=== PATIENT | male | born 1955 | race Caucasian/White ===

== ENCOUNTER 2018-12-03 10:00 | Emergency (ER) | payer MEDICARE, SELFPAY ==
[2018-12-03 10:00] VITALS: BP 153/86; PULSE 101; RESP 20; O2SAT 97
--- NOTE | 2018-12-03 10:00 | RAD_ITS ---
STUDY: X-RAY CHEST REASON FOR EXAM: Male, 63 years old. Cough and shortness of breath. TECHNIQUE: PA and lateral views of the chest. COMPARISON: Comparison is made with prior study dated July 04, 2017. FINDINGS: EKG electrodes are seen. Hyperinflation. The lungs are clear. Nipple shadows are seen bilaterally. There is no demonstrated pleural abnormality. Normal size heart. Normal mediastinum and richard. Normal visualized pulmonary arteries. There is atherosclerotic tortuosity of the aortic arch and descending thoracic aorta. Normal visualized thoracic spine. Normal visualized ribs, clavicles, and shoulders. There is no demonstrated abnormality of the visualized soft tissue structures of the upper abdomen. RAD/Chest PA and Lateral IMPRESSION: Hyperinflation. The lungs are clear. Bilateral nipple shadows are seen. Electronically Signed: Chavez Regalado MD at 11:18 EST , Service support ,
--- NOTE | 2018-12-03 10:00 | EKG12_ITS ---
Test Reason : SOB Blood Pressure : / mmHG Vent. Rate : 111 BPM Atrial Rate : 111 BPM P-R Int : 126 ms QRS Dur : 086 ms QT Int : 328 ms P-R-T Axes : 057 034 053 degrees QTc Int : 446 ms Sinus tachycardia with Premature atrial complexes Otherwise normal ECG Confirmed by VLAD FLORES, JEANETTE ([id number]), photo editor JASON SHIPMAN ([id number]) on 12/09/2018 9:58:29 AM Referred By: MELANIE Confirmed By:JEANETTE CHU MD
[2018-12-03 10:01] VITALS: BP 131/110; PULSE 106; RESP 20; TEMP 37.1; O2SAT 97; BMI 25.7
--- NOTE | 2018-12-03 10:01 | ED.VISSUMM ---
- ER Visit Summary Date of Service: 12/03/18 Chief Complaint: Cough, shortness of breath History of Present Illness: The patient is a 63 M with history of COPD, hypertension, coronary vascular disease presents to the emergency department with cough and shortness of breath. The patient does have history of COPD and continues to smoke. He is not on oxygen at home. Yesterday, he began to have scant nonproductive cough. Overnight, he had worsening dyspnea. He states that his shortness of breath felt worse this morning. He took his blood pressure and it was mildly elevated. He has had no chest pain or orthopnea. He denies any hemoptysis. He did call squad. On squad arrival, he was given nebulized breathing treatments and Solu-Medrol. On arrival, he states is feeling much better. Physical Examination: Vital signs reviewed General: Well-nourished, well-developed Head: Normocephalic, atraumatic Eyes: Pupils equal and reactive, extraocular muscles intact Neck, supple, no lymphadenopathy Heart: Regular rate and rhythm Respiratory: No distress, wheezing in all kend[place] with diminished sounds in the right base Abdomen: Soft, nontender, nondistended, no peritoneal signs Back: Nontender Extremities: Nontender, no edema, no cords Skin: Normal color no rash Neuro: Alert and oriented, no focal or lateralizing deficits Test Results: [] Emergency Department Course and Treatment: The patient presents with a COPD exacerbation. He is on cough with scant sputum. He was given nebulized breathing treatments with improvement of his aeration. His chest x-ray was unremarkable. His EKG showed sinus rhythm without acute ischemia. However, the patient screening labs do show acute renal failure. His normal baseline creatinine is 1. When I discussed this with him, he states that he has been taking almost a gram of ibuprofen every 3 or 4 hours for the past 3 days. He states his been urinating without issue, but I did obtain a bladder scan and he had greater than a liter. Dos Santos catheter was placed. The patient had 1400 cc of clear urine out. I do suspect that he likely has a postobstructive uropathy. At this time, I do feel the patient would benefit from admission to monitor his creatinine. Addendum: The patient was seen and evaluated by the hospitalist. After long discussion with the patient, it was thought that he could be managed as an outpatient. He will be given outpatient urology follow-up and we will keep the Dos Santos in place. The patient will be discharged. Treatment Plan: [] Disposition: Discharge Impression: 1. COPD exacerbation 2. Postobstructive uropathy This note was generated with [employer] dictation software. It may contain incorrect words, spelling, and punctuation that were not noted in review of the chart prior to signing ED Disposition - Plan for ED Patient: Prescriptions: Albuterol Inhaler [Ventolin Hfa] 1 - 2 puff INHALATION Q4H PRN PRN #1 inhaler PRN Reason: Shortness Of Breath Prednisone 4 tab PO DAILY #20 tablet Tamsulosin HCl [Flomax] 0.4 mg PO DAILY #30 capsule Referrals: Neil Holden MD [Primary Care Provider] -
[2018-12-03 10:08] VITALS: PULSE 104; RESP 23
[2018-12-03] MEDS: Ipratropium/Albuterol Sulfate 3 ML AMPUL.NEB INHALATION (10:08)
[2018-12-03] MEDS: Albuterol 2.5 MG/3 ML VIAL.NEB. INHALATION ×3 (10:08)
[2018-12-03] MEDS: 0.9% Normal Saline 1,000 ML 150 ML IV (10:10)
[2018-12-03 10:34] LABS: Absolute Neutrophil Count 6.5 X10^3/uL (2.0-7.7); Basophil# 0.04 X10^3/uL; Basophil% 0.4 % (0-1); Eosinophil# 0.22 X10^3/uL; Eosinophils% 2.4 % (0-5); Hematocrit 35.2 % (40-54); Lymphocyte % 12.2 % (19-41); Mean Corp Hgb Conc 31.3 g/gl (32-36); Mean Corpuscular Hgb 29.4 pg (27.0-32.0); Mean Corpuscular Volume 94.1 fL (80-94); Mean Platelet Vol. 11.7 fl (6.2-12.0); Monocyte# 1.12 X10^3/uL; Monocyte% 12.4 % (0-10); Neutrophil # 6.53 X10^3/uL (2.7-7.7); Neutrophil % 72.3 % (47-70); Platelet Count 217 K/mm3 (150-450); RBC Distribution Width CV 13.5 % (11.6-14.6); RBC Distribution Width SD 44.4 fl (35.1-43.9); Red Blood Count 3.74 M/mm3 (4.6-6.2)
[2018-12-03 10:36] LABS: POSITIVE COUNT NO; POSITIVE DIFFERENTIAL NO; POSITIVE MORPHOLOGY NO
[2018-12-03 10:42] VITALS: O2SAT 97
[2018-12-03 10:49] LABS: Anion Gap 8 (5-15); BUN 45 mg/dL (7-18); Calcium,Total 8.6 mg/dL (8.5-10.1); Chloride 113 mmol/L (98-107); Creatinine, Serum 4.51 mg/dL (0.70-1.30); EST Glomerular Filtration Rate 14 mL/min (>60); Est Glom Filt Rate - Afr Amer 17 mL/min (>60); Estimated Creatinine Clearance 16.76 ml/min; Glucose 112 mg/dL (74-106); Potassium 4.8 mmol/L (3.5-5.1); Sodium Level 142 mmol/L (136-145)
[2018-12-03 11:36] LABS: AST(SGOT) 30 U/L (15-37); Alanine Aminotransfer ALT/SGPT 42 U/L (16-61); Albumin, Serum 3.8 g/dL (3.2-5.0); Alkaline Phosphatase 58 U/L (45-117); Bilirubin, Direct 0.08 mg/dL (0.00-0.30); Globulin 3.8 g/dL (2.2-4.2); Protein, Total 7.6 g/dL (6.4-8.2)
[2018-12-03 11:41] LABS: Bacteria 0 SEEN /hpf (None Seen); Mucous, Urine 0 SEEN /hpf (<or=2+); Red Blood Cells-Urine 0 SEEN /hpf (0-5); White Blood Cells 0 SEEN /hpf (0-5)
[2018-12-03 11:44] LABS: Color, Urine Yellow (Yellow); Glucose, Dipstick Normal (Normal); Ketone-Dipstick Negative (Negative); Leukocyte Esterase-Dipstick Negative /ul (Negative); Nitrite-Dipstick Negative (Negative); Occult Blood-Urine 10 /ul (Negative); Protein-Dipstick 30 mg/dl (Negative); Urine Bilirubin Dipstick Negative (Negative); Urine Clarity Clear (Clear); Urine Urobilinogen Normal (Normal)
--- NOTE | 2018-12-03 11:51 | NURSING ---
DR ANDREW PRO
[2018-12-03 11:52] LABS: Squamous Epithelial Cells - UA 0-5 SEEN /hpf (0-5)
[2018-12-03 12:31] VITALS: BP 140/85; PULSE 108; RESP 22; O2SAT 98
--- NOTE | 2018-12-03 13:01 | DCINST_ITS ---
You will use the following diet at home:: No restrictions Your food should be the consistency of: Regular Discharge Activity: Return to Normal Activity Call your doctor if you observe: Fever of 101 or Higher, Shortness of breath Catheter: Dos Santos to leg bag Allergies/Adverse Reactions: Allergies No Known Allergies Allergy (Verified 07/04/17 05:18) Medications to take at Discharge Aspirin [Aspir-Low] 81 mg PO DAILY 07/04/17 clopidogrel 75 mg tablet 75 mg PO DAILY #90 tab 09/28/18 isosorbide mononitrate ER 30 mg tablet,extended release 24 hr 30 mg PO QDAY #90 tab 09/28/18 metoprolol succinate ER 25 mg tablet,extended release 24 hr 25 mg PO DAILY #90 tab 09/28/18 simvastatin 80 mg tablet 80 mg PO QHS #90 tab 09/28/18 Albuterol Inhaler [Ventolin Hfa] 1 - 2 puff INHALATION Q4H PRN PRN #1 inhaler 12/03/18 [place]-3 Fatty Acids/Fish Oil [Fish Oil 1,000 mg Capsule] 1 each PO DAILY 12/03/18 Prednisone 4 tab PO DAILY #20 tablet 12/03/18 Tamsulosin HCl [Flomax] 0.4 mg PO DAILY #30 capsule 12/03/18 The following prescriptions were given: Albuterol Inhaler [Ventolin Hfa] 1 - 2 puff INHALATION Q4H PRN PRN #1 inhaler PRN Reason: Shortness Of Breath Prednisone 4 tab PO DAILY #20 tablet Tamsulosin HCl [Flomax] 0.4 mg PO DAILY #30 capsule Orders to be completed after discharge: Basic Metabolic Profile (BMP) Time Frame: 1 Week, Location: Laboratory Primary Care Physician: Neil Holden MD [Primary Care Provider] - Please follow up with your Primary Care Physician in: follow up in 1-2 weeks Test Results: Test results from this visit will be discussed in further detail at your follow- up appointment, if applicable. Please Follow Up With: Eduardo Chadwick MD - Urology When: 2-3 weeks Proposed Discharge Date: 12/03/18
--- NOTE | 2018-12-03 13:01 | PCM.CONS.GEN ---
Problem List (1) MATEUS (acute kidney injury) Status: Acute (2) BPH (benign prostatic hyperplasia) Status: Acute (3) COPD exacerbation Status: Chronic Reason for Consult Date of Consultation: 12/03/18 Reason for Consultation: shortness of breath. History of Present Illness: The patient is a 63 year old M resents with being ill for the past 2 days. Today patient just felt increasing shortness of breath and a sent to the emergency room. Patient was never noted to be hypoxic it was found to have a creatinine of 4.5, up from his baseline of 0.73 from June 2017. Patient is never had a known history of BPH nor acute renal failure. Patient received steroids as well as breathing treatments and currently feeling better. Patient did have a Dos Santos catheter placed that removed immediately 1500 cc of urine. Patient has noted that he has had some intermittent issues in regards to urinary incontinence which occasionally he wears some pads in his underwear. The hospitalist service was asked to admit the patient for renal failure and COPD exacerbation. [] Past Medical History Past Medical History (Chronic Problems): Chronic Problems COPD exacerbation (Chronic) Medical History: Medical History (Last Updated 12/03/18 @ 13:03 by Tenzin Paul DO) CAD (coronary artery disease) I25.10 COPD (chronic obstructive pulmonary disease) J44.9 HTN (hypertension) I10 Allergies No Known Allergies Allergy (Verified 07/04/17 05:18) Home Medications: Ambulatory Orders Medication Instructions Recorded Aspirin [Aspir-Low] 81 mg PO DAILY 07/04/17 clopidogrel 75 mg tablet 75 mg PO DAILY #90 tab 09/28/18 isosorbide mononitrate ER 30 mg 30 mg PO QDAY #90 tab 09/28/18 tablet,extended release 24 hr metoprolol succinate ER 25 mg 25 mg PO DAILY #90 tab 09/28/18 tablet,extended release 24 hr simvastatin 80 mg tablet 80 mg PO QHS #90 tab 09/28/18 Albuterol Inhaler [Ventolin Hfa] 1 - 2 puff INHALATION Q4H PRN PRN 12/03/18 #1 inhaler [place]-3 Fatty Acids/Fish Oil [Fish 1 each PO DAILY 12/03/18 Oil 1,000 mg Capsule] Prednisone 4 tab PO DAILY #20 tablet 12/03/18 Tamsulosin HCl [Flomax] 0.4 mg PO DAILY #30 capsule 12/03/18 Smoking Status: Light Smoker (<10/day) Tobacco Use: Cigarettes Alcohol: None Drugs: None - *Family History Maternal Family History: Family History (Last Updated 12/03/18 @ 13:03 by Tenzin Paul DO) Other BPH (benign prostatic hyperplasia) Review of Systems Constitutional: Reports: Malaise. Denies: Anorexia, Chills, Fever, Night Sweats Eyes: Denies: Blurred vision, Double vision HEENT: Denies: Head Aches, Sinus Congestion, Sinus Drainage Cardiovascular: Denies: Chest Pain, Palpitations Respiratory: Reports: Shortness of Breath. Denies: Cough, Sputum production Gastrointestinal: Denies: Abdominal Pain, Nausea, Vomiting Genitourinary: Reports: Incontinence, - - pain with catheter.. Denies: Dysuria Musculoskeletal: Denies: Joint Pain, Joint Tenderness Skin: Denies: Rash, Wounds Neurological: Denies: Numbness, Tingling, Focal weakness Psychiatric: Denies: Anxiety, Depression Hematologic/ Lymphatic: Denies: Easy Bruising, Easy Bleeding, Hx of blood clot Comment: A 10 point review of systems were negative except as mentioned in the history of present illness and the other review of systems. Patient Problems: Active and Suspected Problems BPH (benign prostatic hyperplasia) (Acute) MATEUS (acute kidney injury) (Acute) - Physical Exam General: Alert, Cooperative, No apparent distress HEENT: Atraumatic, Normocephalic Oral: Moist Mucosa, No Gingival or Mucosal Lesions/ Ulcerations Neck: No Nodes, Thyroid Normal Size and Texture Lungs: Clear to auscultation, Normal air movement, No rhonchi, No wheeze Cardiovascular: Regular rate, Regular Rhythm, Normal S1, Normal S2, No murmurs Abdomen: Bowel Sounds Present, Soft, Non Tender, Non-Distended, No Hepato-splenomegaly Extremities: No edema, No Calf Tenderness Skin: No rashes, No breakdown Psych/Mental Status: Normal Affect, Appropriate Vital Signs Temp Pulse Resp BP Pulse Ox 37.1 C 108 H 22 H 140/85 H 98 12/03/18 10:01 12/03/18 12:31 12/03/18 12:31 12/03/18 12:31 12/03/18 12:31 Oxygen Delivery Method Room Air Weight: 78.925 kg Body Mass Index (BMI) 25.7 Laboratory Tests Past 24 Hrs 12/03/18 12/03/18 12/03/18 10:25 10:25 10:25 WBC 9.0 RBC 3.74 L Hgb 11.0 L Hct 35.2 L MCV 94.1 H MCH 29.4 MCHC 31.3 L RDW 13.5 RDW Differential 44.4 H Plt Count 217 MPV 11.7 Immature Gran % (Auto) 0.300 Neut % (Auto) 72.3 H Lymph % (Auto) 12.2 L Polk % (Auto) 12.4 H Eos % (Auto) 2.4 Baso % (Auto) 0.4 Absolute Neuts (auto) 6.5 Absolute Lymphs (auto) 1.10 Total Counted Not Reportable Sodium 142 Potassium 4.8 Chloride 113 H Carbon Dioxide 21.0 Anion Gap 8 BUN 45 H Creatinine 4.51 H Estim Creat Clear Calc 16.76 Est GFR (MDRD) Af Amer 17 L Est GFR (MDRD) Non-Af 14 L BUN/Creatinine Ratio 10.0 Glucose 112 H Calcium 8.6 Total Bilirubin 0.30 Direct Bilirubin 0.08 AST 30 ALT 42 Alkaline Phosphatase 58 Troponin I 0.037 Total Protein 7.6 Albumin 3.8 Globulin 3.8 Urine Color Urine Clarity Urine pH Ur Specific [place] Urine Protein Urine Glucose (UA) Urine Ketones Urine Occult Blood Urine Nitrite Urine Bilirubin Urine Urobilinogen Ur Leukocyte Esterase Urine RBC Urine WBC Ur Squamous Epith Cells Urine Bacteria Urine Mucus 12/03/18 11:30 WBC RBC Hgb Hct MCV MCH MCHC RDW RDW Differential Plt Count MPV Immature Gran % (Auto) Neut % (Auto) Lymph % (Auto) Polk % (Auto) Eos % (Auto) Baso % (Auto) Absolute Neuts (auto) Absolute Lymphs (auto) Total Counted Sodium Potassium Chloride Carbon Dioxide Anion Gap BUN Creatinine Estim Creat Clear Calc Est GFR (MDRD) Af Amer Est GFR (MDRD) Non-Af BUN/Creatinine Ratio Glucose Calcium Total Bilirubin Direct Bilirubin AST ALT Alkaline Phosphatase Troponin I Total Protein Albumin Globulin Urine Color Yellow Urine Clarity Clear Urine pH 6.0 Ur Specific [place]anchard 1.010 Urine Protein 30 H Urine Glucose (UA) Normal Urine Ketones Negative Urine Occult Blood 10 H Urine Nitrite Negative Urine Bilirubin Negative Urine Urobilinogen Normal Ur Leukocyte Esterase Negative Urine RBC 0 SEEN Urine WBC 0 SEEN Ur Squamous Epith Cells 0-5 SEEN Urine Bacteria 0 SEEN Urine Mucus 0 SEEN Assessment/Plan All Active Problems BPH (benign prostatic hyperplasia) (Acute) MATEUS (acute kidney injury) (Acute) 1. Acute kidney injury Likely post renal Continue with a Dos Santos catheter Flomax Follow BMP as outpatient Hold lisinopril in the meantime. 2. Acute COPD exacerbation Mild Prednisone 40 mg daily for 5 days and albuterol metered-dose inhalers as needed 3. BPH Is been more of a chronic process but it sounds that the patient had some prior issues with some urinary incontinence. Patient continue with Dos Santos catheter with a leg bag instructions to be given by nursing. Patient continue with Flomax Patient follow-up with urology in the next coming weeks for eventual removal of the Dos Santos catheter. No indication to admit this patient. Discussed with the patient and he is in agreement to be discharged and to have the appropriate follow-ups. Code Visit Office Visits / Consults: [id number] OP Consult L4
[2018-12-03 14:04] VITALS: BP 138/70; PULSE 101; RESP 14; O2SAT 97
== END 2018-12-03 14:05 | disposition home or self-care (01) ==
LOC: ED 11:52
PROVIDERS: Emergency Provider Emergency Medicine; Family Provider Family Medicine; PCP Family Medicine
DX: J44.1 Chronic obstructive pulmonary disease with (acute) exacerbation (principal); N13.9 Obstructive and reflux uropathy, unspecified; N17.9 Acute kidney failure, unspecified; N40.0 Benign prostatic hyperplasia without lower urinary tract symptoms; I25.10 Atherosclerotic heart disease of native coronary artery without angina pectoris; I25.2 Old myocardial infarction; I10 Essential (primary) hypertension; E78.00 Pure hypercholesterolemia, unspecified; Z79.82 Long term (current) use of aspirin; Z79.899 Other long term (current) drug therapy; F17.210 Nicotine dependence, cigarettes, uncomplicated
CPT/HCPCS: 51702; 71046; 80048; 80076; 81001; 84484; 85025; 93005; 94640; 96360; 96361; 99285; J7030

== ENCOUNTER 2018-12-06 15:17 | Inpatient (IN) | payer MEDICARE, SELFPAY ==
[2018-12-06] VITALS (9 sets, daily range): BP systolic 115–131; BP diastolic 67–77; PULSE 94–108; RESP 18–31; TEMP 36.5–37.1; O2SAT 94–98; BMI 28.0; BMI 27.1; BMI 27.2
--- NOTE | 2018-12-06 15:35 | EKG12_ITS ---
Test Reason : ANXIETY Blood Pressure : / mmHG Vent. Rate : 096 BPM Atrial Rate : 096 BPM P-R Int : 106 ms QRS Dur : 088 ms QT Int : 328 ms P-R-T Axes : 048 066 067 degrees QTc Int : 414 ms Sinus rhythm with short WI Otherwise normal ECG Confirmed by VLAD FLORES, JEANETTE ([id number]), associate editor JASON SHIPMAN ([id number]) on 12/09/2018 10:19:43 AM Referred By: Confirmed By:JEANETTE CHU MD
--- NOTE | 2018-12-06 15:35 | RAD_ITS ---
STUDY: X-RAY CHEST REASON FOR EXAM: Male, 63 years old. Short of breath and cough TECHNIQUE: Single AP portable view of the chest. COMPARISON: 12/03/2018. FINDINGS: There is hyperinflation of the lungs consistent with chronic obstructive lung disease (COPD). No infiltrates or effusions. There is no demonstrated pleural abnormality. Normal size heart. Normal mediastinum and richard. Normal visualized pulmonary arteries. Normal visualized aortic arch and descending thoracic aorta. Normal visualized thoracic spine. Normal visualized ribs, clavicles, and shoulders. There is no demonstrated abnormality of the visualized soft tissue structures of the upper abdomen. RAD/Chest 1 View (Portable) IMPRESSION: There are findings consistent with COPD. There is no evidence of acute chest disease. Electronically Signed: Wayne Parham MD at 16:12 EST , Service support ,
--- NOTE | 2018-12-06 15:41 | ED.DCSUM_ITS ---
- ER Visit Summary Date of Service: 12/06/18 Chief Complaint: Shortness of breath History of Present Illness: The patient is a 63 M presenting with shortness of breath. Patient states this started today. He states he tripped and fell on his walker. He fell onto his right knee. He did not hit his head or lose consciousness. He states he panicked and became very short of breath. He crawled to his room and called EMS. He has a history of COPD. He was in the ED on December 03 for COPD and was diagnosed with MATEUS secondary to postobstructive uropathy. He was sent home with a Dos Santos catheter. He is scheduled to have this removed on December 10. He is currently on prednisone. He denies chest pain. Denies other complaints. He was given albuterol and Solu-Medrol in route per EMS. Physical Examination: Vitals are stable. Patient is afebrile. Alert no acute distress. HEENT exam is unremarkable. Neck is supple. Lungs are wheezing bilaterally. Heart is regular rate and rhythm. Abdomen is soft nontender nondistended. Extremities right knee nontender with active full range of motion. Skin is warm and dry. No focal neurologic deficit. Remainder of exam is unremarkable. Emergency Department Course and Treatment: CBC shows white count 12.7, hemoglobin 10.9. Chemistries show glucose 142, BUN 64, creatinine 4.11. Troponin 0.030. EKG is sinus rate 96 no acute changes. Chest x-ray shows no acute process. He was given Solu-Medrol prior to arrival. He continues to have wheezing on reevaluation. Discussed with the hospitalist for admission. Disposition: Admission Impression: COPD exacerbation, MATEUS This note was generated with [employer] dictation software. It may contain incorrect words, spelling, and punctuation that were not noted in review of the chart prior to signing ED Disposition - Plan for ED Patient: Disposition: Acute Care [facility]
[2018-12-06 15:45] LABS: Absolute Neutrophil Count 9.9 X10^3/uL (2.0-7.7); Basophil# 0.01 X10^3/uL; Basophil% 0.1 % (0-1); Eosinophil# 0.05 X10^3/uL; Eosinophils% 0.4 % (0-5); Hematocrit 34.5 % (40-54); Hemoglobin 10.9 g/dl (13.0-16.5); Lymphocyte % 12.6 % (19-41); Mean Corp Hgb Conc 31.6 g/gl (32-36); Mean Corpuscular Hgb 29.1 pg (27.0-32.0); Mean Platelet Vol. 11.4 fl (6.2-12.0); Monocyte# 1.11 X10^3/uL; Monocyte% 8.7 % (0-10); Neutrophil # 9.87 X10^3/uL (2.7-7.7); Neutrophil % 77.8 % (47-70); POSITIVE COUNT NO; POSITIVE DIFFERENTIAL NO; POSITIVE MORPHOLOGY NO; Platelet Count 229 K/mm3 (150-450); RBC Distribution Width CV 13.6 % (11.6-14.6); RBC Distribution Width SD 46.1 fl (35.1-43.9); Red Blood Count 3.75 M/mm3 (4.6-6.2); White Blood Count 12.7 K/mm3 (4.4-11.0)
[2018-12-06] MEDS: Ipratropium/Albuterol Sulfate 3 ML AMPUL.NEB INHALATION ×2 (15:56→20:16)
[2018-12-06] MEDS: Albuterol 2.5 MG/3 ML VIAL.NEB. INHALATION ×2 (15:56)
[2018-12-06 15:59] LABS: Anion Gap 9 (5-15); BUN 64 mg/dL (7-18); BUN/Creat Ratio 15.6 RATIO (10-20); Calcium,Total 8.7 mg/dL (8.5-10.1); Chloride 113 mmol/L (98-107); Creatinine, Serum 4.11 mg/dL (0.70-1.30); EST Glomerular Filtration Rate 16 mL/min (>60); Est Glom Filt Rate - Afr Amer 19 mL/min (>60); Glucose 142 mg/dL (74-106); Potassium 4.5 mmol/L (3.5-5.1); Sodium Level 143 mmol/L (136-145)
--- NOTE | 2018-12-06 17:16 | HP.PCM_ITS ---
Problem List (1) MATEUS (acute kidney injury) Status: Acute (2) COPD exacerbation Status: Chronic (3) BPH (benign prostatic hyperplasia) Status: Acute Qualifiers: Lower urinary tract symptom detail: unspecified (4) CAD (coronary artery disease) Status: Acute Qualifiers: Coronary Disease-Associated Artery/Lesion type: unspecified vessel or lesion type Associated angina: without angina (5) Hypertension Status: Chronic Qualifiers: Hypertension type: essential hypertension Qualified Code(s): I10 - Essential (primary) hypertension History of Present Illness Date of Admission: 12/06/18 Chief Complaint: Shortness of breath, fall - 1 day The patient is a 63 year old M past medical history of CAD status post stents, follows with Dr. Garcia, COPD, not on oxygen, chronic smoker who comes in with complaints of shortness of breath. Patient was seen earlier on in the emergency department with similar presentation, he was found to have COPD exacerbation as well as acute kidney injury felt to be post renal. Patient had bladder fullness that was relieved with a Chapa catheter. Patient was discharged to follow-up with the urologist. He has an upcoming appointment on 12/10/18. Patient states he was on the prednisone, had completed 2 days of it. He reportedly tripped and fell on his walker and right knee today, and his phone was in his bedroom and he was unable to reach for it, he needed somebody to help him to get up, and he went into a panic attack with worsening shortness of breath. He denied any fever or chills or dizziness or chest pain. He denied hitting his head or losing consciousness. His chief complaint now is shortness of breath dilia non-productive cough. Vitals in the ED show temperature of 97.7F, heart rate 94, blood pressure 115/73, respiratory rate 18, SPO2 98% on 2 L of oxygen. His WBC count was 12.7, hemoglobin 10.9, platelet count 229, sodium 133, potassium 4.5, chloride 113, bicarbonate 21, BUN 64, creatinine 4.11, recent creatinine was 4.51. Chest x-ray was suggestive of COPD changes. Past Medical History Past Medical History (Chronic Problems): Chronic Problems (Last Updated 12/03/18 @ 13:03 by Tenzin Paul DO) COPD exacerbation (Chronic) Hypertension (Chronic) Medical History: Medical History (Last Updated 12/03/18 @ 13:03 by Tenzin Paul DO) CAD (coronary artery disease) I25.10 COPD (chronic obstructive pulmonary disease) J44.9 HTN (hypertension) I10 Allergies No Known Allergies Allergy (Verified 12/06/18 15:22) Home Medications: Ambulatory Orders Medication Instructions Recorded Aspirin [Aspir-Low] 81 mg PO DAILY 07/04/17 metoprolol succinate ER 25 mg 25 mg PO DAILY #90 tab 09/28/18 tablet,extended release 24 hr simvastatin 80 mg tablet 80 mg PO QHS #90 tab 09/28/18 Albuterol Inhaler [Ventolin Hfa] 1 - 2 puff INHALATION Q4H PRN PRN 12/03/18 #1 inhaler [place]-3 Fatty Acids/Fish Oil [Fish 1 each PO DAILY 12/03/18 Oil 1,000 mg Capsule] Tamsulosin HCl [Flomax] 0.4 mg PO DAILY #30 capsule 12/03/18 Cholecalciferol (VIT D3) [Vitamin 1,000 mg PO DAILY 12/06/18 D3] Clopidogrel Bisulfate [Clopidogrel] 75 mg PO DAILY 12/06/18 Isosorbide Mononitrate [Isosorbide 30 mg PO DAILY 12/06/18 Mononitrate ER] Lisinopril 5 mg PO DAILY 12/06/18 Prednisone 40 mg PO DAILY 12/06/18 Surgical History: tonsillectomy Psychiatric History: Anxiety Lives: Alone Smoking Status: Current every day smoker Tobacco Use: Cigarettes Alcohol: Occasional Drugs: None - *Family History Maternal Family History: Family History (Last Updated 12/03/18 @ 13:03 by Tenzin Paul DO) Other BPH (benign prostatic hyperplasia) History Items: Dementia Paternal Family History: Family History (Last Updated 12/03/18 @ 13:03 by Tenzin Paul DO) Other BPH (benign prostatic hyperplasia) History Items: Heart Disease - CHF Review of Systems Constitutional: Reports: Weakness, Fatigue. Denies: Anorexia, Chills, Fever, Night Sweats, Weight Change Eyes: Denies: Blurred vision, Cataracts, Conjunctivae Inflammation, Double vision, Pain, Redness, Vision Change HEENT: Denies: Difficulty Swallowing, Head Aches, Hearing Changes, Sinus Congestion, Sinus Drainage Cardiovascular: Reports: Orthopnea, Paroxysmal Noc. Dyspnea. Denies: Chest Pain, Claudication, Chest Pressure, Chest Tightness, Light Headedness, Palpitations Respiratory: Reports: Cough, Shortness of breath at rest, Shortness of breath upon exertion, Wheezing. Denies: Sputum production Gastrointestinal: Denies: Abdominal Pain, Constipation, Hematemesis, Hematochezia, Nausea, Vomiting Genitourinary: Reports: Hematuria, Retention - s/p chapa catheter. Denies: Dysuria, Frequency, Incontinence Musculoskeletal: Denies: Joint Pain, Joint stiffness, Joint swelling, Joint Tenderness Skin: Denies: Rash, Wounds Neurological: Denies: Difficulty swallowing, Focal weakness, Numbness, Tingling Psychiatric: Denies: Anxiety, Depression, Homicidal Ideations, Suicidal Ideations Hematologic/ Lymphatic: Denies: Easy Bruising, Easy Bleeding VTE Information - Inpt Only VTE Present on Admission: No VTE Pharm Prophylaxis ordered?: Yes Patient Problems: Active and Suspected Problems (Last Updated 12/03/18 @ 13:03 by Tenzin Paul DO) CAD (coronary artery disease) (Acute) - Physical Exam General: Alert, Oriented x3, Cooperative, - - in mild respiratory distress, HEENT: Atraumatic, PERRLA, EOMI, Normocephalic Oral: Moist Mucosa Neck: Supple, No JVD, Negative Carotid Bruits Lungs: Normal air movement, Diminished, Wheezes - scattered, - - unable to fully complete sentences Cardiovascular: Regular rate, Regular Rhythm, Normal S1, Normal S2, No murmurs Abdomen: Bowel Sounds Present, Soft, Non Tender, Non-Distended, No Hepato- splenomegaly Extremities: No edema Skin: No rashes, No breakdown Musculoskeletal: No Tenderness to Palpation of Joints or Extremities Lymphatic: No Cervical, Supraclavicular, or Inguinal Adenopathy Neurological: Cranial nerves II-XII grossly intact, Neuro grossly intact Psych/Mental Status: Normal Affect, Appropriate Vital Signs Temp Pulse Resp BP Pulse Ox 98.8 F 95 28 H 131/67 H 96 12/06/18 15:18 12/06/18 16:01 12/06/18 16:01 12/06/18 15:18 12/06/18 15:22 Oxygen Flow Rate (L/min) 2 Oxygen Delivery Method Nasal Cannula Weight: 83.8 kg Body Mass Index (BMI) 28.0 Laboratory Tests Past 24 Hrs 12/06/18 12/06/18 15:20 15:20 WBC 12.7 H RBC 3.75 L Hgb 10.9 L Hct 34.5 L MCV 92.0 MCH 29.1 MCHC 31.6 L RDW 13.6 RDW Differential 46.1 H Plt Count 229 MPV 11.4 Immature Gran % (Auto) 0.400 Neut % (Auto) 77.8 H Lymph % (Auto) 12.6 L [place] % (Auto) 8.7 Eos % (Auto) 0.4 Baso % (Auto) 0.1 Absolute Neuts (auto) 9.9 H Absolute Lymphs (auto) 1.60 Total Counted Not Reportable Sodium 143 Potassium 4.5 Chloride 113 H Carbon Dioxide 21.0 Anion Gap 9 BUN 64 H Creatinine 4.11 H Estim Creat Clear Calc 17.80 Est GFR (MDRD) Af Amer 19 L Est GFR (MDRD) Non-Af 16 L BUN/Creatinine Ratio 15.6 Glucose 142 H Calcium 8.7 Troponin I 0.030 Assessment/Plan All Active Problems (Last Updated 12/03/18 @ 13:03 by Tenzin Paul DO) MATEUS (acute kidney injury) (Acute) BPH (benign prostatic hyperplasia) (Acute) CAD (coronary artery disease) (Acute) 63 year old M past medical history of CAD status post stents, follows with Dr. Garcia, COPD, not on oxygen, chronic smoker who comes in with complaints of shortness of breath. 1. Acute COPD exacerbation with hypoxia, chronic smoker, underlying COPD Plan: Admit to MedSurg, continue oxygen, wean off oxygen for SPO2 more than 94%, incentive spirometer, 2. MATEUS, likely post renal with prerenal, baseline creatinine is less than 1, creatinine is 4.11 today, improved from 4.51, 2 days ago, Status post Chapa catheter, Hold lisinopril, urology consult, nephrology consult, urine sodium, urine creatinine, ultrasound of the kidneys and bladder Continue Flomax, Chapa catheter, pending urology recommendations 3. Leukocytosis likely secondary to recent steroid use, will trend 4. Microcytic microchromic anemia, hemoglobin 10.9, gradual drop in hemoglobin over months, will check for iron stores 5. BPH, on flomax, urology consulted 6. CAD s/p stents, on aspirin, Plavix, isosorbide, lisinopril, metoprolol Will hold lisinopril for now on account of acute kidney injury 7. Nicotine dependence, refuses nicotine patches, willing to have nicotine gum 8. DVT prophylaxis with heparin subcu 9. CODE STATUS-DNR CCA Discussed the various CODE STATUS -full code, DNR CCA, DNR CC with patient; explained the different types. Patient absolutely insists that he does not want to be on any machines. He states that if ever his heart was stops, he does not want resuscitation. We should let him go, and that he has lived a good life. Time spent discussing CODE STATUS and the goals of care 20 minutes Code Visit Inpatient E&M: 59824 Init Hosp L3 Procedures: 66629 Advncd Care Plan 30 Min
--- NOTE | 2018-12-06 17:18 | NURSING ---
MED SURG COPD EXAC, MATEUS AI
--- NOTE | 2018-12-06 18:39 | US_ITS ---
STUDY: RENAL ULTRASOUND - COMPLETE REASON FOR EXAM: Male, 63 years old. Acute renal failure. TECHNIQUE: Ultrasound evaluation of the kidneys was performed with real-time and static robb-scale imaging. COMPARISON: None. FINDINGS: RIGHT KIDNEY: Normal location of the right kidney, which is normal in size. The right kidney measures 9.6 x 5.1 x 5.9 cm. There is a normal cortex of the right kidney. The renal cortex measures 1.3 cm. There is no right renal mass or cyst. There are no right renal calculi. There is moderate hydronephrosis of the right kidney. DISTAL RIGHT URETER: There is non-visualization of the distal right ureter. There is no demonstrated right ureterovesical junction calculus. There is no demonstrated right ureteral jet. LEFT KIDNEY: Normal location of the left kidney, which is normal in size. The left kidney measures 11.0 x 4.9 x 6.0 cm. There is a normal cortex of the left kidney. The renal cortex measures 1.5 cm. There is no left renal mass or cyst. There are no left renal calculi. There is moderate hydronephrosis of the left kidney. DISTAL LEFT URETER: There is non-visualization of the distal left ureter. There is no demonstrated left ureterovesical junction calculus. There is no demonstrated left ureteral jet. BLADDER: There is a Dos Santos catheter emptying the bladder. US/Kidney and Bladder IMPRESSION: Bilateral moderate hydronephrosis. Electronically Signed: Wayne Parham MD at 21:47 EST , Service support ,
[2018-12-06 20:21] LABS: BNP,B-Type NATRIURETIC PEPTIDE 24.4 pg/mL (0-100)
[2018-12-06 21:01] LABS: Urine Sodium 30 mmol/L (Not Establ.)
[2018-12-06] MEDS: Atorvastatin Calcium 40 MG Tablet PO (23:20)
[2018-12-06] MEDS: Heparin Injection (Vial) 5,000 UNIT/ML VIAL 5000 UNIT SC (23:20)
[2018-12-06] MEDS: Oseltamivir Phosphate 30 MG Capsule PO (23:20)
--- NOTE | 2018-12-06 23:29 | NURSING ---
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
[2018-12-07] VITALS (17 sets, daily range): BP systolic 109–140; BP diastolic 54–79; PULSE 66–104; RESP 18–24; TEMP 36.6–36.8; O2SAT 95–97
[2018-12-07] MEDS: Ipratropium/Albuterol Sulfate 3 ML AMPUL.NEB INHALATION ×5 (02:49→23:34)
[2018-12-07] MEDS: 0.9% NaCl Peripheral Flush Adult/Peds IV ×3 (05:45→09:08)
[2018-12-07 07:33] LABS: Absolute Lymphocyte Count 0.52 X10^3/ul (0.83-4.51); Absolute Neutrophil Count 11.9 X10^3/uL (2.0-7.7); Basophil# 0.01 X10^3/uL; Basophil% 0.1 % (0-1); Hematocrit 33.1 % (40-54); Hemoglobin 10.7 g/dl (13.0-16.5); Lymphocyte # 0.52 X10^3/ul (4.0); Mean Corp Hgb Conc 32.3 g/gl (32-36); Mean Corpuscular Hgb 29.4 pg (27.0-32.0); Mean Corpuscular Volume 90.9 fL (80-94); Mean Platelet Vol. 11.5 fl (6.2-12.0); Monocyte# 0.36 X10^3/uL; Monocyte% 2.8 % (0-10); Neutrophil # 11.94 X10^3/uL (2.7-7.7); Neutrophil % 92.9 % (47-70); Platelet Count 226 K/mm3 (150-450); RBC Distribution Width CV 13.7 % (11.6-14.6); RBC Distribution Width SD 45.2 fl (35.1-43.9); Red Blood Count 3.64 M/mm3 (4.6-6.2); White Blood Count 12.9 K/mm3 (4.4-11.0)
[2018-12-07 07:34] LABS: Differential Indicated SCAN CRITERIA MET; POSITIVE COUNT NO; POSITIVE DIFFERENTIAL YES; POSITIVE MORPHOLOGY NO
[2018-12-07 07:48] LABS: Anion Gap 13 (5-15); BUN 68 mg/dL (7-18); BUN/Creat Ratio 17.3 RATIO (10-20); Calcium,Total 8.9 mg/dL (8.5-10.1); Chloride 112 mmol/L (98-107); Creatinine, Serum 3.94 mg/dL (0.70-1.30); EST Glomerular Filtration Rate 17 mL/min (>60); Est Glom Filt Rate - Afr Amer 20 mL/min (>60); Estimated Creatinine Clearance 18.57 ml/min; Glucose 234 mg/dL (74-106); Potassium 4.8 mmol/L (3.5-5.1); Sodium Level 142 mmol/L (136-145)
[2018-12-07 08:13] LABS: Platelet Estimate ADEQUATE (ADEQ); Red Cell Morphology NORM C+C NORMAL (NORM C&C)
--- NOTE | 2018-12-07 08:41 | PCM.CONS.U ---
Reason for Consult Date of Consultation: 12/07/18 Reason for Consultation: BPH and urinary retention bilateral hydronephrosis History of Present Illness: The patient is a 63 year old male with a history of COPD presents with a COPD exacerbation also was found to have retention of urine Dos Santos catheter was placed his creatinine is elevated and he has acute renal insufficiency probably from BPH and obstruction urinary retention. Catheter placed loss of urine has been released. He was actually due to see me in the office for an evaluation for his prostate coming up on the of this month. He was started on Flomax which is reasonable. Past Medical History Past Medical History (Chronic Problems): Chronic Problems (Last Updated 12/03/18 @ 13:03 by Tenzin Paul DO) COPD exacerbation (Chronic) Hypertension (Chronic) Medical History: Medical History (Last Reviewed 12/07/18 @ 08:42 by Eduardo Chadwick MD) CAD (coronary artery disease) I25.10 COPD (chronic obstructive pulmonary disease) J44.9 HTN (hypertension) I10 Allergies No Known Allergies Allergy (Verified 12/06/18 15:22) Home Medications: Ambulatory Orders Medication Instructions Recorded Aspirin [Aspir-Low] 81 mg PO DAILY 07/04/17 metoprolol succinate ER 25 mg 25 mg PO DAILY #90 tab 09/28/18 tablet,extended release 24 hr simvastatin 80 mg tablet 80 mg PO QHS #90 tab 09/28/18 Albuterol Inhaler [Ventolin Hfa] 1 - 2 puff INHALATION Q4H PRN PRN 12/03/18 #1 inhaler [place]-3 Fatty Acids/Fish Oil [Fish 1 each PO DAILY 12/03/18 Oil 1,000 mg Capsule] Tamsulosin HCl [Flomax] 0.4 mg PO DAILY #30 capsule 12/03/18 Cholecalciferol (VIT D3) [Vitamin 1,000 mg PO DAILY 12/06/18 D3] Clopidogrel Bisulfate [Clopidogrel] 75 mg PO DAILY 12/06/18 Isosorbide Mononitrate [Isosorbide 30 mg PO DAILY 12/06/18 Mononitrate ER] Lisinopril 5 mg PO DAILY 12/06/18 Prednisone 40 mg PO DAILY 12/06/18 Surgical History: tonsillectomy Psychiatric History: Anxiety Lives: Alone Smoking Status: Current every day smoker Tobacco Use: Cigarettes Alcohol: Occasional Drugs: None - *Family History Maternal Family History: Family History (Last Reviewed 12/07/18 @ 08:42 by Eduardo Chadwick MD) Other BPH (benign prostatic hyperplasia) History Items: Dementia Paternal Family History: Family History (Last Reviewed 12/07/18 @ 08:42 by Eduardo Chadwick MD) Other BPH (benign prostatic hyperplasia) History Items: Heart Disease - CHF Review of Systems Constitutional: Denies: Chills, Fever, Weight Change HEENT: Denies: Head Aches, Sinus Congestion, Sinus Drainage Cardiovascular: Denies: Chest Pain, Palpitations Respiratory: Reports: Shortness of Breath, Shortness of breath at rest. Denies: Cough, Sputum production Gastrointestinal: Denies: Abdominal Pain, Nausea, Vomiting Genitourinary: Reports: Incontinence, Retention. Denies: Dysuria Musculoskeletal: Denies: Joint Pain, Joint Tenderness Skin: Denies: Rash, Wounds Neurological: Denies: Numbness, Tingling, Focal weakness Psychiatric: Denies: Anxiety, Depression, Homicidal Ideations, Suicidal Ideations Hematologic/ Lymphatic: Denies: Easy Bruising, Easy Bleeding Physical Exam - Physical Exam Vital Signs Temp 97.8 F 12/07/18 02:15 Pulse 102 H 12/07/18 07:16 Resp 18 12/07/18 07:16 BP 109/54 L 12/07/18 02:15 Pulse Ox 97 12/07/18 07:16 Intake & Output 12/05/18 12/06/18 12/07/18 23:59 23:59 23:59 Intake Total 800 / 800 Output Total 600 / 600 1250 / 1250 Balance -600 / -600 -450 / -450 Weight: 81.148 kg 81.9 kg Intake: Oral 800 / 800 Output: Urine 600 / 600 1250 / 1250 General: Alert, Oriented x3 HEENT: Atraumatic Oral: Moist Mucosa Neck: Supple Lungs: Short of Breath, Using Accessory Muscles, Wheezes Cardiovascular: Regular rate, Regular Rhythm Abdomen: Soft, Obese Rectal: Exam deferred Microbiology Past 72 Hours 12/06/18 20:20 Influenza Types A,B Direct FA (TYLER) - Final Mucosa - Nasopharyngeal Influenzae A Laboratory Tests Past 24 Hrs 12/06/18 12/06/18 12/06/18 15:20 15:20 15:20 WBC 12.7 H RBC 3.75 L Hgb 10.9 L Hct 34.5 L MCV 92.0 MCH 29.1 MCHC 31.6 L RDW 13.6 RDW Differential 46.1 H Plt Count 229 MPV 11.4 Immature Gran % (Auto) 0.400 Neut % (Auto) 77.8 H Lymph % (Auto) 12.6 L [place] % (Auto) 8.7 Eos % (Auto) 0.4 Baso % (Auto) 0.1 Absolute Neuts (auto) 9.9 H Absolute Lymphs (auto) 1.60 Total Counted Not Reportable Platelet Estimate RBC Morphology Sodium 143 Potassium 4.5 Chloride 113 H Carbon Dioxide 21.0 Anion Gap 9 BUN 64 H Creatinine 4.11 H Estim Creat Clear Calc 17.80 Est GFR (MDRD) Af Amer 19 L Est GFR (MDRD) Non-Af 16 L BUN/Creatinine Ratio 15.6 Glucose 142 H Calcium 8.7 Troponin I 0.030 B-Natriuretic Peptide 24.4 Ur Random Sodium Urine Creatinine 12/06/18 12/06/18 12/06/18 20:17 20:30 20:30 WBC RBC Hgb Hct MCV MCH MCHC RDW RDW Differential Plt Count MPV Immature Gran % (Auto) Neut % (Auto) Lymph % (Auto) [place] % (Auto) Eos % (Auto) Baso % (Auto) Absolute Neuts (auto) Absolute Lymphs (auto) Total Counted Platelet Estimate RBC Morphology Sodium Potassium Chloride Carbon Dioxide Anion Gap BUN Creatinine Estim Creat Clear Calc Est GFR (MDRD) Af Amer Est GFR (MDRD) Non-Af BUN/Creatinine Ratio Glucose Calcium Troponin I 0.021 B-Natriuretic Peptide Ur Random Sodium 30 Urine Creatinine 135.00 12/06/18 12/07/18 12/07/18 23:00 02:12 07:00 WBC 12.9 H RBC 3.64 L Hgb 10.7 L Hct 33.1 L MCV 90.9 MCH 29.4 MCHC 32.3 RDW 13.7 RDW Differential 45.2 H Plt Count 226 MPV 11.5 Immature Gran % (Auto) 0.200 Neut % (Auto) 92.9 H Lymph % (Auto) 4.0 L [place] % (Auto) 2.8 Eos % (Auto) 0.0 Baso % (Auto) 0.1 Absolute Neuts (auto) 11.9 H Absolute Lymphs (auto) 0.52 L Total Counted Not Reportable Platelet Estimate ADEQUATE RBC Morphology NORM C+C Sodium Potassium Chloride Carbon Dioxide Anion Gap BUN Creatinine Estim Creat Clear Calc Est GFR (MDRD) Af Amer Est GFR (MDRD) Non-Af BUN/Creatinine Ratio Glucose Calcium Troponin I < 0.015 < 0.015 B-Natriuretic Peptide Ur Random Sodium Urine Creatinine 12/07/18 07:00 WBC RBC Hgb Hct MCV MCH MCHC RDW RDW Differential Plt Count MPV Immature Gran % (Auto) Neut % (Auto) Lymph % (Auto) [place] % (Auto) Eos % (Auto) Baso % (Auto) Absolute Neuts (auto) Absolute Lymphs (auto) Total Counted Platelet Estimate RBC Morphology Sodium 142 Potassium 4.8 Chloride 112 H Carbon Dioxide 17.0 L Anion Gap 13 BUN 68 H Creatinine 3.94 H Estim Creat Clear Calc 18.57 Est GFR (MDRD) Af Amer 20 L Est GFR (MDRD) Non-Af 17 L BUN/Creatinine Ratio 17.3 Glucose 234 H Calcium 8.9 Troponin I B-Natriuretic Peptide Ur Random Sodium Urine Creatinine Assessment/Plan All Active Problems (Last Updated 12/03/18 @ 13:03 by Tenzin Paul DO) MATEUS (acute kidney injury) (Acute) BPH (benign prostatic hyperplasia) (Acute) CAD (coronary artery disease) (Acute) 63-year-old male with a history of BPH and obstruction also multiple medical problems significant problem is mostly COPD presents to the hospital COPD exacerbation and urinary retention acute renal sufficiency probably from prostatic outlet obstruction. Recommend continue Flomax he will need to keep the catheter and he can follow-up in my office will set him up for a ultrasound of his prostate to evaluate prostate size and depending on the size of the prostate we can then determine whether surgical procedure like a TURP would be necessary simple prostatectomy versus microwave therapy or office-based procedures to restore normal voiding. He was instructed to follow with my office with his appointment and I will change the appointment to cystoscopy and prostate ultrasound to evaluate the prostate size and determine best course of action for treating his outlet obstruction.
[2018-12-07] MEDS: Aspirin E.C. 81 MG Tablet PO (09:06)
[2018-12-07] MEDS: Isosorbide Mononitrate 30 MG Tablet PO (09:06)
[2018-12-07] MEDS: Heparin Injection (Vial) 5,000 UNIT/ML VIAL 5000 UNIT SC ×2 (09:06→21:40)
[2018-12-07] MEDS: Tamsulosin HCl 0.4 MG Capsule PO (09:06)
[2018-12-07] MEDS: Clopidogrel Bisulfate 75 MG Tablet PO (09:07)
[2018-12-07] MEDS: Metoprolol(XL)Succ 25 MG Tablet PO (09:07)
--- NOTE | 2018-12-07 10:07 | PN_ITS ---
Patient Problems: Active and Suspected Problems (Last Reviewed 12/07/18 @ 08:42 by Eduardo Chadwick MD) Obstructive uropathy (Acute) Acute renal failure (ARF) (Acute) Subjective: Chief complaint: Follow-up after admission for acute COPD exacerbation triggered by influenza A, acute renal failure secondary to obstructive uropathy due to enlarged prostate. Patient seen and examined. No acute events overnight. He mentioned that his breathing is getting better, still having cough with minimal sputum. Denied abdominal pain, nausea or vomiting. He does have a Dos Santos catheter at this time. Denies chest pain, palpitation, dizziness or lightheadedness. His vital signs are stable, pulse ox is 95% on room air. - Physical Exam General: Alert, Oriented x3, Cooperative, - - Minimally short of breath. HEENT: Atraumatic, PERRLA, EOMI, Normocephalic Oral: Moist Mucosa, No Gingival or Mucosal Lesions/ Ulcerations Neck: Supple, No JVD, Negative Carotid Bruits, Trachea Midline, Thyroid Normal Size and Texture Lungs: No wheeze, No rales, Diminished, Rhonchi, Short of Breath Cardiovascular: Regular rate, Regular Rhythm, Normal S1, Normal S2, PMI Normal Abdomen: Bowel Sounds Present, Soft, Non Tender, Non-Distended, No Hepato- splenomegaly Extremities: No clubbing, No cyanosis, No edema Skin: No rashes, No breakdown Lymphatic: No Cervical, Supraclavicular, or Inguinal Adenopathy Neurological: Cranial nerves II-XII grossly intact, Motor Exam 5/5 strength throughout Psych/Mental Status: Normal Affect, Appropriate, Alert and oriented to time, place, person, mood and affect Vital Signs Temp Pulse Resp BP Pulse Ox 98.3 F 66 20 H 140/79 H 95 12/07/18 08:15 12/07/18 09:07 12/07/18 09:40 12/07/18 08:15 12/07/18 09:40 Oxygen Flow Rate (L/min) 3 Oxygen Delivery Method Room Air Weight: 180 lb 8.937 oz Body Mass Index (BMI) 27.1 Intake and Output for Last 24 Hours 12/05/18 12/06/18 12/07/18 23:59 23:59 23:59 Intake Total 800 / 800 Output Total 600 / 600 1250 / 1250 Balance -600 / -600 -450 / -450 Microbiology Past 72 Hours 12/06/18 20:20 Influenza Types A,B Direct FA (TYLER) - Final Mucosa - Nasopharyngeal Influenzae A Laboratory Tests Past 24 Hrs 12/06/18 12/06/18 12/06/18 15:20 15:20 15:20 WBC 12.7 H RBC 3.75 L Hgb 10.9 L Hct 34.5 L MCV 92.0 MCH 29.1 MCHC 31.6 L RDW 13.6 RDW Differential 46.1 H Plt Count 229 MPV 11.4 Immature Gran % (Auto) 0.400 Neut % (Auto) 77.8 H Lymph % (Auto) 12.6 L Gibson % (Auto) 8.7 Eos % (Auto) 0.4 Baso % (Auto) 0.1 Absolute Neuts (auto) 9.9 H Absolute Lymphs (auto) 1.60 Total Counted Not Reportable Platelet Estimate RBC Morphology Sodium 143 Potassium 4.5 Chloride 113 H Carbon Dioxide 21.0 Anion Gap 9 BUN 64 H Creatinine 4.11 H Estim Creat Clear Calc 17.80 Est GFR (MDRD) Af Amer 19 L Est GFR (MDRD) Non-Af 16 L BUN/Creatinine Ratio 15.6 Glucose 142 H Calcium 8.7 Troponin I 0.030 B-Natriuretic Peptide 24.4 Ur Random Sodium Urine Creatinine 12/06/18 12/06/18 12/06/18 20:17 20:30 20:30 WBC RBC Hgb Hct MCV MCH MCHC RDW RDW Differential Plt Count MPV Immature Gran % (Auto) Neut % (Auto) Lymph % (Auto) Gibson % (Auto) Eos % (Auto) Baso % (Auto) Absolute Neuts (auto) Absolute Lymphs (auto) Total Counted Platelet Estimate RBC Morphology Sodium Potassium Chloride Carbon Dioxide Anion Gap BUN Creatinine Estim Creat Clear Calc Est GFR (MDRD) Af Amer Est GFR (MDRD) Non-Af BUN/Creatinine Ratio Glucose Calcium Troponin I 0.021 B-Natriuretic Peptide Ur Random Sodium 30 Urine Creatinine 135.00 12/06/18 12/07/18 12/07/18 23:00 02:12 07:00 WBC 12.9 H RBC 3.64 L Hgb 10.7 L Hct 33.1 L MCV 90.9 MCH 29.4 MCHC 32.3 RDW 13.7 RDW Differential 45.2 H Plt Count 226 MPV 11.5 Immature Gran % (Auto) 0.200 Neut % (Auto) 92.9 H Lymph % (Auto) 4.0 L Gibson % (Auto) 2.8 Eos % (Auto) 0.0 Baso % (Auto) 0.1 Absolute Neuts (auto) 11.9 H Absolute Lymphs (auto) 0.52 L Total Counted Not Reportable Platelet Estimate ADEQUATE RBC Morphology NORM C+C Sodium Potassium Chloride Carbon Dioxide Anion Gap BUN Creatinine Estim Creat Clear Calc Est GFR (MDRD) Af Amer Est GFR (MDRD) Non-Af BUN/Creatinine Ratio Glucose Calcium Troponin I < 0.015 < 0.015 B-Natriuretic Peptide Ur Random Sodium Urine Creatinine 12/07/18 07:00 WBC RBC Hgb Hct MCV MCH MCHC RDW RDW Differential Plt Count MPV Immature Gran % (Auto) Neut % (Auto) Lymph % (Auto) Gibson % (Auto) Eos % (Auto) Baso % (Auto) Absolute Neuts (auto) Absolute Lymphs (auto) Total Counted Platelet Estimate RBC Morphology Sodium 142 Potassium 4.8 Chloride 112 H Carbon Dioxide 17.0 L Anion Gap 13 BUN 68 H Creatinine 3.94 H Estim Creat Clear Calc 18.57 Est GFR (MDRD) Af Amer 20 L Est GFR (MDRD) Non-Af 17 L BUN/Creatinine Ratio 17.3 Glucose 234 H Calcium 8.9 Troponin I B-Natriuretic Peptide Ur Random Sodium Urine Creatinine Clinical Impression(s) from Imaging Studies Chest X-Ray 12/06/18 15:35 IMPRESSION: There are findings consistent with COPD. There is no evidence of acute chest disease. Electronically Signed: Wayne Parham MD at 16:12 EST , Service support , Renal Ultrasound 12/06/18 18:39 IMPRESSION: Bilateral moderate hydronephrosis. Electronically Signed: Wayne Parham MD at 21:47 EST , Service support , Medical Necessity - Tobacco Use Smoking Status: Current every day smoker Tobacco Use: Cigarettes Assessment/Plan All Active Problems (Last Reviewed 12/07/18 @ 08:42 by Eduardo Chadwick MD) Obstructive uropathy (Acute) Acute renal failure (ARF) (Acute) This is a 63 years old male patient presented to the emergency room because of worsening shortness of breath, found to have acute COPD exacerbation triggered by influenza A and also found to have acute renal failure secondary to obstructive uropathy because of an enlarged prostate. #1 acute COPD exacerbation: Triggered by influenza A. He is on IV steroids and bronchodilators as well as Tamiflu. Chest x-ray reviewed, no acute infiltrate, pneumonia ruled out. Symptoms improved, he is off oxygen today. Pulse ox is 97% on room air, other vital signs are stable. Plan: DC IV steroids, start prednisone, continue Tamiflu. #2 acute renal failure: Attributed to bilateral obstructive uropathy secondary to enlarged prostate. Baseline kidney function is normal. Admission creatinine is 4.11. Ultrasound kidney showed bilateral moderate hydronephrosis. Urology consulted, recommended to keep Dos Santos catheter in place, continue Flomax and plan to follow-up with urology as outpatient. Patient has been on IV fluids, kidney function minimally improved. Urine output is reasonable. Plan: Continue IV fluids, repeat BMP tomorrow morning. #3 CAD status post stents: Stable, no acute issues. Continue aspirin, statins, Plavix, isosorbide mononitrate and metoprolol. #4 benign prostatic hypertrophy: Maintain Dos Santos catheter, continue Flomax, plan to follow-up with urology as outpatient. #5 hyperlipidemia: Continue statins. #6 hypertension: Blood pressure stable, continue isosorbide mononitrate and metoprolol. #7 DVT prophylaxis: Subcu heparin. This note was generated with [employer] dictation software. It may contain incorrect words, spelling, and punctuation that were not noted in checking the note before signing. Patient requests that he needs to go to his see his father who is very ill at hospice and he wants to see him. He stated that his father is very sick and he is about to . We will allow the patient to go in a short leave from the hospital to see his dad at hospice and come back. Code Visit Inpatient E&M: [id number] Subs Hosp L2
[2018-12-07] MEDS: 0.9% Normal Saline 1,000 ML 125 ML IV ×2 (10:15→18:17)
[2018-12-07 12:11] LABS: Hemoglobin A1c 5.4 % (4.2-6.3)
--- NOTE | 2018-12-07 16:10 | CM.UR ---
RN CM Assessment Met face to face with patient for initial transition planning/care coordination assessment. Introduced myself and my role. Verb understanding and agreement for assessment. Presentation: increased sob. + smoker PCP: rubén Preferred [facility] Insurance: [facility] Prescription Benefit: yes LNOK: ganga thompson Home: 1st floor set up in 2 story. ADLs: denies needing assistance with any adl. Transportation: drives self DME: w/c, power w/c, cane, walker, tub chair. SNF/HHC: none. Passport/waiver energy advisor: NA Advance Directives: none on file, declines at this time. DC PLAN: Home with no anticipated needs. States he will never go on oxygen. He was tearful at times regarding his date and the potential of his . Angie Armenta RN, CCM.
[2018-12-07] MEDS: guaiFENesin 10 ML UDC (200MG/10ML) PO (20:47)
[2018-12-07] MEDS: Atorvastatin Calcium 40 MG Tablet PO (21:40)
[2018-12-07] MEDS: Oseltamivir Phosphate 30 MG Capsule PO (21:40)
--- NOTE | 2018-12-07 22:18 | PCM.CONS.R ---
Consultation - Renal 12/07/18 PCP/ Referring MD: Requesting physician: Dr. Acevedo Primary care physician: Neil Holden MD Reason for Consultation:: MATEUS - History of Present Illness History of Present Illness: The patient is a 63 year old M with past history of COPD and CAD s/p PCI (followed by Dr. Garcia) presented to the ED initially on 12/03/18 with SOB and urinary retention. SCr was 4.51 mg/dL on 12/04/18. The pt was sent home with Dos Santos. The pt returned to the ED on 12/06/18 with worsening SOB, and is admitted for COPD exacerbation. His SCr was 4.11 mg/dL on 12/06/18, and SCr is 3.94 mg/dL today. US of the kidneys on 12/06/18 showed bilateral moderate hydronephrosis. The pt continues to have SOB although he feels better than yesterday. The pt reports nausea before admission. However, there was no vomiting or diarrhea. He denies significant edema. There is no SCr prior to 12/04/18 for comparison. Pt, interestingly, denies significant symptoms of urinary frequency, urgency, hesitancy or incontinence. The pt denies recent exposure to IV contrast or exposure to NSAID. - Allergies Allergies: Allergies No Known Allergies Allergy (Verified 12/06/18 15:22) - Current Medications Current Medications: Current Medications Acetaminophen (Tylenol) 650 mg PO Q6H PRN PRN PRN Reason: Mild Pain (1-3)/Temp > 100.7 F Albuterol Sulfate (Ventolin Aerosols) 2.5 mg INHALATION Q2H PRN PRN PRN Reason: SHORTNESS OF BREATH Albuterol/Ipratropium (Duoneb) 3 ml INHALATION Q4H.RT [facility] Last Admin: 12/07/18 19:47 Dose: 3 ml Aspirin (Ecotrin) 81 mg PO DAILYCM [facility] Last Admin: 12/07/18 09:06 Dose: 81 mg Atorvastatin Calcium (Lipitor) 40 mg PO QHS [facility] Last Admin: 12/07/18 21:40 Dose: 40 mg Cholecalciferol (Vitamin D) 1,000 unit PO DAILY [facility] Last Admin: 12/07/18 09:07 Dose: 1,000 unit Clopidogrel Bisulfate (Plavix) 75 mg PO DAILY [facility] Last Admin: 12/07/18 09:07 Dose: 75 mg Guaifenesin (Robitussin) 10 ml PO Q6H PRN PRN PRN Reason: COUGH/CONGESTION Last Admin: 12/07/18 20:47 Dose: 10 ml Heparin Sodium (Porcine) (Heparin Na) 5,000 unit SC Q12 [facility] Last Admin: 12/07/18 21:40 Dose: 5,000 unit Sodium Chloride () 1,000 mls @ 125 mls/hr IV .Q8H [facility] Last Admin: 12/07/18 18:17 Dose: 125 mls/hr Isosorbide Mononitrate (Imdur) 30 mg PO DAILY [facility] Last Admin: 12/07/18 09:06 Dose: 30 mg Magnesium Hydroxide (Milk Of Magnesia) 30 ml PO DAILY PRN PRN PRN Reason: Constipation Metoprolol Succinate (Toprol Xl (Beta Montez)) 25 mg PO DAILY [facility] Last Admin: 12/07/18 09:07 Dose: 25 mg Nicotine Polacrilex (Rugby Nicotine (Bkc)) 4 mg PO Q2H PRN PRN Reason: NICOTINE CRAVING Oseltamivir Phosphate (Tamiflu) 30 mg PO DAILY@2200 [facility] Stop: 12/10/18 22:01 Last Admin: 12/07/18 21:40 Dose: 30 mg Prednisone () 40 mg PO DAILY@0800 [facility] Sodium Chloride () 5 - 15 ml IV UD PRN PRN Reason: SALINE FLUSH Last Admin: 12/07/18 09:08 Dose: 10 ml Tamsulosin HCl (Flomax) 0.4 mg PO DAILY@0830 [facility] Last Admin: 12/07/18 09:06 Dose: 0.4 mg - Past Medical History Past Medical History (Chronic Problems): Chronic Problems (Last Reviewed 12/07/18 @ 08:42 by Eduardo Chadwick MD) Hyperlipidemia (Chronic) COPD (chronic obstructive pulmonary disease) (Chronic) BPH (benign prostatic hyperplasia) (Chronic) CAD (coronary artery disease) (Chronic) Hypertension (Chronic) - Past Surgical History Surgical History: tonsillectomy - Social History Smoking Status: Current every day smoker Alcohol: Occasional Drugs: None - Family History Maternal Family History: Family History (Last Reviewed 12/07/18 @ 08:42 by Eduardo Chadwick MD) Other BPH (benign prostatic hyperplasia) History Items: Dementia Paternal Family History: Family History (Last Reviewed 12/07/18 @ 08:42 by Eduardo Chadwick MD) Other BPH (benign prostatic hyperplasia) History Items: Heart Disease - CHF Review of Systems Constitutional: Denies: Chills, Fever, Weight Change Eyes: Denies: Pain, Vision Change HEENT: Denies: Head Aches, Sinus Congestion, Sinus Drainage Cardiovascular: Denies: Chest Pain, Palpitations Respiratory: Reports: Cough, Shortness of Breath Gastrointestinal: Denies: Abdominal Pain, Nausea, Vomiting Genitourinary: Reports: Retention. Denies: Dysuria, Incontinence, Urgency Musculoskeletal: Denies: Joint Pain, Joint Tenderness Skin: Denies: Rash, Wounds Neurological: Denies: Numbness, Tingling, Focal weakness Psychiatric: Denies: Anxiety, Depression, Homicidal Ideations, Suicidal Ideations Hematologic/ Lymphatic: Denies: Easy Bruising, Easy Bleeding Patient Problems: Active and Suspected Problems (Last Reviewed 12/07/18 @ 08:42 by Eduardo Chadwick MD) Obstructive uropathy (Acute) Acute renal failure (ARF) (Acute) - Physical Exam General: Alert, Oriented x3 HEENT: Atraumatic, PERRLA, EOMI Oral: Dry Mucosa Neck: Supple Lungs: Clear to auscultation Cardiovascular: Normal S1, Normal S2, No murmurs Abdomen: Bowel Sounds Present, Soft, Non Tender Extremities: No clubbing, No cyanosis, No edema Skin: No rashes Musculoskeletal: No Tenderness to Palpation of Joints or Extremities Neurological: Cranial nerves II-XII grossly intact Psych/Mental Status: Normal Affect Vital Signs Temp Pulse Resp BP Pulse Ox 98.2 F 91 18 134/74 H 96 12/07/18 20:35 12/07/18 20:35 12/07/18 20:35 12/07/18 20:35 12/07/18 20:35 Oxygen Flow Rate (L/min) 3 Oxygen Delivery Method Room Air Weight: 81.148 kg Body Mass Index (BMI) 27.1 Intake and Output for Last 24 Hours 12/05/18 12/06/18 12/07/18 23:59 23:59 23:59 Intake Total 2533 / 2533 Output Total 600 / 600 2750 / 2750 Balance -600 / -600 -217 / -217 Microbiology Past 72 Hours 12/06/18 20:20 Respiratory Panel (PCR) - Final Mucosa - Nasopharyngeal 12/06/18 20:20 Influenza Types A,B Direct FA (TYLER) - Final Mucosa - Nasopharyngeal Influenzae A Laboratory Tests Past 24 Hrs 12/06/18 12/07/18 12/07/18 23:00 02:12 07:00 WBC 12.9 H RBC 3.64 L Hgb 10.7 L Hct 33.1 L MCV 90.9 MCH 29.4 MCHC 32.3 RDW 13.7 RDW Differential 45.2 H Plt Count 226 MPV 11.5 Immature Gran % (Auto) 0.200 Neut % (Auto) 92.9 H Lymph % (Auto) 4.0 L [place] % (Auto) 2.8 Eos % (Auto) 0.0 Baso % (Auto) 0.1 Absolute Neuts (auto) 11.9 H Absolute Lymphs (auto) 0.52 L Total Counted Not Reportable Platelet Estimate ADEQUATE RBC Morphology NORM C+C Sodium Potassium Chloride Carbon Dioxide Anion Gap BUN Creatinine Estim Creat Clear Calc Est GFR (MDRD) Af Amer Est GFR (MDRD) Non-Af BUN/Creatinine Ratio Glucose Hemoglobin A1c Calcium Troponin I < 0.015 < 0.015 12/07/18 12/07/18 07:00 07:00 WBC RBC Hgb Hct MCV MCH MCHC RDW RDW Differential Plt Count MPV Immature Gran % (Auto) Neut % (Auto) Lymph % (Auto) [place] % (Auto) Eos % (Auto) Baso % (Auto) Absolute Neuts (auto) Absolute Lymphs (auto) Total Counted Platelet Estimate RBC Morphology Sodium 142 Potassium 4.8 Chloride 112 H Carbon Dioxide 17.0 L Anion Gap 13 BUN 68 H Creatinine 3.94 H Estim Creat Clear Calc 18.57 Est GFR (MDRD) Af Amer 20 L Est GFR (MDRD) Non-Af 17 L BUN/Creatinine Ratio 17.3 Glucose 234 H Hemoglobin A1c 5.4 Calcium 8.9 Troponin I Assessment/Plan All Active Problems (Last Reviewed 12/07/18 @ 08:42 by Eduardo Chadwick MD) Obstructive uropathy (Acute) Acute renal failure (ARF) (Acute) 1. Acute kidney injury. secondary to obstructive uropathy. Renal US does show BL hydronephrosis. There is also likely some contribution to MATEUS from volume depletion. I agree with IVF and leaving Dos Santos in place. It is unclear what his true baseline renal function is. There is no recent SCr since 07/04/17 (SCr was normal then). It is possible that obstruction may have been chronic and may have caused chronic kidney disease as well. Will see where SCr stabilizes at in the next few days. There is no urgent need for renal replacement therapy. Avoid NSAID. Current medications are appropriately dosed for the current CrCl. 2. COPD exacerbation Management as per hospitalist.
--- NOTE | 2018-12-07 22:24 | CON.PCM_ITS ---
Consultation - Renal 12/07/18 PCP/ Referring MD: Requesting physician: Dr. Acevedo Primary care physician: Neil Holden MD Reason for Consultation:: MATEUS - History of Present Illness History of Present Illness: The patient is a 63 year old M with past history of COPD and CAD s/p PCI (followed by Dr. Garcia) presented to the ED initially on 12/03/18 with SOB and urinary retention. SCr was 4.51 mg/dL on 12/04/18. The pt was sent home with Dos Santos. The pt returned to the ED on 12/06/18 with worsening SOB, and is admitted for COPD exacerbation. His SCr was 4.11 mg/dL on 12/06/18, and SCr is 3.94 mg/dL today. US of the kidneys on 12/06/18 showed bilateral moderate hydronephrosis. The pt continues to have SOB although he feels better than yesterday. The pt reports nausea before admission. However, there was no vomiting or diarrhea. He denies significant edema. There is no SCr prior to 12/04/18 for comparison. Pt, interestingly, denies significant symptoms of urinary frequency, urgency, hesitancy or incontinence. The pt denies recent exposure to IV contrast or exposure to NSAID. - Allergies Allergies: Allergies No Known Allergies Allergy (Verified 12/06/18 15:22) - Current Medications Current Medications: Current Medications Acetaminophen (Tylenol) 650 mg PO Q6H PRN PRN PRN Reason: Mild Pain (1-3)/Temp > 100.7 F Albuterol Sulfate (Ventolin Aerosols) 2.5 mg INHALATION Q2H PRN PRN PRN Reason: SHORTNESS OF BREATH Albuterol/Ipratropium (Duoneb) 3 ml INHALATION Q4H.RT [facility] Last Admin: 12/07/18 19:47 Dose: 3 ml Aspirin (Ecotrin) 81 mg PO DAILYCM [facility] Last Admin: 12/07/18 09:06 Dose: 81 mg Atorvastatin Calcium (Lipitor) 40 mg PO QHS [facility] Last Admin: 12/07/18 21:40 Dose: 40 mg Cholecalciferol (Vitamin D) 1,000 unit PO DAILY [facility] Last Admin: 12/07/18 09:07 Dose: 1,000 unit Clopidogrel Bisulfate (Plavix) 75 mg PO DAILY [facility] Last Admin: 12/07/18 09:07 Dose: 75 mg Guaifenesin (Robitussin) 10 ml PO Q6H PRN PRN PRN Reason: COUGH/CONGESTION Last Admin: 12/07/18 20:47 Dose: 10 ml Heparin Sodium (Porcine) (Heparin Na) 5,000 unit SC Q12 [facility] Last Admin: 12/07/18 21:40 Dose: 5,000 unit Sodium Chloride () 1,000 mls @ 125 mls/hr IV .Q8H [facility] Last Admin: 12/07/18 18:17 Dose: 125 mls/hr Isosorbide Mononitrate (Imdur) 30 mg PO DAILY [facility] Last Admin: 12/07/18 09:06 Dose: 30 mg Magnesium Hydroxide (Milk Of Magnesia) 30 ml PO DAILY PRN PRN PRN Reason: Constipation Metoprolol Succinate (Toprol Xl (Beta Montez)) 25 mg PO DAILY [facility] Last Admin: 12/07/18 09:07 Dose: 25 mg Nicotine Polacrilex ([place]ugby Nicotine (Bkc)) 4 mg PO Q2H PRN PRN Reason: NICOTINE CRAVING Oseltamivir Phosphate (Tamiflu) 30 mg PO DAILY@2200 [facility] Stop: 12/10/18 22:01 Last Admin: 12/07/18 21:40 Dose: 30 mg Prednisone () 40 mg PO DAILY@0800 [facility] Sodium Chloride () 5 - 15 ml IV UD PRN PRN Reason: SALINE FLUSH Last Admin: 12/07/18 09:08 Dose: 10 ml Tamsulosin HCl (Flomax) 0.4 mg PO DAILY@0830 [facility] Last Admin: 12/07/18 09:06 Dose: 0.4 mg - Past Medical History Past Medical History (Chronic Problems): Chronic Problems (Last Reviewed 12/07/18 @ 08:42 by Eduardo Chadwick MD) Hyperlipidemia (Chronic) COPD (chronic obstructive pulmonary disease) (Chronic) BPH (benign prostatic hyperplasia) (Chronic) CAD (coronary artery disease) (Chronic) Hypertension (Chronic) - Past Surgical History Surgical History: tonsillectomy - Social History Smoking Status: Current every day smoker Alcohol: Occasional Drugs: None - Family History Maternal Family History: Family History (Last Reviewed 12/07/18 @ 08:42 by Eduardo Chadwick MD) Other BPH (benign prostatic hyperplasia) History Items: Dementia Paternal Family History: Family History (Last Reviewed 12/07/18 @ 08:42 by Eduardo Chadwick MD) Other BPH (benign prostatic hyperplasia) History Items: Heart Disease - CHF Review of Systems Constitutional: Denies: Chills, Fever, Weight Change Eyes: Denies: Pain, Vision Change HEENT: Denies: Head Aches, Sinus Congestion, Sinus Drainage Cardiovascular: Denies: Chest Pain, Palpitations Respiratory: Reports: Cough, Shortness of Breath Gastrointestinal: Denies: Abdominal Pain, Nausea, Vomiting Genitourinary: Reports: Retention. Denies: Dysuria, Incontinence, Urgency Musculoskeletal: Denies: Joint Pain, Joint Tenderness Skin: Denies: Rash, Wounds Neurological: Denies: Numbness, Tingling, Focal weakness Psychiatric: Denies: Anxiety, Depression, Homicidal Ideations, Suicidal Ideations Hematologic/ Lymphatic: Denies: Easy Bruising, Easy Bleeding Patient Problems: Active and Suspected Problems (Last Reviewed 12/07/18 @ 08:42 by Eduardo Chadwick MD) Obstructive uropathy (Acute) Acute renal failure (ARF) (Acute) - Physical Exam General: Alert, Oriented x3 HEENT: Atraumatic, PERRLA, EOMI Oral: Dry Mucosa Neck: Supple Lungs: Clear to auscultation Cardiovascular: Normal S1, Normal S2, No murmurs Abdomen: Bowel Sounds Present, Soft, Non Tender Extremities: No clubbing, No cyanosis, No edema Skin: No rashes Musculoskeletal: No Tenderness to Palpation of Joints or Extremities Neurological: Cranial nerves II-XII grossly intact Psych/Mental Status: Normal Affect Vital Signs Temp Pulse Resp BP Pulse Ox 98.2 F 91 18 134/74 H 96 12/07/18 20:35 12/07/18 20:35 12/07/18 20:35 12/07/18 20:35 12/07/18 20:35 Oxygen Flow Rate (L/min) 3 Oxygen Delivery Method Room Air Weight: 81.148 kg Body Mass Index (BMI) 27.1 Intake and Output for Last 24 Hours 12/05/18 12/06/18 12/07/18 23:59 23:59 23:59 Intake Total 2533 / 2533 Output Total 600 / 600 2750 / 2750 Balance -600 / -600 -217 / -217 Microbiology Past 72 Hours 12/06/18 20:20 Respiratory Panel (PCR) - Final Mucosa - Nasopharyngeal 12/06/18 20:20 Influenza Types A,B Direct FA (TYLER) - Final Mucosa - Nasopharyngeal Influenzae A Laboratory Tests Past 24 Hrs 12/06/18 12/07/18 12/07/18 23:00 02:12 07:00 WBC 12.9 H RBC 3.64 L Hgb 10.7 L Hct 33.1 L MCV 90.9 MCH 29.4 MCHC 32.3 RDW 13.7 RDW Differential 45.2 H Plt Count 226 MPV 11.5 Immature Gran % (Auto) 0.200 Neut % (Auto) 92.9 H Lymph % (Auto) 4.0 L [place] % (Auto) 2.8 Eos % (Auto) 0.0 Baso % (Auto) 0.1 Absolute Neuts (auto) 11.9 H Absolute Lymphs (auto) 0.52 L Total Counted Not Reportable Platelet Estimate ADEQUATE RBC Morphology NORM C+C Sodium Potassium Chloride Carbon Dioxide Anion Gap BUN Creatinine Estim Creat Clear Calc Est GFR (MDRD) Af Amer Est GFR (MDRD) Non-Af BUN/Creatinine Ratio Glucose Hemoglobin A1c Calcium Troponin I < 0.015 < 0.015 12/07/18 12/07/18 07:00 07:00 WBC RBC Hgb Hct MCV MCH MCHC RDW RDW Differential Plt Count MPV Immature Gran % (Auto) Neut % (Auto) Lymph % (Auto) [place] % (Auto) Eos % (Auto) Baso % (Auto) Absolute Neuts (auto) Absolute Lymphs (auto) Total Counted Platelet Estimate RBC Morphology Sodium 142 Potassium 4.8 Chloride 112 H Carbon Dioxide 17.0 L Anion Gap 13 BUN 68 H Creatinine 3.94 H Estim Creat Clear Calc 18.57 Est GFR (MDRD) Af Amer 20 L Est GFR (MDRD) Non-Af 17 L BUN/Creatinine Ratio 17.3 Glucose 234 H Hemoglobin A1c 5.4 Calcium 8.9 Troponin I Assessment/Plan All Active Problems (Last Reviewed 12/07/18 @ 08:42 by Eduardo Chadwick MD) Obstructive uropathy (Acute) Acute renal failure (ARF) (Acute) 1. Acute kidney injury. secondary to obstructive uropathy. Renal US does show BL hydronephrosis. There is also likely some contribution to MATEUS from volume depletion. I agree with IVF and leaving Dos Santos in place. It is unclear what his true baseline renal function is. There is no recent SCr since 07/04/17 (SCr was normal then). It is possible that obstruction may have been chronic and may have caused chronic kidney disease as well. Will see where SCr stabilizes at in the next few days. There is no urgent need for renal replacement therapy. Avoid NSAID. Current medications are appropriately dosed for the current CrCl. 2. COPD exacerbation Management as per hospitalist.
[2018-12-08] VITALS (16 sets, daily range): BP systolic 128–160; BP diastolic 73–88; PULSE 63–103; RESP 18–20; TEMP 36.6–36.8; O2SAT 95–99
[2018-12-08] MEDS: 0.9% Normal Saline 1,000 ML 125 ML IV ×3 (01:46→21:22)
[2018-12-08] MEDS: Ipratropium/Albuterol Sulfate 3 ML AMPUL.NEB INHALATION ×4 (03:05→23:21)
[2018-12-08 06:15] LABS: Absolute Lymphocyte Count 1.18 X10^3/ul (0.83-4.51); Absolute Neutrophil Count 13.3 X10^3/uL (2.0-7.7); Basophil# 0.02 X10^3/uL; Basophil% 0.1 % (0-1); Eosinophil# 0.01 X10^3/uL; Eosinophils% 0.1 % (0-5); Lymphocyte # 1.18 X10^3/ul (4.0); Lymphocyte % 7.5 % (19-41); Mean Corp Hgb Conc 32.3 g/gl (32-36); Mean Corpuscular Hgb 29.4 pg (27.0-32.0); Mean Corpuscular Volume 91.2 fL (80-94); Mean Platelet Vol. 11.9 fl (6.2-12.0); Monocyte# 1.12 X10^3/uL; Monocyte% 7.1 % (0-10); Neutrophil # 13.34 X10^3/uL (2.7-7.7); Neutrophil % 84.2 % (47-70); Platelet Count 233 K/mm3 (150-450); RBC Distribution Width CV 13.6 % (11.6-14.6); RBC Distribution Width SD 44.7 fl (35.1-43.9); White Blood Count 15.8 K/mm3 (4.4-11.0)
[2018-12-08 06:23] LABS: POSITIVE COUNT NO; POSITIVE DIFFERENTIAL NO; POSITIVE MORPHOLOGY NO
[2018-12-08 06:32] LABS: Anion Gap 11 (5-15); BUN 66 mg/dL (7-18); BUN/Creat Ratio 19.5 RATIO (10-20); Calcium,Total 8.3 mg/dL (8.5-10.1); Chloride 114 mmol/L (98-107); Creatinine, Serum 3.39 mg/dL (0.70-1.30); EST Glomerular Filtration Rate 20 mL/min (>60); Est Glom Filt Rate - Afr Amer 24 mL/min (>60); Estimated Creatinine Clearance 21.58 ml/min; Glucose 165 mg/dL (74-106); Potassium 4.8 mmol/L (3.5-5.1); Sodium Level 144 mmol/L (136-145)
--- NOTE | 2018-12-08 10:13 | PCM.PROGNOTE ---
Patient Problems: Active and Suspected Problems (Last Reviewed 12/07/18 @ 08:42 by Eduardo Chadwick MD) Obstructive uropathy (Acute) Acute renal failure (ARF) (Acute) Subjective: Chief complaint: Follow-up after admission for acute COPD exacerbation triggered by influenza A, acute renal failure secondary to obstructive uropathy due to enlarged prostate. Patient seen and examined. No acute events overnight. His breathing is better, still having mild dry cough. He has been off oxygen. Remains on Dos Santos catheter, denies abdominal pain, nausea or vomiting. His vital signs are stable. - Physical Exam General: Alert, Oriented x3, Cooperative, No apparent distress HEENT: Atraumatic, PERRLA, EOMI, Normocephalic Oral: Moist Mucosa, No Gingival or Mucosal Lesions/ Ulcerations Neck: Supple, No JVD, Negative Carotid Bruits, Trachea Midline, Thyroid Normal Size and Texture Lungs: Clear to auscultation, No wheeze, No rales, Diminished, Rhonchi Cardiovascular: Regular rate, Regular Rhythm, Normal S1, Normal S2, PMI Normal Abdomen: Bowel Sounds Present, Soft, Non Tender, Non-Distended, No Hepato-splenomegaly Extremities: No clubbing, No cyanosis, No edema Skin: No rashes, No breakdown Lymphatic: No Cervical, Supraclavicular, or Inguinal Adenopathy Neurological: Cranial nerves II-XII grossly intact, Neuro grossly intact Psych/Mental Status: Normal Affect, Appropriate Vital Signs Temp Pulse Resp BP Pulse Ox 98 F 89 18 128/74 H 98 12/08/18 01:47 12/08/18 07:35 12/08/18 07:17 12/08/18 01:47 12/08/18 07:17 Oxygen Flow Rate (L/min) 3 Oxygen Delivery Method Room Air Weight: 184 lb 4.903 oz Body Mass Index (BMI) 27.1 Intake and Output for Last 24 Hours 12/06/18 12/07/18 12/08/18 23:59 23:59 23:59 Intake Total 2533 / 2533 2000 Output Total 600 / 600 2750 / 2750 1150 / 1150 Balance -600 / -600 -217 / -217 851 / 851 Microbiology Past 72 Hours 12/06/18 20:20 Respiratory Panel (PCR) - Final Mucosa - Nasopharyngeal 12/06/18 20:20 Influenza Types A,B Direct FA (TYLER) - Final Mucosa - Nasopharyngeal Influenzae A Laboratory Tests Past 24 Hrs 12/07/18 12/08/18 12/08/18 07:00 05:20 05:20 WBC 15.8 H RBC 3.40 L Hgb 10.0 L Hct 31.0 L MCV 91.2 MCH 29.4 MCHC 32.3 RDW 13.6 RDW Differential 44.7 H Plt Count 233 MPV 11.9 Immature Gran % (Auto) 1.000 H Neut % (Auto) 84.2 H Lymph % (Auto) 7.5 L [place] % (Auto) 7.1 Eos % (Auto) 0.1 Baso % (Auto) 0.1 Absolute Neuts (auto) 13.3 H Absolute Lymphs (auto) 1.18 Total Counted Not Reportable Sodium 144 Potassium 4.8 Chloride 114 H Carbon Dioxide 19.0 L Anion Gap 11 BUN 66 H Creatinine 3.39 H Estim Creat Clear Calc 21.58 Est GFR (MDRD) Af Amer 24 L Est GFR (MDRD) Non-Af 20 L BUN/Creatinine Ratio 19.5 Glucose 165 H Hemoglobin A1c 5.4 Calcium 8.3 L Medical Necessity - Tobacco Use Smoking Status: Current every day smoker Tobacco Use: Cigarettes Assessment/Plan All Active Problems (Last Reviewed 12/07/18 @ 08:42 by Eduardo Chadwick MD) Obstructive uropathy (Acute) Acute renal failure (ARF) (Acute) This is a 63 years old male patient presented to the emergency room because of worsening shortness of breath, found to have acute COPD exacerbation triggered by influenza A and also found to have acute renal failure secondary to obstructive uropathy because of an enlarged prostate. #1 acute COPD exacerbation: Triggered by influenza A. He is on oral prednisone and bronchodilators as well as Tamiflu. Chest x-ray reviewed, no acute infiltrate, pneumonia ruled out. Symptoms improved, he has been off oxygen, pulse ox is 98% on room air. Plan to continue same treatment. #2 acute renal failure: Attributed to bilateral obstructive uropathy secondary to enlarged prostate. Kidney function continued to improve slowly, creatinine is down to 3.39 today, admission creatinine was 4.11. Ultrasound kidney showed bilateral moderate hydronephrosis. Urology consulted, recommended to keep Dos Santos catheter in place, continue Flomax and plan to follow-up with urology as outpatient. Plan to continue IV fluids, repeat BMP tomorrow morning. #3 CAD status post stents: Stable, no acute issues. Continue aspirin, statins, Plavix, isosorbide mononitrate and metoprolol. #4 benign prostatic hypertrophy: Maintain Dos Santos catheter, continue Flomax, plan to follow-up with urology as outpatient. #5 hyperlipidemia: Continue statins. #6 hypertension: Blood pressure stable, continue isosorbide mononitrate and metoprolol. #7 DVT prophylaxis: Subcu heparin. This note was generated with [employer] dictation software. It may contain incorrect words, spelling, and punctuation that were not noted in checking the note before signing. Code Visit Inpatient E&M: 90782 Subs Hosp L2
[2018-12-08] MEDS: Metoprolol(XL)Succ 25 MG Tablet PO (10:29)
[2018-12-08] MEDS: predniSONE 20 MG Tablet 40 MG PO (10:30)
[2018-12-08] MEDS: Clopidogrel Bisulfate 75 MG Tablet PO (10:30)
[2018-12-08] MEDS: Tamsulosin HCl 0.4 MG Capsule PO (10:30)
[2018-12-08] MEDS: Heparin Injection (Vial) 5,000 UNIT/ML VIAL 5000 UNIT SC ×2 (10:31→21:21)
[2018-12-08] MEDS: Isosorbide Mononitrate 30 MG Tablet PO (10:31)
[2018-12-08] MEDS: Aspirin E.C. 81 MG Tablet PO (10:31)
--- NOTE | 2018-12-08 11:30 | NURSING ---
pt left unit to visit father at hospice.
--- NOTE | 2018-12-08 17:31 | NURSING ---
pt wanting to go outside to smoke. This RN explained that [facility] is smoke free campus. Pt stated he was 63 years old and if he wants to smoke he'll smoke. This RN offered alternatives of NicoDerm patch or gum pt declined and wants to leave AMA. Encouraged pt to think about staying due to medical condition pt still wants to leave if he can find a ride. Doctor Notified.
[2018-12-08] MEDS: Famotidine 20 MG Tablet PO (19:11)
[2018-12-08] MEDS: Oseltamivir Phosphate 30 MG Capsule PO (21:21)
[2018-12-08] MEDS: Atorvastatin Calcium 40 MG Tablet PO (21:21)
--- NOTE | 2018-12-08 23:16 | PCM.PN.REN ---
Patient Problems: Active and Suspected Problems (Last Reviewed 12/07/18 @ 08:42 by Eduardo Chadwick MD) Obstructive uropathy (Acute) Acute renal failure (ARF) (Acute) Subjective: Following for MATEUS on probable CKD. Pt still has dyspnea. No nausea or diarrhea. - Physical Exam General: Alert, Oriented x3 HEENT: Atraumatic Oral: Moist Mucosa Neck: Supple Lungs: No rales, Wheezes Cardiovascular: Normal S1, Normal S2, No murmurs Abdomen: Bowel Sounds Present, Soft, Non Tender Extremities: No cyanosis, No edema Vital Signs Temp Pulse Resp BP Pulse Ox 98.2 F 89 18 143/73 H 96 12/08/18 21:29 12/08/18 21:29 12/08/18 21:29 12/08/18 21:29 12/08/18 21:29 Oxygen Flow Rate (L/min) 2 Oxygen Delivery Method Room Air Weight: 83.6 kg Body Mass Index (BMI) 27.1 Intake and Output for Last 24 Hours 12/06/18 12/07/18 12/08/18 23:59 23:59 23:59 Intake Total 2533 / 2533 4441 / 4441 Output Total 600 / 600 2750 / 2750 3700 / 3700 Balance -600 / -600 -217 / -217 741 / 741 Microbiology Past 72 Hours 12/06/18 20:20 Respiratory Panel (PCR) - Final Mucosa - Nasopharyngeal 12/06/18 20:20 Influenza Types A,B Direct FA (TYLER) - Final Mucosa - Nasopharyngeal Influenzae A Laboratory Tests Past 24 Hrs 12/08/18 12/08/18 05:20 05:20 WBC 15.8 H RBC 3.40 L Hgb 10.0 L Hct 31.0 L MCV 91.2 MCH 29.4 MCHC 32.3 RDW 13.6 RDW Differential 44.7 H Plt Count 233 MPV 11.9 Immature Gran % (Auto) 1.000 H Neut % (Auto) 84.2 H Lymph % (Auto) 7.5 L [place] % (Auto) 7.1 Eos % (Auto) 0.1 Baso % (Auto) 0.1 Absolute Neuts (auto) 13.3 H Absolute Lymphs (auto) 1.18 Total Counted Not Reportable Sodium 144 Potassium 4.8 Chloride 114 H Carbon Dioxide 19.0 L Anion Gap 11 BUN 66 H Creatinine 3.39 H Estim Creat Clear Calc 21.58 Est GFR (MDRD) Af Amer 24 L Est GFR (MDRD) Non-Af 20 L BUN/Creatinine Ratio 19.5 Glucose 165 H Calcium 8.3 L Medical Necessity - Tobacco Use Smoking Status: Current every day smoker Tobacco Use: Cigarettes Assessment/Plan All Active Problems (Last Reviewed 12/07/18 @ 08:42 by Eduardo Chadwick MD) Obstructive uropathy (Acute) Acute renal failure (ARF) (Acute) 1. Acute kidney injury. Secondary to obstructive uropathy. Renal US does show BL hydronephrosis. There is also likely some contribution to MATEUS from volume depletion. I agree with IVF and leaving Dos Santos in place. Renal function continues to slowly improve. It is unclear what his true baseline renal function is. There is no recent SCr since 07/04/17 (SCr was normal then). It is possible that obstruction may have been chronic and may have caused chronic kidney disease as well. Will see where SCr stabilizes at in the next few days. Can decrease IVR tomorrow if SCr is still > 3.00 mg/dL. There is no urgent need for renal replacement therapy. Avoid NSAID. Current medications are appropriately dosed for the current CrCl. He will need outpatient follow up after discharge. 2. Acidosis. Likely 2/2 MATEUS/CKD. Follow. If HCO3 decreases further, we can change IVF to LR tomorrow. 3. COPD exacerbation Management as per hospitalist.
[2018-12-09] VITALS (12 sets, daily range): BP systolic 141–154; BP diastolic 81–92; PULSE 69–98; RESP 16–22; TEMP 36.4–36.6; O2SAT 94–98
[2018-12-09] MEDS: Ipratropium/Albuterol Sulfate 3 ML AMPUL.NEB INHALATION ×2 (03:40→10:58)
[2018-12-09] MEDS: 0.9% Normal Saline 1,000 ML 125 ML IV (05:46)
[2018-12-09 06:03] LABS: Anion Gap 9 (5-15); BUN 61 mg/dL (7-18); BUN/Creat Ratio 21.6 RATIO (10-20); Calcium,Total 8.2 mg/dL (8.5-10.1); Chloride 119 mmol/L (98-107); Creatinine, Serum 2.82 mg/dL (0.70-1.30); EST Glomerular Filtration Rate 24 mL/min (>60); Est Glom Filt Rate - Afr Amer 29 mL/min (>60); Estimated Creatinine Clearance 25.94 ml/min; Glucose 142 mg/dL (74-106); Potassium 5.4 mmol/L (3.5-5.1); Sodium Level 145 mmol/L (136-145)
[2018-12-09] MEDS: Tamsulosin HCl 0.4 MG Capsule PO (09:13)
[2018-12-09] MEDS: Metoprolol(XL)Succ 25 MG Tablet PO (09:14)
[2018-12-09] MEDS: Aspirin E.C. 81 MG Tablet PO (09:14)
[2018-12-09] MEDS: Clopidogrel Bisulfate 75 MG Tablet PO (09:14)
[2018-12-09] MEDS: Isosorbide Mononitrate 30 MG Tablet PO (09:14)
[2018-12-09] MEDS: Sodium Polystyrene Sulfonate 15 GM/60 ML UDC PO (09:15)
[2018-12-09] MEDS: Atorvastatin Calcium 40 MG Tablet PO (09:19)
[2018-12-09] MEDS: Famotidine 20 MG Tablet PO (09:19)
[2018-12-09] MEDS: predniSONE 20 MG Tablet 40 MG PO (09:19)
--- NOTE | 2018-12-09 11:04 | PCM.PN.REN ---
Patient Problems: Active and Suspected Problems (Last Reviewed 12/07/18 @ 08:42 by Eduardo Chadwick MD) Obstructive uropathy (Acute) Acute renal failure (ARF) (Acute) Subjective: No complaints. No nausea No vomiting. No SOB - Physical Exam General: Alert, Oriented x3 HEENT: Atraumatic Oral: Moist Mucosa Neck: Supple, No JVD Lungs: Clear to auscultation, Normal air movement, No rhonchi, No wheeze Cardiovascular: Regular rate, Regular Rhythm, Normal S1, Normal S2 Abdomen: Bowel Sounds Present, Soft, Non Tender, Non-Distended Extremities: No clubbing, No cyanosis, No edema Skin: No rashes Musculoskeletal: No Tenderness to Palpation of Joints or Extremities Lymphatic: No Cervical, Supraclavicular, or Inguinal Adenopathy Neurological: Cranial nerves II-XII grossly intact, Neuro grossly intact Psych/Mental Status: Normal Affect Vital Signs Temp Pulse Resp BP Pulse Ox 97.7 F L 98 20 H 146/92 H 94 12/09/18 09:10 12/09/18 09:14 12/09/18 09:10 12/09/18 09:10 12/09/18 09:37 Oxygen Flow Rate (L/min) 95 Oxygen Delivery Method Room Air Weight: 84.3 kg Body Mass Index (BMI) 27.1 Intake and Output for Last 24 Hours 12/07/18 12/08/18 12/09/18 23:59 23:59 23:59 Intake Total 2533 / 2533 4441 / 4441 2073 / 2073 Output Total 2750 / 2750 3700 / 3700 2800 / 2800 Balance -217 / -217 741 / 741 -727 / -727 Microbiology Past 72 Hours 12/06/18 20:20 Respiratory Panel (PCR) - Final Mucosa - Nasopharyngeal 12/06/18 20:20 Influenza Types A,B Direct FA (TYLER) - Final Mucosa - Nasopharyngeal Influenzae A Laboratory Tests Past 24 Hrs 12/09/18 05:32 Sodium 145 Potassium 5.4 H Chloride 119 H Carbon Dioxide 17.0 L Anion Gap 9 BUN 61 H Creatinine 2.82 H Estim Creat Clear Calc 25.94 Est GFR (MDRD) Af Amer 29 L Est GFR (MDRD) Non-Af 24 L BUN/Creatinine Ratio 21.6 H Glucose 142 H Calcium 8.2 L Medical Necessity - Tobacco Use Smoking Status: Current every day smoker Tobacco Use: Cigarettes Assessment/Plan All Active Problems (Last Reviewed 12/07/18 @ 08:42 by Eduardo Chadwick MD) Obstructive uropathy (Acute) Acute renal failure (ARF) (Acute) 1. Acute kidney injury. Secondary to obstructive uropathy. Renal US does show BL hydronephrosis. There is also likely some contribution to MATEUS from volume depletion. Cr continues to improve with chapa cath placement and IVF. Cr today 2.8 mg/dL It is unclear what his true baseline renal function is. There is no recent SCr since 07/04/17 (SCr was normal then). It is possible that obstruction may have been chronic and may have caused chronic kidney disease as well. There is no urgent need for renal replacement therapy. Avoid NSAID. Current medications are appropriately dosed for the current CrCl. He will need outpatient follow up after discharge.My office will arrange for this appointement 2. Acidosis. Likely 2/2 MATEUS/CKD.HCO3 17. seems stable. 3. COPD exacerbation Management as per hospitalist. 4- Hyperkalemia: K id 5.4 this am. Pt was given Kayexalate 15 g PO. Check K before discharge today Thank you Yazan Shoemaker MD
--- NOTE | 2018-12-09 11:40 | PCM.DC.SUM ---
Discharge Date and Diagnosis - Problem List Patient Problems: Active and Suspected Problems (Last Reviewed 12/07/18 @ 08:42 by Eduardo Chadwick MD) Obstructive uropathy (Acute) Acute renal failure (ARF) (Acute) Date of Admission: 12/06/18 Date of Discharge: 12/09/18 - Primary Discharge Diagnosis Active and Suspected Problems (Last Reviewed 12/07/18 @ 08:42 by Eduardo Chadwick MD) Obstructive uropathy (Acute) Acute renal failure (ARF) (Acute) COPD exacerbation Influenza infection - Secondary Discharge Diagnosis Chronic Problems (Last Reviewed 12/07/18 @ 08:42 by Eduardo Chadwick MD) Hyperlipidemia (Chronic) COPD (chronic obstructive pulmonary disease) (Chronic) BPH (benign prostatic hyperplasia) (Chronic) CAD (coronary artery disease) (Chronic) Hypertension (Chronic) Hospital Course and Treatment Imaging Results: Diagnostic Data Chest X-Ray 12/06/18 15:35 IMPRESSION: There are findings consistent with COPD. There is no evidence of acute chest disease. Electronically Signed: Wayne Parham MD at 16:12 EST , Service support , Renal Ultrasound 12/06/18 18:39 IMPRESSION: Bilateral moderate hydronephrosis. Electronically Signed: Wayen Parham MD at 21:47 EST , Service support , urology- Dr Chadwick nephrology- Dr Burns Operations: None Procedures: None Summary of Care Provided: The patient is a 63 year old M with a past medical history of CAD status post stents and nicotine dependence as well as BPH. He was admitted with a complaint of shortness of breath. He had been seen earlier on in the emergency department with a similar complaint and was diagnosed COPD exacerbation and AK I which was thought to be post renal. Urinary retention was relieved by passage of a Dos Santos catheter he was given a prescription for p.o. prednisone and breathing treatments. He went home but subsequently he fell down after tripping over his walker and states he developed shortness of breath after he was unable to reach his phone to call someone to help him. He had no assisted fever or chills, dizziness or chest pain, chest x-ray showed chronic COPD changes. He was admitted and managed for acute COPD exacerbation due to influenza infection. He was also managed for MATEUS thought to be post renal as his creatinine was 4.11. Creatinine had been 4.512 days prior to his presentation when he was seen in the ED. He was started on breathing treatments and steroids. Lisinopril was held and urology and nephrology were consulted. Dos Santos catheter was left in place, and he was started on flomax. Cr trended down to 2.74 at time of discharge. Patient remained stable and per urology, he was to maintain Dos Santos catheter in place until he followed up with urology. Cr was 2.74 on day of discharge. Lisinopril was discontinued and he is to follow up with his PCP, urology and nephrology. He was also discharged with a prescription for p.o. prednisone and p.o. oseltamivir as he was diagnosed with influenza during this admission. Patient seen and examined prior to discharge. He had no complaints and was eager to go home. He denied any fever, any chills, cough or chest pain, any shortness of breath, abdominal pain, any diarrhea vomiting. Review of systems otherwise negative. Labs and vitals reviewed. Medications reviewed and reconciled. o/e: Vital Signs Height 5 ft 8 in Weight: 185 lb 13.595 oz Weight in Pounds 185.8 lbs Pulse Ox [AMBULATING on Room 94 Air] Pulse Ox 98 Temperature 97.6 F Pulse Rate 84 Respiratory Rate 16 Blood Pressure 154/81 Blood Pressure Position Semi-Fowlers General: Alert, Oriented x3, Cooperative, No apparent distress HEENT: Atraumatic, PERRLA, EOMI, Normocephalic Oral: Moist Mucosa, No Gingival or Mucosal Lesions/ Ulcerations Neck: Supple, No JVD, Negative Carotid Bruits, Trachea Midline, Thyroid Normal Size and Texture Lungs: Clear to auscultation, No wheeze, No rales, Diminished, Rhonchi Cardiovascular: Regular rate, Regular Rhythm, Normal S1, Normal S2, PMI Normal Abdomen: Bowel Sounds Present, Soft, Non Tender, Non-Distended, No Hepato-splenomegaly Extremities: No clubbing, No cyanosis, No edema Skin: No rashes, No breakdown Lymphatic: No Cervical, Supraclavicular, or Inguinal Adenopathy Neurological: Cranial nerves II-XII grossly intact, Neuro grossly intact Psych/Mental Status: Normal Affect, Appropriate Plan is as described above. Patient Problems: Active and Suspected Problems (Last Reviewed 12/07/18 @ 08:42 by Eduardo Chadwick MD) Obstructive uropathy (Acute) Acute renal failure (ARF) (Acute) - Physical Exam Vital Signs Temp Pulse Resp BP Pulse Ox 97.7 F L 82 22 H 146/92 H 94 12/09/18 09:10 12/09/18 11:10 12/09/18 11:10 12/09/18 09:10 12/09/18 09:37 Oxygen Flow Rate (L/min) 95 Oxygen Delivery Method Room Air Weight: 185 lb 13.595 oz Body Mass Index (BMI) 27.1 Intake and Output for Last 24 Hours 12/07/18 12/08/18 12/09/18 23:59 23:59 23:59 Intake Total 2533 / 2533 4441 / 4441 3 / 2073 Output Total 2750 / 2750 3700 / 3700 2800 / 2800 Balance -217 / -217 741 / 741 -727 / -727 Microbiology Past 72 Hours 12/06/18 20:20 Respiratory Panel (PCR) - Final Mucosa - Nasopharyngeal 12/06/18 20:20 Influenza Types A,B Direct FA (TYLER) - Final Mucosa - Nasopharyngeal Influenzae A Laboratory Tests Past 24 Hrs 12/09/18 05:32 Sodium 145 Potassium 5.4 H Chloride 119 H Carbon Dioxide 17.0 L Anion Gap 9 BUN 61 H Creatinine 2.82 H Estim Creat Clear Calc 25.94 Est GFR (MDRD) Af Amer 29 L Est GFR (MDRD) Non-Af 24 L BUN/Creatinine Ratio 21.6 H Glucose 142 H Calcium 8.2 L Discharge Diet: Renal Diet Weight Bearing Status: Weight bearing as tolerated Call your doctor if you observe: Shortness of breath, Swelling in the ankles Home Medications: Medications to take at Discharge Aspirin [Aspir-Low] 81 mg PO DAILY 07/04/17 metoprolol succinate ER 25 mg tablet,extended release 24 hr 25 mg PO DAILY #90 tab 09/28/18 simvastatin 80 mg tablet 80 mg PO QHS #90 tab 09/28/18 [place]-3 Fatty Acids/Fish Oil [Fish Oil 1,000 mg Capsule] 1 each PO DAILY 12/03/18 Tamsulosin HCl [Flomax] 0.4 mg PO DAILY #30 capsule 12/03/18 Cholecalciferol (VIT D3) [Vitamin D3] 1,000 mg PO DAILY 12/06/18 Clopidogrel Bisulfate [Clopidogrel] 75 mg PO DAILY 12/06/18 Isosorbide Mononitrate [Isosorbide Mononitrate ER] 30 mg PO DAILY 12/06/18 Lisinopril 5 mg PO DAILY 12/06/18 Albuterol Inhaler [Ventolin Hfa] 1 - 2 puff INHALATION Q4H PRN PRN #1 inhaler 12/09/18 Oseltamivir Phosphate [Tamiflu] 30 mg PO DAILY@2199 #4 capsule 12/09/18 predniSONE tablet 40 mg PO DAILY@0800 5 Days #10 tablet 12/09/18 Following Prescrptions Were Given to Patient: Albuterol Inhaler [Ventolin Hfa] 1 - 2 puff INHALATION Q4H PRN PRN #1 inhaler PRN Reason: Shortness Of Breath Oseltamivir Phosphate [Tamiflu] 30 mg PO DAILY@0 #4 capsule predniSONE tablet 40 mg PO DAILY@0800 5 Days #10 tablet Primary Care Physician: Neil Holden MD [Primary Care Provider] - Please follow up with your Primary Care Physician in: one week Please Follow Up With: Eduardo hCadwick MD When: 1 week Please Follow Up With: Yazan Shoemaker MD When: 1 week Disposition: Home Minutes spent on discharge:: 45 Patient Condition:: Stable Medical Necessity - Tobacco Use Smoking Status: Current every day smoker Tobacco Use: Cigarettes Meaningful Use Info Meaningful Use Diagnoses (Choose all that apply): None applicable Code Visit Inpatient E&M: 78445 Disch Hosp
--- NOTE | 2018-12-09 11:41 | PCM.DC ---
- Discharge Diagnoses Current Active Problems: Current Active and Chronic Problems (Last Reviewed 12/07/18 @ 08:42 by Eduardo Chadwick MD) Obstructive uropathy (Acute) Hyperlipidemia (Chronic) Acute renal failure (ARF) (Acute) COPD (chronic obstructive pulmonary disease) (Chronic) CAD (coronary artery disease) (Chronic) Hypertension (Chronic) You will use the following diet at home:: Renal (restricted protein/sodium) Your food should be the consistency of: Regular Your liquids should be the consistency of: Regular/Thin Discharge Activity: Return to Normal Activity Weight Bearing Status: Weight bearing as tolerated Call your doctor if you observe: Fever of 101 or Higher, Inability to urinate, Shortness of breath Additional Instructions: keep Dos Santos catheter in place until follow up with Dr Chadwick. Allergies/Adverse Reactions: Allergies No Known Allergies Allergy (Verified 12/06/18 15:22) Medications to take at Discharge Aspirin [Aspir-Low] 81 mg PO DAILY 07/04/17 metoprolol succinate ER 25 mg tablet,extended release 24 hr 25 mg PO DAILY #90 tab 09/28/18 simvastatin 80 mg tablet 80 mg PO QHS #90 tab 09/28/18 [place]-3 Fatty Acids/Fish Oil [Fish Oil 1,000 mg Capsule] 1 each PO DAILY 12/03/18 Tamsulosin HCl [Flomax] 0.4 mg PO DAILY #30 capsule 12/03/18 Cholecalciferol (VIT D3) [Vitamin D3] 1,000 mg PO DAILY 12/06/18 Clopidogrel Bisulfate [Clopidogrel] 75 mg PO DAILY 12/06/18 Isosorbide Mononitrate [Isosorbide Mononitrate ER] 30 mg PO DAILY 12/06/18 Lisinopril 5 mg PO DAILY 12/06/18 Albuterol Inhaler [Ventolin Hfa] 1 - 2 puff INHALATION Q4H PRN PRN #1 inhaler 12/09/18 Oseltamivir Phosphate [Tamiflu] 30 mg PO DAILY@0 #4 capsule 12/09/18 predniSONE tablet 40 mg PO DAILY@0800 5 Days #10 tablet 12/09/18 The following prescriptions were given: Albuterol Inhaler [Ventolin Hfa] 1 - 2 puff INHALATION Q4H PRN PRN #1 inhaler PRN Reason: Shortness Of Breath Oseltamivir Phosphate [Tamiflu] 30 mg PO DAILY@2200 #4 capsule predniSONE tablet 40 mg PO DAILY@0800 5 Days #10 tablet Primary Care Physician: Neil Holden MD [Primary Care Provider] - Please follow up with your Primary Care Physician in: one week Test Results: Test results from this visit will be discussed in further detail at your follow-up appointment, if applicable. Please Follow Up With: Eduardo Chadwick MD When: within one week. Call his office for an appointment Please Follow Up With: Yazan Shoemaker MD When: within one week Proposed Discharge Date: 12/09/18
--- NOTE | 2018-12-09 12:11 | CASEMGMT ---
Social Work Note SW received referral for emotional support as pt's father is currently at [facility] inpatient unit. SW met with pt. SW introduced self and role at [facility]. Pt is alert and orientated x4. Pt states that he is being discharged home today and that his friend is coming to get him. Pt denied needing additional medical equipment or assistance in the home. Pt states that his mother is at [facility] and his father is dying at inpatient [facility]. SW utilized active listening skills and provided support to pt. Pt states that he and his brother have no regrets with their father and he enjoyed being on the tractor with his brother and father. Pt states that his father is ready to and pt states that he and his brother have done everything they can and the Lord as done everything he can as well. SW offered support and states that his dad is feeling no pain at Hospice and is going to be able to go whenever it is his time. Pt agrees that Hospice is the best place for his father. Pt denied wanting any bereavement resources at this time or additional resources and SW informed pt that [facility] does have bereavement support groups if pt were to be interested. Pt states understanding. Cara Tenorio SALESPERSON FURNITURE, EXHIBITS COORDINATOR
[2018-12-09 13:09] LABS: Anion Gap 13 (5-15); BUN 55 mg/dL (7-18); BUN/Creat Ratio 20.1 RATIO (10-20); Calcium,Total 8.1 mg/dL (8.5-10.1); Chloride 115 mmol/L (98-107); Creatinine, Serum 2.74 mg/dL (0.70-1.30); EST Glomerular Filtration Rate 25 mL/min (>60); Est Glom Filt Rate - Afr Amer 30 mL/min (>60); Glucose 107 mg/dL (74-106); Potassium 4.6 mmol/L (3.5-5.1); Sodium Level 147 mmol/L (136-145)
--- NOTE | 2018-12-09 13:15 | NURSING ---
Addendum entered by Donna Trimble 12/09/18 15:25: attempted to call pt again with no answer and no voicemail option. attempted to call grandjoni Garcia, who is listed as next of kin, with no answer and no voicemail option. will attempt again. Original Note: pt left without taking paperwork with him. attempted to call pt to give DC info/appointments. will attempt again.
--- NOTE | 2018-12-10 15:38 | CASEMGMT ---
ELENA CM DC PHONE CALL DC DATE: 12/09/18 DC DISPOSITION: Home LACE/STRATA: 10/01 Phone busy x 2 attempts. Jaime ROLLINSN RN ACM
== END 2018-12-09 12:55 | disposition home or self-care (01) | DRG 191 ==
LOC: ED 16:33 → MS3 18:17
PROVIDERS: Hospitalist; Internal Medicine Nephrology; Admitting Provider Internal Medicine; Emergency Provider Emergency Medicine; Family Provider Family Medicine; PCP Family Medicine; Visit Provider Student in an Organized Health Care Education/Training Program
DX: J44.1 Chronic obstructive pulmonary disease with (acute) exacerbation (principal); N17.9 Acute kidney failure, unspecified; N13.8 Other obstructive and reflux uropathy; N13.30 Unspecified hydronephrosis; J10.1 Influenza due to other identified influenza virus with other respiratory manifestations; I25.10 Atherosclerotic heart disease of native coronary artery without angina pectoris; Z95.5 Presence of coronary angioplasty implant and graft; F17.210 Nicotine dependence, cigarettes, uncomplicated; I10 Essential (primary) hypertension; D50.9 Iron deficiency anemia, unspecified; Z66 Do not resuscitate; N40.1 Benign prostatic hyperplasia with lower urinary tract symptoms; R33.8 Other retention of urine; E78.5 Hyperlipidemia, unspecified; E87.5 Hyperkalemia; I25.2 Old myocardial infarction; E78.00 Pure hypercholesterolemia, unspecified; Z79.82 Long term (current) use of aspirin; Z79.899 Other long term (current) drug therapy
CPT/HCPCS: 36415; 51702; 71045; 71046; 76770; 80048; 80076; 81001; 82570; 83036; 83880; 84300; 84484; 85025; 87633; 87804; 93005; 94640; 96360; 96361; 97161; 97166; 97530; 97802; 99285; J7030; A4216

== ENCOUNTER 2018-12-12 10:30 | Inpatient (IN) | payer MEDICARE, SELFPAY ==
[2018-12-06 19:08] VITALS: BMI 27.1
[2018-12-12] VITALS (18 sets, daily range): BP systolic 91–160; BP diastolic 41–100; PULSE 70–107; RESP 16–27; TEMP 36.5–36.9; O2SAT 94–97; BMI 24.3; BMI 27.1
--- NOTE | 2018-12-12 | RAD_ITS ---
STUDY: X-RAY CHEST REASON FOR EXAM: Male, 63 years old. Cough. TECHNIQUE: AP and lateral views of the chest. COMPARISON: Comparison is made with prior study dated December 06, 2018. FINDINGS: EKG electrodes are seen. Hyperinflation. The lungs are clear. There is no demonstrated pleural abnormality. Normal size heart. Normal mediastinum and richard. Normal visualized pulmonary arteries. Normal visualized aortic arch and descending thoracic aorta. Normal visualized thoracic spine. Normal visualized ribs, clavicles, and shoulders. There is no demonstrated abnormality of the visualized soft tissue structures of the upper abdomen. RAD/Chest PA and Lateral IMPRESSION: Hyperinflation. Electronically Signed: Chavez Regalado MD at 12:52 EST , Service support ,
--- NOTE | 2018-12-12 10:58 | EKG12_ITS ---
Test Reason : SOB Blood Pressure : / mmHG Vent. Rate : 102 BPM Atrial Rate : 102 BPM P-R Int : 128 ms QRS Dur : 082 ms QT Int : 312 ms P-R-T Axes : 055 060 073 degrees QTc Int : 406 ms Sinus tachycardia Otherwise normal ECG Confirmed by VLAD FLORES, JEANETTE ([id number]), editor publications JASON SHIPMAN ([id number]) on 12/17/2018 10:54:36 AM Referred By: Alvarado May Confirmed By:JEANETTE CHU MD
--- NOTE | 2018-12-12 10:59 | CT_ITS ---
STUDY: CT ABDOMEN AND PELVIS WITHOUT CONTRAST REASON FOR EXAM: Male, 63 years old. Persistent lower abdominal pain and hematuria. RADIATION DOSAGE (If Supplied By Facility): CTDIvol = ( 9.32 ) mGy, DLP = ( 484.14 ) mGycm TECHNIQUE: Transaxial images were obtained from the dome of the diaphragm to the symphysis pubis without oral contrast, and without intravenous contrast. Sagittal and coronal images were reconstructed. Individualized dose optimization techniques were used for this CT. COMPARISON: None. FINDINGS: Mild degree of increased reticular nodular pattern at both lung bases slightly worse on the left side. This may represent changes secondary to scarring. Coronary artery calcification. Normal liver. There are multiple small gallstones. Normal spleen. Normal pancreas. Normal bilateral adrenal glands. Mild bilateral hydronephrosis and proximal right hydroureter. 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 There is a small hiatal hernia. Normal small intestine. There are multiple colonic diverticula consistent with diverticulosis. The appendix is visualized and appears normal. There is diffuse atherosclerotic calcification of the abdominal aorta and its major visceral branches. Saccular aneurysm of the distal abdominal aorta with a transverse dimension of 3.4 cm. Normal inferior vena cava. There is borderline retroperitoneal lymphadenopathy with enlarged nodes no greater than 10mm in the short axis diameter. A Dos Santos catheter is seen within the urinary bladder. There is evidence of a marked degree of diffuse urinary bladder wall thickening. Small amount of air is seen within the bladder lumen most likely secondary to the manipulation of the Dos Santos catheter. There are prostatic calcifications. Normal abdominal wall. There are mild degenerative changes of the visualized lumbar spine. Limbus vertebrae along the anterior superior endplate of the L3 vertebrae. Loss of the normal lumbar lordosis. CT/Abdomen/Pelvis without Cont IMPRESSION: Marked degree of gallbladder wall thickening as described. Bilateral hydronephrosis. Saccular infrarenal abdominal aortic aneurysm. Electronically Signed: Chavez Regalado MD at 12:44 EST , Service support ,
--- NOTE | 2018-12-12 11:00 | ED.VISSUMM ---
- ER Visit Summary Date of Service: 12/12/18 Chief Complaint: Shortness of breath, abdominal pain and vomiting History of Present Illness: The patient is a 63 M who presents for multiple complaints since last night, with the main complaint being vomiting, coughing up yellow phlegm, and shortness of breath. Patient states he thinks he was exposed to the flu by his granddaughters. Patient had subjective fever at home. He is complaining of associated abdominal pain, nausea, fatigue. He called EMS and was given 2 breathing treatments in route which he states helps. He has history of coronary artery disease and myocardial infarction status post stent placement, COPD, hypertension, BPH, and currently has a Dos Santos catheter in place due to urinary retention. Patient is on Plavix. He is a smoker. No history of abdominal surgeries Physical Examination: Vital signs: afebrile, hypotensive and tachycardic, no hypoxia on room air General: well nourished, well developed, in mild distress with frequent harsh moist cough and speaking in 4-5 word sentences Skin: warm, dry, no rash, no pallor HEENT: normocephalic and atraumatic; PERRL, EOMI, dry mucous membranes Cardiovascular: Tachycardic rate and rhythm without murmurs, no peripheral edema, 2+ pulses all distal extremities Respiratory: Mild increased work of breathing, lungs have mild diffuse adventitious sounds, no accessory muscle usage or retractions Abdominal: Abdomen is soft, tender in the epigastrium with normoactive bowel sounds, no guarding or rebound, no masses : Dos Santos catheter in place with dark tea colored urine in the bag and yellow urine noted in the proximal tubing MSK: Moves all extremities, no deformities, normal strength Neuro: Awake and alert, oriented ?4. No facial droop, sensation and motor function intact and symmetric Test Results: Abnormal Lab Results 12/12/18 12/12/18 12/12/18 11:40 11:40 11:40 WBC 30.2 H* RBC 3.76 L Hgb 11.1 L Hct 34.1 L MCV 90.7 MCH 29.5 MCHC 32.6 RDW 13.6 RDW Differential 44.4 H Plt Count 281 MPV 10.9 Neut % (Auto) Not Reportable Absolute Neuts (auto) Not Reportable Total Counted 100 Neutrophils % (Manual) 79 H Band Neutrophils % 3 Lymphocytes % (Manual) 8 L Monocytes % (Manual) 7 Metamyelocytes % 1 Myelocytes % 2 H Diff Path Review May foll Platelet Estimate ADEQUATE RBC Morphology NORM C+C PT 13.6 INR 1.0 APTT 24.7 Sodium 144 Potassium 5.0 Chloride 117 H Carbon Dioxide 17.0 L Anion Gap 10 BUN 53 H Creatinine 3.10 H Estim Creat Clear Calc 24.39 Est GFR (MDRD) Af Amer 26 L Est GFR (MDRD) Non-Af 22 L BUN/Creatinine Ratio 17.1 Glucose 129 H Lactic Acid Calcium 8.2 L Total Bilirubin 0.30 AST 10 L ALT 24 Alkaline Phosphatase 45 Troponin I 0.020 Total Protein 6.1 L Albumin 2.5 L Globulin 3.6 Albumin/Globulin Ratio 0.7 L Lipase 245 Urine Color Urine Clarity Urine pH Ur Specific [place] Urine Protein Urine Glucose (UA) Urine Ketones Urine Occult Blood Urine Nitrite Urine Bilirubin Urine Urobilinogen Ur Leukocyte Esterase Urine RBC Urine WBC Ur Squamous Epith Cells Urine Bacteria Urine Mucus 12/12/18 12/12/18 11:40 12:25 WBC RBC Hgb Hct MCV MCH MCHC RDW RDW Differential Plt Count MPV Neut % (Auto) Absolute Neuts (auto) Total Counted Neutrophils % (Manual) Band Neutrophils % Lymphocytes % (Manual) Monocytes % (Manual) Metamyelocytes % Myelocytes % Diff Path Review Platelet Estimate RBC Morphology PT INR APTT Sodium Potassium Chloride Carbon Dioxide Anion Gap BUN Creatinine Estim Creat Clear Calc Est GFR (MDRD) Af Amer Est GFR (MDRD) Non-Af BUN/Creatinine Ratio Glucose Lactic Acid 1.7 Calcium Total Bilirubin AST ALT Alkaline Phosphatase Troponin I Total Protein Albumin Globulin Albumin/Globulin Ratio Lipase Urine Color Brown Urine Clarity Cloudy Urine pH 5.0 Ur Specific [place] 1.020 Urine Protein 100 H Urine Glucose (UA) Normal Urine Ketones 5 H Urine Occult Blood 250 H Urine Nitrite Positive H Urine Bilirubin 1 H Urine Urobilinogen Normal Ur Leukocyte Esterase 500 H Urine RBC > 100 SEEN Urine WBC >100 SEEN Ur Squamous Epith Cells 0 SEEN Urine Bacteria 1+ Urine Mucus 0 SEEN Clinical Impression(s) from Imaging Studies Chest X-Ray 12/12/18 00:00 IMPRESSION: Hyperinflation. Electronically Signed: Chavez Regalado MD at 12:52 EST , Service support , Abdomen/Pelvis CT 12/12/18 10:59 IMPRESSION: Marked degree of gallbladder wall thickening as described. Bilateral hydronephrosis. Saccular infrarenal abdominal aortic aneurysm. Electronically Signed: Chavez Regalado MD at 12:44 EST , Service support , Medications Given Sodium Chloride () 1,000 mls @ 999 mls/hr IV .Q1H1M STEPHANIE Last Admin: 12/12/18 13:30 Dose: Not Given Admin: 12/12/18 12:58 Dose: Not Given Admin: 12/12/18 11:24 Dose: 999 mls/hr Discontinued Medications Albuterol/Ipratropium (Duoneb) 3 ml INHALATION X1 ONE Stop: 12/12/18 11:00 Last Admin: 12/12/18 11:28 Dose: 3 ml Piperacillin Sod/Tazobactam Sod (Zosyn) 4.5 gm in 100 mls @ 200 mls/hr IV X1 ONE Stop: 12/12/18 13:08 Last Admin: 12/12/18 13:16 Dose: 200 mls/hr Vancomycin HCl / Dextrose 250 mls @ 250 mls/hr IV RX TO DOSE ONE; Protocol Stop: 12/12/18 13:38 Vancomycin HCl 1,250 mg/ (Sodium Chloride) 275 mls @ 167 mls/hr IV X1 ONE Stop: 12/12/18 15:08 Last Admin: 12/12/18 13:55 Dose: 167 mls/hr Emergency Department Course and Treatment: Patient presents with multiple complaints, tachycardic and hypotensive at 91/69, with unifying concern being an infectious process. Patient also has multiple risk factors for acute coronary syndrome, has history of COPD and has received some relief from the prehospital breathing treatments. Thus comprehensive of workup was performed, including EKG, chest x-ray, abdominal CT, and labs including cultures and flu. Patient was given IV fluids for his hypotension. He was given additional breathing treatment, as he had improvement in his respiratory effort by the prehospital breathing treatments. He should also receive Solu-Medrol prehospital. EKG showed a sinus tachycardia without any ischemic changes. CBC was remarkable for significant leukocytosis of 30.2. Lactate normal at 1.7. Troponin 0 0.02. Urine was positive for urinary tract infection. Chest x-ray showed no signs of pneumonia. CT scan of the abdomen and pelvis showed no acute intra-abdominal process. Patient received IV fluids. He had been started on Zosyn for empiric treatment, which is appropriate for the urinary tract infection. On reevaluation patient stated his breathing was improved but he continued to feel unwell. Patient was discussed with the hospitalist for admission for further management of his multiple issues including acute COPD exacerbation, complicated UTI and sepsis.. Treatment Plan: [] Disposition: [] Impression: COPD exacerbation, sepsis, complicated UTI This note was generated with [employer] dictation software. It may contain incorrect words, spelling, and punctuation that were not noted in review of the chart prior to signing ED Disposition - Plan for ED Patient: Disposition: Acute [facility]
[2018-12-12] MEDS: 0.9% Normal Saline 1,000 ML 999 ML IV (11:24)
[2018-12-12] MEDS: Ipratropium/Albuterol Sulfate 3 ML AMPUL.NEB INHALATION (11:28)
[2018-12-12 12:06] LABS: Hematocrit 34.1 % (40-54); Hemoglobin 11.1 g/dl (13.0-16.5); Mean Corp Hgb Conc 32.6 g/gl (32-36); Mean Corpuscular Hgb 29.5 pg (27.0-32.0); Mean Corpuscular Volume 90.7 fL (80-94); Mean Platelet Vol. 10.9 fl (6.2-12.0); Platelet Count 281 K/mm3 (150-450); RBC Distribution Width CV 13.6 % (11.6-14.6); RBC Distribution Width SD 44.4 fl (35.1-43.9); Red Blood Count 3.76 M/mm3 (4.6-6.2); White Blood Count 30.2 K/mm3 (4.4-11.0)
[2018-12-12 12:07] LABS: Differential Indicated MANUAL DIFF; POSITIVE COUNT YES; POSITIVE DIFFERENTIAL YES; POSITIVE MORPHOLOGY YES
[2018-12-12 12:14] LABS: ALB/GLOB Ratio 0.7 RATIO (0.9-2.4); AST(SGOT) 10 U/L (15-37); Alanine Aminotransfer ALT/SGPT 24 U/L (16-61); Albumin, Serum 2.5 g/dL (3.2-5.0); Alkaline Phosphatase 45 U/L (45-117); Anion Gap 10 (5-15); BUN 53 mg/dL (7-18); BUN/Creat Ratio 17.1 RATIO (10-20); Calcium,Total 8.2 mg/dL (8.5-10.1); Chloride 117 mmol/L (98-107); EST Glomerular Filtration Rate 22 mL/min (>60); Est Glom Filt Rate - Afr Amer 26 mL/min (>60); Estimated Creatinine Clearance 24.39 ml/min; Globulin 3.6 g/dL (2.2-4.2); Glucose 129 mg/dL (74-106); Lipase 245 U/L (73-393); Protein, Total 6.1 g/dL (6.4-8.2); Sodium Level 144 mmol/L (136-145)
[2018-12-12 12:16] LABS: Prothrombin Time (Protime)PT. 13.6 SECONDS (11.7-14.9)
[2018-12-12 12:17] LABS: Partial Thromboplast Time 24.7 Seconds (24.1-36.2)
[2018-12-12 12:22] LABS: Lactic Acid 1.7 mmol/L (0.4-2.0)
--- NOTE | 2018-12-12 12:32 | NURSING ---
THIS RN TOOK LAB RESULT: WBC: 30.2, REPORTED TO DR. LEWIS
[2018-12-12 12:41] LABS: Lymphocyte 8 % (19-41); Metamyelocyte 1 % (0-1); Monocyte 7 % (0-10); Myelocyte 2 (0-0); Neutrophil-Band 3 % (0-5); Neutrophil-Segmented 79 % (47-70); Total Cells Counted 100 (MANUAL DIFF)
[2018-12-12 12:42] LABS: Platelet Estimate ADEQUATE (ADEQ); Red Cell Morphology NORM C+C NORMAL (NORM C&C)
[2018-12-12 12:57] LABS: Mucous, Urine 0 SEEN /hpf (<or=2+); Squamous Epithelial Cells - UA 0 SEEN /hpf (0-5)
[2018-12-12 13:09] LABS: Color, Urine Brown (Yellow); Glucose, Dipstick Normal (Normal); Ketone-Dipstick 5 mg/dl (Negative); Leukocyte Esterase-Dipstick 500 /ul (Negative); Nitrite-Dipstick Positive (Negative); Occult Blood-Urine 250 /ul (Negative); Protein-Dipstick 100 mg/dl (Negative); Urine Clarity Cloudy (Clear); Urine Urobilinogen Normal (Normal)
[2018-12-12 13:13] LABS: Urine Bilirubin Dipstick 1 mg/dL (Negative)
[2018-12-12 13:22] LABS: Red Blood Cells-Urine > 100 SEEN /hpf (0-5); White Blood Cells >100 SEEN /hpf (0-5)
[2018-12-12 13:23] LABS: Bacteria 1+ /hpf (None Seen)
--- NOTE | 2018-12-12 15:41 | PCM.HP.STD ---
Problem List (1) Acute kidney injury on CKD stage III Status: Acute (2) UTI (urinary tract infection) Status: Acute (3) COPD exacerbation Status: Chronic (4) Obstructive uropathy Status: Acute (5) Hyperlipidemia Status: Chronic (6) COPD (chronic obstructive pulmonary disease) Status: Chronic (7) BPH (benign prostatic hyperplasia) Status: Chronic Qualifiers: Lower urinary tract symptom detail: unspecified (8) CAD (coronary artery disease) Status: Chronic Qualifiers: Coronary Disease-Associated Artery/Lesion type: unspecified vessel or lesion type Associated angina: without angina (9) Hypertension Status: Chronic Qualifiers: Hypertension type: essential hypertension Qualified Code(s): I10 - Essential (primary) hypertension (10) Cholecystitis, acute with cholelithiasis Status: Acute History of Present Illness Date of Admission: 12/12/18 Chief Complaint: SOB FOR 3 weeks The patient is a 63 year old M with history of COPD, coronary artery status post stents with recent admission on 12/06/2018 for acute renal failure secondary to obstructive uropathy with bilateral hydronephrosis and discharged with Dos Santos catheter came to ED for shortness of breath, progressively worsening for last 2-3 weeks. He has cough and brings up yellow phlegm. He is emptying Urobag about 3-4 L/day and does not complain of urethral discomfort. He also complained of on and off mild abdominal pain, nonspecific for which CT abdomen was done In the ER shows mild degree of gallbladder wall thickening and multiple gallstones and bilateral hydronephrosis. UA is positive of pyuria. Chest x-ray shows hyperinflation but no consolidation. Patient is further admitted. Clinical Impression(s) from Imaging Studies Chest X-Ray 12/12/18 00:00 IMPRESSION: Hyperinflation. Abdomen/Pelvis CT 12/12/18 10:59 IMPRESSION: Marked degree of gallbladder wall thickening as described. Bilateral hydronephrosis. Saccular infrarenal abdominal aortic aneurysm. Past Medical History Past Medical History (Chronic Problems): Chronic Problems (Last Reviewed 12/07/18 @ 08:42 by Eduardo Chadwick MD) COPD exacerbation (Chronic) Hyperlipidemia (Chronic) COPD (chronic obstructive pulmonary disease) (Chronic) BPH (benign prostatic hyperplasia) (Chronic) CAD (coronary artery disease) (Chronic) Hypertension (Chronic) Medical History: Medical History (Last Reviewed 12/07/18 @ 08:42 by Eduardo Chadwick MD) CAD (coronary artery disease) I25.10 COPD (chronic obstructive pulmonary disease) J44.9 HTN (hypertension) I10 Allergies No Known Allergies Allergy (Verified 12/12/18 10:33) Home Medications: Ambulatory Orders Medication Instructions Recorded Aspirin [Aspir-Low] 81 mg PO DAILY 07/04/17 metoprolol succinate ER 25 mg 25 mg PO DAILY #90 tab 09/28/18 tablet,extended release 24 hr simvastatin 80 mg tablet 80 mg PO QHS #90 tab 09/28/18 [place]-3 Fatty Acids/Fish Oil [Fish 1 each PO DAILY 12/03/18 Oil 1,000 mg Capsule] Tamsulosin HCl [Flomax] 0.4 mg PO DAILY #30 capsule 12/03/18 Cholecalciferol (VIT D3) [Vitamin 1,000 mg PO DAILY 12/06/18 D3] Clopidogrel Bisulfate [Clopidogrel] 75 mg PO DAILY 12/06/18 Isosorbide Mononitrate [Isosorbide 30 mg PO DAILY 12/06/18 Mononitrate ER] Albuterol Inhaler [Ventolin Hfa] 1 - 2 puff INHALATION Q4H PRN PRN 12/09/18 #1 inhaler Oseltamivir Phosphate [Tamiflu] 30 mg PO DAILY@2200 #4 capsule 12/09/18 predniSONE tablet 40 mg PO DAILY@0800 5 Days #10 12/09/18 tablet Surgical History: tonsillectomy Smoking Status: Current every day smoker - *Family History Maternal Family History: Family History (Last Reviewed 12/07/18 @ 08:42 by Eduardo Chadwick MD) Other BPH (benign prostatic hyperplasia) History Items: Dementia Paternal Family History: Family History (Last Reviewed 12/07/18 @ 08:42 by Eduardo Chadwick MD) Other BPH (benign prostatic hyperplasia) History Items: Heart Disease - CHF Review of Systems Constitutional: Reports: Chills, Fever, Weakness HEENT: Denies: Head Aches, Sinus Congestion, Sinus Drainage Cardiovascular: Denies: Chest Pain, Chest Pressure, Chest Tightness, Palpitations Respiratory: Reports: Cough, Shortness of breath at rest, Shortness of breath upon exertion, Sputum production, Wheezing Gastrointestinal: Reports: Abdominal Pain, Nausea, Vomiting Genitourinary: Reports: - - Has Dos Santos catheter. Yellowish urine with flecks Musculoskeletal: Denies: Joint Pain, Joint Tenderness Skin: Denies: Rash, Wounds Neurological: Denies: Numbness, Tingling, Focal weakness Psychiatric: Denies: Anxiety, Depression, Homicidal Ideations, Suicidal Ideations Hematologic/ Lymphatic: Denies: Easy Bruising, Easy Bleeding VTE Information - Inpt Only VTE Present on Admission: No VTE Mechan Device Prophylaxis: None VTE Pharm Prophylaxis ordered?: Yes Patient Problems: Active and Suspected Problems (Last Reviewed 12/07/18 @ 08:42 by Eduardo Chadwick MD) Acute kidney injury on CKD stage III (Acute) UTI (urinary tract infection) (Acute) Cholecystitis, acute with cholelithiasis (Acute) - Physical Exam General: Alert, Oriented x3, Cooperative HEENT: Atraumatic, PERRLA, EOMI, Normocephalic Oral: Dry Mucosa Neck: Supple, No JVD, Negative Carotid Bruits Lungs: Diminished - Air entry severely diminished., Rhonchi, Short of Breath, Tachypneic, Wheezes Cardiovascular: Regular rate, Regular Rhythm, Normal S1, Normal S2, No murmurs Abdomen: Bowel Sounds Present, Soft, Non-Distended, Tender - Tenderness present on right upper quadrant. No guarding/rigidity. Extremities: Capillary Refill Less than 3 Seconds, Edema Skin: No rashes, No breakdown Musculoskeletal: No Tenderness to Palpation of Joints or Extremities, Arthritic Changes Neurological: Cranial nerves II-XII grossly intact, Deep Tendon Reflexes 2+/4 and Symmetrical, Neuro grossly intact Psych/Mental Status: Normal Affect, Appropriate Vital Signs Temp Pulse Resp BP Pulse Ox 97.7 F L 89 20 H 117/100 H 96 12/12/18 15:00 12/12/18 15:05 12/12/18 15:05 12/12/18 15:05 12/12/18 15:05 Oxygen Flow Rate (L/min) 2 Oxygen Delivery Method Room Air Weight: 165 lb Body Mass Index (BMI) 24.3 Microbiology Past 72 Hours 12/12/18 11:35 Influenza Types A,B Direct FA (TYLER) - Final Mucosa - Nasopharyngeal Laboratory Tests Past 24 Hrs 12/12/18 12/12/18 12/12/18 11:40 11:40 11:40 WBC 30.2 H* RBC 3.76 L Hgb 11.1 L Hct 34.1 L MCV 90.7 MCH 29.5 MCHC 32.6 RDW 13.6 RDW Differential 44.4 H Plt Count 281 MPV 10.9 Neut % (Auto) Not Reportable Absolute Neuts (auto) Not Reportable Total Counted 100 Neutrophils % (Manual) 79 H Band Neutrophils % 3 Lymphocytes % (Manual) 8 L Monocytes % (Manual) 7 Metamyelocytes % 1 Myelocytes % 2 H Diff Path Review May foll Platelet Estimate ADEQUATE RBC Morphology NORM C+C PT 13.6 INR 1.0 APTT 24.7 Sodium 144 Potassium 5.0 Chloride 117 H Carbon Dioxide 17.0 L Anion Gap 10 BUN 53 H Creatinine 3.10 H Estim Creat Clear Calc 24.39 Est GFR (MDRD) Af Amer 26 L Est GFR (MDRD) Non-Af 22 L BUN/Creatinine Ratio 17.1 Glucose 129 H Lactic Acid Calcium 8.2 L Total Bilirubin 0.30 AST 10 L ALT 24 Alkaline Phosphatase 45 Troponin I 0.020 Total Protein 6.1 L Albumin 2.5 L Globulin 3.6 Albumin/Globulin Ratio 0.7 L Lipase 245 Urine Color Urine Clarity Urine pH Ur Specific [place] Urine Protein Urine Glucose (UA) Urine Ketones Urine Occult Blood Urine Nitrite Urine Bilirubin Urine Urobilinogen Ur Leukocyte Esterase Urine RBC Urine WBC Ur Squamous Epith Cells Urine Bacteria Urine Mucus 12/12/18 12/12/18 11:40 12:25 WBC RBC Hgb Hct MCV MCH MCHC RDW RDW Differential Plt Count MPV Neut % (Auto) Absolute Neuts (auto) Total Counted Neutrophils % (Manual) Band Neutrophils % Lymphocytes % (Manual) Monocytes % (Manual) Metamyelocytes % Myelocytes % Diff Path Review Platelet Estimate RBC Morphology PT INR APTT Sodium Potassium Chloride Carbon Dioxide Anion Gap BUN Creatinine Estim Creat Clear Calc Est GFR (MDRD) Af Amer Est GFR (MDRD) Non-Af BUN/Creatinine Ratio Glucose Lactic Acid 1.7 Calcium Total Bilirubin AST ALT Alkaline Phosphatase Troponin I Total Protein Albumin Globulin Albumin/Globulin Ratio Lipase Urine Color Brown Urine Clarity Cloudy Urine pH 5.0 Ur Specific [place] 1.020 Urine Protein 100 H Urine Glucose (UA) Normal Urine Ketones 5 H Urine Occult Blood 250 H Urine Nitrite Positive H Urine Bilirubin 1 H Urine Urobilinogen Normal Ur Leukocyte Esterase 500 H Urine RBC > 100 SEEN Urine WBC >100 SEEN Ur Squamous Epith Cells 0 SEEN Urine Bacteria 1+ Urine Mucus 0 SEEN Assessment/Plan All Active Problems (Last Reviewed 12/07/18 @ 08:42 by Eduardo Chadwick MD) Acute kidney injury on CKD stage III (Acute) UTI (urinary tract infection) (Acute) Cholecystitis, acute with cholelithiasis (Acute) Obstructive uropathy (Acute) Acute renal failure (ARF) (Acute) The patient is a 63 year old M with history of COPD, coronary artery status post stents with recent admission on 12/06/2018 for acute renal failure secondary to obstructive uropathy with bilateral hydronephrosis and discharged with Dos Santos catheter came to ED for shortness of breath, progressively worsening for last 2-3 weeks. He has cough and brings up yellow phlegm. He is emptying Urobag about 3-4 L/day and does not complain of urethral discomfort. He also complained of on and off mild abdominal pain, nonspecific for which CT abdomen was done In the ER shows mild degree of gallbladder wall thickening and multiple gallstones and bilateral hydronephrosis. UA is positive of pyuria. Chest x-ray shows hyperinflation but no consolidation. Patient is further admitted. 1. SIRS with sepsis probably secondary to UTI and COPD exacerbation: Patient is being admitted in PCU. Patient had mild hypotension, 94/46 for which is been getting normal saline 1 L bolus. Cardiac monitoring. 2. Complicated UTI with bilateral hydronephrosis with bladder outlet obstruction secondary to BPH: Started on IV Zosyn. Patient has Dos Santos catheter. Monitor intake and output. Urology has been consulted. Sepsis workup already ordered. Blood cultures x2, urine culture. 3. COPD exacerbation: Patient had influenza A on 12/06/2018 and completed Tamiflu. This time flu test is negative. Bronchodilator every 4 hourly. IV Solu-Medrol 40 mg every 8 hourly. Incentive spirometry and chest physiotherapy. Sputum culture if he brings up phlegm. 4. Abdominal pain probably from acute cholecystitis with cholelithiasis: ALT and AST and alkaline phosphatase are normal. Total bili normal. Lipase normal. CT scan abdomen mentioned gallbladder thickening and multiple gallstones. Dr. Lo consult. Repeat LFT tomorrow morning. Right upper quadrant sonogram ordered. 5. Coronary artery disease status post stents, hypertension and dyslipidemia: Home medication reconciliation done. Clinical Impression(s) from Imaging Studies Chest X-Ray 12/12/18 00:00 IMPRESSION: Hyperinflation. Abdomen/Pelvis CT 12/12/18 10:59 IMPRESSION: Marked degree of gallbladder wall thickening as described. Bilateral hydronephrosis. Saccular infrarenal abdominal aortic aneurysm. Code Visit Inpatient E&M: 58824 Init Hosp L3
--- NOTE | 2018-12-12 16:40 | US_ITS ---
STUDY: ABDOMINAL ULTRASOUND - RIGHT UPPER QUADRANT REASON FOR VISIT: Male, 63 years old. Abdominal pain. TECHNIQUE: Ultrasound evaluation of the right upper quadrant was performed with real-time and static bobby-scale imaging. TECHNICAL QUALITY: Adequate. COMPARISON: Previous renal ultrasound of 12/06/2018. FINDINGS: Liver: The liver measures 15.1 cm. There is normal echogenicity of the liver. The bile ducts are within normal limits. There is hepatic color flow. The direction of portal flow is hepatopetal. There is no demonstrated mass lesion. Gallbladder: Normal distended gallbladder. The gallbladder wall measures 2 mm. There is a negative sonographic Siu's sign. There is no pericholecystic fluid. There are multiple echogenic structures within the gallbladder, consistent with multiple gallstones. Common Bile Duct (C.B.D.): The common bile duct measures 3 mm. Pancreas: The pancreas as seen on this examination is grossly unremarkable. There is normal echogenicity of the pancreas. There is no demonstrated pancreatic mass or cyst. Right Kidney: Normal size of the right kidney. The right kidney measures 9.3 x 5.2 x 5.2 cm. Normal renal cortex. The right cortex measures 1.8 cm. There is no demonstrated renal mass or cyst. There is mild hydronephrosis of the right kidney. US/Abdomen Limited IMPRESSION: 1. Gallstones. 2. Persistent mild right hydronephrosis. Electronically Signed: Grant Campos MD at 22:27 EST Tel , Service support ,
[2018-12-12] MEDS: 0.9% Normal Saline 1,000 ML 100 ML IV (16:45)
[2018-12-12 17:17] LABS: AST(SGOT) 14 U/L (15-37); Alanine Aminotransfer ALT/SGPT 24 U/L (16-61); Albumin, Serum 2.6 g/dL (3.2-5.0); Alkaline Phosphatase 46 U/L (45-117); Bilirubin, Direct 0.11 mg/dL (0.00-0.30); Globulin 3.5 g/dL (2.2-4.2); Protein, Total 6.1 g/dL (6.4-8.2)
[2018-12-12 17:33] LABS: BNP,B-Type NATRIURETIC PEPTIDE 14.6 pg/mL (0-100)
[2018-12-12 19:34] LABS: M R Staph aureus DNA By PCR Negative (Negative); Probe Check PASS; Specimen Processing Control PASS
[2018-12-12] MEDS: Atorvastatin Calcium 40 MG Tablet PO (22:25)
[2018-12-12] MEDS: 0.9% NaCl Peripheral Flush Adult/Peds IV (22:26)
[2018-12-12] MEDS: guaiFENesin 1,200 MG Tablet 1200 MG PO (22:26)
[2018-12-13] VITALS (12 sets, daily range): BP systolic 119–130; BP diastolic 57–82; PULSE 74–142; RESP 16–18; TEMP 36.3–37.1; O2SAT 96–97
[2018-12-13] MEDS: 0.9% Normal Saline 1,000 ML 100 ML IV (04:22)
[2018-12-13] MEDS: 0.9% NaCl Peripheral Flush Adult/Peds IV (05:20)
[2018-12-13 06:55] LABS: Hematocrit 31.4 % (40-54); Hemoglobin 10.1 g/dl (13.0-16.5); Mean Corp Hgb Conc 32.2 g/gl (32-36); Mean Corpuscular Hgb 29.6 pg (27.0-32.0); Mean Corpuscular Volume 92.1 fL (80-94); Mean Platelet Vol. 11.6 fl (6.2-12.0); Platelet Count 257 K/mm3 (150-450); RBC Distribution Width CV 13.4 % (11.6-14.6); RBC Distribution Width SD 43.6 fl (35.1-43.9); Red Blood Count 3.41 M/mm3 (4.6-6.2)
[2018-12-13 06:58] LABS: Differential Indicated MANUAL DIFF; POSITIVE COUNT YES; POSITIVE DIFFERENTIAL YES; POSITIVE MORPHOLOGY YES
[2018-12-13 07:47] LABS: Metamyelocyte 2 % (0-1); Monocyte 6 % (0-10); Neutrophil-Band 4 % (0-5); Neutrophil-Segmented 88 % (47-70); Total Cells Counted 100 (MANUAL DIFF)
[2018-12-13 07:48] LABS: Platelet Estimate ADEQUATE (ADEQ); Red Cell Morphology NORM C+C NORMAL (NORM C&C)
[2018-12-13 07:50] LABS: Absolute Neutrophil Count 30.4 X10^3/uL (2.0-7.7)
--- NOTE | 2018-12-13 07:53 | PCM.CONS.GEN ---
Reason for Consult Date of Consultation: 12/13/18 History of Present Illness: The patient is a 63 year old M presented to the ER due to shortness of breath as well as lower abdominal pain. Patient had a CT abdomen pelvis which did show a markedly thickened urinary bladder as well as bilateral hydronephrosis, cholelithiasis. A impression of the report does state that there is markedly thickened gallbladder wall as described above; however I believe this is a typo as the gallbladder wall is not mentioned in the report and the only wall that is talked about is the urinary bladder. Upon looking at the CT abdomen pelvis there is no gallbladder wall thickening on CAT scan. Patient was still did have an ultrasound of the gallbladder which showed a gallbladder wall of 2 mm which is within normal limits, common bile duct of 3 mm which again is not within normal limits, no pericholecystic fluid, cholelithiasis. Patient denies any right upper quadrant pain or nausea and vomiting after eating. He states he lives with his grandkids and they eat pizza and fried chicken often. He did have some nausea and vomiting prior to coming in. But he describes his pain is mostly lower abdominal. Patient had just finished breakfast with no complaints. Past Medical History Past Medical History (Chronic Problems): Chronic Problems (Last Reviewed 12/07/18 @ 08:42 by Eduardo Chadwick MD) COPD exacerbation (Chronic) Hyperlipidemia (Chronic) COPD (chronic obstructive pulmonary disease) (Chronic) BPH (benign prostatic hyperplasia) (Chronic) CAD (coronary artery disease) (Chronic) Hypertension (Chronic) Medical History: Medical History (Last Reviewed 12/07/18 @ 08:42 by Eduardo Chadwick MD) CAD (coronary artery disease) I25.10 COPD (chronic obstructive pulmonary disease) J44.9 HTN (hypertension) I10 Allergies No Known Allergies Allergy (Verified 12/12/18 10:33) Home Medications: Ambulatory Orders Medication Instructions Recorded Aspirin [Aspir-Low] 81 mg PO DAILY 07/04/17 metoprolol succinate ER 25 mg 25 mg PO DAILY #90 tab 09/28/18 tablet,extended release 24 hr simvastatin 80 mg tablet 80 mg PO QHS #90 tab 09/28/18 [place]-3 Fatty Acids/Fish Oil [Fish 1 each PO DAILY 12/03/18 Oil 1,000 mg Capsule] Tamsulosin HCl [Flomax] 0.4 mg PO DAILY #30 capsule 12/03/18 Cholecalciferol (VIT D3) [Vitamin 1,000 mg PO DAILY 12/06/18 D3] Clopidogrel Bisulfate [Clopidogrel] 75 mg PO DAILY 12/06/18 Isosorbide Mononitrate [Isosorbide 30 mg PO DAILY 12/06/18 Mononitrate ER] Albuterol Inhaler [Ventolin Hfa] 1 - 2 puff INHALATION Q4H PRN PRN 12/09/18 #1 inhaler Oseltamivir Phosphate [Tamiflu] 30 mg PO DAILY@2200 #4 capsule 12/09/18 predniSONE tablet 40 mg PO DAILY@0800 5 Days #10 12/09/18 tablet Surgical History: tonsillectomy Psychiatric History: No pertinent psych hx Smoking Status: Current every day smoker - *Family History Maternal Family History: Family History (Last Reviewed 12/07/18 @ 08:42 by Eduardo Chadwick MD) Other BPH (benign prostatic hyperplasia) History Items: Dementia Paternal Family History: Family History (Last Reviewed 12/07/18 @ 08:42 by Eduardo Chadwick MD) Other BPH (benign prostatic hyperplasia) History Items: Heart Disease - CHF Review of Systems Constitutional: Denies: Anorexia Eyes: Denies: Blurred vision HEENT: Denies: Difficulty Swallowing Cardiovascular: Denies: Chest Pain Respiratory: Reports: Shortness of breath at rest Gastrointestinal: Reports: Abdominal Pain - Lower bilateral, Nausea, Vomiting Genitourinary: Denies: Dysuria - Denies Skin: Denies: Rash Neurological: Denies: Balance problems, Confusion Psychiatric: Denies: Anxiety, Depression Hematologic/ Lymphatic: Reports: Easy Bruising Patient Problems: Active and Suspected Problems (Last Reviewed 12/07/18 @ 08:42 by Eduardo Chadwick MD) Acute kidney injury on CKD stage III (Acute) UTI (urinary tract infection) (Acute) Cholecystitis, acute with cholelithiasis (Acute) - Physical Exam General: Alert, Oriented x3, Cooperative, No apparent distress HEENT: Atraumatic Lungs: Normal air movement Cardiovascular: Regular rate Abdomen: Soft, Non-Distended, Tender - Left lower quadrant/suprapubic, no peritoneal signs Extremities: No clubbing, No cyanosis, No edema Skin: No rashes Neurological: Cranial nerves II-XII grossly intact Psych/Mental Status: Normal Affect Vital Signs Temp Pulse Resp BP Pulse Ox 98.6 F 77 16 119/66 97 12/13/18 03:30 12/13/18 07:00 12/13/18 03:30 12/13/18 03:30 12/13/18 03:30 Oxygen Flow Rate (L/min) 2 Oxygen Delivery Method Room Air Weight: 183 lb 10.321 oz Body Mass Index (BMI) 27.1 Intake and Output for Last 24 Hours 12/11/18 12/12/18 12/13/18 23:59 23:59 23:59 Intake Total 1030.2 / 1030.2 911 / 911 Output Total 700 / 700 1100 / 1100 Balance 330.2 / 330.2 -189 / -189 Microbiology Past 72 Hours 12/12/18 11:35 Influenza Types A,B Direct FA (TYLER) - Final Mucosa - Nasopharyngeal Laboratory Tests Past 24 Hrs 12/12/18 12/12/18 12/12/18 11:40 11:40 11:40 WBC 30.2 H* RBC 3.76 L Hgb 11.1 L Hct 34.1 L MCV 90.7 MCH 29.5 MCHC 32.6 RDW 13.6 RDW Differential 44.4 H Plt Count 281 MPV 10.9 Neut % (Auto) Not Reportable Absolute Neuts (auto) Not Reportable Absolute Lymphs (auto) Total Counted 100 Neutrophils % (Manual) 79 H Band Neutrophils % 3 Lymphocytes % (Manual) 8 L Monocytes % (Manual) 7 Metamyelocytes % 1 Myelocytes % 2 H Diff Path Review May foll Platelet Estimate ADEQUATE RBC Morphology NORM C+C PT 13.6 INR 1.0 APTT 24.7 Sodium 144 Potassium 5.0 Chloride 117 H Carbon Dioxide 17.0 L Anion Gap 10 BUN 53 H Creatinine 3.10 H Estim Creat Clear Calc 24.39 Est GFR (MDRD) Af Amer 26 L Est GFR (MDRD) Non-Af 22 L BUN/Creatinine Ratio 17.1 Glucose 129 H Lactic Acid Calcium 8.2 L Total Bilirubin 0.30 Direct Bilirubin AST 10 L ALT 24 Alkaline Phosphatase 45 Troponin I 0.020 B-Natriuretic Peptide Total Protein 6.1 L Albumin 2.5 L Globulin 3.6 Albumin/Globulin Ratio 0.7 L Lipase 245 Urine Color Urine Clarity Urine pH Ur Specific [place] Urine Protein Urine Glucose (UA) Urine Ketones Urine Occult Blood Urine Nitrite Urine Bilirubin Urine Urobilinogen Ur Leukocyte Esterase Urine RBC Urine WBC Ur Squamous Epith Cells Urine Bacteria Urine Mucus MRSA (PCR) 12/12/18 12/12/18 12/12/18 11:40 11:40 11:40 WBC RBC Hgb Hct MCV MCH MCHC RDW RDW Differential Plt Count MPV Neut % (Auto) Absolute Neuts (auto) Absolute Lymphs (auto) Total Counted Neutrophils % (Manual) Band Neutrophils % Lymphocytes % (Manual) Monocytes % (Manual) Metamyelocytes % Myelocytes % Diff Path Review Platelet Estimate RBC Morphology PT INR APTT Sodium Potassium Chloride Carbon Dioxide Anion Gap BUN Creatinine Estim Creat Clear Calc Est GFR (MDRD) Af Amer Est GFR (MDRD) Non-Af BUN/Creatinine Ratio Glucose Lactic Acid 1.7 Calcium Total Bilirubin 0.30 Direct Bilirubin 0.11 AST 14 L ALT 24 Alkaline Phosphatase 46 Troponin I B-Natriuretic Peptide 14.6 Total Protein 6.1 L Albumin 2.6 L Globulin 3.5 Albumin/Globulin Ratio Lipase Urine Color Urine Clarity Urine pH Ur Specific [place] Urine Protein Urine Glucose (UA) Urine Ketones Urine Occult Blood Urine Nitrite Urine Bilirubin Urine Urobilinogen Ur Leukocyte Esterase Urine RBC Urine WBC Ur Squamous Epith Cells Urine Bacteria Urine Mucus MRSA (PCR) 12/12/18 12/12/18 12/13/18 12:25 16:05 05:55 WBC 33.0 H* RBC 3.41 L Hgb 10.1 L Hct 31.4 L MCV 92.1 MCH 29.6 MCHC 32.2 RDW 13.4 RDW Differential 43.6 Plt Count 257 MPV 11.6 Neut % (Auto) Not Reportable Absolute Neuts (auto) 30.4 H Absolute Lymphs (auto) 0.00 L Total Counted 100 Neutrophils % (Manual) 88 H Band Neutrophils % 4 Lymphocytes % (Manual) Monocytes % (Manual) 6 Metamyelocytes % 2 H Myelocytes % Diff Path Review May foll Platelet Estimate ADEQUATE RBC Morphology NORM C+C PT INR APTT Sodium Potassium Chloride Carbon Dioxide Anion Gap BUN Creatinine Estim Creat Clear Calc Est GFR (MDRD) Af Amer Est GFR (MDRD) Non-Af BUN/Creatinine Ratio Glucose Lactic Acid Calcium Total Bilirubin Direct Bilirubin AST ALT Alkaline Phosphatase Troponin I B-Natriuretic Peptide Total Protein Albumin Globulin Albumin/Globulin Ratio Lipase Urine Color Brown Urine Clarity Cloudy Urine pH 5.0 Ur Specific [place] 1.020 Urine Protein 100 H Urine Glucose (UA) Normal Urine Ketones 5 H Urine Occult Blood 250 H Urine Nitrite Positive H Urine Bilirubin 1 H Urine Urobilinogen Normal Ur Leukocyte Esterase 500 H Urine RBC > 100 SEEN Urine WBC >100 SEEN Ur Squamous Epith Cells 0 SEEN Urine Bacteria 1+ Urine Mucus 0 SEEN MRSA (PCR) Negative Assessment/Plan All Active Problems (Last Reviewed 12/07/18 @ 08:42 by Eduardo Chadwick MD) Acute kidney injury on CKD stage III (Acute) UTI (urinary tract infection) (Acute) Cholecystitis, acute with cholelithiasis (Acute) Obstructive uropathy (Acute) Acute renal failure (ARF) (Acute) 63-year-old male with cholelithiasis?asymptomatic, bilateral hydronephrosis, thickening of the urinary bladder, COPD, chronic kidney disease 1. Patient just finished his breakfast denies any nausea or vomiting or right upper quadrant pain after eating in the past or currently. Patient states his abdominal pain is lower quadrant. Patient CT abdomen per report had a typo in the impression as there is no thickening noted on CT. Also ultrasound of the gallbladder not show any thickening of the gallbladder wall at 2 mm, no pericholecystic fluid, common bile duct 3 mm. Patient also does not have symptoms of gallbladder disease. I believe the nausea and vomiting is related to the hydronephrosis/thickening of the urinary bladder. No plans for any surgical intervention for the gallbladder currently. Did discuss signs and symptoms of gallbladder disease with the patient and encouraged him that if he does start to have these 2 can be evaluated. Patient is agreeable with plan. Christy Knapp M.D. Pager: [phone] [facility] [address] [place] [address], Outpatient [place], [address] [place] [address] Office: [phone] Code Visit Inpatient E&M: 43117 Init Hosp L2
[2018-12-13] MEDS: Clopidogrel Bisulfate 75 MG Tablet PO (09:25)
[2018-12-13] MEDS: Metoprolol(XL)Succ 25 MG Tablet PO (09:26)
[2018-12-13] MEDS: Isosorbide Mononitrate 30 MG Tablet PO (09:26)
[2018-12-13] MEDS: guaiFENesin 1,200 MG Tablet 1200 MG PO ×2 (09:26→21:36)
[2018-12-13] MEDS: Tamsulosin HCl 0.4 MG Capsule PO (09:26)
[2018-12-13] MEDS: Aspirin E.C. 81 MG Tablet PO (09:26)
[2018-12-13 10:19] LABS: Anion Gap 12 (5-15); BUN 63 mg/dL (7-18); Calcium,Total 7.9 mg/dL (8.5-10.1); Chloride 111 mmol/L (98-107); Creatinine, Serum 3.15 mg/dL (0.70-1.30); EST Glomerular Filtration Rate 21 mL/min (>60); Est Glom Filt Rate - Afr Amer 26 mL/min (>60); Glucose 229 mg/dL (74-106); Potassium 5.4 mmol/L (3.5-5.1); Sodium Level 138 mmol/L (136-145)
--- NOTE | 2018-12-13 10:35 | PCM.CONS.R ---
Problem List (1) Acute kidney injury on CKD stage III Status: Acute Consultation - Renal PCP/ Referring MD: Requesting physician: [] Primary care physician: Neil Holden MD - History of Present Illness History of Present Illness: The patient is a 63 year old M past medical history of coronary artery disease status post PCI , COPD , recent MATEUS from obstructive etiology , Patient presented to the hospital with shortness of breath . Patient was found to be septic with low blood pressure . Sepsis is most probably from UTI . Renal team was consulted for worsening kidney function . Patient was admitted earlier this month for COPD exacerbation . During last admission , patient was found to have acute kidney injury from obstructive uropathy . Renal ultrasound shows moderate bilateral hydronephrosis . Creatinine improved with placing Dos Santos catheter . Discharge creatinine was 2.7 mg/dL . Patient was discharged with a Dos Santos catheter to follow with the urology clinic as outpatient . Patient presented this time with a creatinine 3.1 mg/dL . CAT scan showed mild bilateral hydronephrosis with markedly thickened urinary bladder . Urology service was consulted this admission . Patient has been having high urine output about 3-4 L every day his urine output so far this morning 1100 cc . Patient currently is on IV fluid normal saline at 100 cc/h . Patient is being covered with antibiotics for sepsis . Also is being treated for COPD exacerbation Review of system : 12 system review is negative except as mentioned HPI [] - Allergies Allergies: Allergies No Known Allergies Allergy (Verified 12/12/18 10:33) - Current Medications Current Medications: Current Medications Acetaminophen (Tylenol) 650 mg PO Q6H PRN PRN PRN Reason: Mild Pain (scale 0-3)/T>100.7 Aspirin (Ecotrin) 81 mg PO DAILYCM [facility] Last Admin: 12/13/18 09:26 Dose: 81 mg Atorvastatin Calcium (Lipitor) 40 mg PO QHS [facility] Last Admin: 12/12/18 22:25 Dose: 40 mg Cholecalciferol (Vitamin D) 1,000 unit PO DAILY [facility] Last Admin: 12/13/18 09:26 Dose: 1,000 unit Clopidogrel Bisulfate (Plavix) 75 mg PO DAILY [facility] Last Admin: 12/13/18 09:25 Dose: 75 mg Docusate Sodium (Colace) 200 mg PO BID PRN PRN PRN Reason: Constipation Guaifenesin (Mucinex) 1,200 mg PO BID [facility] Last Admin: 12/13/18 09:26 Dose: 1,200 mg Piperacillin Sod/Tazobactam (Sod 3.375 gm/ Sodium Chloride) 50 mls @ 12.5 mls/hr IV Q12 [facility] Last Admin: 12/12/18 22:28 Dose: 12.5 mls/hr Azithromycin 500 mg/ Dextrose 255 mls @ 250 mls/hr IV Q24 [facility] Stop: 12/14/18 11:02 Last Admin: 12/13/18 09:26 Dose: 250 mls/hr Sodium Chloride () 1,000 mls @ 100 mls/hr IV .Q10H [facility] Isosorbide Mononitrate (Imdur) 30 mg PO DAILY [facility] Last Admin: 12/13/18 09:26 Dose: 30 mg Methylprednisolone (Solu-Medrol) 40 mg IV Q8 [facility] Last Admin: 12/13/18 05:20 Dose: 40 mg Metoprolol Succinate (Toprol Xl (Beta Montez)) 25 mg PO DAILY [facility] Last Admin: 12/13/18 09:26 Dose: 25 mg Ondansetron HCl (Zofran) 4 mg IV Q6H PRN PRN PRN Reason: Nausea Oxycodone HCl (Oxyir) 5 mg PO Q4H PRN PRN PRN Reason: Moderate Pain (pain scale 4-5) Polyethylene Glycol (Miralax) 17 gm PO DAILY [facility] Last Admin: 12/13/18 09:26 Dose: Not Given Sodium Chloride () 5 - 15 ml IV UD PRN PRN Reason: SALINE FLUSH Last Admin: 12/13/18 05:20 Dose: 10 ml Tamsulosin HCl (Flomax) 0.4 mg PO DAILY [facility] Last Admin: 12/13/18 09:26 Dose: 0.4 mg - Past Medical History Past Medical History (Chronic Problems): Chronic Problems (Last Reviewed 12/07/18 @ 08:42 by Eduardo Chadwick MD) COPD exacerbation (Chronic) Hyperlipidemia (Chronic) COPD (chronic obstructive pulmonary disease) (Chronic) BPH (benign prostatic hyperplasia) (Chronic) CAD (coronary artery disease) (Chronic) Hypertension (Chronic) - Past Surgical History Surgical History: tonsillectomy - Social History Smoking Status: Current every day smoker - Family History Maternal Family History: Family History (Last Reviewed 12/07/18 @ 08:42 by Eduardo Chadwick MD) Other BPH (benign prostatic hyperplasia) History Items: Dementia Paternal Family History: Family History (Last Reviewed 12/07/18 @ 08:42 by Eduardo Chadwick MD) Other BPH (benign prostatic hyperplasia) History Items: Heart Disease - CHF Patient Problems: Active and Suspected Problems (Last Reviewed 12/07/18 @ 08:42 by Eduardo Chadwick MD) Acute kidney injury on CKD stage III (Acute) UTI (urinary tract infection) (Acute) Cholecystitis, acute with cholelithiasis (Acute) - Physical Exam General: Alert, Oriented x3 HEENT: Atraumatic Oral: Moist Mucosa Neck: Supple, No JVD Lungs: Clear to auscultation, Normal air movement Cardiovascular: Regular rate, Regular Rhythm, Normal S1, Normal S2 Abdomen: Bowel Sounds Present, Soft Extremities: No clubbing, No cyanosis, No edema Skin: No rashes Musculoskeletal: No Tenderness to Palpation of Joints or Extremities Lymphatic: No Cervical, Supraclavicular, or Inguinal Adenopathy Neurological: Cranial nerves II-XII grossly intact, Neuro grossly intact Psych/Mental Status: Normal Affect Vital Signs Temp Pulse Resp BP Pulse Ox 97.4 F L 98 18 125/82 H 96 12/13/18 09:22 12/13/18 09:26 12/13/18 09:22 12/13/18 09:26 12/13/18 09:22 Oxygen Flow Rate (L/min) 2 Oxygen Delivery Method Room Air Weight: 83.3 kg Body Mass Index (BMI) 27.1 Intake and Output for Last 24 Hours 12/11/18 12/12/18 12/13/18 23:59 23:59 23:59 Intake Total 1030.2 / 1030.2 911 / 911 Output Total 700 / 700 1100 / 1100 Balance 330.2 / 330.2 -189 / -189 Microbiology Past 72 Hours 12/12/18 12:25 Urine Culture - Preliminary Urine Catheter - Dos Santos Gram negative paxton 12/12/18 11:35 Influenza Types A,B Direct FA (TYLER) - Final Mucosa - Nasopharyngeal Laboratory Tests Past 24 Hrs 12/12/18 12/12/18 12/12/18 11:40 11:40 11:40 WBC 30.2 H* RBC 3.76 L Hgb 11.1 L Hct 34.1 L MCV 90.7 MCH 29.5 MCHC 32.6 RDW 13.6 RDW Differential 44.4 H Plt Count 281 MPV 10.9 Neut % (Auto) Not Reportable Absolute Neuts (auto) Not Reportable Absolute Lymphs (auto) Total Counted 100 Neutrophils % (Manual) 79 H Band Neutrophils % 3 Lymphocytes % (Manual) 8 L Monocytes % (Manual) 7 Metamyelocytes % 1 Myelocytes % 2 H Diff Path Review May foll Platelet Estimate ADEQUATE RBC Morphology NORM C+C PT 13.6 INR 1.0 APTT 24.7 Sodium 144 Potassium 5.0 Chloride 117 H Carbon Dioxide 17.0 L Anion Gap 10 BUN 53 H Creatinine 3.10 H Estim Creat Clear Calc 24.39 Est GFR (MDRD) Af Amer 26 L Est GFR (MDRD) Non-Af 22 L BUN/Creatinine Ratio 17.1 Glucose 129 H Lactic Acid Calcium 8.2 L Total Bilirubin 0.30 Direct Bilirubin AST 10 L ALT 24 Alkaline Phosphatase 45 Troponin I 0.020 B-Natriuretic Peptide Total Protein 6.1 L Albumin 2.5 L Globulin 3.6 Albumin/Globulin Ratio 0.7 L Lipase 245 Urine Color Urine Clarity Urine pH Ur Specific [place] Urine Protein Urine Glucose (UA) Urine Ketones Urine Occult Blood Urine Nitrite Urine Bilirubin Urine Urobilinogen Ur Leukocyte Esterase Urine RBC Urine WBC Ur Squamous Epith Cells Urine Bacteria Urine Mucus MRSA (PCR) 12/12/18 12/12/18 12/12/18 11:40 11:40 11:40 WBC RBC Hgb Hct MCV MCH MCHC RDW RDW Differential Plt Count MPV Neut % (Auto) Absolute Neuts (auto) Absolute Lymphs (auto) Total Counted Neutrophils % (Manual) Band Neutrophils % Lymphocytes % (Manual) Monocytes % (Manual) Metamyelocytes % Myelocytes % Diff Path Review Platelet Estimate RBC Morphology PT INR APTT Sodium Potassium Chloride Carbon Dioxide Anion Gap BUN Creatinine Estim Creat Clear Calc Est GFR (MDRD) Af Amer Est GFR (MDRD) Non-Af BUN/Creatinine Ratio Glucose Lactic Acid 1.7 Calcium Total Bilirubin 0.30 Direct Bilirubin 0.11 AST 14 L ALT 24 Alkaline Phosphatase 46 Troponin I B-Natriuretic Peptide 14.6 Total Protein 6.1 L Albumin 2.6 L Globulin 3.5 Albumin/Globulin Ratio Lipase Urine Color Urine Clarity Urine pH Ur Specific [place] Urine Protein Urine Glucose (UA) Urine Ketones Urine Occult Blood Urine Nitrite Urine Bilirubin Urine Urobilinogen Ur Leukocyte Esterase Urine RBC Urine WBC Ur Squamous Epith Cells Urine Bacteria Urine Mucus MRSA (PCR) 12/12/18 12/12/18 12/13/18 12:25 16:05 05:55 WBC 33.0 H* RBC 3.41 L Hgb 10.1 L Hct 31.4 L MCV 92.1 MCH 29.6 MCHC 32.2 RDW 13.4 RDW Differential 43.6 Plt Count 257 MPV 11.6 Neut % (Auto) Not Reportable Absolute Neuts (auto) 30.4 H Absolute Lymphs (auto) 0.00 L Total Counted 100 Neutrophils % (Manual) 88 H Band Neutrophils % 4 Lymphocytes % (Manual) Monocytes % (Manual) 6 Metamyelocytes % 2 H Myelocytes % Diff Path Review May foll Platelet Estimate ADEQUATE RBC Morphology NORM C+C PT INR APTT Sodium Potassium Chloride Carbon Dioxide Anion Gap BUN Creatinine Estim Creat Clear Calc Est GFR (MDRD) Af Amer Est GFR (MDRD) Non-Af BUN/Creatinine Ratio Glucose Lactic Acid Calcium Total Bilirubin Direct Bilirubin AST ALT Alkaline Phosphatase Troponin I B-Natriuretic Peptide Total Protein Albumin Globulin Albumin/Globulin Ratio Lipase Urine Color Brown Urine Clarity Cloudy Urine pH 5.0 Ur Specific [place] 1.020 Urine Protein 100 H Urine Glucose (UA) Normal Urine Ketones 5 H Urine Occult Blood 250 H Urine Nitrite Positive H Urine Bilirubin 1 H Urine Urobilinogen Normal Ur Leukocyte Esterase 500 H Urine RBC > 100 SEEN Urine WBC >100 SEEN Ur Squamous Epith Cells 0 SEEN Urine Bacteria 1+ Urine Mucus 0 SEEN MRSA (PCR) Negative 12/13/18 09:48 WBC RBC Hgb Hct MCV MCH MCHC RDW RDW Differential Plt Count MPV Neut % (Auto) Absolute Neuts (auto) Absolute Lymphs (auto) Total Counted Neutrophils % (Manual) Band Neutrophils % Lymphocytes % (Manual) Monocytes % (Manual) Metamyelocytes % Myelocytes % Diff Path Review Platelet Estimate RBC Morphology PT INR APTT Sodium 138 Potassium 5.4 H Chloride 111 H Carbon Dioxide 15.0 L Anion Gap 12 BUN 63 H Creatinine 3.15 H Estim Creat Clear Calc 24.00 Est GFR (MDRD) Af Amer 26 L Est GFR (MDRD) Non-Af 21 L BUN/Creatinine Ratio 20.0 Glucose 229 H Lactic Acid Calcium 7.9 L Total Bilirubin Direct Bilirubin AST ALT Alkaline Phosphatase Troponin I B-Natriuretic Peptide Total Protein Albumin Globulin Albumin/Globulin Ratio Lipase Urine Color Urine Clarity Urine pH Ur Specific [place] Urine Protein Urine Glucose (UA) Urine Ketones Urine Occult Blood Urine Nitrite Urine Bilirubin Urine Urobilinogen Ur Leukocyte Esterase Urine RBC Urine WBC Ur Squamous Epith Cells Urine Bacteria Urine Mucus MRSA (PCR) Assessment/Plan All Active Problems (Last Reviewed 12/07/18 @ 08:42 by Eduardo Chadwick MD) Acute kidney injury on CKD stage III (Acute) UTI (urinary tract infection) (Acute) Cholecystitis, acute with cholelithiasis (Acute) Obstructive uropathy (Acute) Acute renal failure (ARF) (Acute) 1. Acute kidney injury. Most related to obstructive uropathy with high urine output after relieving the obstruction. Initial renal ultrasound earlier this month shows moderate bilateral hydronephrosis. At that time, creatinine peaked at 4.5. Creatinine improved with the place a Dos Santos catheter. Creatinine is worsening again. Creatinine up to 3.1 mg a deciliter from 2.7 mg/dL at his last discharge. This is most probably due to high urine output due to over diuresis following obstruction relief . I agree with IV fluid 100 cc/h to replace 2/3 of the urine output. No indication for hemodialysis. Please avoid nephrotoxic and ROYA or ARB. I will continue to monitor kidney function panel every day 2-metabolic acidosis. Most related to acute kidney injury, on normal saline. I will change IV fluid to sodium bicarb drip. Bicarb level in the morning 3-hyperkalemia, most related to acute kidney injury and acidosis. I give the patient 1 dose of Kayexalate. Check potassium in the morning. No indication for hemodialysis. Thank you for the consult. Renal team will continue to follow. Please call with any question or concern at my cell phone #[phone]
--- NOTE | 2018-12-13 10:41 | CON.PCM_ITS ---
Problem List (1) Acute kidney injury on CKD stage III Status: Acute Consultation - Renal PCP/ Referring MD: Requesting physician: [] Primary care physician: Neil Holden MD - History of Present Illness History of Present Illness: The patient is a 63 year old M past medical history of coronary artery disease status post PCI , COPD , recent MATEUS from obstructive etiology , Patient presented to the hospital with shortness of breath . Patient was found to be septic with low blood pressure . Sepsis is most probably from UTI . Renal team was consulted for worsening kidney function . Patient was admitted earlier this month for COPD exacerbation . During last admission , patient was found to have acute kidney injury from obstructive uropathy . Renal ultrasound shows moderate bilateral hydronephrosis . Creatinine improved with placing Dos Santos catheter . Discharge creatinine was 2.7 mg/dL . Patient was discharged with a Dos Santos catheter to follow with the urology clinic as outpatient . Patient presented this time with a creatinine 3.1 mg/dL . CAT scan showed mild bilateral hydronephrosis with markedly thickened urinary bladder . Urology service was consulted this admission . Patient has been having high urine output about 3-4 L every day his urine output so far this morning 1100 cc . Patient currently is on IV fluid normal saline at 100 cc/h . Patient is being covered with antibiotics for sepsis . Also is being treated for COPD exacerbation Review of system : 12 system review is negative except as mentioned HPI [] - Allergies Allergies: Allergies No Known Allergies Allergy (Verified 12/12/18 10:33) - Current Medications Current Medications: Current Medications Acetaminophen (Tylenol) 650 mg PO Q6H PRN PRN PRN Reason: Mild Pain (scale 0-3)/T>100.7 Aspirin (Ecotrin) 81 mg PO DAILYCM [facility] Last Admin: 12/13/18 09:26 Dose: 81 mg Atorvastatin Calcium (Lipitor) 40 mg PO QHS [facility] Last Admin: 12/12/18 22:25 Dose: 40 mg Cholecalciferol (Vitamin D) 1,000 unit PO DAILY [facility] Last Admin: 12/13/18 09:26 Dose: 1,000 unit Clopidogrel Bisulfate (Plavix) 75 mg PO DAILY [facility] Last Admin: 12/13/18 09:25 Dose: 75 mg Docusate Sodium (Colace) 200 mg PO BID PRN PRN PRN Reason: Constipation Guaifenesin (Mucinex) 1,200 mg PO BID [facility] Last Admin: 12/13/18 09:26 Dose: 1,200 mg Piperacillin Sod/Tazobactam (Sod 3.375 gm/ Sodium Chloride) 50 mls @ 12.5 mls/hr IV Q12 [facility] Last Admin: 12/12/18 22:28 Dose: 12.5 mls/hr Azithromycin 500 mg/ Dextrose 255 mls @ 250 mls/hr IV Q24 [facility] Stop: 12/14/18 11:02 Last Admin: 12/13/18 09:26 Dose: 250 mls/hr Sodium Chloride () 1,000 mls @ 100 mls/hr IV .Q10H [facility] Isosorbide Mononitrate (Imdur) 30 mg PO DAILY [facility] Last Admin: 12/13/18 09:26 Dose: 30 mg Methylprednisolone (Solu-Medrol) 40 mg IV Q8 [facility] Last Admin: 12/13/18 05:20 Dose: 40 mg Metoprolol Succinate (Toprol Xl (Beta Montez)) 25 mg PO DAILY [facility] Last Admin: 12/13/18 09:26 Dose: 25 mg Ondansetron HCl (Zofran) 4 mg IV Q6H PRN PRN PRN Reason: Nausea Oxycodone HCl (Oxyir) 5 mg PO Q4H PRN PRN PRN Reason: Moderate Pain (pain scale 4-5) Polyethylene Glycol (Miralax) 17 gm PO DAILY [facility] Last Admin: 12/13/18 09:26 Dose: Not Given Sodium Chloride () 5 - 15 ml IV UD PRN PRN Reason: SALINE FLUSH Last Admin: 12/13/18 05:20 Dose: 10 ml Tamsulosin HCl (Flomax) 0.4 mg PO DAILY [facility] Last Admin: 12/13/18 09:26 Dose: 0.4 mg - Past Medical History Past Medical History (Chronic Problems): Chronic Problems (Last Reviewed 12/07/18 @ 08:42 by Eduardo Chadwick MD) COPD exacerbation (Chronic) Hyperlipidemia (Chronic) COPD (chronic obstructive pulmonary disease) (Chronic) BPH (benign prostatic hyperplasia) (Chronic) CAD (coronary artery disease) (Chronic) Hypertension (Chronic) - Past Surgical History Surgical History: tonsillectomy - Social History Smoking Status: Current every day smoker - Family History Maternal Family History: Family History (Last Reviewed 12/07/18 @ 08:42 by Eduardo Chadwick MD) Other BPH (benign prostatic hyperplasia) History Items: Dementia Paternal Family History: Family History (Last Reviewed 12/07/18 @ 08:42 by Eduardo Chadwick MD) Other BPH (benign prostatic hyperplasia) History Items: Heart Disease - CHF Patient Problems: Active and Suspected Problems (Last Reviewed 12/07/18 @ 08:42 by Eduardo Chadwick MD) Acute kidney injury on CKD stage III (Acute) UTI (urinary tract infection) (Acute) Cholecystitis, acute with cholelithiasis (Acute) - Physical Exam General: Alert, Oriented x3 HEENT: Atraumatic Oral: Moist Mucosa Neck: Supple, No JVD Lungs: Clear to auscultation, Normal air movement Cardiovascular: Regular rate, Regular Rhythm, Normal S1, Normal S2 Abdomen: Bowel Sounds Present, Soft Extremities: No clubbing, No cyanosis, No edema Skin: No rashes Musculoskeletal: No Tenderness to Palpation of Joints or Extremities Lymphatic: No Cervical, Supraclavicular, or Inguinal Adenopathy Neurological: Cranial nerves II-XII grossly intact, Neuro grossly intact Psych/Mental Status: Normal Affect Vital Signs Temp Pulse Resp BP Pulse Ox 97.4 F L 98 18 125/82 H 96 12/13/18 09:22 12/13/18 09:26 12/13/18 09:22 12/13/18 09:26 12/13/18 09:22 Oxygen Flow Rate (L/min) 2 Oxygen Delivery Method Room Air Weight: 83.3 kg Body Mass Index (BMI) 27.1 Intake and Output for Last 24 Hours 12/11/18 12/12/18 12/13/18 23:59 23:59 23:59 Intake Total 1030.2 / 1030.2 911 / 911 Output Total 700 / 700 1100 / 1100 Balance 330.2 / 330.2 -189 / -189 Microbiology Past 72 Hours 12/12/18 12:25 Urine Culture - Preliminary Urine Catheter - Dos Santos Gram negative paxton 12/12/18 11:35 Influenza Types A,B Direct FA (TYLER) - Final Mucosa - Nasopharyngeal Laboratory Tests Past 24 Hrs 12/12/18 12/12/18 12/12/18 11:40 11:40 11:40 WBC 30.2 H* RBC 3.76 L Hgb 11.1 L Hct 34.1 L MCV 90.7 MCH 29.5 MCHC 32.6 RDW 13.6 RDW Differential 44.4 H Plt Count 281 MPV 10.9 Neut % (Auto) Not Reportable Absolute Neuts (auto) Not Reportable Absolute Lymphs (auto) Total Counted 100 Neutrophils % (Manual) 79 H Band Neutrophils % 3 Lymphocytes % (Manual) 8 L Monocytes % (Manual) 7 Metamyelocytes % 1 Myelocytes % 2 H Diff Path Review May foll Platelet Estimate ADEQUATE RBC Morphology NORM C+C PT 13.6 INR 1.0 APTT 24.7 Sodium 144 Potassium 5.0 Chloride 117 H Carbon Dioxide 17.0 L Anion Gap 10 BUN 53 H Creatinine 3.10 H Estim Creat Clear Calc 24.39 Est GFR (MDRD) Af Amer 26 L Est GFR (MDRD) Non-Af 22 L BUN/Creatinine Ratio 17.1 Glucose 129 H Lactic Acid Calcium 8.2 L Total Bilirubin 0.30 Direct Bilirubin AST 10 L ALT 24 Alkaline Phosphatase 45 Troponin I 0.020 B-Natriuretic Peptide Total Protein 6.1 L Albumin 2.5 L Globulin 3.6 Albumin/Globulin Ratio 0.7 L Lipase 245 Urine Color Urine Clarity Urine pH Ur Specific [place] Urine Protein Urine Glucose (UA) Urine Ketones Urine Occult Blood Urine Nitrite Urine Bilirubin Urine Urobilinogen Ur Leukocyte Esterase Urine RBC Urine WBC Ur Squamous Epith Cells Urine Bacteria Urine Mucus MRSA (PCR) 12/12/18 12/12/18 12/12/18 11:40 11:40 11:40 WBC RBC Hgb Hct MCV MCH MCHC RDW RDW Differential Plt Count MPV Neut % (Auto) Absolute Neuts (auto) Absolute Lymphs (auto) Total Counted Neutrophils % (Manual) Band Neutrophils % Lymphocytes % (Manual) Monocytes % (Manual) Metamyelocytes % Myelocytes % Diff Path Review Platelet Estimate RBC Morphology PT INR APTT Sodium Potassium Chloride Carbon Dioxide Anion Gap BUN Creatinine Estim Creat Clear Calc Est GFR (MDRD) Af Amer Est GFR (MDRD) Non-Af BUN/Creatinine Ratio Glucose Lactic Acid 1.7 Calcium Total Bilirubin 0.30 Direct Bilirubin 0.11 AST 14 L ALT 24 Alkaline Phosphatase 46 Troponin I B-Natriuretic Peptide 14.6 Total Protein 6.1 L Albumin 2.6 L Globulin 3.5 Albumin/Globulin Ratio Lipase Urine Color Urine Clarity Urine pH Ur Specific [place] Urine Protein Urine Glucose (UA) Urine Ketones Urine Occult Blood Urine Nitrite Urine Bilirubin Urine Urobilinogen Ur Leukocyte Esterase Urine RBC Urine WBC Ur Squamous Epith Cells Urine Bacteria Urine Mucus MRSA (PCR) 12/12/18 12/12/18 12/13/18 12:25 16:05 05:55 WBC 33.0 H* RBC 3.41 L Hgb 10.1 L Hct 31.4 L MCV 92.1 MCH 29.6 MCHC 32.2 RDW 13.4 RDW Differential 43.6 Plt Count 257 MPV 11.6 Neut % (Auto) Not Reportable Absolute Neuts (auto) 30.4 H Absolute Lymphs (auto) 0.00 L Total Counted 100 Neutrophils % (Manual) 88 H Band Neutrophils % 4 Lymphocytes % (Manual) Monocytes % (Manual) 6 Metamyelocytes % 2 H Myelocytes % Diff Path Review May foll Platelet Estimate ADEQUATE RBC Morphology NORM C+C PT INR APTT Sodium Potassium Chloride Carbon Dioxide Anion Gap BUN Creatinine Estim Creat Clear Calc Est GFR (MDRD) Af Amer Est GFR (MDRD) Non-Af BUN/Creatinine Ratio Glucose Lactic Acid Calcium Total Bilirubin Direct Bilirubin AST ALT Alkaline Phosphatase Troponin I B-Natriuretic Peptide Total Protein Albumin Globulin Albumin/Globulin Ratio Lipase Urine Color Brown Urine Clarity Cloudy Urine pH 5.0 Ur Specific [place] 1.020 Urine Protein 100 H Urine Glucose (UA) Normal Urine Ketones 5 H Urine Occult Blood 250 H Urine Nitrite Positive H Urine Bilirubin 1 H Urine Urobilinogen Normal Ur Leukocyte Esterase 500 H Urine RBC > 100 SEEN Urine WBC >100 SEEN Ur Squamous Epith Cells 0 SEEN Urine Bacteria 1+ Urine Mucus 0 SEEN MRSA (PCR) Negative 12/13/18 09:48 WBC RBC Hgb Hct MCV MCH MCHC RDW RDW Differential Plt Count MPV Neut % (Auto) Absolute Neuts (auto) Absolute Lymphs (auto) Total Counted Neutrophils % (Manual) Band Neutrophils % Lymphocytes % (Manual) Monocytes % (Manual) Metamyelocytes % Myelocytes % Diff Path Review Platelet Estimate RBC Morphology PT INR APTT Sodium 138 Potassium 5.4 H Chloride 111 H Carbon Dioxide 15.0 L Anion Gap 12 BUN 63 H Creatinine 3.15 H Estim Creat Clear Calc 24.00 Est GFR (MDRD) Af Amer 26 L Est GFR (MDRD) Non-Af 21 L BUN/Creatinine Ratio 20.0 Glucose 229 H Lactic Acid Calcium 7.9 L Total Bilirubin Direct Bilirubin AST ALT Alkaline Phosphatase Troponin I B-Natriuretic Peptide Total Protein Albumin Globulin Albumin/Globulin Ratio Lipase Urine Color Urine Clarity Urine pH Ur Specific [place] Urine Protein Urine Glucose (UA) Urine Ketones Urine Occult Blood Urine Nitrite Urine Bilirubin Urine Urobilinogen Ur Leukocyte Esterase Urine RBC Urine WBC Ur Squamous Epith Cells Urine Bacteria Urine Mucus MRSA (PCR) Assessment/Plan All Active Problems (Last Reviewed 12/07/18 @ 08:42 by Eduardo Chadwick MD) Acute kidney injury on CKD stage III (Acute) UTI (urinary tract infection) (Acute) Cholecystitis, acute with cholelithiasis (Acute) Obstructive uropathy (Acute) Acute renal failure (ARF) (Acute) 1. Acute kidney injury. Most related to obstructive uropathy with high urine output after relieving the obstruction. Initial renal ultrasound earlier this month shows moderate bilateral hydronephrosis. At that time, creatinine peaked at 4.5. Creatinine improved with the place a Dos Santos catheter. Creatinine is worsening again. Creatinine up to 3.1 mg a deciliter from 2.7 mg/dL at his last discharge. This is most probably due to high urine output due to over diuresis following obstruction relief . I agree with IV fluid 100 cc/h to replace 2/3 of the urine output. No indication for hemodialysis. Please avoid nephrotoxic and ROYA or ARB. I will continue to monitor kidney function panel every day 2-metabolic acidosis. Most related to acute kidney injury, on normal saline. I will change IV fluid to sodium bicarb drip. Bicarb level in the morning 3-hyperkalemia, most related to acute kidney injury and acidosis. I give the patient 1 dose of Kayexalate. Check potassium in the morning. No indication for hemodialysis. Thank you for the consult. Renal team will continue to follow. Please call with any question or concern at my cell phone #[phone]
--- NOTE | 2018-12-13 12:25 | CASEMGMT ---
ELENA RANGEL READMISSION NOTE Admitted 12/06/18 for COPD Exac and MATEUS. Discharged home 12/09 with F/C. Readmitted 12/12/18 with Sepsis, UTI, and COPD Exac. ELENA RANGEL to room. Introduced self and role of ELENA RANGEL. Pt resting in bed and agreeable to talking with ELENA RANGEL. Pt states his father just recently and that the is today. Pt states my mom is in a mcc and I know she's going to be next. Pt states he knows his father is in a better place and he feels so blessed to have so many family members and people in his life that care about him. Emotional Support provided and allowed pt to express feelings of sadness and love for his family. Pt states he has 2 grandchildren that live with him, ages 18 and 16, and that he is close with them and several other family members. Pt states he has taken in most of them and although they aren't my biological family I don't treat them any differently. Pt states he wishes to discharge home and discussed CCN with pt for follow-up care and SW for support. Pt states he is interested in this and agreeable to referral. Order placed for CCN Referral, and call placed to [facility]. Message left with referral. Jake MCKEON RN, CM
[2018-12-13 13:10] LABS: Pathologist Review Reviewed
[2018-12-13 13:13] LABS: Pathologist Review Reviewed
--- NOTE | 2018-12-13 14:01 | CASEMGMT ---
Social Work Completing Health Care Power of Cable Puller and Living Will documents with patient on this day per patient request. Provided patient with original documents and placing copy on chart. Jose D BAE, ДМИТРИЙ
[2018-12-13] MEDS: Sodium Polystyrene Sulfonate 15 GM/60 ML UDC PO (15:30)
--- NOTE | 2018-12-13 15:58 | PCM.PN.HOSP ---
Patient Problems: Active and Suspected Problems (Last Reviewed 12/07/18 @ 08:42 by Eduardo Chadwick MD) Acute kidney injury on CKD stage III (Acute) UTI (urinary tract infection) (Acute) Cholecystitis, acute with cholelithiasis (Acute) Subjective: Patient seen and examined. Was admitted with a complaint of shortness of breath with assisted cough productive of yellowish sputum. Patient had been admitted on 12/06/2018 and discharged after being managed for acute renal failure due to obstructive uropathy with bilateral hydronephrosis. He was discharged home with a Oglesby catheter in place. CT abdomen done in the ED on account of episodic abdominal pain showed mild degree of gallbladder wall thickening and multiple gallstones as well as bilateral hydronephrosis. UA is positive. Chest x-ray showed only hyperinflation. He was admitted to be managed for sepsis due to UTI, COPD exacerbation and possible acute cholecystitis with cholelithiasis. Seen and examined this morning. He denies any feels well. Shortness of breath has resolved and he was saturating well on room air. Review of systems otherwise negative. Labs and vitals reviewed. Vitals/I&O's: Vital Signs Temp Pulse Resp BP Pulse Ox 98.8 F 94 18 130/71 H 97 12/13/18 15:22 12/13/18 15:22 12/13/18 15:22 12/13/18 15:22 12/13/18 15:22 Oxygen Flow Rate (L/min) 2 Oxygen Delivery Method Room Air Weight: 183 lb 10.321 oz Body Mass Index (BMI) 27.1 Intake and Output for Last 24 Hours 12/11/18 12/12/18 12/13/18 23:59 23:59 23:59 Intake Total 1030.2 / 1030.2 2042 / 2043 Output Total 700 / 700 1375 / 1375 Balance 330.2 / 330.2 668 / 668 General: Alert, Oriented x3, Cooperative, No apparent distress, Lethargic HEENT: Atraumatic, PERRLA, EOMI, Normocephalic Oral: Moist Mucosa Neck: Supple, No JVD, Negative Carotid Bruits, No Nodes Lungs: Clear to auscultation, Normal air movement, No rhonchi, No wheeze Cardiovascular: Regular rate, Regular Rhythm, Normal S1, Normal S2, No murmurs Abdomen: Bowel Sounds Present, Soft, Non Tender, Non-Distended, No Hepato-splenomegaly, - - Oglesby catheter draining clear urine. Extremities: No clubbing, No cyanosis, No edema, Capillary Refill Less than 3 Seconds Skin: No rashes, No breakdown Musculoskeletal: No Tenderness to Palpation of Joints or Extremities Lymphatic: No Cervical, Supraclavicular, or Inguinal Adenopathy Neurological: Cranial nerves II-XII grossly intact, Neuro grossly intact, Motor Exam 5/5 strength throughout Psych/Mental Status: Normal Affect, Appropriate, Alert and oriented to time, place, person, mood and affect Microbiology Past 72 Hours 12/12/18 12:25 Urine Catheter - Oglesby Urine Culture - Preliminary Gram negative paxton 12/12/18 11:35 Mucosa - Nasopharyngeal Influenza Types A,B Direct FA (TYLER) - Final Laboratory Results 12/12/18 11:40: Diff Path Review Reviewed 12/12/18 11:40: B-Natriuretic Peptide 14.6 12/12/18 11:40: Total Bilirubin 0.30, Direct Bilirubin 0.11, AST 14 L, ALT 24, Alkaline Phosphatase 46, Total Protein 6.1 L, Albumin 2.6 L, Globulin 3.5 12/12/18 16:05: MRSA (PCR) Negative 12/13/18 05:55: WBC 33.0 H*, RBC 3.41 L, Hgb 10.1 L, Hct 31.4 L, MCV 92.1, MCH 29.6, MCHC 32.2, RDW 13.4, RDW Differential 43.6, Plt Count 257, MPV 11.6, Neut % (Auto) Not Reportable, Absolute Neuts (auto) 30.4 H, Absolute Lymphs (auto) 0.00 L, Total Counted 100, Neutrophils % (Manual) 88 H, Band Neutrophils % 4, Monocytes % (Manual) 6, Metamyelocytes % 2 H, Diff Path Review Reviewed, Platelet Estimate ADEQUATE, RBC Morphology NORM C+C 12/13/18 09:48: Sodium 138, Potassium 5.4 H, Chloride 111 H, Carbon Dioxide 15.0 L, Anion Gap 12, BUN 63 H, Creatinine 3.15 H, Estim Creat Clear Calc 24.00, Est GFR (MDRD) Af Amer 26 L, Est GFR (MDRD) Non-Af 21 L, BUN/Creatinine Ratio 20.0, Glucose 229 H, Calcium 7.9 L Diagnostic Data Chest X-Ray 12/12/18 00:00 IMPRESSION: Hyperinflation. Electronically Signed: Chavez Regalado MD at 12:52 EST , Service support , Abdomen/Pelvis CT 12/12/18 10:59 IMPRESSION: Marked degree of gallbladder wall thickening as described. Bilateral hydronephrosis. Saccular infrarenal abdominal aortic aneurysm. Electronically Signed: Chavez Regalado MD at 12:44 EST , Service support , Abdomen Ultrasound 12/12/18 16:40 IMPRESSION: 1. Gallstones. 2. Persistent mild right hydronephrosis. Electronically Signed: Grant Campos MD at 22:27 EST Tel , Service support , Current Medications Acetaminophen (Tylenol) 650 mg PO Q6H PRN PRN PRN Reason: Mild Pain (scale 0-3)/T>100.7 [facility] Last Admin: 12/13/18 09:26 Dose: 81 mg Atorvastatin Calcium (Lipitor) 40 mg PO QHS [facility] Last Admin: 12/12/18 22:25 Dose: 40 mg Cholecalciferol (Vitamin D) 1,000 unit PO DAILY [facility] Last Admin: 12/13/18 09:26 Dose: 1,000 unit Clopidogrel Bisulfate (Plavix) 75 mg PO DAILY [facility] Last Admin: 12/13/18 09:25 Dose: 75 mg Docusate Sodium (Colace) 200 mg PO BID PRN PRN PRN Reason: Constipation Guaifenesin (Mucinex) 1,200 mg PO BID [facility] Last Admin: 12/13/18 09:26 Dose: 1,200 mg Piperacillin Sod/Tazobactam (Sod 3.375 gm/ Sodium Chloride) 50 mls @ 12.5 mls/hr IV Q12 [facility] Last Admin: 12/13/18 10:42 Dose: 12.5 mls/hr Azithromycin 500 mg/ Dextrose 255 mls @ 250 mls/hr IV Q24 [facility] Stop: 12/14/18 11:02 Last Admin: 12/13/18 09:26 Dose: 250 mls/hr Sodium Bicarbonate 150 meq/ (Dextrose) 1,150 mls @ 100 mls/hr IV .[id number] [facility] Last Admin: 12/13/18 10:57 Dose: 100 mls/hr Isosorbide Mononitrate (Imdur) 30 mg PO DAILY [facility] Last Admin: 12/13/18 09:26 Dose: 30 mg Metoprolol Succinate (Toprol Xl (Beta Montez)) 25 mg PO DAILY [facility] Last Admin: 12/13/18 09:26 Dose: 25 mg Ondansetron HCl (Zofran) 4 mg IV Q6H PRN PRN PRN Reason: Nausea Oxycodone HCl (Oxyir) 5 mg PO Q4H PRN PRN PRN Reason: Moderate Pain (pain scale 4-5) Polyethylene Glycol (Miralax) 17 gm PO DAILY [facility] Last Admin: 12/13/18 09:26 Dose: Not Given Sodium Chloride () 5 - 15 ml IV UD PRN PRN Reason: SALINE FLUSH Last Admin: 12/13/18 05:20 Dose: 10 ml Tamsulosin HCl (Flomax) 0.4 mg PO DAILY [facility] Last Admin: 12/13/18 09:26 Dose: 0.4 mg Medical Necessity - Tobacco Use Smoking Status: Current every day smoker Assessment/Plan All Active Problems (Last Reviewed 12/07/18 @ 08:42 by Eduardo Chadwick MD) Acute kidney injury on CKD stage III (Acute) UTI (urinary tract infection) (Acute) Cholecystitis, acute with cholelithiasis (Acute) Obstructive uropathy (Acute) Acute renal failure (ARF) (Acute) 1. Sepsis due to UTI SIRS criteria - 11/01 (for leucocytosis) UA was positive for UTI the patient had had a for the catheter in for several days. on IV Zosyn. CT of the abdomen showed gallbladder wall thickening and multiple gallstones as well as bilateral hydronephrosis. continue IV Zosyn and await urine cultures and blood cultures 2. UTI: as under 1 3. Post renal MATEUS due to BPH and bladder outlet obstruction has Oglesby catheter in place Cr is 3.15 this morning, was 3.10 on admission The discharge with Oglesby catheter in place after being admitted for post renal AK I. monitor input and output. Urology and nephrology consulted. 4. COPD exacerbation SOB has resolved. Was saturating well on room air Recently been managed for influenza about a week ago and is completed 5 days of Tamiflu. IV Solu Medrol DC'd on account of markedly elevated white cell count which is gone up to 33. Breathing treatments with duo nebs. Continue incentive spirometry and chest physiotherapy 5. Hyperkalemia: Potassium is 5.4 today. Kayexalate given. Will monitor 6. Cholelithiais Enough nonspecific abdominal pain. CT abdomen showed gallbladder thickening and multiple gallstones. Abdominal ultrasound showed normal distended gallbladder with 2 mm o'clock bladder wall and negative sonographic Siu sign. No pericholecystic fluid. Multiple gallstones. General surgery consulted. Advocated conservative management for now. 7. 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 This could be due to the obstructive uropathy patient has nephrology on board received kayexalate for hyperkalemia on bicarb drip, per nephro 8. Leucocytosis: wbc Count is 33. Was 30.2 on admission. This is likely due to steroid the patient has been receiving. 9. Bilateral hydronephrosis due to BPH CT scan findings as above. Oglesby catheter in place on tamsulosin and flomax Will DC steroids as patient is breathing well evaluated. Will monitor white count. 10. Hyperlipidemia: On statin Hypertension: On metoprolol CAD: On Plavix and statin as well as metoprolol and imdur DVT prophylaxis: will start heparin Code Visit Inpatient E&M: 66819 [facility] L3
--- NOTE | 2018-12-13 16:03 | PN_ITS ---
Patient Problems: Active and Suspected Problems (Last Reviewed 12/07/18 @ 08:42 by Eduardo Chadwick MD) Acute kidney injury on CKD stage III (Acute) UTI (urinary tract infection) (Acute) Cholecystitis, acute with cholelithiasis (Acute) Subjective: Patient seen and examined. Was admitted with a complaint of shortness of breath with assisted cough productive of yellowish sputum. Patient had been admitted on 12/06/2018 and discharged after being managed for acute renal failure due to obstructive uropathy with bilateral hydronephrosis. He was discharged home with a Oglesby catheter in place. CT abdomen done in the ED on account of episodic abdominal pain showed mild degree of gallbladder wall thickening and multiple gallstones as well as bilateral hydronephrosis. UA is positive. Chest x-ray showed only hyperinflation. He was admitted to be managed for sepsis due to UTI, COPD exacerbation and possible acute cholecystitis with cholelithiasis. Seen and examined this morning. He denies any feels well. Shortness of breath has resolved and he was saturating well on room air. Review of systems otherwise negative. Labs and vitals reviewed. Vitals/I&O's: Vital Signs Temp Pulse Resp BP Pulse Ox 98.8 F 94 18 130/71 H 97 12/13/18 15:22 12/13/18 15:22 12/13/18 15:22 12/13/18 15:22 12/13/18 15:22 Oxygen Flow Rate (L/min) 2 Oxygen Delivery Method Room Air Weight: 183 lb 10.321 oz Body Mass Index (BMI) 27.1 Intake and Output for Last 24 Hours 12/11/18 12/12/18 12/13/18 23:59 23:59 23:59 Intake Total 1030.2 / 1030.2 2042 / 2043 Output Total 700 / 700 1375 / 1375 Balance 330.2 / 330.2 668 / 668 General: Alert, Oriented x3, Cooperative, No apparent distress, Lethargic HEENT: Atraumatic, PERRLA, EOMI, Normocephalic Oral: Moist Mucosa Neck: Supple, No JVD, Negative Carotid Bruits, No Nodes Lungs: Clear to auscultation, Normal air movement, No rhonchi, No wheeze Cardiovascular: Regular rate, Regular Rhythm, Normal S1, Normal S2, No murmurs Abdomen: Bowel Sounds Present, Soft, Non Tender, Non-Distended, No Hepato- splenomegaly, - - Oglesby catheter draining clear urine. Extremities: No clubbing, No cyanosis, No edema, Capillary Refill Less than 3 Seconds Skin: No rashes, No breakdown Musculoskeletal: No Tenderness to Palpation of Joints or Extremities Lymphatic: No Cervical, Supraclavicular, or Inguinal Adenopathy Neurological: Cranial nerves II-XII grossly intact, Neuro grossly intact, Motor Exam 5/5 strength throughout Psych/Mental Status: Normal Affect, Appropriate, Alert and oriented to time, place, person, mood and affect Microbiology Past 72 Hours 12/12/18 12:25 Urine Catheter - Oglesby Urine Culture - Preliminary Gram negative paxton 12/12/18 11:35 Mucosa - Nasopharyngeal Influenza Types A,B Direct FA (TYLER) - Final Laboratory Results 12/12/18 11:40: Diff Path Review Reviewed 12/12/18 11:40: B-Natriuretic Peptide 14.6 12/12/18 11:40: Total Bilirubin 0.30, Direct Bilirubin 0.11, AST 14 L, ALT 24, Alkaline Phosphatase 46, Total Protein 6.1 L, Albumin 2.6 L, Globulin 3.5 12/12/18 16:05: MRSA (PCR) Negative 12/13/18 05:55: WBC 33.0 H*, RBC 3.41 L, Hgb 10.1 L, Hct 31.4 L, MCV 92.1, MCH 29.6, MCHC 32.2, RDW 13.4, RDW Differential 43.6, Plt Count 257, MPV 11.6, Neut % (Auto) Not Reportable, Absolute Neuts (auto) 30.4 H, Absolute Lymphs (auto) 0.00 L, Total Counted 100, Neutrophils % (Manual) 88 H, Band Neutrophils % 4, Monocytes % (Manual) 6, Metamyelocytes % 2 H, Diff Path Review Reviewed, Platelet Estimate ADEQUATE, RBC Morphology NORM C+C 12/13/18 09:48: Sodium 138, Potassium 5.4 H, Chloride 111 H, Carbon Dioxide 15.0 L, Anion Gap 12, BUN 63 H, Creatinine 3.15 H, Estim Creat Clear Calc 24.00, Est GFR (MDRD) Af Amer 26 L, Est GFR (MDRD) Non-Af 21 L, BUN/Creatinine Ratio 20.0, Glucose 229 H, Calcium 7.9 L Diagnostic Data Chest X-Ray 12/12/18 00:00 IMPRESSION: Hyperinflation. Electronically Signed: Chavez Regalado MD at 12:52 EST , Service support , Abdomen/Pelvis CT 12/12/18 10:59 IMPRESSION: Marked degree of gallbladder wall thickening as described. Bilateral hydronephrosis. Saccular infrarenal abdominal aortic aneurysm. Electronically Signed: Chavez Regalado MD at 12:44 EST , Service support , Abdomen Ultrasound 12/12/18 16:40 IMPRESSION: 1. Gallstones. 2. Persistent mild right hydronephrosis. Electronically Signed: Grant Campos MD at 22:27 EST Tel , Service support , Current Medications Acetaminophen (Tylenol) 650 mg PO Q6H PRN PRN PRN Reason: Mild Pain (scale 0-3)/T>100.7 [facility] Last Admin: 12/13/18 09:26 Dose: 81 mg Atorvastatin Calcium (Lipitor) 40 mg PO QHS [facility] Last Admin: 12/12/18 22:25 Dose: 40 mg Cholecalciferol (Vitamin D) 1,000 unit PO DAILY [facility] Last Admin: 12/13/18 09:26 Dose: 1,000 unit Clopidogrel Bisulfate (Plavix) 75 mg PO DAILY [facility] Last Admin: 12/13/18 09:25 Dose: 75 mg Docusate Sodium (Colace) 200 mg PO BID PRN PRN PRN Reason: Constipation Guaifenesin (Mucinex) 1,200 mg PO BID [facility] Last Admin: 12/13/18 09:26 Dose: 1,200 mg Piperacillin Sod/Tazobactam (Sod 3.375 gm/ Sodium Chloride) 50 mls @ 12.5 mls/hr IV Q12 [facility] Last Admin: 12/13/18 10:42 Dose: 12.5 mls/hr Azithromycin 500 mg/ Dextrose 255 mls @ 250 mls/hr IV Q24 [facility] Stop: 12/14/18 11:02 Last Admin: 12/13/18 09:26 Dose: 250 mls/hr Sodium Bicarbonate 150 meq/ (Dextrose) 1,150 mls @ 100 mls/hr IV .[id number] [facility] Last Admin: 12/13/18 10:57 Dose: 100 mls/hr Isosorbide Mononitrate (Imdur) 30 mg PO DAILY [facility] Last Admin: 12/13/18 09:26 Dose: 30 mg Metoprolol Succinate (Toprol Xl (Beta Montez)) 25 mg PO DAILY [facility] Last Admin: 12/13/18 09:26 Dose: 25 mg Ondansetron HCl (Zofran) 4 mg IV Q6H PRN PRN PRN Reason: Nausea Oxycodone HCl (Oxyir) 5 mg PO Q4H PRN PRN PRN Reason: Moderate Pain (pain scale 4-5) Polyethylene Glycol (Miralax) 17 gm PO DAILY [facility] Last Admin: 12/13/18 09:26 Dose: Not Given Sodium Chloride () 5 - 15 ml IV UD PRN PRN Reason: SALINE FLUSH Last Admin: 12/13/18 05:20 Dose: 10 ml Tamsulosin HCl (Flomax) 0.4 mg PO DAILY [facility] Last Admin: 12/13/18 09:26 Dose: 0.4 mg Medical Necessity - Tobacco Use Smoking Status: Current every day smoker Assessment/Plan All Active Problems (Last Reviewed 12/07/18 @ 08:42 by Eduardo Chadwick MD) Acute kidney injury on CKD stage III (Acute) UTI (urinary tract infection) (Acute) Cholecystitis, acute with cholelithiasis (Acute) Obstructive uropathy (Acute) Acute renal failure (ARF) (Acute) 1. Sepsis due to UTI * SIRS criteria - / (for leucocytosis) * UA was positive for UTI the patient had had a for the catheter in for several days. * on IV Zosyn. * CT of the abdomen showed gallbladder wall thickening and multiple gallstones as well as bilateral hydronephrosis. * continue IV Zosyn and await urine cultures and blood cultures * 2. UTI: as under 1 3. 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 * monitor input and output. * Urology and nephrology consulted. 4. COPD exacerbation * SOB has resolved. Was saturating well on room air * Recently been managed for influenza about a week ago and is completed 5 days of Tamiflu. * IV Solu Medrol DC'd on account of markedly elevated white cell count which is gone up to 33. * Breathing treatments with duo nebs. * Continue incentive spirometry and chest physiotherapy * 5. Hyperkalemia: Potassium is 5.4 today. Kayexalate given. Will monitor 6. Cholelithiais * Enough nonspecific abdominal pain. CT abdomen showed gallbladder thickening and multiple gallstones. * Abdominal ultrasound showed normal distended gallbladder with 2 mm o'clock bladder wall and negative sonographic Siu sign. No pericholecystic fluid. Multiple gallstones. * General surgery consulted. Advocated conservative management for now. * 7. 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 This could be due to the obstructive uropathy patient has * nephrology on board * received kayexalate for hyperkalemia * on bicarb drip, per nephro * 8. Leucocytosis: * wbc Count is 33. * Was 30.2 on admission. * This is likely due to steroid the patient has been receiving. * 9. Bilateral hydronephrosis due to BPH * CT scan findings as above. * Oglesby catheter in place * on tamsulosin and flomax * Will DC steroids as patient is breathing well evaluated. Will monitor white count. * 10. Hyperlipidemia: On statin * Hypertension: On metoprolol CAD: On Plavix and statin as well as metoprolol and imdur DVT prophylaxis: will start heparin Code Visit Inpatient E&M: [id number] [facility] Hosp L3
--- NOTE | 2018-12-13 17:18 | CON.PCM_ITS ---
Reason for Consult Date of Consultation: 12/13/18 Reason for Consultation: BPH with obstruction urinary retention bilateral hydronephrosis History of Present Illness: The patient is a 63 year old M male who recently was in the hospital with BPH and obstruction had a catheter in place was discharged home to see me but never followed up in the office he then presented to hospital with worsening shortness of breath I been called to see the patient on exam he has a very large prostate CAT scan reviewed that are unclear if he is going to be a good candidate for surgery or not for now we will leave the catheter in place CAT scan was done he still has bilateral hydronephrosis but mild compared to before. His urine output is good from the catheter no current surgical intervention is recommended. Past Medical History Past Medical History (Chronic Problems): Chronic Problems (Last Reviewed 12/07/18 @ 08:42 by Eduardo Chadwick MD) COPD exacerbation (Chronic) Hyperlipidemia (Chronic) COPD (chronic obstructive pulmonary disease) (Chronic) BPH (benign prostatic hyperplasia) (Chronic) CAD (coronary artery disease) (Chronic) Hypertension (Chronic) Medical History: Medical History (Last Reviewed 12/13/18 @ 17:16 by Eduardo Chadwick MD) CAD (coronary artery disease) I25.10 COPD (chronic obstructive pulmonary disease) J44.9 HTN (hypertension) I10 Allergies No Known Allergies Allergy (Verified 12/12/18 10:33) Home Medications: Ambulatory Orders Medication Instructions Recorded Aspirin [Aspir-Low] 81 mg PO DAILY 07/04/17 metoprolol succinate ER 25 mg 25 mg PO DAILY #90 tab 09/28/18 tablet,extended release 24 hr simvastatin 80 mg tablet 80 mg PO QHS #90 tab 09/28/18 [place]-3 Fatty Acids/Fish Oil [Fish 1 each PO DAILY 12/03/18 Oil 1,000 mg Capsule] Tamsulosin HCl [Flomax] 0.4 mg PO DAILY #30 capsule 12/03/18 Cholecalciferol (VIT D3) [Vitamin 1,000 mg PO DAILY 12/06/18 D3] Clopidogrel Bisulfate [Clopidogrel] 75 mg PO DAILY 12/06/18 Isosorbide Mononitrate [Isosorbide 30 mg PO DAILY 12/06/18 Mononitrate ER] Albuterol Inhaler [Ventolin Hfa] 1 - 2 puff INHALATION Q4H PRN PRN 12/09/18 #1 inhaler Oseltamivir Phosphate [Tamiflu] 30 mg PO DAILY@2200 #4 capsule 12/09/18 predniSONE tablet 40 mg PO DAILY@0800 5 Days #10 12/09/18 tablet Surgical History: tonsillectomy Smoking Status: Current every day smoker - *Family History Maternal Family History: Family History (Last Reviewed 12/13/18 @ 17:17 by Eduardo Chadwick MD) Other BPH (benign prostatic hyperplasia) History Items: Dementia Paternal Family History: Family History (Last Reviewed 12/13/18 @ 17:17 by Eduardo Chadwick MD) Other BPH (benign prostatic hyperplasia) History Items: Heart Disease - CHF Review of Systems Constitutional: Denies: Chills, Fever, Weight Change HEENT: Denies: Head Aches, Sinus Congestion, Sinus Drainage Cardiovascular: Denies: Chest Pain, Palpitations Respiratory: Denies: Cough, Shortness of breath at rest, Sputum production Gastrointestinal: Denies: Abdominal Pain, Nausea, Vomiting Genitourinary: Denies: Dysuria Musculoskeletal: Denies: Joint Pain, Joint Tenderness Skin: Denies: Rash, Wounds Neurological: Denies: Numbness, Tingling, Focal weakness Psychiatric: Denies: Anxiety, Depression, Homicidal Ideations, Suicidal Ideations Hematologic/ Lymphatic: Denies: Easy Bruising, Easy Bleeding Physical Exam - Physical Exam Vital Signs Temp 98.8 F 12/13/18 15:22 Pulse 94 12/13/18 15:22 Resp 18 12/13/18 15:22 BP 130/71 H 12/13/18 15:22 Pulse Ox 97 12/13/18 15:22 Intake & Output 12/11/18 12/12/18 12/13/18 23:59 23:59 23:59 Intake Total 1030.2 / 1030.2 2043 / 2043 Output Total 700 / 700 1375 / 1375 Balance 330.2 / 330.2 668 / 668 Weight: 83.3 kg 83.3 kg Intake: Oral 240 / 240 740 / 740 IV fluid/meds 790.2 / 790.2 1303 / 1303 Output: Urine 700 / 700 1375 / 1375 General: Alert, Oriented x3 HEENT: Atraumatic Oral: Moist Mucosa Lungs: No rhonchi, No wheeze Cardiovascular: Regular rate Abdomen: Soft, Obese Microbiology Past 72 Hours 12/12/18 12:25 Urine Culture - Preliminary Urine Catheter - Dos Santos Gram negative paxton 12/12/18 11:35 Influenza Types A,B Direct FA (TYLER) - Final Mucosa - Nasopharyngeal Laboratory Tests Past 24 Hrs 12/12/18 12/12/18 12/12/18 11:40 11:40 11:40 WBC RBC Hgb Hct MCV MCH MCHC RDW RDW Differential Plt Count MPV Neut % (Auto) Absolute Neuts (auto) Absolute Lymphs (auto) Total Counted Neutrophils % (Manual) Band Neutrophils % Monocytes % (Manual) Metamyelocytes % Diff Path Review Reviewed Platelet Estimate RBC Morphology Sodium Potassium Chloride Carbon Dioxide Anion Gap BUN Creatinine Estim Creat Clear Calc Est GFR (MDRD) Af Amer Est GFR (MDRD) Non-Af BUN/Creatinine Ratio Glucose Calcium Total Bilirubin 0.30 Direct Bilirubin 0.11 AST 14 L ALT 24 Alkaline Phosphatase 46 B-Natriuretic Peptide 14.6 Total Protein 6.1 L Albumin 2.6 L Globulin 3.5 MRSA (PCR) 12/12/18 12/13/18 12/13/18 16:05 05:55 09:48 WBC 33.0 H* RBC 3.41 L Hgb 10.1 L Hct 31.4 L MCV 92.1 MCH 29.6 MCHC 32.2 RDW 13.4 RDW Differential 43.6 Plt Count 257 MPV 11.6 Neut % (Auto) Not Reportable Absolute Neuts (auto) 30.4 H Absolute Lymphs (auto) 0.00 L Total Counted 100 Neutrophils % (Manual) 88 H Band Neutrophils % 4 Monocytes % (Manual) 6 Metamyelocytes % 2 H Diff Path Review Reviewed Platelet Estimate ADEQUATE RBC Morphology NORM C+C Sodium 138 Potassium 5.4 H Chloride 111 H Carbon Dioxide 15.0 L Anion Gap 12 BUN 63 H Creatinine 3.15 H Estim Creat Clear Calc 24.00 Est GFR (MDRD) Af Amer 26 L Est GFR (MDRD) Non-Af 21 L BUN/Creatinine Ratio 20.0 Glucose 229 H Calcium 7.9 L Total Bilirubin Direct Bilirubin AST ALT Alkaline Phosphatase B-Natriuretic Peptide Total Protein Albumin Globulin MRSA (PCR) Negative Assessment/Plan All Active Problems (Last Reviewed 12/07/18 @ 08:42 by Eduardo Chadwick MD) Acute kidney injury on CKD stage III (Acute) UTI (urinary tract infection) (Acute) Cholecystitis, acute with cholelithiasis (Acute) Obstructive uropathy (Acute) Acute renal failure (ARF) (Acute) 63-year-old male with BPH and obstruction retention of urine bilateral hydronephrosis recommend that we keep the catheter in place he has an appointment coming up with me this coming week but if I will missed it because he still be in the hospital with his COPD and shortness of breath x-ray and the patient once he is discharged I can see him in the office for cystoscopy prostate ultrasound to evaluate the prostate and see what the options of treatment would be for him. 1 of the options could be self intermittent cath eterization I spoke the patient regarding this.
[2018-12-13] MEDS: Pantoprazole Sodium 20 MG Tablet PO (21:35)
[2018-12-13] MEDS: Heparin Injection (Vial) 5,000 UNIT/ML VIAL 5000 UNIT SC (21:35)
[2018-12-13] MEDS: Atorvastatin Calcium 40 MG Tablet PO (21:36)
[2018-12-14] VITALS (17 sets, daily range): BP systolic 94–141; BP diastolic 48–83; PULSE 64–98; RESP 16–24; TEMP 36.7–37; O2SAT 96–98
[2018-12-14] MEDS: Heparin Injection (Vial) 5,000 UNIT/ML VIAL 5000 UNIT SC ×3 (05:33→21:20)
[2018-12-14 06:56] LABS: BUN 56 mg/dL (7-18); Creatinine, Serum 2.89 mg/dL (0.70-1.30); EST Glomerular Filtration Rate 24 mL/min (>60); Estimated Creatinine Clearance 26.16 ml/min; Glucose 114 mg/dL (74-106)
[2018-12-14 06:57] LABS: Anion Gap 8 (5-15); BUN/Creat Ratio 19.4 RATIO (10-20); Calcium,Total 7.6 mg/dL (8.5-10.1); Chloride 111 mmol/L (98-107); Est Glom Filt Rate - Afr Amer 29 mL/min (>60); Potassium 3.9 mmol/L (3.5-5.1); Sodium Level 142 mmol/L (136-145)
[2018-12-14 07:05] LABS: Hematocrit 29.9 % (40-54); Hemoglobin 9.6 g/dl (13.0-16.5); Mean Corp Hgb Conc 32.1 g/gl (32-36); Mean Corpuscular Hgb 29.3 pg (27.0-32.0); Mean Corpuscular Volume 91.2 fL (80-94); Mean Platelet Vol. 11.2 fl (6.2-12.0); Platelet Count 247 K/mm3 (150-450); RBC Distribution Width CV 13.6 % (11.6-14.6); RBC Distribution Width SD 44.4 fl (35.1-43.9); Red Blood Count 3.28 M/mm3 (4.6-6.2); White Blood Count 29.3 K/mm3 (4.4-11.0)
[2018-12-14 07:08] LABS: Differential Indicated MANUAL DIFF; POSITIVE COUNT YES; POSITIVE DIFFERENTIAL YES; POSITIVE MORPHOLOGY YES
[2018-12-14 07:19] LABS: Lymphocyte 9 % (19-41); Metamyelocyte 1 % (0-1); Monocyte 2 % (0-10); Neutrophil-Band 8 % (0-5); Neutrophil-Segmented 80 % (47-70); Total Cells Counted 100 (MANUAL DIFF)
[2018-12-14 07:22] LABS: Absolute Lymphocyte Count 2.64 X10^3/ul (0.83-4.51); Absolute Neutrophil Count 26.1 X10^3/uL (2.0-7.7); Lymphocyte # 2.64 X10^3/ul (4.0); Neutrophil # 26.08 X10^3/uL (2.7-7.7)
[2018-12-14] MEDS: Pantoprazole Sodium 20 MG Tablet PO ×2 (10:03→21:21)
[2018-12-14] MEDS: Clopidogrel Bisulfate 75 MG Tablet PO (10:03)
[2018-12-14] MEDS: Tamsulosin HCl 0.4 MG Capsule PO (10:03)
[2018-12-14] MEDS: guaiFENesin 1,200 MG Tablet 1200 MG PO ×2 (10:03→21:21)
[2018-12-14] MEDS: Metoprolol(XL)Succ 25 MG Tablet PO (10:04)
[2018-12-14] MEDS: Isosorbide Mononitrate 30 MG Tablet PO (10:05)
[2018-12-14] MEDS: Aspirin E.C. 81 MG Tablet PO (10:05)
--- NOTE | 2018-12-14 12:04 | PCM.PN.HOSP ---
Patient Problems: Active and Suspected Problems (Last Reviewed 12/13/18 @ 17:16 by Eduardo Chadwick MD) Acute kidney injury on CKD stage III (Acute) UTI (urinary tract infection) (Acute) Cholecystitis, acute with cholelithiasis (Acute) Subjective: Patient seen and examined. He is much more alert and oriented today and complains of abdominal pain which is mainly in the suprapubic region. He states he still short of breath though he was on room air and was breathing comfortably. He denies any chest pain, palpitations, dizziness, or vomiting. He does admit to several episodes of diarrhea this morning. Review of systems otherwise negative. Labs and vitals reviewed. Urine in oglesby catheter and urine bag noted to be blood tinged. Vitals/I&O's: Vital Signs Temp Pulse Resp BP Pulse Ox 98.4 F 91 24 H 141/83 H 97 12/14/18 08:49 12/14/18 10:54 12/14/18 08:49 12/14/18 10:04 12/14/18 09:22 Oxygen Flow Rate (L/min) 2 Oxygen Delivery Method Room Air Weight: 183 lb 10.321 oz Body Mass Index (BMI) 27.1 Intake and Output for Last 24 Hours 12/12/18 12/13/18 12/14/18 23:59 23:59 23:59 Intake Total 1030.2 / 1030.2 4235.3 / 4235.3 992 / 992 Output Total 700 / 700 4725 / 4725 550 / 550 Balance 330.2 / 330.2 -489.7 / -489.7 442 / 442 General: Alert, Oriented x3, Cooperative, No apparent distress HEENT: Atraumatic, PERRLA, EOMI, Normocephalic Oral: Moist Mucosa Neck: Supple, No JVD, Negative Carotid Bruits, No Nodes Lungs: Clear to auscultation, Normal air movement, No rhonchi, No wheeze Cardiovascular: Regular rate, Regular Rhythm, Normal S1, Normal S2, No murmurs Abdomen: Bowel Sounds Present, Soft, mild suprapubic tenderness, no guarding, Non-Distended, No Hepato-splenomegaly, - - Oglesby catheter draining blood tinged urine Extremities: No clubbing, No cyanosis, No edema, Capillary Refill Less than 3 Seconds Skin: No rashes, No breakdown Musculoskeletal: No Tenderness to Palpation of Joints or Extremities Lymphatic: No Cervical, Supraclavicular, or Inguinal Adenopathy Neurological: Cranial nerves II-XII grossly intact, Neuro grossly intact, Motor Exam 5/5 strength throughout Psych/Mental Status: Normal Affect, Appropriate, Alert and oriented to time, place, person, mood and affect Microbiology Past 72 Hours 12/12/18 12:25 Urine Catheter - Oglesby Urine Culture - Final Enterobacter asburiae 12/12/18 11:35 Mucosa - Nasopharyngeal Influenza Types A,B Direct FA (TYLER) - Final Laboratory Results 12/12/18 11:40: Diff Path Review Reviewed 12/13/18 05:55: Diff Path Review Reviewed 12/14/18 06:00: WBC 29.3 H, RBC 3.28 L, Hgb 9.6 L, Hct 29.9 L, MCV 91.2, MCH 29.3, MCHC 32.1, RDW 13.6, RDW Differential 44.4 H, Plt Count 247, MPV 11.2, Neut % (Auto) Not Reportable, Absolute Neuts (auto) 26.1 H, Absolute Lymphs (auto) 2.64, Total Counted 100, Neutrophils % (Manual) 80 H, Band Neutrophils % 8 H, Lymphocytes % (Manual) 9 L, Monocytes % (Manual) 2, Metamyelocytes % 1, Diff Path Review February12/14/18 06:00: Sodium 142, Potassium 3.9, Chloride 111 H, Carbon Dioxide 23.0, Anion Gap 8, BUN 56 H, Creatinine 2.89 H, Estim Creat Clear Calc 26.16, Est GFR (MDRD) Af Amer 29 L, Est GFR (MDRD) Non-Af 24 L, BUN/Creatinine Ratio 19.4, Glucose 114 H, Calcium 7.6 L Diagnostic Data Chest X-Ray 12/12/18 00:00 IMPRESSION: Hyperinflation. Electronically Signed: Chavez Regalado MD at 12:52 EST , Service support , Abdomen/Pelvis CT 12/12/18 10:59 IMPRESSION: Marked degree of gallbladder wall thickening as described. Bilateral hydronephrosis. Saccular infrarenal abdominal aortic aneurysm. Electronically Signed: Chavez Regalado MD at 12:44 EST , Service support , Abdomen Ultrasound 12/12/18 16:40 IMPRESSION: 1. Gallstones. 2. Persistent mild right hydronephrosis. Electronically Signed: Grant Campos MD at 22:27 EST Tel , Service support , Current Medications Acetaminophen (Tylenol) 650 mg PO Q6H PRN PRN PRN Reason: Mild Pain (scale 0-3)/T>100.7 Aspirin (Ecotrin) 81 mg PO DAILYCM [facility] Last Admin: 12/14/18 10:05 Dose: 81 mg Atorvastatin Calcium (Lipitor) 40 mg PO QHS [facility] Last Admin: 12/13/18 21:36 Dose: 40 mg Cholecalciferol (Vitamin D) 1,000 unit PO DAILY [facility] Last Admin: 12/14/18 10:04 Dose: 1,000 unit Clopidogrel Bisulfate (Plavix) 75 mg PO DAILY [facility] Last Admin: 12/14/18 10:03 Dose: 75 mg Docusate Sodium (Colace) 200 mg PO BID PRN PRN PRN Reason: Constipation Guaifenesin (Mucinex) 1,200 mg PO BID [facility] Last Admin: 12/14/18 10:03 Dose: 1,200 mg Heparin Sodium (Porcine) (Heparin Na) 5,000 unit SC Q8 [facility] Last Admin: 12/14/18 05:33 Dose: 5,000 unit Piperacillin Sod/Tazobactam (Sod 3.375 gm/ Sodium Chloride) 50 mls @ 12.5 mls/hr IV Q12 [facility] Last Admin: 12/13/18 21:36 Dose: 12.5 mls/hr Sodium Bicarbonate 150 meq/ (Dextrose) 1,150 mls @ 100 mls/hr IV .[id number] [facility] Last Admin: 12/14/18 10:10 Dose: 100 mls/hr Isosorbide Mononitrate (Imdur) 30 mg PO DAILY [facility] Last Admin: 12/14/18 10:05 Dose: 30 mg Metoprolol Succinate (Toprol Xl (Beta Montez)) 25 mg PO DAILY [facility] Last Admin: 12/14/18 10:04 Dose: 25 mg Ondansetron HCl (Zofran) 4 mg IV Q6H PRN PRN PRN Reason: Nausea Oxycodone HCl (Oxyir) 5 mg PO Q4H PRN PRN PRN Reason: Moderate Pain (pain scale 4-5) Pantoprazole Sodium (Protonix) 20 mg PO BID [facility] Last Admin: 12/14/18 10:03 Dose: 20 mg Polyethylene Glycol (Miralax) 17 gm PO DAILY [facility] Last Admin: 12/14/18 10:06 Dose: Not Given Sodium Chloride () 5 - 15 ml IV UD PRN PRN Reason: SALINE FLUSH Last Admin: 12/13/18 05:20 Dose: 10 ml Tamsulosin HCl (Flomax) 0.4 mg PO DAILY [facility] Last Admin: 12/14/18 10:03 Dose: 0.4 mg Medical Necessity - Tobacco Use Smoking Status: Current every day smoker Assessment/Plan All Active Problems (Last Reviewed 12/13/18 @ 17:16 by Eduardo Chadwick MD) Acute kidney injury on CKD stage III (Acute) UTI (urinary tract infection) (Acute) Cholecystitis, acute with cholelithiasis (Acute) Obstructive uropathy (Acute) Acute renal failure (ARF) (Acute) 1. Sepsis due to UTI SIRS criteria - / (for leucocytosis) UA was positive for UTI the patient had had a for the catheter in for several days. urine cultured Enterobacter asburiae which is sensitive to ciprofloxacin currently on IV zosyn; will de-escalate to PO ciprofloxacin CT of the abdomen showed gallbladder wall thickening and multiple gallstones as well as bilateral hydronephrosis. blood cultures pending 2. UTI: as under 1 3. 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 COPD exacerbation says he is still mildly SOB. saturating well on room air. Breathing treatments with duo nebs. Continue incentive spirometry and chest physiotherapy 5. Hyperkalemia: resolved. K is down to 3.9 today, form 5.4 yesterday. 6. Cholelithiais only complains of suprapubic pain now. CT abdomen showed gallbladder thickening and multiple gallstones. Abdominal ultrasound showed normal distended gallbladder with 2 mm o'clock bladder wall and negative sonographic Siu sign. No pericholecystic fluid. Multiple gallstones. General surgery consulted. Advocated conservative management for now. 7. Non anion gap hyperchloremic metabolic acidosis resolved. bicarb up to 23. on bicarb drip per nephro; 8. Leucocytosis: Was 30.2 on admission; now down to 29.3 This is likely due to steroid the patient has been receiving. 9. Bilateral hydronephrosis due to BPH CT scan findings as above. Oglesby catheter in place on tamsulosin and flomax Per urology, to maintain catheter in place. To follow-up with urology on outpatient basis for cystoscopy and prostatic ultrasound to evaluate the prostate since he with options for treatment would be. One option discussed with patient was intermittent self-catheterization at home. 10. Hyperlipidemia: On statin Hypertension: On metoprolol CAD: On Plavix and statin as well as metoprolol and imdur DVT prophylaxis: heparin Code Visit Inpatient E&M: [id number] Subs Hosp L3
--- NOTE | 2018-12-14 12:12 | PN_ITS ---
Patient Problems: Active and Suspected Problems (Last Reviewed 12/13/18 @ 17:16 by Eduardo Chadwick MD) Acute kidney injury on CKD stage III (Acute) UTI (urinary tract infection) (Acute) Cholecystitis, acute with cholelithiasis (Acute) Subjective: Patient seen and examined. He is much more alert and oriented today and complains of abdominal pain which is mainly in the suprapubic region. He states he still short of breath though he was on room air and was breathing comfortably. He denies any chest pain, palpitations, dizziness, or vomiting. He does admit to several episodes of diarrhea this morning. Review of systems otherwise negative. Labs and vitals reviewed. Urine in oglesby catheter and urine bag noted to be blood tinged. Vitals/I&O's: Vital Signs Temp Pulse Resp BP Pulse Ox 98.4 F 91 24 H 141/83 H 97 12/14/18 08:49 12/14/18 10:54 12/14/18 08:49 12/14/18 10:04 12/14/18 09:22 Oxygen Flow Rate (L/min) 2 Oxygen Delivery Method Room Air Weight: 183 lb 10.321 oz Body Mass Index (BMI) 27.1 Intake and Output for Last 24 Hours 12/12/18 12/13/18 12/14/18 23:59 23:59 23:59 Intake Total 1030.2 / 1030.2 4235.3 / 4235.3 992 / 992 Output Total 700 / 700 4725 / 4725 550 / 550 Balance 330.2 / 330.2 -489.7 / -489.7 442 / 442 General: Alert, Oriented x3, Cooperative, No apparent distress HEENT: Atraumatic, PERRLA, EOMI, Normocephalic Oral: Moist Mucosa Neck: Supple, No JVD, Negative Carotid Bruits, No Nodes Lungs: Clear to auscultation, Normal air movement, No rhonchi, No wheeze Cardiovascular: Regular rate, Regular Rhythm, Normal S1, Normal S2, No murmurs Abdomen: Bowel Sounds Present, Soft, mild suprapubic tenderness, no guarding, Non-Distended, No Hepato-splenomegaly, - - Oglesby catheter draining blood tinged urine Extremities: No clubbing, No cyanosis, No edema, Capillary Refill Less than 3 Seconds Skin: No rashes, No breakdown Musculoskeletal: No Tenderness to Palpation of Joints or Extremities Lymphatic: No Cervical, Supraclavicular, or Inguinal Adenopathy Neurological: Cranial nerves II-XII grossly intact, Neuro grossly intact, Motor Exam 5/5 strength throughout Psych/Mental Status: Normal Affect, Appropriate, Alert and oriented to time, place, person, mood and affect Microbiology Past 72 Hours 12/12/18 12:25 Urine Catheter - Oglesby Urine Culture - Final Enterobacter asburiae 12/12/18 11:35 Mucosa - Nasopharyngeal Influenza Types A,B Direct FA (TYLER) - Final Laboratory Results 12/12/18 11:40: Diff Path Review Reviewed 12/13/18 05:55: Diff Path Review Reviewed 12/14/18 06:00: WBC 29.3 H, RBC 3.28 L, Hgb 9.6 L, Hct 29.9 L, MCV 91.2, MCH 29.3, MCHC 32.1, RDW 13.6, RDW Differential 44.4 H, Plt Count 247, MPV 11.2, Neut % (Auto) Not Reportable, Absolute Neuts (auto) 26.1 H, Absolute Lymphs (auto) 2.64, Total Counted 100, Neutrophils % (Manual) 80 H, Band Neutrophils % 8 H, Lymphocytes % (Manual) 9 L, Monocytes % (Manual) 2, Metamyelocytes % 1, Diff Path Review February12/14/18 06:00: Sodium 142, Potassium 3.9, Chloride 111 H, Carbon Dioxide 23.0, Anion Gap 8, BUN 56 H, Creatinine 2.89 H, Estim Creat Clear Calc 26.16, Est GFR (MDRD) Af Amer 29 L, Est GFR (MDRD) Non-Af 24 L, BUN/Creatinine Ratio 19.4, Glucose 114 H, Calcium 7.6 L Diagnostic Data Chest X-Ray 12/12/18 00:00 IMPRESSION: Hyperinflation. Electronically Signed: Chavez Regalado MD at 12:52 EST , Service support , Abdomen/Pelvis CT 12/12/18 10:59 IMPRESSION: Marked degree of gallbladder wall thickening as described. Bilateral hydronephrosis. Saccular infrarenal abdominal aortic aneurysm. Electronically Signed: Chavez Regalado MD at 12:44 EST , Service support , Abdomen Ultrasound 12/12/18 16:40 IMPRESSION: 1. Gallstones. 2. Persistent mild right hydronephrosis. Electronically Signed: Grant Campos MD at 22:27 EST Tel , Service support , Current Medications Acetaminophen (Tylenol) 650 mg PO Q6H PRN PRN PRN Reason: Mild Pain (scale 0-3)/T>100.7 Aspirin (Ecotrin) 81 mg PO DAILYCM [facility] Last Admin: 12/14/18 10:05 Dose: 81 mg Atorvastatin Calcium (Lipitor) 40 mg PO QHS [facility] Last Admin: 12/13/18 21:36 Dose: 40 mg Cholecalciferol (Vitamin D) 1,000 unit PO DAILY [facility] Last Admin: 12/14/18 10:04 Dose: 1,000 unit Clopidogrel Bisulfate (Plavix) 75 mg PO DAILY [facility] Last Admin: 12/14/18 10:03 Dose: 75 mg Docusate Sodium (Colace) 200 mg PO BID PRN PRN PRN Reason: Constipation Guaifenesin (Mucinex) 1,200 mg PO BID [facility] Last Admin: 12/14/18 10:03 Dose: 1,200 mg Heparin Sodium (Porcine) (Heparin Na) 5,000 unit SC Q8 [facility] Last Admin: 12/14/18 05:33 Dose: 5,000 unit Piperacillin Sod/Tazobactam (Sod 3.375 gm/ Sodium Chloride) 50 mls @ 12.5 mls/hr IV Q12 [facility] Last Admin: 12/13/18 21:36 Dose: 12.5 mls/hr Sodium Bicarbonate 150 meq/ (Dextrose) 1,150 mls @ 100 mls/hr IV .[id number] [facility] Last Admin: 12/14/18 10:10 Dose: 100 mls/hr Isosorbide Mononitrate (Imdur) 30 mg PO DAILY [facility] Last Admin: 12/14/18 10:05 Dose: 30 mg Metoprolol Succinate (Toprol Xl (Beta Montez)) 25 mg PO DAILY [facility] Last Admin: 12/14/18 10:04 Dose: 25 mg Ondansetron HCl (Zofran) 4 mg IV Q6H PRN PRN PRN Reason: Nausea Oxycodone HCl (Oxyir) 5 mg PO Q4H PRN PRN PRN Reason: Moderate Pain (pain scale 4-5) Pantoprazole Sodium (Protonix) 20 mg PO BID [facility] Last Admin: 12/14/18 10:03 Dose: 20 mg Polyethylene Glycol (Miralax) 17 gm PO DAILY [facility] Last Admin: 12/14/18 10:06 Dose: Not Given Sodium Chloride () 5 - 15 ml IV UD PRN PRN Reason: SALINE FLUSH Last Admin: 12/13/18 05:20 Dose: 10 ml Tamsulosin HCl (Flomax) 0.4 mg PO DAILY [facility] Last Admin: 12/14/18 10:03 Dose: 0.4 mg Medical Necessity - Tobacco Use Smoking Status: Current every day smoker Assessment/Plan All Active Problems (Last Reviewed 12/13/18 @ 17:16 by Eduardo Chadwick MD) Acute kidney injury on CKD stage III (Acute) UTI (urinary tract infection) (Acute) Cholecystitis, acute with cholelithiasis (Acute) Obstructive uropathy (Acute) Acute renal failure (ARF) (Acute) 1. Sepsis due to UTI * SIRS criteria - /4 (for leucocytosis) * UA was positive for UTI the patient had had a for the catheter in for several days. * urine cultured Enterobacter asburiae which is sensitive to ciprofloxacin * currently on IV zosyn; will de-escalate to PO ciprofloxacin * CT of the abdomen showed gallbladder wall thickening and multiple gallstones as well as bilateral hydronephrosis. * blood cultures pending * 2. UTI: as under 1 3. 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 COPD exacerbation * says he is still mildly SOB. saturating well on room air. * Breathing treatments with duo nebs. * Continue incentive spirometry and chest physiotherapy * 5. Hyperkalemia: resolved. K is down to 3.9 today, form 5.4 yesterday. 6. Cholelithiais * only complains of suprapubic pain now. CT abdomen showed gallbladder thickening and multiple gallstones. * Abdominal ultrasound showed normal distended gallbladder with 2 mm o'clock bladder wall and negative sonographic Siu sign. No pericholecystic fluid. Multiple gallstones. * General surgery consulted. Advocated conservative management for now. * 7. Non anion gap hyperchloremic metabolic acidosis * resolved. bicarb up to 23. * on bicarb drip per nephro; * * 8. Leucocytosis: * Was 30.2 on admission; now down to 29.3 * This is likely due to steroid the patient has been receiving. * 9. Bilateral hydronephrosis due to BPH * CT scan findings as above. * Oglesby catheter in place * on tamsulosin and flomax * Per urology, to maintain catheter in place. To follow-up with urology on outpatient basis for cystoscopy and prostatic ultrasound to evaluate the prostate since he with options for treatment would be. * One option discussed with patient was intermittent self-catheterization at home. * 10. Hyperlipidemia: On statin * Hypertension: On metoprolol CAD: On Plavix and statin as well as metoprolol and imdur DVT prophylaxis: heparin Code Visit Inpatient E&M: [id number] [facility] Hosp L3
--- NOTE | 2018-12-14 14:13 | NURSING ---
student nurse charting reviewed.
[2018-12-14] MEDS: Ipratropium/Albuterol Sulfate 3 ML AMPUL.NEB INHALATION ×2 (15:05→19:32)
[2018-12-14] MEDS: 0.45% Normal Saline 1,000 ML 100 ML IV (17:57)
--- NOTE | 2018-12-14 18:22 | PCM.PN.REN ---
Patient Problems: Active and Suspected Problems (Last Reviewed 12/13/18 @ 17:16 by Eduardo Chadwick MD) Acute kidney injury on CKD stage III (Acute) UTI (urinary tract infection) (Acute) Cholecystitis, acute with cholelithiasis (Acute) Subjective: Pt is doing well. No nausea No vomiting. No SOB No CP - Physical Exam General: Alert, Oriented x3 HEENT: Atraumatic, PERRLA Oral: Moist Mucosa Neck: Supple, No JVD Lungs: Clear to auscultation, Normal air movement, No rhonchi Cardiovascular: Regular rate, Regular Rhythm, Normal S1 Abdomen: Bowel Sounds Present, Soft, Non Tender Extremities: No clubbing, No cyanosis, No edema Skin: No rashes Musculoskeletal: No Tenderness to Palpation of Joints or Extremities Lymphatic: No Cervical, Supraclavicular, or Inguinal Adenopathy Neurological: Cranial nerves II-XII grossly intact, Neuro grossly intact Psych/Mental Status: Normal Affect Comment: chapa draining bloody urine ( light ) Vital Signs Temp Pulse Resp BP Pulse Ox 98.6 F 84 20 H 125/58 H 97 12/14/18 15:20 12/14/18 15:20 12/14/18 15:20 12/14/18 15:20 12/14/18 16:07 Oxygen Flow Rate (L/min) 2 Oxygen Delivery Method Room Air Weight: 83.3 kg Body Mass Index (BMI) 27.1 Intake and Output for Last 24 Hours 12/12/18 12/13/18 12/14/18 23:59 23:59 23:59 Intake Total 1030.2 / 1030.2 4235.3 / 4235.3 2105 / 2105 Output Total 700 / 700 4725 / 4725 2850 / 2850 Balance 330.2 / 330.2 -489.7 / -489.7 -745 / -745 Microbiology Past 72 Hours 12/12/18 11:45 Blood Culture - Preliminary Blood Culture (Wb) - Right Hand No growth in 48 hours. 12/12/18 11:40 Blood Culture - Preliminary Blood Culture (Wb) - Right Wrist No growth in 48 hours. 12/12/18 12:25 Urine Culture - Final Urine Catheter - Chapa Enterobacter asburiae 12/12/18 11:35 Influenza Types A,B Direct FA (TYLER) - Final Mucosa - Nasopharyngeal Laboratory Tests Past 24 Hrs 12/14/18 12/14/18 06:00 06:00 WBC 29.3 H RBC 3.28 L Hgb 9.6 L Hct 29.9 L MCV 91.2 MCH 29.3 MCHC 32.1 RDW 13.6 RDW Differential 44.4 H Plt Count 247 MPV 11.2 Neut % (Auto) Not Reportable Absolute Neuts (auto) 26.1 H Absolute Lymphs (auto) 2.64 Total Counted 100 Neutrophils % (Manual) 80 H Band Neutrophils % 8 H Lymphocytes % (Manual) 9 L Monocytes % (Manual) 2 Metamyelocytes % 1 Diff Path Review February Sodium 142 Potassium 3.9 Chloride 111 H Carbon Dioxide 23.0 Anion Gap 8 BUN 56 H Creatinine 2.89 H Estim Creat Clear Calc 26.16 Est GFR (MDRD) Af Amer 29 L Est GFR (MDRD) Non-Af 24 L BUN/Creatinine Ratio 19.4 Glucose 114 H Calcium 7.6 L Medical Necessity - Tobacco Use Smoking Status: Current every day smoker Assessment/Plan All Active Problems (Last Reviewed 12/13/18 @ 17:16 by Eduardo Chadwick MD) Acute kidney injury on CKD stage III (Acute) UTI (urinary tract infection) (Acute) Cholecystitis, acute with cholelithiasis (Acute) Obstructive uropathy (Acute) Acute renal failure (ARF) (Acute) 1. Acute kidney injury.Related to obstructive uropathy with high urine output after relieving the obstruction. Initial renal ultrasound earlier this month shows moderate bilateral hydronephrosis. At that time, creatinine peaked at 4.5. Creatinine improved with the place a Chapa catheter. Creatinine worsened with this admission from probably high urine output due to overdiuresis following obstruction relief . Cr is slightly better today with IVF. Pt still has high UOP > 4L. I will change IVF to 1/2 NS to decrease osmotic diuresis associated with NS No indication for hemodialysis. Please avoid nephrotoxic and ROYA or ARB. check renal function in am along with electrolytes 2-metabolic acidosis. Most related to acute kidney injury, on normal saline. resolved D/C NaHCO3 drip 3-hyperkalemia, most related to acute kidney injury and acidosis. resolved. K 3.9 today Renal team will continue to follow. Please call with any question or concern at my cell phone #[phone] Yazan Shoemaker MD [phone]
[2018-12-14] MEDS: Atorvastatin Calcium 40 MG Tablet PO (21:21)
[2018-12-15] VITALS (17 sets, daily range): BP systolic 105–130; BP diastolic 58–72; PULSE 71–92; RESP 16–22; TEMP 36.4–37.1; O2SAT 94–98
[2018-12-15 05:44] LABS: Anion Gap 7 (5-15); BUN 41 mg/dL (7-18); BUN/Creat Ratio 14.1 RATIO (10-20); Calcium,Total 7.6 mg/dL (8.5-10.1); Chloride 110 mmol/L (98-107); EST Glomerular Filtration Rate 23 mL/min (>60); Est Glom Filt Rate - Afr Amer 28 mL/min (>60); Estimated Creatinine Clearance 26.07 ml/min; Glucose 86 mg/dL (74-106); Sodium Level 144 mmol/L (136-145)
[2018-12-15 06:09] LABS: Hemoglobin 9.5 g/dl (13.0-16.5); Mean Corp Hgb Conc 31.7 g/gl (32-36); Mean Corpuscular Hgb 29.4 pg (27.0-32.0); Mean Corpuscular Volume 92.9 fL (80-94); Mean Platelet Vol. 11.5 fl (6.2-12.0); Platelet Count 221 K/mm3 (150-450); RBC Distribution Width CV 13.2 % (11.6-14.6); RBC Distribution Width SD 43.5 fl (35.1-43.9); Red Blood Count 3.23 M/mm3 (4.6-6.2); White Blood Count 17.3 K/mm3 (4.4-11.0)
[2018-12-15 06:11] LABS: Differential Indicated MANUAL DIFF; POSITIVE COUNT YES; POSITIVE DIFFERENTIAL YES; POSITIVE MORPHOLOGY YES
[2018-12-15] MEDS: Heparin Injection (Vial) 5,000 UNIT/ML VIAL 5000 UNIT SC ×3 (06:19→21:48)
[2018-12-15] MEDS: Ipratropium/Albuterol Sulfate 3 ML AMPUL.NEB INHALATION ×2 (06:44→15:01)
[2018-12-15 07:11] LABS: Eosinophil 1 % (0-5); Lymphocyte 20 % (19-41); Metamyelocyte 1 % (0-1); Monocyte 8 % (0-10); Neutrophil-Segmented 70 % (47-70); Total Cells Counted 100 (MANUAL DIFF)
[2018-12-15 07:12] LABS: Hypochromasia 1+; Platelet Estimate ADEQUATE (ADEQ)
[2018-12-15 07:13] LABS: Absolute Lymphocyte Count 4.84 X10^3/ul (0.83-4.51); Absolute Neutrophil Count 12.1 X10^3/uL (2.0-7.7)
[2018-12-15] MEDS: Aspirin E.C. 81 MG Tablet PO (07:52)
[2018-12-15] MEDS: 0.45% Normal Saline 1,000 ML 100 ML IV (07:53)
[2018-12-15] MEDS: Metoprolol(XL)Succ 25 MG Tablet PO (09:55)
[2018-12-15] MEDS: guaiFENesin 1,200 MG Tablet 1200 MG PO ×2 (09:56→21:49)
[2018-12-15] MEDS: Isosorbide Mononitrate 30 MG Tablet PO (09:56)
[2018-12-15] MEDS: Tamsulosin HCl 0.4 MG Capsule PO (09:56)
[2018-12-15] MEDS: Clopidogrel Bisulfate 75 MG Tablet PO (09:56)
[2018-12-15] MEDS: Pantoprazole Sodium 20 MG Tablet PO ×2 (09:56→21:49)
--- NOTE | 2018-12-15 12:44 | PCM.PN.HOSP ---
Patient Problems: Active and Suspected Problems (Last Reviewed 12/13/18 @ 17:16 by Eduardo Chadwick MD) Acute kidney injury on CKD stage III (Acute) UTI (urinary tract infection) (Acute) Cholecystitis, acute with cholelithiasis (Acute) Subjective: Patient seen and examined. He complains of a choking sensation when swallowing. Is usually when his throat is dry as he states he is able to eat and drink water well. He denies any fever or chills, palpitations or dizziness, abdominal pain, diarrhea vomiting. Review of systems negative. Labs and vitals reviewed. Vitals/I&O's: Vital Signs Temp Pulse Resp BP Pulse Ox 98.2 F 90 16 130/69 H 98 12/15/18 10:00 12/15/18 10:36 12/15/18 10:00 12/15/18 10:00 12/15/18 10:00 Oxygen Flow Rate (L/min) 2 Oxygen Delivery Method Room Air Weight: 183 lb 10.321 oz Body Mass Index (BMI) 27.1 Intake and Output for Last 24 Hours 12/13/18 12/14/18 12/15/18 23:59 23:59 23:59 Intake Total 4235.3 / 4235.3 3016 / 3016 1442 / 1442 Output Total 4725 / 4725 4150 / 4150 2900 / 2900 Balance -489.7 / -489.7 -1134 / -1134 -1458 / -1458 General: Alert, Oriented x3, Cooperative, No apparent distress HEENT: Atraumatic, PERRLA, EOMI, Normocephalic Oral: Moist Mucosa Neck: Supple, No JVD, Negative Carotid Bruits, No Nodes Lungs: Clear to auscultation, Normal air movement, No rhonchi, No wheeze Cardiovascular: Regular rate, Regular Rhythm, Normal S1, Normal S2, No murmurs Abdomen: Bowel Sounds Present, Soft, mild suprapubic tenderness, no guarding, Non-Distended, No Hepato-splenomegaly, - - Oglesby catheter draining blood tinged urine Extremities: No clubbing, No cyanosis, No edema, Capillary Refill Less than 3 Seconds Skin: No rashes, No breakdown Musculoskeletal: No Tenderness to Palpation of Joints or Extremities Lymphatic: No Cervical, Supraclavicular, or Inguinal Adenopathy Neurological: Cranial nerves II-XII grossly intact, Neuro grossly intact, Motor Exam 5/5 strength throughout Psych/Mental Status: Normal Affect, Appropriate, Alert and oriented to time, place, person, mood and affect Microbiology Past 72 Hours 12/12/18 11:45 Blood Culture (Wb) - Right Hand Blood Culture - Preliminary No growth in 48 hours. 12/12/18 11:40 Blood Culture (Wb) - Right Wrist Blood Culture - Preliminary No growth in 48 hours. 12/12/18 12:25 Urine Catheter - Oglesby Urine Culture - Final Enterobacter asburiae 12/12/18 11:35 Mucosa - Nasopharyngeal Influenza Types A,B Direct FA (TYLER) - Final Laboratory Results 12/15/18 04:48: Sodium 144, Potassium 4.0, Chloride 110 H, Carbon Dioxide 27.0, Anion Gap 7, BUN 41 H, Creatinine 2.90 H, Estim Creat Clear Calc 26.07, Est GFR (MDRD) Af Amer 28 L, Est GFR (MDRD) Non-Af 23 L, BUN/Creatinine Ratio 14.1, Glucose 86, Calcium 7.6 L 12/15/18 04:48: WBC 17.3 H, RBC 3.23 L, Hgb 9.5 L, Hct 30.0 L, MCV 92.9, MCH 29.4, MCHC 31.7 L, RDW 13.2, RDW Differential 43.5, Plt Count 221, MPV 11.5, Neut % (Auto) Not Reportable, Absolute Neuts (auto) 12.1 H, Absolute Lymphs (auto) 4.84 H, Total Counted 100, Neutrophils % (Manual) 70, Lymphocytes % (Manual) 20, Monocytes % (Manual) 8, Eosinophils % (Manual) 1, Metamyelocytes % 1, Diff Path Review May foll, Platelet Estimate ADEQUATE, Hypochromasia 1+ Current Medications Acetaminophen (Tylenol) 650 mg PO Q6H PRN PRN PRN Reason: Mild Pain (scale 0-3)/T>100.7 Albuterol/Ipratropium (Duoneb) 3 ml INHALATION Q4HWA.RT [facility] Last Admin: 12/15/18 11:16 Dose: Not Given Aspirin (Ecotrin) 81 mg PO DAILYCM [facility] Last Admin: 12/15/18 07:52 Dose: 81 mg Atorvastatin Calcium (Lipitor) 40 mg PO QHS [facility] Last Admin: 12/14/18 21:21 Dose: 40 mg Cholecalciferol (Vitamin D) 1,000 unit PO DAILY [facility] Last Admin: 12/15/18 09:55 Dose: 1,000 unit Clopidogrel Bisulfate (Plavix) 75 mg PO DAILY [facility] Last Admin: 12/15/18 09:56 Dose: 75 mg Docusate Sodium (Colace) 200 mg PO BID PRN PRN PRN Reason: Constipation Guaifenesin (Mucinex) 1,200 mg PO BID [facility] Last Admin: 12/15/18 09:56 Dose: 1,200 mg Heparin Sodium (Porcine) (Heparin Na) 5,000 unit SC Q8 [facility] Last Admin: 12/15/18 06:19 Dose: 5,000 unit Piperacillin Sod/Tazobactam (Sod 3.375 gm/ Sodium Chloride) 50 mls @ 12.5 mls/hr IV Q12 [facility] Last Admin: 12/15/18 09:55 Dose: 12.5 mls/hr Sodium Chloride () 1,000 mls @ 100 mls/hr IV .Q10H [facility] Last Admin: 12/15/18 07:53 Dose: 100 mls/hr Isosorbide Mononitrate (Imdur) 30 mg PO DAILY [facility] Last Admin: 12/15/18 09:56 Dose: 30 mg Metoprolol Succinate (Toprol Xl (Beta Montez)) 25 mg PO DAILY [facility] Last Admin: 12/15/18 09:55 Dose: 25 mg Ondansetron HCl (Zofran) 4 mg IV Q6H PRN PRN PRN Reason: Nausea Oxycodone HCl (Oxyir) 5 mg PO Q4H PRN PRN PRN Reason: Moderate Pain (pain scale 4-5) Pantoprazole Sodium (Protonix) 20 mg PO BID [facility] Last Admin: 12/15/18 09:56 Dose: 20 mg Polyethylene Glycol (Miralax) 17 gm PO DAILY [facility] Last Admin: 12/15/18 09:52 Dose: Not Given Sodium Chloride () 5 - 15 ml IV UD PRN PRN Reason: SALINE FLUSH Last Admin: 12/13/18 05:20 Dose: 10 ml Tamsulosin HCl (Flomax) 0.4 mg PO DAILY [facility] Last Admin: 12/15/18 09:56 Dose: 0.4 mg Medical Necessity - Tobacco Use Smoking Status: Current every day smoker Assessment/Plan All Active Problems (Last Reviewed 12/13/18 @ 17:16 by Eduardo Chadwick MD) Acute kidney injury on CKD stage III (Acute) UTI (urinary tract infection) (Acute) Cholecystitis, acute with cholelithiasis (Acute) Obstructive uropathy (Acute) Acute renal failure (ARF) (Acute) 1. Sepsis due to UTI SIRS criteria - /4 (for leucocytosis) leucocytosis down to 17 and is resolving. urine cultured Enterobacter asburiae which is sensitive to ciprofloxacin currently on IV zosyn; will de-escalate to PO ciprofloxacin blood cultures showed no growth after 48 hours 2. UTI: as under 1 3. 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 Fluid changed to 1/2 NS o/a of over diuresis with normal saline urology and nephrology on board per urology, will need cystoscopy on outpatient basis 4. Oropharyngeal dysphagia complains of choking sensation with swallowing, especially when his throat is dry baltazar get speech therapy evaluation 5. COPD exacerbation resolving Breathing treatments with duo nebs. Continue incentive spirometry and chest physiotherapy 6. Hyperkalemia: resolved. K is 4 today. 7. Cholelithiais abdominal pain has resolved. CT abdomen showed gallbladder thickening and multiple gallstones. Abdominal ultrasound showed normal distended gallbladder with 2 mm o'clock bladder wall and negative sonographic Siu sign. No pericholecystic fluid. Multiple gallstones. General surgery consulted. Advocated conservative management for now. 8. Non anion gap hyperchloremic metabolic acidosis resolved. bicarb up to 23. bicarb drip dced 9. Leucocytosis: Was 30.2 on admission; now down to 17 This is likely due to steroid the patient has been receiving. will monitor 10. Bilateral hydronephrosis due to BPH CT scan findings as above. Oglesby catheter in place on tamsulosin and flomax Per urology, to maintain catheter in place. To follow-up with urology on outpatient basis for cystoscopy and prostatic ultrasound to evaluate the prostate since he with options for treatment would be. One option discussed with patient was intermittent self-catheterization at home. 11. Hyperlipidemia: On statin 12. Hypertension: On metoprolol 13. CAD: On Plavix and statin as well as metoprolol and imdur DVT prophylaxis: heparin Code Visit Inpatient E&M: 36512 Subs Hosp L3
--- NOTE | 2018-12-15 12:59 | PN_ITS ---
Patient Problems: Active and Suspected Problems (Last Reviewed 12/13/18 @ 17:16 by Eduardo Chadwick MD) Acute kidney injury on CKD stage III (Acute) UTI (urinary tract infection) (Acute) Cholecystitis, acute with cholelithiasis (Acute) Subjective: Patient seen and examined. He complains of a choking sensation when swallowing. Is usually when his throat is dry as he states he is able to eat and drink water well. He denies any fever or chills, palpitations or dizziness, abdominal pain, diarrhea vomiting. Review of systems negative. Labs and vitals reviewed. Vitals/I&O's: Vital Signs Temp Pulse Resp BP Pulse Ox 98.2 F 90 16 130/69 H 98 12/15/18 10:00 12/15/18 10:36 12/15/18 10:00 12/15/18 10:00 12/15/18 10:00 Oxygen Flow Rate (L/min) 2 Oxygen Delivery Method Room Air Weight: 183 lb 10.321 oz Body Mass Index (BMI) 27.1 Intake and Output for Last 24 Hours 12/13/18 12/14/18 12/15/18 23:59 23:59 23:59 Intake Total 4235.3 / 4235.3 3016 / 3016 1442 / 1442 Output Total 4725 / 4725 4150 / 4150 2900 / 2900 Balance -489.7 / -489.7 -1134 / -1134 -1458 / -1458 General: Alert, Oriented x3, Cooperative, No apparent distress HEENT: Atraumatic, PERRLA, EOMI, Normocephalic Oral: Moist Mucosa Neck: Supple, No JVD, Negative Carotid Bruits, No Nodes Lungs: Clear to auscultation, Normal air movement, No rhonchi, No wheeze Cardiovascular: Regular rate, Regular Rhythm, Normal S1, Normal S2, No murmurs Abdomen: Bowel Sounds Present, Soft, mild suprapubic tenderness, no guarding, Non-Distended, No Hepato-splenomegaly, - - Oglesby catheter draining blood tinged urine Extremities: No clubbing, No cyanosis, No edema, Capillary Refill Less than 3 Seconds Skin: No rashes, No breakdown Musculoskeletal: No Tenderness to Palpation of Joints or Extremities Lymphatic: No Cervical, Supraclavicular, or Inguinal Adenopathy Neurological: Cranial nerves II-XII grossly intact, Neuro grossly intact, Motor Exam 5/5 strength throughout Psych/Mental Status: Normal Affect, Appropriate, Alert and oriented to time, place, person, mood and affect Microbiology Past 72 Hours 12/12/18 11:45 Blood Culture (Wb) - Right Hand Blood Culture - Preliminary No growth in 48 hours. 12/12/18 11:40 Blood Culture (Wb) - Right Wrist Blood Culture - Preliminary No growth in 48 hours. 12/12/18 12:25 Urine Catheter - Oglesby Urine Culture - Final Enterobacter asburiae 12/12/18 11:35 Mucosa - Nasopharyngeal Influenza Types A,B Direct FA (TYLER) - Final Laboratory Results 12/15/18 04:48: Sodium 144, Potassium 4.0, Chloride 110 H, Carbon Dioxide 27.0, Anion Gap 7, BUN 41 H, Creatinine 2.90 H, Estim Creat Clear Calc 26.07, Est GFR (MDRD) Af Amer 28 L, Est GFR (MDRD) Non-Af 23 L, BUN/Creatinine Ratio 14.1, Glucose 86, Calcium 7.6 L 12/15/18 04:48: WBC 17.3 H, RBC 3.23 L, Hgb 9.5 L, Hct 30.0 L, MCV 92.9, MCH 29.4, MCHC 31.7 L, RDW 13.2, RDW Differential 43.5, Plt Count 221, MPV 11.5, Neut % (Auto) Not Reportable, Absolute Neuts (auto) 12.1 H, Absolute Lymphs (auto) 4.84 H, Total Counted 100, Neutrophils % (Manual) 70, Lymphocytes % (Manual) 20, Monocytes % (Manual) 8, Eosinophils % (Manual) 1, Metamyelocytes % 1, Diff Path Review May foll, Platelet Estimate ADEQUATE, Hypochromasia 1+ Current Medications Acetaminophen (Tylenol) 650 mg PO Q6H PRN PRN PRN Reason: Mild Pain (scale 0-3)/T>100.7 Albuterol/Ipratropium (Duoneb) 3 ml INHALATION Q4HWA.RT [facility] Last Admin: 12/15/18 11:16 Dose: Not Given Aspirin (Ecotrin) 81 mg PO DAILYCM [facility] Last Admin: 12/15/18 07:52 Dose: 81 mg Atorvastatin Calcium (Lipitor) 40 mg PO QHS [facility] Last Admin: 12/14/18 21:21 Dose: 40 mg Cholecalciferol (Vitamin D) 1,000 unit PO DAILY [facility] Last Admin: 12/15/18 09:55 Dose: 1,000 unit Clopidogrel Bisulfate (Plavix) 75 mg PO DAILY [facility] Last Admin: 12/15/18 09:56 Dose: 75 mg Docusate Sodium (Colace) 200 mg PO BID PRN PRN PRN Reason: Constipation Guaifenesin (Mucinex) 1,200 mg PO BID [facility] Last Admin: 12/15/18 09:56 Dose: 1,200 mg Heparin Sodium (Porcine) (Heparin Na) 5,000 unit SC Q8 [facility] Last Admin: 12/15/18 06:19 Dose: 5,000 unit Piperacillin Sod/Tazobactam (Sod 3.375 gm/ Sodium Chloride) 50 mls @ 12.5 mls/hr IV Q12 [facility] Last Admin: 12/15/18 09:55 Dose: 12.5 mls/hr Sodium Chloride () 1,000 mls @ 100 mls/hr IV .Q10H [facility] Last Admin: 12/15/18 07:53 Dose: 100 mls/hr Isosorbide Mononitrate (Imdur) 30 mg PO DAILY [facility] Last Admin: 12/15/18 09:56 Dose: 30 mg Metoprolol Succinate (Toprol Xl (Beta Montez)) 25 mg PO DAILY [facility] Last Admin: 12/15/18 09:55 Dose: 25 mg Ondansetron HCl (Zofran) 4 mg IV Q6H PRN PRN PRN Reason: Nausea Oxycodone HCl (Oxyir) 5 mg PO Q4H PRN PRN PRN Reason: Moderate Pain (pain scale 4-5) Pantoprazole Sodium (Protonix) 20 mg PO BID [facility] Last Admin: 12/15/18 09:56 Dose: 20 mg Polyethylene Glycol (Miralax) 17 gm PO DAILY [facility] Last Admin: 12/15/18 09:52 Dose: Not Given Sodium Chloride () 5 - 15 ml IV UD PRN PRN Reason: SALINE FLUSH Last Admin: 12/13/18 05:20 Dose: 10 ml Tamsulosin HCl (Flomax) 0.4 mg PO DAILY [facility] Last Admin: 12/15/18 09:56 Dose: 0.4 mg Medical Necessity - Tobacco Use Smoking Status: Current every day smoker Assessment/Plan All Active Problems (Last Reviewed 12/13/18 @ 17:16 by Eduardo Chadwick MD) Acute kidney injury on CKD stage III (Acute) UTI (urinary tract infection) (Acute) Cholecystitis, acute with cholelithiasis (Acute) Obstructive uropathy (Acute) Acute renal failure (ARF) (Acute) 1. Sepsis due to UTI * SIRS criteria - 11/01 (for leucocytosis) * leucocytosis down to 17 and is resolving. * urine cultured Enterobacter asburiae which is sensitive to ciprofloxacin * currently on IV zosyn; will de-escalate to PO ciprofloxacin * blood cultures showed no growth after 48 hours * 2. UTI: as under 1 3. 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 Fluid changed to 1/2 NS o/a of over diuresis with normal saline * urology and nephrology on board * per urology, will need cystoscopy on outpatient basis 4. Oropharyngeal dysphagia * complains of choking sensation with swallowing, especially when his throat is dry * baltazar get speech therapy evaluation 5. COPD exacerbation * resolving * Breathing treatments with duo nebs. * Continue incentive spirometry and chest physiotherapy * 6. Hyperkalemia: resolved. K is 4 today. 7. Cholelithiais * abdominal pain has resolved. CT abdomen showed gallbladder thickening and multiple gallstones. * Abdominal ultrasound showed normal distended gallbladder with 2 mm o'clock bladder wall and negative sonographic Siu sign. No pericholecystic fluid. Multiple gallstones. * General surgery consulted. Advocated conservative management for now. * 8. Non anion gap hyperchloremic metabolic acidosis * resolved. bicarb up to 23. * bicarb drip dced * * 9. Leucocytosis: * Was 30.2 on admission; now down to 17 * This is likely due to steroid the patient has been receiving. * will monitor * 10. Bilateral hydronephrosis due to BPH * CT scan findings as above. * Oglesby catheter in place * on tamsulosin and flomax * Per urology, to maintain catheter in place. To follow-up with urology on outpatient basis for cystoscopy and prostatic ultrasound to evaluate the prostate since he with options for treatment would be. * One option discussed with patient was intermittent self-catheterization at home. * 11. Hyperlipidemia: On statin * 12. Hypertension: On metoprolol 13. CAD: On Plavix and statin as well as metoprolol and imdur DVT prophylaxis: heparin Code Visit Inpatient E&M: 90175 Subs Hosp L3
--- NOTE | 2018-12-15 16:54 | PN.RENAL_ITS ---
Patient Problems: Active and Suspected Problems (Last Reviewed 12/13/18 @ 17:16 by Eduardo Chadwick MD) Acute kidney injury on CKD stage III (Acute) UTI (urinary tract infection) (Acute) Cholecystitis, acute with cholelithiasis (Acute) Subjective: Patient denies any nausea any vomiting any shortness of breath .patient still lynch s high urine output. Last 24-hour urine output is 4200 - Physical Exam General: Alert, Oriented x3 HEENT: Atraumatic Oral: Moist Mucosa Neck: Supple, No JVD Lungs: Clear to auscultation, Normal air movement, No rhonchi, No wheeze Cardiovascular: Regular rate, Regular Rhythm, Normal S1, Normal S2 Abdomen: Bowel Sounds Present, Non Tender Extremities: No clubbing, No cyanosis, No edema Skin: No rashes Musculoskeletal: No Tenderness to Palpation of Joints or Extremities Lymphatic: No Cervical, Supraclavicular, or Inguinal Adenopathy Neurological: Cranial nerves II-XII grossly intact, Neuro grossly intact Psych/Mental Status: Normal Affect Vital Signs Temp Pulse Resp BP Pulse Ox 98.8 F 88 16 105/72 97 12/15/18 16:00 12/15/18 16:00 12/15/18 16:00 12/15/18 16:00 12/15/18 16:00 Oxygen Flow Rate (L/min) 2 Oxygen Delivery Method Room Air Weight: 83.3 kg Body Mass Index (BMI) 27.1 Intake and Output for Last 24 Hours 12/13/18 12/14/18 12/15/18 23:59 23:59 23:59 Intake Total 4235.3 / 4235.3 3016 / 3016 2302 / 2302 Output Total 4725 / 4725 4150 / 4150 4250 / 4250 Balance -489.7 / -489.7 -1134 / -1134 -1948 / -1948 Microbiology Past 72 Hours 12/12/18 11:45 Blood Culture - Preliminary Blood Culture (Wb) - Right Hand No growth in 48 hours. 12/12/18 11:40 Blood Culture - Preliminary Blood Culture (Wb) - Right Wrist No growth in 48 hours. 12/12/18 12:25 Urine Culture - Final Urine Catheter - Dos Santos Enterobacter asburiae 12/12/18 11:35 Influenza Types A,B Direct FA (TYLER) - Final Mucosa - Nasopharyngeal Laboratory Tests Past 24 Hrs 12/15/18 12/15/18 04:48 04:48 WBC 17.3 H RBC 3.23 L Hgb 9.5 L Hct 30.0 L MCV 92.9 MCH 29.4 MCHC 31.7 L RDW 13.2 RDW Differential 43.5 Plt Count 221 MPV 11.5 Neut % (Auto) Not Reportable Absolute Neuts (auto) 12.1 H Absolute Lymphs (auto) 4.84 H Total Counted 100 Neutrophils % (Manual) 70 Lymphocytes % (Manual) 20 Monocytes % (Manual) 8 Eosinophils % (Manual) 1 Metamyelocytes % 1 Diff Path Review May foll Platelet Estimate ADEQUATE Hypochromasia 1+ Sodium 144 Potassium 4.0 Chloride 110 H Carbon Dioxide 27.0 Anion Gap 7 BUN 41 H Creatinine 2.90 H Estim Creat Clear Calc 26.07 Est GFR (MDRD) Af Amer 28 L Est GFR (MDRD) Non-Af 23 L BUN/Creatinine Ratio 14.1 Glucose 86 Calcium 7.6 L Medical Necessity - Tobacco Use Smoking Status: Current every day smoker Assessment/Plan All Active Problems (Last Reviewed 12/13/18 @ 17:16 by Eduardo Chadwick MD) Acute kidney injury on CKD stage III (Acute) UTI (urinary tract infection) (Acute) Cholecystitis, acute with cholelithiasis (Acute) Obstructive uropathy (Acute) Acute renal failure (ARF) (Acute) 1. Acute kidney injury.Related to obstructive uropathy with high urine output after relieving the obstruction. Initial renal ultrasound earlier this month shows moderate bilateral hydronephrosis. At that time, creatinine peaked at 4.5. Creatinine improved with the place a [place] catheter. Creatinine worsened with this admission from probably high urine output due to overdiuresis following obstruction relief. Patient still has high urine output more than 4 L. Creatinine is stable with IV fluid I would increase IV fluid rate half-normal saline to 150 cc/h. No indication for hemodialysis. Please avoid nephrotoxic and ROYA or ARB. check renal function in am along with electrolytes 2-metabolic acidosis. Most related to acute kidney injury, on normal saline. resolved 3-hyperkalemia, most related to acute kidney injury and acidosis. resolved. K 4.0 today Renal team will continue to follow. Please call with any question or concern at my cell phone #[phone] Yazan Shoemaker MD [phone]
[2018-12-15] MEDS: 0.45% Normal Saline 1,000 ML 150 ML IV (19:53)
[2018-12-15] MEDS: Atorvastatin Calcium 40 MG Tablet PO (21:49)
[2018-12-16] VITALS (18 sets, daily range): BP systolic 109–136; BP diastolic 54–77; PULSE 72–98; RESP 16–20; TEMP 36.7–36.9; O2SAT 95–97
[2018-12-16] MEDS: Ipratropium/Albuterol Sulfate 3 ML AMPUL.NEB INHALATION ×4 (03:50→14:49)
[2018-12-16] MEDS: 0.45% Normal Saline 1,000 ML 150 ML IV (05:44)
[2018-12-16] MEDS: Heparin Injection (Vial) 5,000 UNIT/ML VIAL 5000 UNIT SC ×2 (05:44→13:34)
[2018-12-16 07:14] LABS: Hematocrit 28.6 % (40-54); Hemoglobin 9.3 g/dl (13.0-16.5); Mean Corp Hgb Conc 32.5 g/gl (32-36); Mean Corpuscular Hgb 30.5 pg (27.0-32.0); Mean Corpuscular Volume 93.8 fL (80-94); Mean Platelet Vol. 11.1 fl (6.2-12.0); Platelet Count 200 K/mm3 (150-450); RBC Distribution Width SD 42.7 fl (35.1-43.9); Red Blood Count 3.05 M/mm3 (4.6-6.2); White Blood Count 16.9 K/mm3 (4.4-11.0)
[2018-12-16 07:15] LABS: Differential Indicated MANUAL DIFF; POSITIVE COUNT YES; POSITIVE DIFFERENTIAL NO; POSITIVE MORPHOLOGY YES
[2018-12-16 07:31] LABS: Albumin, Serum 2.3 g/dL (3.2-5.0); BUN 29 mg/dL (7-18); BUN/Creat Ratio 10.8 RATIO (10-20); Calcium,Total 7.9 mg/dL (8.5-10.1); Chloride 111 mmol/L (98-107); Creatinine, Serum 2.68 mg/dL (0.70-1.30); EST Glomerular Filtration Rate 26 mL/min (>60); Est Glom Filt Rate - Afr Amer 31 mL/min (>60); Estimated Creatinine Clearance 28.21 ml/min; Glucose 120 mg/dL (74-106); Phosphorus 3.2 mg/dL (2.5-4.9); Sodium Level 143 mmol/L (136-145)
--- NOTE | 2018-12-16 09:09 | PCM.PN.REN ---
Patient Problems: Active and Suspected Problems (Last Reviewed 12/13/18 @ 17:16 by Eduardo Chadwick MD) Acute kidney injury on CKD stage III (Acute) UTI (urinary tract infection) (Acute) Cholecystitis, acute with cholelithiasis (Acute) Subjective: No complaint. No nausea no vomiting. No shortness of breath. No chest pain - Physical Exam General: Alert, Oriented x3 HEENT: Atraumatic, Normocephalic Oral: Moist Mucosa Neck: Supple, No JVD Lungs: Clear to auscultation, Normal air movement Cardiovascular: Regular rate, Regular Rhythm, Normal S1, Normal S2 Abdomen: Bowel Sounds Present, Soft, Non Tender, Non-Distended Extremities: No clubbing, No cyanosis, No edema Skin: No rashes Musculoskeletal: No Tenderness to Palpation of Joints or Extremities Lymphatic: No Cervical, Supraclavicular, or Inguinal Adenopathy Neurological: Cranial nerves II-XII grossly intact, Neuro grossly intact Psych/Mental Status: Normal Affect Vital Signs Temp Pulse Resp BP Pulse Ox 98.1 F 88 20 H 109/57 L 96 12/16/18 05:45 12/16/18 07:02 12/16/18 07:02 12/16/18 05:45 12/16/18 07:02 Oxygen Flow Rate (L/min) 2 Oxygen Delivery Method Room Air Weight: 83.3 kg Body Mass Index (BMI) 27.1 Intake and Output for Last 24 Hours 12/14/18 12/15/18 12/16/18 23:59 23:59 23:59 Intake Total 3016 / 3016 3329 / 3329 1004 / 1004 Output Total 4150 / 4150 5980 / 5980 1550 / 1550 Balance -1134 / -1134 -2651 / -2651 -546 / -546 Microbiology Past 72 Hours 12/12/18 11:45 Blood Culture - Preliminary Blood Culture (Wb) - Right Hand No growth in 48 hours. 12/12/18 11:40 Blood Culture - Preliminary Blood Culture (Wb) - Right Wrist No growth in 48 hours. 12/12/18 12:25 Urine Culture - Final Urine Catheter - Dos Santos Enterobacter asburiae Laboratory Tests Past 24 Hrs 12/16/18 12/16/18 06:35 06:35 WBC 16.9 H RBC 3.05 L Hgb 9.3 L Hct 28.6 L MCV 93.8 MCH 30.5 MCHC 32.5 RDW 13.0 RDW Differential 42.7 Plt Count 200 MPV 11.1 Neut % (Auto) Not Reportable Absolute Neuts (auto) Not Reportable Total Counted Pending Sodium 143 Potassium 4.0 Chloride 111 H Carbon Dioxide 24.0 BUN 29 H Creatinine 2.68 H Estim Creat Clear Calc 28.21 Est GFR (MDRD) Af Amer 31 L Est GFR (MDRD) Non-Af 26 L BUN/Creatinine Ratio 10.8 Glucose 120 H Calcium 7.9 L Phosphorus 3.2 Albumin 2.3 L Medical Necessity - Tobacco Use Smoking Status: Current every day smoker Assessment/Plan All Active Problems (Last Reviewed 12/13/18 @ 17:16 by Eduardo Chadwick MD) Acute kidney injury on CKD stage III (Acute) UTI (urinary tract infection) (Acute) Cholecystitis, acute with cholelithiasis (Acute) Obstructive uropathy (Acute) Acute renal failure (ARF) (Acute) 1. Acute kidney injury.Related to obstructive uropathy with high urine output after relieving the obstruction. Initial renal ultrasound earlier this month shows moderate bilateral hydronephrosis. At that time, creatinine peaked at 4.5. Creatinine improved with the place a Dos Santos catheter. Creatinine worsened with this admission from probably high urine output due to overdiuresis following obstruction relief. Patient still has high urine output . This might be related to osmotic diuresis versus concentration defect . I will stop IV fluid. I will check urine osmolality. The patient to drink plenty of water at least 90 ounces daily now o indication for hemodialysis. Please avoid nephrotoxic and ROYA or ARB. check renal function in am along with electrolytes 2-metabolic acidosis. Most related to acute kidney injury, on normal saline. resolved 3-hyperkalemia, most related to acute kidney injury and acidosis. resolved. Renal team will continue to follow. Please call with any question or concern at my cell phone #[phone] Yazan Shoemaker MD [phone]
[2018-12-16 10:04] LABS: Lymphocyte 7 % (19-41); Metamyelocyte 6 % (0-1); Monocyte 2 % (0-10); Neutrophil-Segmented 84 % (47-70); Platelet Estimate ADEQUATE (ADEQ); Promyelocyte 1 (0-0); Red Cell Morphology NORM C+C NORMAL (NORM C&C); Total Cells Counted 100 (MANUAL DIFF)
[2018-12-16 10:05] LABS: Absolute Neutrophil Count 14.2 X10^3/uL (2.0-7.7)
[2018-12-16] MEDS: guaiFENesin 1,200 MG Tablet 1200 MG PO ×2 (10:06→22:12)
[2018-12-16] MEDS: Clopidogrel Bisulfate 75 MG Tablet PO (10:07)
[2018-12-16] MEDS: Isosorbide Mononitrate 30 MG Tablet PO (10:07)
[2018-12-16] MEDS: Aspirin E.C. 81 MG Tablet PO (10:07)
[2018-12-16] MEDS: Metoprolol(XL)Succ 25 MG Tablet PO (10:07)
[2018-12-16] MEDS: Pantoprazole Sodium 20 MG Tablet PO ×2 (10:07→22:12)
[2018-12-16] MEDS: Tamsulosin HCl 0.4 MG Capsule PO (10:07)
--- NOTE | 2018-12-16 10:24 | PCM.PN.HOSP ---
Patient Problems: Active and Suspected Problems (Last Reviewed 12/13/18 @ 17:16 by Eduardo Chadwick MD) Acute kidney injury on CKD stage III (Acute) UTI (urinary tract infection) (Acute) Cholecystitis, acute with cholelithiasis (Acute) Subjective: Patient seen and examined. He complains of nausea and bloating with eating, and thinks this may be due to his gallstones. He denies any fever, chills, cough, chest pain, palpitations, diarrhea or vomiting. He still does have some mild choking with eating. Urine output was about 5.98L yesterday. Labs and vitals reviewed. Vitals/I&O's: Vital Signs Temp Pulse Resp BP Pulse Ox 98.2 F 86 16 128/77 H 95 12/16/18 10:10 12/16/18 10:10 12/16/18 10:10 12/16/18 10:10 12/16/18 10:10 Oxygen Flow Rate (L/min) 2 Oxygen Delivery Method Room Air Weight: 183 lb 10.321 oz Body Mass Index (BMI) 27.1 Intake and Output for Last 24 Hours 12/14/18 12/15/18 12/16/18 23:59 23:59 23:59 Intake Total 3016 / 3016 3329 / 3329 1004 / 1004 Output Total 4150 / 4150 5980 / 5980 1550 / 1550 Balance -1134 / -1134 -2651 / -2651 -546 / -546 General: Alert, Oriented x3, Cooperative, No apparent distress HEENT: Atraumatic, PERRLA, EOMI, Normocephalic Oral: Moist Mucosa Neck: Supple, No JVD, Negative Carotid Bruits, No Nodes Lungs: Clear to auscultation, Normal air movement, No rhonchi, No wheeze Cardiovascular: Regular rate, Regular Rhythm, Normal S1, Normal S2, No murmurs Abdomen: Bowel Sounds Present, Soft, mild suprapubic tenderness, no guarding, Non-Distended, No Hepato-splenomegaly, - - Oglesby catheter draining clear urine Extremities: No clubbing, No cyanosis, No edema, Capillary Refill Less than 3 Seconds Skin: No rashes, No breakdown Musculoskeletal: No Tenderness to Palpation of Joints or Extremities Lymphatic: No Cervical, Supraclavicular, or Inguinal Adenopathy Neurological: Cranial nerves II-XII grossly intact, Neuro grossly intact, Motor Exam 5/5 strength throughout Psych/Mental Status: Normal Affect, Appropriate, Alert and oriented to time, place, person, mood and affect Microbiology Past 72 Hours 12/12/18 11:45 Blood Culture (Wb) - Right Hand Blood Culture - Preliminary No growth in 48 hours. 12/12/18 11:40 Blood Culture (Wb) - Right Wrist Blood Culture - Preliminary No growth in 48 hours. 12/12/18 12:25 Urine Catheter - Oglesby Urine Culture - Final Enterobacter asburiae Laboratory Results 12/16/18 06:35: WBC 16.9 H, RBC 3.05 L, Hgb 9.3 L, Hct 28.6 L, MCV 93.8, MCH 30.5, MCHC 32.5, RDW 13.0, RDW Differential 42.7, Plt Count 200, MPV 11.1, Neut % (Auto) Not Reportable, Absolute Neuts (auto) 14.2 H, Absolute Lymphs (auto) 1.20, Total Counted 100, Neutrophils % (Manual) 84 H, Lymphocytes % (Manual) 7 L, Monocytes % (Manual) 2, Metamyelocytes % 6 H, Promyelocytes % 1 H, Diff Path Review February, Platelet Estimate ADEQUATE, RBC Morphology NORM C+C 12/16/18 06:35: Sodium 143, Potassium 4.0, Chloride 111 H, Carbon Dioxide 24.0, BUN 29 H, Creatinine 2.68 H, Estim Creat Clear Calc 28.21, Est GFR (MDRD) Af Amer 31 L, Est GFR (MDRD) Non-Af 26 L, BUN/Creatinine Ratio 10.8, Glucose 120 H, Calcium 7.9 L, Phosphorus 3.2, Albumin 2.3 L Current Medications Acetaminophen (Tylenol) 650 mg PO Q6H PRN PRN PRN Reason: Mild Pain (scale 0-3)/T>100.7 Albuterol/Ipratropium (Duoneb) 3 ml INHALATION Q4HWA.RT [facility] Last Admin: 12/16/18 07:02 Dose: 3 ml Aspirin (Ecotrin) 81 mg PO DAILYCM [facility] Last Admin: 12/16/18 10:07 Dose: 81 mg Atorvastatin Calcium (Lipitor) 40 mg PO QHS [facility] Last Admin: 12/15/18 21:49 Dose: 40 mg Cholecalciferol (Vitamin D) 1,000 unit PO DAILY [facility] Last Admin: 12/16/18 10:06 Dose: 1,000 unit Clopidogrel Bisulfate (Plavix) 75 mg PO DAILY [facility] Last Admin: 12/16/18 10:07 Dose: 75 mg Docusate Sodium (Colace) 200 mg PO BID PRN PRN PRN Reason: Constipation Guaifenesin (Mucinex) 1,200 mg PO BID [facility] Last Admin: 12/16/18 10:06 Dose: 1,200 mg Heparin Sodium (Porcine) (Heparin Na) 5,000 unit SC Q8 [facility] Last Admin: 12/16/18 05:44 Dose: 5,000 unit Piperacillin Sod/Tazobactam (Sod 3.375 gm/ Sodium Chloride) 50 mls @ 12.5 mls/hr IV Q12 [facility] Last Admin: 12/16/18 10:05 Dose: 12.5 mls/hr Isosorbide Mononitrate (Imdur) 30 mg PO DAILY [facility] Last Admin: 12/16/18 10:07 Dose: 30 mg Metoprolol Succinate (Toprol Xl (Beta Montez)) 25 mg PO DAILY [facility] Last Admin: 12/16/18 10:07 Dose: 25 mg Nystatin (Nystatin) 500,000 unit PO 4X/DAY [facility] Ondansetron HCl (Zofran) 4 mg IV Q6H PRN PRN PRN Reason: Nausea Oxycodone HCl (Oxyir) 5 mg PO Q4H PRN PRN PRN Reason: Moderate Pain (pain scale 4-5) Pantoprazole Sodium (Protonix) 20 mg PO BID [facility] Last Admin: 12/16/18 10:07 Dose: 20 mg Polyethylene Glycol (Miralax) 17 gm PO DAILY [facility] Last Admin: 12/16/18 10:08 Dose: Not Given Sodium Chloride () 5 - 15 ml IV UD PRN PRN Reason: SALINE FLUSH Last Admin: 12/13/18 05:20 Dose: 10 ml Tamsulosin HCl (Flomax) 0.4 mg PO DAILY [facility] Last Admin: 12/16/18 10:07 Dose: 0.4 mg Medical Necessity - Tobacco Use Smoking Status: Current every day smoker Assessment/Plan All Active Problems (Last Reviewed 02/15/19 @ 17:16 by Eduardo Chadwick MD) Acute kidney injury on CKD stage III (Acute) UTI (urinary tract infection) (Acute) Cholecystitis, acute with cholelithiasis (Acute) Obstructive uropathy (Acute) Acute renal failure (ARF) (Acute) 1. Sepsis due to UTI SIRS criteria - /4 (for leucocytosis) leucocytosis down to 17 and is resolving. urine cultured Enterobacter asburiae which is sensitive to ciprofloxacin received 5 days of IV zosyn. WIll dc antibiotics. blood cultures showed no growth after 48 hours 2. UTI: as under 1 3. 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 to check for urine osmolality per urology, will need cystoscopy on outpatient basis 4. Oropharyngeal dysphagia complains of choking sensation with swallowing, especially when his throat is dry speech therapy consulted;' awaiting rec's 5. COPD exacerbation resolving Breathing treatments with duo nebs. Continue incentive spirometry and chest physiotherapy 6. Hyperkalemia: resolved. K is 4 today. 7. Cholelithiasis abdominal pain has resolved. CT abdomen showed gallbladder thickening and multiple gallstones. abdominal USG showed normal distended gallbladder with negative sonographic patient now having nausea and bloating with eating. general surgery on board; advocate conservative management for now. 8. Non anion gap hyperchloremic metabolic acidosis resolved. bicarb up to 23. bicarb drip dced 9. Leucocytosis: Was 30.2 on admission; now down to 17 This is likely due to steroid the patient has been receiving. will monitor 10. Bilateral hydronephrosis due to BPH CT scan findings as above. Oglesby catheter in place on tamsulosin and flomax Per urology, to maintain catheter in place. To follow-up with urology on outpatient basis for cystoscopy and prostatic ultrasound to evaluate the prostate since he with options for treatment would be. One option discussed with patient was intermittent self-catheterization at home. 11. Hyperlipidemia: On statin 12. Hypertension: On metoprolol 13. CAD: On Plavix and statin as well as metoprolol and imdur DVT prophylaxis: heparin Code Visit Inpatient E&M: 52040 Subs Hosp L3
--- NOTE | 2018-12-16 10:28 | PN_ITS ---
Patient Problems: Active and Suspected Problems (Last Reviewed 12/13/18 @ 17:16 by Eduardo Chadwick MD) Acute kidney injury on CKD stage III (Acute) UTI (urinary tract infection) (Acute) Cholecystitis, acute with cholelithiasis (Acute) Subjective: Patient seen and examined. He complains of nausea and bloating with eating, and thinks this may be due to his gallstones. He denies any fever, chills, cough, chest pain, palpitations, diarrhea or vomiting. He still does have some mild choking with eating. Urine output was about 5.98L yesterday. Labs and vitals reviewed. Vitals/I&O's: Vital Signs Temp Pulse Resp BP Pulse Ox 98.2 F 86 16 128/77 H 95 12/16/18 10:10 12/16/18 10:10 12/16/18 10:10 12/16/18 10:10 12/16/18 10:10 Oxygen Flow Rate (L/min) 2 Oxygen Delivery Method Room Air Weight: 183 lb 10.321 oz Body Mass Index (BMI) 27.1 Intake and Output for Last 24 Hours 12/14/18 12/15/18 12/16/18 23:59 23:59 23:59 Intake Total 3016 / 3016 3329 / 3329 1004 / 1004 Output Total 4150 / 4150 5980 / 5980 1550 / 1550 Balance -1134 / -1134 -2651 / -2651 -546 / -546 General: Alert, Oriented x3, Cooperative, No apparent distress HEENT: Atraumatic, PERRLA, EOMI, Normocephalic Oral: Moist Mucosa Neck: Supple, No JVD, Negative Carotid Bruits, No Nodes Lungs: Clear to auscultation, Normal air movement, No rhonchi, No wheeze Cardiovascular: Regular rate, Regular Rhythm, Normal S1, Normal S2, No murmurs Abdomen: Bowel Sounds Present, Soft, mild suprapubic tenderness, no guarding, Non-Distended, No Hepato-splenomegaly, - - Oglesby catheter draining clear urine Extremities: No clubbing, No cyanosis, No edema, Capillary Refill Less than 3 Seconds Skin: No rashes, No breakdown Musculoskeletal: No Tenderness to Palpation of Joints or Extremities Lymphatic: No Cervical, Supraclavicular, or Inguinal Adenopathy Neurological: Cranial nerves II-XII grossly intact, Neuro grossly intact, Motor Exam 5/5 strength throughout Psych/Mental Status: Normal Affect, Appropriate, Alert and oriented to time, place, person, mood and affect Microbiology Past 72 Hours 12/12/18 11:45 Blood Culture (Wb) - Right Hand Blood Culture - Preliminary No growth in 48 hours. 12/12/18 11:40 Blood Culture (Wb) - Right Wrist Blood Culture - Preliminary No growth in 48 hours. 12/12/18 12:25 Urine Catheter - Oglesby Urine Culture - Final Enterobacter asburiae Laboratory Results 12/16/18 06:35: WBC 16.9 H, RBC 3.05 L, Hgb 9.3 L, Hct 28.6 L, MCV 93.8, MCH 30.5, MCHC 32.5, RDW 13.0, RDW Differential 42.7, Plt Count 200, MPV 11.1, Neut % (Auto) Not Reportable, Absolute Neuts (auto) 14.2 H, Absolute Lymphs (auto) 1.20, Total Counted 100, Neutrophils % (Manual) 84 H, Lymphocytes % (Manual) 7 L , Monocytes % (Manual) 2, Metamyelocytes % 6 H, Promyelocytes % 1 H, Diff Path Review February, Platelet Estimate ADEQUATE, RBC Morphology NORM C+C 12/16/18 06:35: Sodium 143, Potassium 4.0, Chloride 111 H, Carbon Dioxide 24.0, BUN 29 H, Creatinine 2.68 H, Estim Creat Clear Calc 28.21, Est GFR (MDRD) Af Amer 31 L, Est GFR (MDRD) Non-Af 26 L, BUN/Creatinine Ratio 10.8, Glucose 120 H, Calcium 7.9 L, Phosphorus 3.2, Albumin 2.3 L Current Medications Acetaminophen (Tylenol) 650 mg PO Q6H PRN PRN PRN Reason: Mild Pain (scale 0-3)/T>100.7 Albuterol/Ipratropium (Duoneb) 3 ml INHALATION Q4HWA.RT [facility] Last Admin: 12/16/18 07:02 Dose: 3 ml Aspirin (Ecotrin) 81 mg PO DAILYCM [facility] Last Admin: 12/16/18 10:07 Dose: 81 mg Atorvastatin Calcium (Lipitor) 40 mg PO QHS [facility] Last Admin: 12/15/18 21:49 Dose: 40 mg Cholecalciferol (Vitamin D) 1,000 unit PO DAILY [facility] Last Admin: 12/16/18 10:06 Dose: 1,000 unit Clopidogrel Bisulfate (Plavix) 75 mg PO DAILY [facility] Last Admin: 12/16/18 10:07 Dose: 75 mg Docusate Sodium (Colace) 200 mg PO BID PRN PRN PRN Reason: Constipation Guaifenesin (Mucinex) 1,200 mg PO BID [facility] Last Admin: 12/16/18 10:06 Dose: 1,200 mg Heparin Sodium (Porcine) (Heparin Na) 5,000 unit SC Q8 [facility] Last Admin: 12/16/18 05:44 Dose: 5,000 unit Piperacillin Sod/Tazobactam (Sod 3.375 gm/ Sodium Chloride) 50 mls @ 12.5 mls/hr IV Q12 [facility] Last Admin: 12/16/18 10:05 Dose: 12.5 mls/hr Isosorbide Mononitrate (Imdur) 30 mg PO DAILY [facility] Last Admin: 12/16/18 10:07 Dose: 30 mg Metoprolol Succinate (Toprol Xl (Beta Montez)) 25 mg PO DAILY [facility] Last Admin: 12/16/18 10:07 Dose: 25 mg Nystatin (Nystatin) 500,000 unit PO 4X/DAY [facility] Ondansetron HCl (Zofran) 4 mg IV Q6H PRN PRN PRN Reason: Nausea Oxycodone HCl (Oxyir) 5 mg PO Q4H PRN PRN PRN Reason: Moderate Pain (pain scale 4-5) Pantoprazole Sodium (Protonix) 20 mg PO BID [facility] Last Admin: 12/16/18 10:07 Dose: 20 mg Polyethylene Glycol (Miralax) 17 gm PO DAILY [facility] Last Admin: 12/16/18 10:08 Dose: Not Given Sodium Chloride () 5 - 15 ml IV UD PRN PRN Reason: SALINE FLUSH Last Admin: 12/13/18 05:20 Dose: 10 ml Tamsulosin HCl (Flomax) 0.4 mg PO DAILY [facility] Last Admin: 12/16/18 10:07 Dose: 0.4 mg Medical Necessity - Tobacco Use Smoking Status: Current every day smoker Assessment/Plan All Active Problems (Last Reviewed 02/15/19 @ 17:16 by Eduardo Chadwick MD) Acute kidney injury on CKD stage III (Acute) UTI (urinary tract infection) (Acute) Cholecystitis, acute with cholelithiasis (Acute) Obstructive uropathy (Acute) Acute renal failure (ARF) (Acute) 1. Sepsis due to UTI * SIRS criteria - 11/01 (for leucocytosis) * leucocytosis down to 17 and is resolving. * urine cultured Enterobacter asburiae which is sensitive to ciprofloxacin * received 5 days of IV zosyn. WIll dc antibiotics. * blood cultures showed no growth after 48 hours * 2. UTI: as under 1 3. 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 * to check for urine osmolality * per urology, will need cystoscopy on outpatient basis 4. Oropharyngeal dysphagia * complains of choking sensation with swallowing, especially when his throat is dry * speech therapy consulted;' awaiting rec's 5. COPD exacerbation * resolving * Breathing treatments with duo nebs. * Continue incentive spirometry and chest physiotherapy * 6. Hyperkalemia: resolved. K is 4 today. 7. Cholelithiasis * abdominal pain has resolved. CT abdomen showed gallbladder thickening and multiple gallstones. * abdominal USG showed normal distended gallbladder with negative sonographic * patient now having nausea and bloating with eating. * general surgery on board; advocate conservative management for now. * 8. Non anion gap hyperchloremic metabolic acidosis * resolved. bicarb up to 23. * bicarb drip dced * * 9. Leucocytosis: * Was 30.2 on admission; now down to 17 * This is likely due to steroid the patient has been receiving. * will monitor * 10. Bilateral hydronephrosis due to BPH * CT scan findings as above. * Oglesby catheter in place * on tamsulosin and flomax * Per urology, to maintain catheter in place. To follow-up with urology on outpatient basis for cystoscopy and prostatic ultrasound to evaluate the prostate since he with options for treatment would be. * One option discussed with patient was intermittent self-catheterization at home. * 11. Hyperlipidemia: On statin * 12. Hypertension: On metoprolol 13. CAD: On Plavix and statin as well as metoprolol and imdur DVT prophylaxis: heparin Code Visit Inpatient E&M: 58055 Subs Hosp L3
[2018-12-16 10:57] LABS: Osmolality, Urine 241 mOsm/KG
[2018-12-16] MEDS: NYSTATIN 500,000 UNIT/5 ML UDC 500000 UNIT PO ×3 (11:47→22:12)
[2018-12-16 13:42] LABS: Pathologist Review Reviewed
[2018-12-16 13:45] LABS: Pathologist Review Reviewed
[2018-12-16] MEDS: Atorvastatin Calcium 40 MG Tablet PO (22:11)
[2018-12-17] VITALS (10 sets, daily range): BP systolic 109–133; BP diastolic 58–73; PULSE 70–100; RESP 16–20; TEMP 36.8–36.9; O2SAT 92–97
[2018-12-17] MEDS: Ipratropium/Albuterol Sulfate 3 ML AMPUL.NEB INHALATION (06:51)
[2018-12-17 07:42] LABS: Albumin, Serum 2.5 g/dL (3.2-5.0); BUN 27 mg/dL (7-18); BUN/Creat Ratio 10.8 RATIO (10-20); Calcium,Total 8.3 mg/dL (8.5-10.1); Chloride 110 mmol/L (98-107); EST Glomerular Filtration Rate 28 mL/min (>60); Est Glom Filt Rate - Afr Amer 34 mL/min (>60); Estimated Creatinine Clearance 30.24 ml/min; Glucose 127 mg/dL (74-106); Phosphorus 3.3 mg/dL (2.5-4.9); Potassium 4.3 mmol/L (3.5-5.1); Sodium Level 143 mmol/L (136-145)
[2018-12-17] MEDS: Aspirin E.C. 81 MG Tablet PO (08:27)
[2018-12-17] MEDS: Tamsulosin HCl 0.4 MG Capsule PO (08:27)
[2018-12-17] MEDS: Clopidogrel Bisulfate 75 MG Tablet PO (08:28)
[2018-12-17] MEDS: NYSTATIN 500,000 UNIT/5 ML UDC 500000 UNIT PO (08:28)
[2018-12-17] MEDS: Isosorbide Mononitrate 30 MG Tablet PO (08:28)
[2018-12-17] MEDS: guaiFENesin 1,200 MG Tablet 1200 MG PO (08:28)
[2018-12-17] MEDS: Pantoprazole Sodium 20 MG Tablet PO (08:29)
[2018-12-17] MEDS: Metoprolol(XL)Succ 25 MG Tablet PO (08:29)
--- NOTE | 2018-12-17 10:25 | PN.RENAL_ITS ---
Patient Problems: Active and Suspected Problems (Last Reviewed 12/13/18 @ 17:16 by Eduardo Chadwick MD) Acute kidney injury on CKD stage III (Acute) UTI (urinary tract infection) (Acute) Cholecystitis, acute with cholelithiasis (Acute) Subjective: Patient has no complaint. No nausea no vomiting. No shortness of breath. No d izziness. No chest pain - Physical Exam General: Alert, Oriented x3 HEENT: Atraumatic Oral: Moist Mucosa Neck: Supple, No JVD Lungs: Clear to auscultation, Normal air movement, No rhonchi, No wheeze Cardiovascular: Regular rate, Regular Rhythm, Normal S1, Normal S2 Abdomen: Bowel Sounds Present, Soft, Non Tender, Non-Distended Extremities: No clubbing, No cyanosis, No edema Skin: No rashes Musculoskeletal: No Tenderness to Palpation of Joints or Extremities Lymphatic: No Cervical, Supraclavicular, or Inguinal Adenopathy Neurological: Cranial nerves II-XII grossly intact, Neuro grossly intact Psych/Mental Status: Normal Affect Vital Signs Temp Pulse Resp BP Pulse Ox 98.3 F 88 19 H 114/60 97 12/17/18 08:23 12/17/18 08:29 12/17/18 08:23 12/17/18 08:23 12/17/18 08:23 Oxygen Flow Rate (L/min) 2 Oxygen Delivery Method Room Air Weight: 83.3 kg Body Mass Index (BMI) 27.1 Intake and Output for Last 24 Hours 12/15/18 12/16/18 12/17/18 23:59 23:59 23:59 Intake Total 3329 / 3329 3507 / 3507 1280 / 1280 Output Total 5980 / 5980 6625 / 6625 1650 / 1650 Balance -2651 / -2651 -3118 / -3118 -370 / -370 Microbiology Past 72 Hours 12/12/18 11:45 Blood Culture - Preliminary Blood Culture (Wb) - Right Hand No growth in 48 hours. 12/12/18 11:40 Blood Culture - Preliminary Blood Culture (Wb) - Right Wrist No growth in 48 hours. 12/12/18 12:25 Urine Culture - Final Urine Catheter - Dos Santos Enterobacter asburiae Laboratory Tests Past 24 Hrs 12/14/18 12/15/18 12/16/18 06:00 04:48 10:15 Diff Path Review Reviewed Reviewed Sodium Potassium Chloride Carbon Dioxide BUN Creatinine Estim Creat Clear Calc Est GFR (MDRD) Af Amer Est GFR (MDRD) Non-Af BUN/Creatinine Ratio Glucose Calcium Phosphorus Albumin Urine Osmolality 241 12/17/18 06:25 Diff Path Review Sodium 143 Potassium 4.3 Chloride 110 H Carbon Dioxide 23.0 BUN 27 H Creatinine 2.50 H Estim Creat Clear Calc 30.24 Est GFR (MDRD) Af Amer 34 L Est GFR (MDRD) Non-Af 28 L BUN/Creatinine Ratio 10.8 Glucose 127 H Calcium 8.3 L Phosphorus 3.3 Albumin 2.5 L Urine Osmolality Medical Necessity - Tobacco Use Smoking Status: Current every day smoker Assessment/Plan All Active Problems (Last Reviewed 12/13/18 @ 17:16 by Eduardo Chadwick MD) Acute kidney injury on CKD stage III (Acute) UTI (urinary tract infection) (Acute) Cholecystitis, acute with cholelithiasis (Acute) Obstructive uropathy (Acute) Acute renal failure (ARF) (Acute) 1. Acute kidney injury.Related to obstructive uropathy with high urine output after relieving the obstruction. Creatinine is improving Initial renal ultrasound earlier this month shows moderate bilateral hydronephrosis. At that time, creatinine peaked at 4.5. Creatinine improved with the place a Dos Santos catheter. Creatinine worsened with this admission from probably high urine output due to overdiuresis following obstruction relief. Patient still has high urine output. Output in the last 24 hours more than 6 L. The product of urine osmolarity and urine volume by liter is more than 1000. Overdiuresis most probably from osmotic diuresis. Check to the patient to drink at least 90 ounces of liquids a day and to avoid salty liquid/foods No indication for hemodialysis. Please avoid nephrotoxic and ROYA or ARB. 2-metabolic acidosis. Most related to acute kidney injury, on normal saline. resolved 3-hyperkalemia, most related to acute kidney injury and acidosis. resolved. It is okay to discharge patient from nephrology standpoint. I instructed the patient to drink at least 90 ounces of fluid a day and to avoid salty liquids/foods/ I will arrange for office follow-up in 2-3 weeks after discharge. Please check BMP early next week. Patient also needs follow-up with urology clinic . Please call with any question or concern at my cell phone #[phone] Yazan Shoemaker MD [phone]
--- NOTE | 2018-12-17 13:03 | DCINST_ITS ---
- Discharge Diagnoses Current Active Problems: Current Active and Chronic Problems (Last Reviewed 12/13/18 @ 17:16 by Eduardo Chadwick MD) Acute kidney injury on CKD stage III (Acute) UTI (urinary tract infection) (Acute) COPD exacerbation (Chronic) Cholecystitis, acute with cholelithiasis (Acute) You will use the following diet at home:: Cardiac Your food should be the consistency of: Regular Discharge Activity: Return to Normal Activity Weight Bearing Status: Weight bearing as tolerated Call your doctor if you observe: Fever of 101 or Higher, Shortness of breath, Dizziness, Fainting spells, Chest pain, Increased palpitations (irregular heartbeat), Uncontrolled pain Additional Instructions: You will need to have blood work ( CBC, BMP) done at your PCPs office in 1 week. Keep the Dos Santos catheter in until you see Dr. Chadwick. Allergies/Adverse Reactions: Allergies No Known Allergies Allergy (Verified 12/12/18 10:33) Medications to take at Discharge Aspirin [Aspir-Low] 81 mg PO DAILY 07/04/17 metoprolol succinate ER 25 mg tablet,extended release 24 hr 25 mg PO DAILY #90 tab 09/28/18 simvastatin 80 mg tablet 80 mg PO QHS #90 tab 09/28/18 [place]-3 Fatty Acids/Fish Oil [Fish Oil 1,000 mg Capsule] 1 each PO DAILY 12/03/18 Tamsulosin HCl [Flomax] 0.4 mg PO DAILY #30 capsule 12/03/18 Cholecalciferol (VIT D3) [Vitamin D3] 1,000 mg PO DAILY 12/06/18 Clopidogrel Bisulfate [Clopidogrel] 75 mg PO DAILY 12/06/18 Isosorbide Mononitrate [Isosorbide Mononitrate ER] 30 mg PO DAILY 12/06/18 Albuterol Inhaler [Ventolin Hfa] 1 - 2 puff INHALATION Q4H PRN PRN #1 inhaler 12/09/18 Budesonide/Formoterol 160/4.5 [Symbicort 160/4.5 Mcg Inhaler (SP)] 2 puff INHALATION BID #2 inhaler 12/17/18 The following prescriptions were given: Budesonide/Formoterol 160/4.5 [Symbicort 160/4.5 Mcg Inhaler (SP)] 2 puff INHALATION BID #2 inhaler Primary Care Physician: Neil Holden MD [Primary Care Provider] - Please follow up with your Primary Care Physician in: 1 WEEK. Test Results: Test results from this visit will be discussed in further detail at your follow- up appointment, if applicable. Please Follow Up With: Eduardo Chadwick MD When: Please call his office.
[2018-12-17 14:01] LABS: Pathologist Review Reviewed
--- NOTE | 2018-12-17 14:34 | PCM.DC.SUM ---
Discharge Date and Diagnosis Date of Admission: 12/12/18 Date of Discharge: 12/17/18 - Primary Discharge Diagnosis #1 Enterobacter acute cystitis/sepsis. #2 acute COPD exacerbation. #3 fairly acute renal failure due to obstructive uropathy secondary to BPH and bladder outlet obstruction. #4 obstructive uropathy secondary to BPH and bladder outlet obstruction with bilateral hydronephrosis. #5 hyperkalemia, resolved. - Secondary Discharge Diagnosis Chronic Problems (Last Reviewed 12/13/18 @ 17:16 by Eduardo Chadwick MD) COPD exacerbation (Chronic) Hyperlipidemia (Chronic) COPD (chronic obstructive pulmonary disease) (Chronic) BPH (benign prostatic hyperplasia) (Chronic) CAD (coronary artery disease) (Chronic) Hypertension (Chronic) Hospital Course and Treatment Imaging Results: Clinical Impression(s) from Imaging Studies Chest X-Ray 12/12/18 00:00 IMPRESSION: Hyperinflation. Electronically Signed: Chavez Regalado MD at 12:52 EST , Service support , Abdomen/Pelvis CT 12/12/18 10:59 IMPRESSION: Marked degree of gallbladder wall thickening as described. Bilateral hydronephrosis. Saccular infrarenal abdominal aortic aneurysm. Electronically Signed: Chavez Regalado MD at 12:44 EST , Service support , Abdomen Ultrasound 12/12/18 16:40 IMPRESSION: 1. Gallstones. 2. Persistent mild right hydronephrosis. Electronically Signed: Grant Campos MD at 22:27 EST Tel , Service support , Dr. Knapp, general surgery. Dr. chadwick, urology. Dr. Shoemaker, nephrology. Operations: None Procedures: None Summary of Care Provided: Patient seen and examined on the day of discharge and appeared to be stable to be discharged home. Shortness of breath improved. He remained on Dos Santos catheter and according to urology, plan to keep the catheter in until follow-up as outpatient. Today, he was taken for walking pulse oximeter and a pulse ox remained around 92% on room air with ambulation and he did not qualify for home oxygen. His other vital signs were stable. The patient is a 63 year old M presented to the emergency room because of shortness of breath, abdominal pain and vomiting and he was found to have acute cystitis complicated by sepsis in context of recent history of obstructive uropathy secondary to BPH and bladder outlet obstruction that was complicated by bilateral hydronephrosis and also he was found to have acute COPD exacerbation. Patient was admitted recently for urinary retention, found to have enlarged prostate causing significant obstructive uropathy with bilateral hydronephrosis and acute kidney injury. He was discharged on Dos Santos catheter after he was seen by urology recommended follow-up as outpatient and recommended to keep the Dos Santos catheter in at that time. He was found to have acute COPD exacerbation. He was treated with IV steroids, IV antibiotics and bronchodilators. Chest x-ray showed no acute findings. Respiratory panel for viruses were negative. He was treated with IV Zosyn for acute cystitis and he completed 5 days of IV Zosyn and there was no indication to continue him on antibiotics upon discharge. Blood culture showed no growth in 48 hours. Urine culture revealed Enterobacter asburiae that was sensitive to Zosyn. His admission creatinine was 3.1 which was slightly up from his previous admission but with IV fluid therapy, creatinine came down to 2.50 upon discharge. Nephrology consulted and recommended conservative treatment for now. Urology consulted and recommended to keep the Dos Santos catheter in, plan to follow-up as outpatient for cystoscopy and further treatment. CT scan abdomen and pelvis revealed gallbladder wall thickening and bilateral hydronephrosis. General surgery consulted because of concern of probable acute cholecystitis and stated that there is no evidence of cholecystitis at this time. Ultrasound gallbladder revealed normal distended gallbladder, negative Siu sign, no pericholecystic fluid, small gallstones and CBD was normal. Patient symptoms improved and his vital signs remained stable. On the day of discharge, walking pulse oximeter performed and his pulse ox remained above 92% on room air with ambulation. Patient discharged home in a stable medical condition, discharged on Dos Santos catheter which was capped and according to urology recommendations, he completed 5 days of IV Zosyn, no antibiotic given upon discharge, discharged on Symbicort for COPD, continued on albuterol inhaler as needed, continued on his other chronic home medications without any changes, continued on Flomax, plan to follow-up with urology later this week or early next week, recommended follow-up with PCP in 1 week and eventually he will need follow-up with nephrology as well. - Physical Exam General: Alert, Oriented x3, Cooperative, No apparent distress HEENT: Atraumatic, PERRLA, EOMI, Normocephalic Oral: Moist Mucosa, No Gingival or Mucosal Lesions/ Ulcerations Neck: Supple, No JVD, Negative Carotid Bruits, Trachea Midline, Thyroid Normal Size and Texture Lungs: Clear to auscultation, No wheeze, No rales, Diminished, Rhonchi Cardiovascular: Regular rate, Regular Rhythm, Normal S1, Normal S2, No murmurs, PMI Normal Abdomen: Bowel Sounds Present, Soft, Non Tender, Non-Distended, No Hepato-splenomegaly Extremities: No clubbing, No cyanosis, No edema Skin: No rashes, No breakdown Musculoskeletal: No Tenderness to Palpation of Joints or Extremities Lymphatic: No Cervical, Supraclavicular, or Inguinal Adenopathy Neurological: Cranial nerves II-XII grossly intact, Neuro grossly intact Psych/Mental Status: Normal Affect, Appropriate Vital Signs Temp Pulse Resp BP Pulse Ox 98.5 F 83 20 H 109/58 L 96 12/17/18 13:15 12/17/18 13:15 12/17/18 13:15 12/17/18 13:15 12/17/18 13:15 Oxygen Flow Rate (L/min) 2 Oxygen Delivery Method Room Air Weight: 183 lb 10.321 oz Body Mass Index (BMI) 27.1 Intake and Output for Last 24 Hours 12/15/18 12/16/18 12/17/18 23:59 23:59 23:59 Intake Total 3329 / 3329 3507 / 3507 2530 / 2530 Output Total 5980 / 5980 6625 / 6625 2500 / 2500 Balance -2651 / -2651 -3118 / -3118 30 Microbiology Past 72 Hours 12/12/18 11:45 Blood Culture - Preliminary Blood Culture (Wb) - Right Hand No growth in 48 hours. 12/12/18 11:40 Blood Culture - Preliminary Blood Culture (Wb) - Right Wrist No growth in 48 hours. Laboratory Tests Past 24 Hrs 12/16/18 12/17/18 06:35 06:25 Diff Path Review Reviewed Sodium 143 Potassium 4.3 Chloride 110 H Carbon Dioxide 23.0 BUN 27 H Creatinine 2.50 H Estim Creat Clear Calc 30.24 Est GFR (MDRD) Af Amer 34 L Est GFR (MDRD) Non-Af 28 L BUN/Creatinine Ratio 10.8 Glucose 127 H Calcium 8.3 L Phosphorus 3.3 Albumin 2.5 L Discharge Activity: Return to Normal Activity Weight Bearing Status: Weight bearing as tolerated Call your doctor if you observe: Fever of 101 or Higher, Shortness of breath, Dizziness, Fainting spells, Chest pain, Increased palpitations (irregular heartbeat), Uncontrolled pain Home Medications: Medications to take at Discharge Aspirin [Aspir-Low] 81 mg PO DAILY 07/04/17 metoprolol succinate ER 25 mg tablet,extended release 24 hr 25 mg PO DAILY #90 tab 09/28/18 simvastatin 80 mg tablet 80 mg PO QHS #90 tab 09/28/18 [place]-3 Fatty Acids/Fish Oil [Fish Oil 1,000 mg Capsule] 1 each PO DAILY 12/03/18 Tamsulosin HCl [Flomax] 0.4 mg PO DAILY #30 capsule 12/03/18 Cholecalciferol (VIT D3) [Vitamin D3] 1,000 mg PO DAILY 12/06/18 Clopidogrel Bisulfate [Clopidogrel] 75 mg PO DAILY 12/06/18 Isosorbide Mononitrate [Isosorbide Mononitrate ER] 30 mg PO DAILY 12/06/18 Albuterol Inhaler [Ventolin Hfa] 1 - 2 puff INHALATION Q4H PRN PRN #1 inhaler 12/09/18 Budesonide/Formoterol 160/4.5 [Symbicort 160/4.5 Mcg Inhaler (SP)] 2 puff INHALATION BID #2 inhaler 12/17/18 Following Prescrptions Were Given to Patient: Budesonide/Formoterol 160/4.5 [Symbicort 160/4.5 Mcg Inhaler (SP)] 2 puff INHALATION BID #2 inhaler Primary Care Physician: Neil Holden MD [Primary Care Provider] - Please follow up with your Primary Care Physician in: 1 WEEK. Please Follow Up With: Eduardo Chadwick MD When: Please call his office. Please Follow Up With: Neil Holden MD When: call to schedule a followup appt within 1 week Disposition: Home Minutes spent on discharge:: 34 Patient Condition:: Stable Medical Necessity - Tobacco Use Smoking Status: Current every day smoker Meaningful Use Info Meaningful Use Diagnoses (Choose all that apply): None applicable Code Visit Inpatient E&M: 21806 Disch Hosp
--- NOTE | 2018-12-17 14:39 | DS.PCM_ITS ---
Discharge Date and Diagnosis Date of Admission: 12/12/18 Date of Discharge: 12/17/18 - Primary Discharge Diagnosis #1 Enterobacter acute cystitis/sepsis. #2 acute COPD exacerbation. #3 fairly acute renal failure due to obstructive uropathy secondary to BPH and bladder outlet obstruction. #4 obstructive uropathy secondary to BPH and bladder outlet obstruction with bilateral hydronephrosis. #5 hyperkalemia, resolved. - Secondary Discharge Diagnosis Chronic Problems (Last Reviewed 12/13/18 @ 17:16 by Eduardo Chadwick MD) COPD exacerbation (Chronic) Hyperlipidemia (Chronic) COPD (chronic obstructive pulmonary disease) (Chronic) BPH (benign prostatic hyperplasia) (Chronic) CAD (coronary artery disease) (Chronic) Hypertension (Chronic) Hospital Course and Treatment Imaging Results: Clinical Impression(s) from Imaging Studies Chest X-Ray 12/12/18 00:00 IMPRESSION: Hyperinflation. Electronically Signed: Chavez Regalado MD at 12:52 EST , Service support , Abdomen/Pelvis CT 12/12/18 10:59 IMPRESSION: Marked degree of gallbladder wall thickening as described. Bilateral hydronephrosis. Saccular infrarenal abdominal aortic aneurysm. Electronically Signed: Chavez Regalado MD at 12:44 EST , Service support , Abdomen Ultrasound 12/12/18 16:40 IMPRESSION: 1. Gallstones. 2. Persistent mild right hydronephrosis. Electronically Signed: Grant Campos MD at 22:27 EST Tel , Service support , Dr. Knapp, general surgery. Dr. chadwick, urology. Dr. Shoemaker, nephrology. Operations: None Procedures: None Summary of Care Provided: Patient seen and examined on the day of discharge and appeared to be stable to be discharged home. Shortness of breath improved. He remained on Dos Santos catheter and according to urology, plan to keep the catheter in until follow-up as outpatient. Today, he was taken for walking pulse oximeter and a pulse ox remained around 92% on room air with ambulation and he did not qualify for home oxygen. His other vital signs were stable. The patient is a 63 year old M presented to the emergency room because of sh ortness of breath, abdominal pain and vomiting and he was found to have acute cystitis complicated by sepsis in context of recent history of obstructive uropathy secondary to BPH and bladder outlet obstruction that was complicated by bilateral hydronephrosis and also he was found to have acute COPD exacerbation. Patient was admitted recently for urinary retention, found to have enlarged prostate causing significant obstructive uropathy with bilateral hydronephrosis and acute kidney injury. He was discharged on Dos Santos catheter after he was seen by urology recommended follow-up as outpatient and recommended to keep the Dos Santos catheter in at that time. He was found to have acute COPD exacerbation. He was treated with IV steroids, IV antibiotics and bronchodilators. Chest x-ray showed no acute findings. Respiratory panel for viruses were negative. He was treated with IV Zosyn for acute cystitis and he completed 5 days of IV Zosyn and there was no indication to continue him on antibiotics upon discharge. Blood culture showed no growth in 48 hours. Urine culture revealed Enterobacter asburiae that was sensitive to Zosyn. His admission creatinine was 3.1 which was slightly up from his previous admission but with IV fluid therapy, creatinine came down to 2.50 upon discharge. Nephrology consulted and recommended conservative treatment for now. Urology consulted and recommended to keep the Dos Santos catheter in, plan to follow-up as outpatient for cystoscopy and further treatment. CT scan abdomen and pelvis revealed gallbladder wall thickening and bilateral hydronephrosis. General surgery consulted because of concern of probable acute cholecystitis and stated that there is no evidence of cholecystitis at this time. Ultrasound gallbladder revealed normal distended gallbladder, negative Siu sign, no pericholecystic fluid, small gallstones and CBD was normal. Patient symptoms improved and his vital signs remained stable. On the day of discharge, walking pulse oximeter performed and his pulse ox remained above 92% on room air with ambulation. Patient discharged home in a stable medical condition, discharged on Dos Santos catheter which was capped and according to urology recommendations, he completed 5 days of IV Zosyn, no antibiotic given upon discharge, discharged on Symbicort for COPD, continued on albuterol inhaler as needed, continued on his other chronic home medications without any changes, continued on Flomax, plan to follow-up with urology later this week or early next week, recommended follow-up with PCP in 1 week and eventually he will need follow-up with nephrology as well. - Physical Exam General: Alert, Oriented x3, Cooperative, No apparent distress HEENT: Atraumatic, PERRLA, EOMI, Normocephalic Oral: Moist Mucosa, No Gingival or Mucosal Lesions/ Ulcerations Neck: Supple, No JVD, Negative Carotid Bruits, Trachea Midline, Thyroid Normal Size and Texture Lungs: Clear to auscultation, No wheeze, No rales, Diminished, Rhonchi Cardiovascular: Regular rate, Regular Rhythm, Normal S1, Normal S2, No murmurs, PMI Normal Abdomen: Bowel Sounds Present, Soft, Non Tender, Non-Distended, No Hepato- splenomegaly Extremities: No clubbing, No cyanosis, No edema Skin: No rashes, No breakdown Musculoskeletal: No Tenderness to Palpation of Joints or Extremities Lymphatic: No Cervical, Supraclavicular, or Inguinal Adenopathy Neurological: Cranial nerves II-XII grossly intact, Neuro grossly intact Psych/Mental Status: Normal Affect, Appropriate Vital Signs Temp Pulse Resp BP Pulse Ox 98.5 F 83 20 H 109/58 L 96 12/17/18 13:15 12/17/18 13:15 12/17/18 13:15 12/17/18 13:15 12/17/18 13:15 Oxygen Flow Rate (L/min) 2 Oxygen Delivery Method Room Air Weight: 183 lb 10.321 oz Body Mass Index (BMI) 27.1 Intake and Output for Last 24 Hours 12/15/18 12/16/18 12/17/18 23:59 23:59 23:59 Intake Total 3329 / 3329 3507 / 3507 2530 / 2530 Output Total 5980 / 5980 6625 / 6625 2500 / 2500 Balance -2651 / -2651 -3118 / -3118 30 / 30 Microbiology Past 72 Hours 12/12/18 11:45 Blood Culture - Preliminary Blood Culture (Wb) - Right Hand No growth in 48 hours. 12/12/18 11:40 Blood Culture - Preliminary Blood Culture (Wb) - Right Wrist No growth in 48 hours. Laboratory Tests Past 24 Hrs 12/16/18 12/17/18 06:35 06:25 Diff Path Review Reviewed Sodium 143 Potassium 4.3 Chloride 110 H Carbon Dioxide 23.0 BUN 27 H Creatinine 2.50 H Estim Creat Clear Calc 30.24 Est GFR (MDRD) Af Amer 34 L Est GFR (MDRD) Non-Af 28 L BUN/Creatinine Ratio 10.8 Glucose 127 H Calcium 8.3 L Phosphorus 3.3 Albumin 2.5 L Discharge Activity: Return to Normal Activity Weight Bearing Status: Weight bearing as tolerated Call your doctor if you observe: Fever of 101 or Higher, Shortness of breath, Dizziness, Fainting spells, Chest pain, Increased palpitations (irregular heartbeat), Uncontrolled pain Home Medications: Medications to take at Discharge Aspirin [Aspir-Low] 81 mg PO DAILY 07/04/17 metoprolol succinate ER 25 mg tablet,extended release 24 hr 25 mg PO DAILY #90 tab 09/28/18 simvastatin 80 mg tablet 80 mg PO QHS #90 tab 09/28/18 [place]-3 Fatty Acids/Fish Oil [Fish Oil 1,000 mg Capsule] 1 each PO DAILY 12/03/18 Tamsulosin HCl [Flomax] 0.4 mg PO DAILY #30 capsule 12/03/18 Cholecalciferol (VIT D3) [Vitamin D3] 1,000 mg PO DAILY 12/06/18 Clopidogrel Bisulfate [Clopidogrel] 75 mg PO DAILY 12/06/18 Isosorbide Mononitrate [Isosorbide Mononitrate ER] 30 mg PO DAILY 12/06/18 Albuterol Inhaler [Ventolin Hfa] 1 - 2 puff INHALATION Q4H PRN PRN #1 inhaler 12/09/18 Budesonide/Formoterol 160/4.5 [Symbicort 160/4.5 Mcg Inhaler (SP)] 2 puff INHALATION BID #2 inhaler 12/17/18 Following Prescrptions Were Given to Patient: Budesonide/Formoterol 160/4.5 [Symbicort 160/4.5 Mcg Inhaler (SP)] 2 puff INHALATION BID #2 inhaler Primary Care Physician: Neil Holden MD [Primary Care Provider] - Please follow up with your Primary Care Physician in: 1 WEEK. Please Follow Up With: Eduardo Chadwick MD When: Please call his office. Please Follow Up With: Neil Holden MD When: call to schedule a followup appt within 1 week Disposition: Home Minutes spent on discharge:: 34 Patient Condition:: Stable Medical Necessity - Tobacco Use Smoking Status: Current every day smoker Meaningful Use Info Meaningful Use Diagnoses (Choose all that apply): None applicable Code Visit Inpatient E&M: 81935 Disch Hosp
--- NOTE | 2018-12-17 16:04 | CASEMGMT ---
Symbicort co-pay for pt is $8.50. SStaten RN CM
--- NOTE | 2018-12-18 15:55 | CASEMGMT ---
ELENA RANGEL Discharge F/U Phone Call LACE: 10 Strata: 3 Discharge date: 12/17/18 Call date: 12/18/18 Call time: 1555 Attempted to reach pt without success at this time, unable to leave message at this time for pt as there is no voicemail. SStaten ELENA CM Admission dx: Sepsis, UTI, COPD exac
== END 2018-12-17 13:14 | disposition home or self-care (01) | DRG 872 ==
LOC: ED 14:43 → PCU 15:33
PROVIDERS: Internal Medicine Nephrology; Student in an Organized Health Care Education/Training Program; Admitting Provider Internal Medicine; Emergency Provider Emergency Medicine; Family Provider Family Medicine; PCP Family Medicine; Referring Provider Internal Medicine; Visit Provider Hospitalist
DX: A41.59 Other Gram-negative sepsis (principal); N17.9 Acute kidney failure, unspecified; N30.00 Acute cystitis without hematuria; N13.8 Other obstructive and reflux uropathy; N13.30 Unspecified hydronephrosis; J44.1 Chronic obstructive pulmonary disease with (acute) exacerbation; E87.2 Acidosis; I25.10 Atherosclerotic heart disease of native coronary artery without angina pectoris; N40.1 Benign prostatic hyperplasia with lower urinary tract symptoms; E87.5 Hyperkalemia; E78.5 Hyperlipidemia, unspecified; K80.20 Calculus of gallbladder without cholecystitis without obstruction; B96.89 Other specified bacterial agents as the cause of diseases classified elsewhere; Z95.5 Presence of coronary angioplasty implant and graft; F17.200 Nicotine dependence, unspecified, uncomplicated; I10 Essential (primary) hypertension; R13.12 Dysphagia, oropharyngeal phase
CPT/HCPCS: 36415; 71046; 74176; 76705; 80048; 80053; 80069; 80076; 81001; 83605; 83690; 83880; 83935; 84484; 85025; 85610; 85730; 87040; 87077; 87086; 87088; 87186; 87641; 87804; 92526; 93005; 94640; 94667; 94668; 99285; 99406; J7030; J7050; A4216

== ENCOUNTER → 2018-12-26 09:30 | Outpatient (CLI) | payer MEDICARE, SELFPAY ==
[2018-12-12 20:23] VITALS: BMI 27.1
[2018-12-26 11:43] LABS: Anion Gap 9 (5-15); BUN 45 mg/dL (7-18); BUN/Creat Ratio 14.5 RATIO (10-20); Calcium,Total 8.9 mg/dL (8.5-10.1); Chloride 113 mmol/L (98-107); Creatinine, Serum 3.11 mg/dL (0.70-1.30); EST Glomerular Filtration Rate 22 mL/min (>60); Est Glom Filt Rate - Afr Amer 26 mL/min (>60); Glucose 120 mg/dL (74-106); PSA,Total- Diagnostic 0.82 ng/mL (0.0-4.0); Potassium 6.1 mmol/L (3.5-5.1); Sodium Level 142 mmol/L (136-145)
== END ==
PROVIDERS: Family Provider Family Medicine; PCP Family Medicine; Referring Provider Urology; Visit Provider Urology
DX: C61 Malignant neoplasm of prostate (principal)
CPT/HCPCS: 36415; 80048; 84153

== ENCOUNTER 2020-04-27 11:05 | Inpatient (IN) | payer MEDICARE, SELFPAY ==
[2018-12-12 20:23] VITALS: BMI 27.1
[2020-04-27] VITALS (14 sets, daily range): BP systolic 112–165; BP diastolic 63–114; PULSE 72–108; RESP 18–25; TEMP 36.4–37.3; O2SAT 94–97; BMI 32.5; BMI 32.1
--- NOTE | 2020-04-27 11:36 | EKG12_ITS ---
Test Reason : SOB Blood Pressure : / mmHG Vent. Rate : 099 BPM Atrial Rate : 099 BPM P-R Int : 140 ms QRS Dur : 092 ms QT Int : 364 ms P-R-T Axes : 072 050 077 degrees QTc Int : 467 ms Sinus rhythm with Premature atrial complexes Nonspecific T wave abnormality Prolonged QT Abnormal ECG Confirmed by DENISA HAMPTON ([id number]), associate entertainment editor NING MCKEON ([id number]) on 04/29/2020 11:49:51 AM Referred By: WALT Confirmed By:DENISA HAMPTON
--- NOTE | 2020-04-27 11:37 | ED.VISSUMM ---
- ER Visit Summary Date of Service: 04/27/20 Chief Complaint: Shortness of breath History of Present Illness: The patient is a 64 M who presents with shortness of breath that is been getting worse over the past 3 days. Patient states his breathing is worse whenever he lays flat. Patient states he has been using home albuterol aerosols with minimal relief. Patient admits to a cough but denies any sputum. Patient denies any chest pain. Patient denies any fevers or chills. Patient denies any sore throat or rhinorrhea. Patient denies any recent travel or recent surgery. Patient states his hands feel swollen. Patient also states his feet feel swollen. Physical Examination: Vital signs are stable. Patient is afebrile. Patient is in no acute distress. Oral mucosa is pink and moist. Neck is supple. Trachea is midline. There is no JVD. Heart was regular rate and rhythm. Lungs showed diffuse expiratory wheezing. There is good respiratory effort noted. Abdomen is soft. Bowel sounds are normal. There is no tenderness. Extremities are intact. There is no calf tenderness. There is no peripheral edema noted. Cranial nerves II through XII are intact. There are no focal motor or sensory deficits. Test Results: EKG showed normal sinus rhythm with a rate of 99. There are some PACs noted. There is baseline artifact. There are no acute ST or T wave changes. Portable chest x-ray was obtained. There is no acute infiltrate. CBC showed a mild leukocytosis of 11.9. BUN and creatinine were 39 and 3.18 respectively. These are consistent with prior results. Troponin was elevated at 0.137. Emergency Department Course and Treatment: Patient was given a DuoNeb aerosol here. Patient was feeling better on reevaluation. Patient was advised of his findings. I recommended admission to the hospital to evaluate his elevated troponin. This was discussed with the hospitalist. She will admit the patient to her service. Patient understood and was agreeable with the plan. All questions were answered. Disposition: Admit to hospital Impression: 1. Dyspnea 2. Elevated troponin This note was generated with [employer] software. It may contain incorrect words, spelling, and punctuation that were not noted in review of the chart prior to signing ED Disposition - Plan for ED Patient: Disposition: Acute Care Hospital [facility] Diagnosis: Dyspnea, Elevated troponin Referrals: Neil Holden MD [STAFF PHYSICIAN] -
[2020-04-27] MEDS: Ipratropium/Albuterol Sulfate 3 ML AMPUL.NEB INHALATION ×2 (11:51→19:20)
--- NOTE | 2020-04-27 12:10 | RAD_ITS ---
STUDY: X-RAY CHEST REASON FOR EXAM: Male, 64 years old. SOB X1 WEEK, COUGH, HX COPD TECHNIQUE: Single AP portable view of the chest. COMPARISON: Comparison is made with prior examination dated December 12, 2018. FINDINGS: EKG electrodes are seen. The lungs are clear and expanded. There is no demonstrated pleural abnormality. Normal size heart. Normal mediastinum and richard. Normal visualized pulmonary arteries. There is atherosclerotic tortuosity of the aortic arch and descending thoracic aorta. Normal visualized thoracic spine. Normal visualized ribs, clavicles, and shoulders. There is no demonstrated abnormality of the visualized soft tissue structures of the upper abdomen. RAD/Chest 1 View (Portable) IMPRESSION: No acute abnormalities. Electronically Signed: Chavez Regalado, at 12:24 EDT , Service support ,
[2020-04-27 12:12] LABS: Absolute Lymphocyte Count 0.92 X10^3/uL (0.83-4.51); Absolute Neutrophil Count 9.8 X10^3/uL (2.0-7.7); Basophil# 0.03 X10^3/uL; Basophil% 0.3 % (0-1); Eosinophil# 0.17 X10^3/uL; Eosinophils% 1.4 % (0-5); Hematocrit 43.5 % (40-54); Hemoglobin 13.9 g/dL (13.0-16.5); Lymphocyte # 0.92 X10^3/ul (4.0); Lymphocyte % 7.7 % (19-41); Mean Corpuscular Hgb 28.1 pg (27.0-32.0); Mean Corpuscular Volume 88.1 fL (80-94); Mean Platelet Vol. 11.6 fl (6.2-12.0); Monocyte# 0.93 X10^3/uL; Monocyte% 7.8 % (0-10); NRBC Flagged by Analyzer 0 % (0-5); Neutrophil # 9.83 X10^3/uL (2.7-7.7); Neutrophil % 82.5 % (47-70); Platelet Count 237 K/mm3 (150-450); RBC Distribution Width SD 45.2 fl (35.1-43.9); Red Blood Count 4.94 M/mm3 (4.6-6.2); White Blood Count 11.9 K/mm3 (4.4-11.0)
[2020-04-27 12:28] LABS: ALB/GLOB Ratio 0.6 RATIO (0.9-2.4); AST(SGOT) 16 U/L (15-37); Alanine Aminotransfer ALT/SGPT 20 U/L (16-61); Albumin, Serum 2.7 g/dL (3.2-5.0); Alkaline Phosphatase 74 U/L (45-117); Anion Gap 6 (5-15); BUN 39 mg/dL (7-18); BUN/Creat Ratio 12.3 RATIO (10-20); Calcium,Total 8.3 mg/dL (8.5-10.1); Chloride 109 mmol/L (98-107); Creatinine, Serum 3.18 mg/dL (0.70-1.30); EST Glomerular Filtration Rate 21 mL/min (>60); Est Glom Filt Rate - Afr Amer 25 mL/min (>60); Estimated Creatinine Clearance 23.47 ml/min; Globulin 4.5 g/dL (2.2-4.2); Glucose 156 mg/dL (74-106); Potassium 4.5 mmol/L (3.5-5.1); Protein, Total 7.2 g/dL (6.4-8.2); Sodium Level 139 mmol/L (136-145)
--- NOTE | 2020-04-27 13:04 | NURSING ---
PCU DYSPNEA, ELEVATED TROP OBS ALVINO
--- NOTE | 2020-04-27 13:18 | ED.RN ---
Dr Whiteside aware that patient triggers sepsis alert. No new sepsis orders received.
[2020-04-27 13:23] LABS: BNP,B-Type NATRIURETIC PEPTIDE 1499.9 pg/mL (0-100)
--- NOTE | 2020-04-27 13:53 | ECHOCS_ITS ---
Reason For Study: SOB Procedure This was a 2D Doppler, Color Flow transthoracic echocardiogram. The study was technically difficult. Contrast injection was performed. Exam performed portable in patient room. Left Ventricle Mildly dilated left ventricle. Mild concentric left ventricular hypertrophy. Moderate segmental systolic dysfunction (see wall motion). The estimated ejection fraction is 30 %. Diastolic function is indeterminate. Posterior-Basal: Hypokinetic. Mid-Anterior : Hypokinetic. Mid-Lateral : Hypokinetic. Mid-Inferior: Hypokinetic. Mid-inferoseptal : Hypokinetic. Mid-anteroseptal : Hypokinetic. Diamond : Hypokinetic. Right Ventricle Normal RV size. Normal systolic function. Atria The left atrium is mildly enlarged. Normal right atrium. No doppler evidence for ASD. Mitral Valve There is no mitral annular calcification. Normal mitral valve. Mild (1+) mitral valve insufficiency. Tricuspid Valve Normal tricuspid valve. Trivial tricuspid valve insufficiency. Unable to estimate RV systolic pressure/pulmonary artery pressure due to technically difficult study. Aortic Valve The aortic valve is not well visualized. Pulmonic Valve The pulmonic valve is not well visualized. Great Vessels The aortic root is not well visualized. Pericardium/Pleural No pericardial effusion. Medication Diluted definity 3ml given slow IV push to enhance endocardial definition. MMode/2D Measurements & Calculations LVIDd: 5.6 cm IVSd: 1.3 cm LA dimension: 3.3 cm LVIDs: 5.0 cm LVPWd: 1.4 cm FS: 10.5 % LAV(MOD-bp): 58.4 ml LVAd ap4: 48.7 cm2 SV(MOD-sp4): 72.6 ml LAV(MOD-bp) Indexed: 27.3 ml/m2 EDV(MOD-sp4): 212.0 ml LAV(MOD-sp2): 60.6 ml EDV(sp4-el): 215.8 ml LAV(MOD-sp4): 57.2 ml LVAs ap4: 37.2 cm2 ESV(MOD-sp4): 139.4 ml ESV(sp4-el): 140.1 ml EF(MOD-sp4): 34.2 % EF(sp4-el): 35.1 % SV(sp4-el): 75.7 ml LA A4 area: 19.6 cm2 Time Measurements MV dec time: 0.13 sec Doppler Measurements & Calculations MV E max long: 88.9 cm/sec Lat Peak E' Long: 6.3 cm/sec Med Peak E' Long: 8.3 cm/sec MV A max long: 57.9 cm/sec E/E' lat: 14.1 E/E' med: 10.7 MV E/A: 1.5 MV V2 max: 131.9 cm/sec MV P1/2t max long: 132.9 cm/sec Ao V2 max: 110.2 cm/sec MV max P.0 mmHg MV P1/2t: 77.7 msec Ao max P.9 mmHg MV V2 mean: 59.4 cm/sec MV mean P.8 mmHg MV dec slope: 500.7 cm/sec2 MV V2 VTI: 33.0 cm MVA(P1/2t): 2.8 cm2 LV V1 max: 97.6 cm/sec PA V2 max: 94.4 cm/sec LV V1 max P.8 mmHg Interpretation Summary The study was technically difficult. Contrast injection was performed. Mildly dilated left ventricle. Moderate segmental systolic dysfunction (see wall motion). The estimated ejection fraction is 30 %. Mild concentric left ventricular hypertrophy. The left atrium is mildly enlarged. Mild (1+) mitral valve insufficiency. Trivial tricuspid valve insufficiency. Unable to estimate RV systolic pressure/pulmonary artery pressure due to technically difficult study. Diastolic function is indeterminate. Ordering Physician: Irlanda Rubio Referring Physician: Tamara PCP Performed By: Hesham Mcknight RCS
--- NOTE | 2020-04-27 13:58 | EKG12_ITS ---
Test Reason : ADMISSION Blood Pressure : / mmHG Vent. Rate : 093 BPM Atrial Rate : 093 BPM P-R Int : 142 ms QRS Dur : 102 ms QT Int : 364 ms P-R-T Axes : 072 056 091 degrees QTc Int : 452 ms Sinus rhythm with Premature atrial complexes Nonspecific T wave abnormality Abnormal ECG When compared with ECG of 27-APR-2020 11:48, MANUAL COMPARISON REQUIRED, DATA IS UNCONFIRMED Confirmed by DENISA HAMPTON ([id number]), order editor NING MCKEON ([id number]) on 04/29/2020 12:14:49 PM Referred By: ALVINO Confirmed By:DENISA HAMPTON
--- NOTE | 2020-04-27 14:09 | PCM.HP.STD ---
History of Present Illness Date of Admission: 04/27/20 Chief Complaint: SOB The patient is a 64 year old M who presents with new onset SOB that started 2 days ago. He denies fever or chills and states that he has a chronic cough that has not changed and has no sputum production to speak of. He also complains of hand and distal LE/foot swelling. He admits that he has not taken any of his cardiac meds in about an month and states that he stopped because I didn't feel like taking them. He denies CP, nausea, vomiting, but does have REILLY and orthopnea. His VS are relatively stable with mild tachycardia but SpO2 is stable on RA. His EKG show no changes c/w acute ischemia but his troponin is elevated to 0.137 and his BNP is elevated to 1499.9 at this time. He does have CKD but his sCr is stable at 3.18 and is similar to when his last BNP and troponin were done in 11/2018 and they were 14.6 and 0.020 respectively. He does have a stent that [place] [address] Phillip Reveles and [facility] in the LAD and 1st diagonal. It doesn't appear that he has had much f/u since then for his cardiac issues. He is still smoking about 1 PPD. Past Medical History Past Medical History (Chronic Problems): Chronic Problems (Last Reviewed 12/13/18 @ 17:[address] Eduardo Chadwick MD) COPD exacerbation (Chronic) Hyperlipidemia (Chronic) COPD (chronic obstructive pulmonary disease) (Chronic) BPH (benign prostatic hyperplasia) (Chronic) CAD (coronary artery disease) (Chronic) Hypertension (Chronic) Medical History: Medical History (Last Reviewed 04/27/20 @ 14:[address] Irlanda Rubio DO) Hyperlipidemia E78.5 Lymphoma C85.90 Vitamin D deficiency E55.9 HTN (hypertension) I10 CAD (coronary artery disease) I25.10 COPD (chronic obstructive pulmonary disease) J44.9 HTN (hypertension) I10 Allergies No Known Allergies Allergy (Verified 04/27/20 11:13) Home Medications: Ambulatory Orders Medication Instructions Recorded Aspirin [Aspir-Low] 81 mg PO DAILY 07/04/17 metoprolol succinate 25 mg 25 mg PO DAILY #90 tab 09/28/18 tablet,extended release 24 hr simvastatin 80 mg tablet 80 mg PO QHS #90 tab 09/28/18 Tamsulosin HCl [Flomax] 0.4 mg PO DAILY #30 capsule 12/03/18 Cholecalciferol (VIT D3) [Vitamin 1,000 mg PO DAILY 12/06/18 D3] Clopidogrel Bisulfate [Clopidogrel] 75 mg PO DAILY 12/06/18 Isosorbide Mononitrate [Isosorbide 30 mg PO DAILY 12/06/18 Mononitrate ER] Albuterol Inhaler [Ventolin Hfa] 1 - 2 puff INHALATION Q4H PRN PRN 12/09/18 #1 inhaler Ascorbic Acid [Vitamin C] 1,000 mg PO DAILY 04/27/20 Cyanocobalamin (Vitamin B-12) 1,000 mcg PO DAILY 04/27/20 [Vitamin B-12] Docusate Sodium 100 mg PO DAILY PRN PRN 04/27/20 Nitroglycerin [Nitrostat] 0.4 mg SL PRN PRN 04/27/20 Surgical History: tonsillectomy, - - POWER to LAD and 1st diagonal Psychiatric History: No pertinent psych hx Lives: Alone Smoking Status: Current every day smoker Tobacco Use: Cigarettes Alcohol: None Drugs: None - *Family History Maternal Family History: Family History (Last Reviewed 12/13/18 @ 17:[address] Eduardo Chadwick MD) Other BPH (benign prostatic hyperplasia) History Items: Dementia Paternal Family History: Family History (Last Reviewed 12/13/18 @ 17:[address] Eduardo Chadwick MD) Other BPH (benign prostatic hyperplasia) History Items: Heart Disease - CHF Review of Systems Constitutional: Denies: Anorexia, Chills, Fever, Night Sweats, Malaise, Weakness, Weight Change, Fatigue Eyes: Denies: Blurred vision, Cataracts, Conjunctivae Inflammation, Double vision, Drainage, Eyelid Inflammation, Pain, Redness, Vision Change HEENT: Denies: Difficulty Hearing, Difficulty Swallowing, Dysphasia, Ear Pain, Eye Pain, Hard of Hearing, Head Aches, Hearing Changes, Nasal bleeding, Nasal Congestion, Post Nasal Drip, Sinus Congestion, Sinus Drainage, Sore Throat Cardiovascular: Reports: Edema, Orthopnea. Denies: Chest Pain, Claudication, Chest Pressure, Chest Tightness, Heaviness, Light Headedness, Palpitations, Paroxysmal Noc. Dyspnea, Syncope Respiratory: Reports: Cough - chronic, Shortness of Breath, Shortness of breath at rest, Shortness of breath upon exertion. Denies: Hemoptysis, Pleuritic Pain, Sputum production, Wheezing Gastrointestinal: Denies: Abdominal Pain, Constipation, Diarrhea, Dyspepsia, Hematemesis, Hematochezia, Nausea, Melena, Vomiting Genitourinary: Reports: Frequency, Nocturia, Retention. Denies: Dysuria, Hematuria, Hesitancy, Incontinence, Urgency Musculoskeletal: Denies: Arm Pain, Back Pain, Foot Pain, Hand Pain, Joint Pain, Joint stiffness, Joint swelling, Joint Tenderness, Leg Pain, Muscle pain, Neck Pain, Shoulder Pain Skin: Denies: Dryness, Jaundice, Lesions, Pruritis, Rash, Skin Changes, Wounds Neurological: Denies: Balance problems, Blurred vision, Double vision, Change in Speech, Confusion, Difficulty swallowing, Focal weakness, Headaches, Incoordination, Numbness, Tingling, Tremor, Seizures Psychiatric: Denies: Anxiety, Depression, Homicidal Ideations, Suicidal Ideations Endocrine: Reports: Polyuria. Denies: Change in Body Habitus, Heat/ Cold Intolerance, Polydipsia Hematologic/ Lymphatic: Denies: Adenopathy, Anemia, Easy Bruising, Easy Bleeding, Petechiae, Purpura VTE Information - Inpt Only VTE Present on Admission: No VTE Mechan Device Prophylaxis: None VTE Pharm Prophylaxis ordered?: Yes Patient Problems: Active and Suspected Problems (Last Reviewed 12/13/18 @ 17:[address] Eduardo Chadwick MD) Dyspnea (Acute) Elevated troponin (Acute) - Physical Exam Vitals/I&O's: Vital Signs Temp Pulse Resp BP Pulse Ox 97.5 F L 105 H 20 H 158/96 H 94 04/27/20 13:47 04/27/20 13:47 04/27/20 13:47 04/27/20 13:47 04/27/20 13:47 Oxygen Delivery Method Room Air Weight: 98.656 kg Body Mass Index (BMI) 32.1 General: Alert, Oriented x3, Cooperative, No apparent distress, Well developed, Well nourished, - - WM slouched in the bed napping but awakens easily, non toxic, appears comfortable HEENT: Atraumatic, PERRLA, EOMI, Normocephalic, EAC Clear Oral: Moist Mucosa, No Gingival or Mucosal Lesions/ Ulcerations, - - poor dentition with missing teeth, mallampati 3 Neck: Supple, Negative Carotid Bruits, Negative Hepatojugular Reflux, No Nodes, No Nuchal Rigidity, Trachea Midline, Thyroid Normal Size and Texture, JVD, Bilateral Lungs: No rhonchi, No rales, Wheezes - end expiratory, - - reduced air movement diffusely Cardiovascular: Regular Rhythm, Normal S1, Normal S2, No murmurs, No rub noted, No Gallop, Tachycardic - mild, - - few ectopic beats Abdomen: Bowel Sounds Present, Soft, Non Tender, Non-Distended, No Hepato-splenomegaly, Obese, No hernias noted Extremities: No clubbing, No cyanosis, Capillary Refill Less than 3 Seconds, Edema - B lynch, Peripheral Pulses Normal Skin: No rashes, No breakdown, - - few lesions on face L cheek and L side of thayer, wound--> well healing on dorsum of L forearm Musculoskeletal: No Tenderness to Palpation of Joints or Extremities, No Muscle Wasting, Arthritic Changes Lymphatic: No Cervical, Supraclavicular, or Inguinal Adenopathy Neurological: Cranial nerves II-XII grossly intact, Deep Tendon Reflexes 2+/4 and Symmetrical, Neuro grossly intact, Motor Exam 5/5 strength throughout, Muscle tone normal, Sensory exam intact to light touch and pain Psych/Mental Status: Normal Affect, Appropriate, - - tangential at times, and tearful when he talked about his lymphoma and God, Alert and oriented to time, place, person, mood and affect Laboratory Results 04/27/20 12:05: WBC 11.9 H, RBC 4.94, Hgb 13.9, Hct 43.5, MCV 88.1, MCH 28.1, MCHC 32.0, RDW Std Deviation 45.2 H, RDW Coeff of Bunny 14.0, Plt Count 237, MPV 11.6, Immature Gran % (Auto) 0.300, Neut % (Auto) 82.5 H, Lymph % (Auto) 7.7 L, [place] % (Auto) 7.8, Eos % (Auto) 1.4, Baso % (Auto) 0.3, Absolute Neuts (auto) 9.8 H, Absolute Lymphs (auto) 0.92, Nucleated RBC % 0 04/27/20 12:05: Sodium 139, Potassium 4.5, Chloride 109 H, Carbon Dioxide 24.0, Anion Gap 6, BUN 39 H, Creatinine 3.18 H, Estim Creat Clear Calc 23.47, Est GFR (MDRD) Af Amer 25 L, Est GFR (MDRD) Non-Af 21 L, BUN/Creatinine Ratio 12.3, Glucose 156 H, Calcium 8.3 L, Total Bilirubin 0.60, AST 16, ALT 20, Alkaline Phosphatase 74, Troponin I 0.137 H, Total Protein 7.2, Albumin 2.7 L, Globulin 4.5 H, Albumin/Globulin Ratio 0.6 L 04/27/20 12:05: B-Natriuretic Peptide 1499.9 H Current Medications Acetaminophen (Tylenol) 650 mg PO Q6H PRN PRN PRN Reason: Pain Score 1-10/Temp > 100.7 F Al Hydroxide/Mg Hydroxide (Mylanta Ii) 30 ml PO Q6H PRN PRN PRN Reason: Gastric Burning Albuterol Sulfate (Ventolin Aerosols) 2.5 mg INHALATION Q2H PRN PRN PRN Reason: SOB/Wheezing Albuterol/Ipratropium (Duoneb) 3 ml INHALATION Q6HWA.RT STEPHANIE Ascorbic Acid (Vitamin C) 1,000 mg PO DAILY STEPHANIE Aspirin (Ecotrin) 81 mg PO DAILY@0800 STEPH[facility]IE Atorvastatin Calcium (Lipitor) 40 mg PO QHS [facility] Cholecalciferol (Vitamin D (25mcg)) 1,000 unit PO DAILY STEPHANIE Clopidogrel Bisulfate (Plavix) 75 mg PO DAILY [facility]PH[facility]IE Cyanocobalamin (Vitamin B12) 1,000 mcg PO DAILY [facility] Dextrose (D50w Syringe) 0 gm IV X1 PRN; Protocol PRN Reason: Hypoglycemia Docusate Sodium (Colace) 100 mg PO DAILY PRN PRN PRN Reason: Constipation Glucagon () 1 mg IM .X1 PRN PRN Reason: Hypoglycemia Isosorbide Mononitrate (Imdur) 30 mg PO DAILY STEPHANIE Magnesium Hydroxide (Milk Of Magnesia) 30 ml PO DAILY PRN PRN PRN Reason: Constipation Melatonin (Melatonin) 3 mg PO QHS PRN PRN PRN Reason: INSOMNIA Metoprolol Succinate (Toprol Xl (Beta Montez)) 25 mg PO DAILY [facility] Nitroglycerin (Nitrostat) 0.4 mg SUBLINGUAL Q5M PRN PRN Reason: CARDIAC/CHEST PAIN Zeyzu-1-Qoga Ethyl Esters (Lovaza) 1 gm PO DAILY [facility] Ondansetron HCl (Zofran) 4 mg IV Q8H PRN PRN PRN Reason: NAUSEA/VOMITING Prednisone () 40 mg PO DAILY@0800 [facility] Sodium Chloride () 10 - 40 ml IV UD PRN PRN Reason: SALINE FLUSH Tamsulosin HCl (Flomax) 0.4 mg PO DAILY@1730 [facility] Assessment/Plan All Active Problems (Last Reviewed 12/13/18 @ 17:[address] Eduardo Chadwick MD) Acute kidney injury on CKD stage III (Acute) UTI (urinary tract infection) (Acute) Cholecystitis, acute with cholelithiasis (Acute) Dyspnea (Acute) Elevated troponin (Acute) Obstructive uropathy (Acute) Acute renal failure (ARF) (Acute) SOB -suspect cardiac in nature as pt has had no change in sputum or cough/no fever or chills and trop/BNP elevated with stable sCr as compared to last lab work -CXR shows a bit increased parenchymal density at bases B but exposure is a bit different -EKG -Lasix 80 mg x 1 dose -will give prednisone with wheezing but this may be cardiac wheeze -Nebs -cycle troponin -ECHO -daily wgts -strict I&O -restart cardiac meds -consult Cardiology--> per pt he had followed with Dr. Garcia in the past Troponin elevation -cycle and check ECHO -cards consulted COPD -doubt acute exacerbation at this time -pred 40 mg daily -nebs CAD/HTN/HPL -2007 POWER to LAD and 1st diag -restart home meds (asa/plavix/metoprolol/ -check am lipids PETR -pt unsure of his home settings -will use CPAP at HS with 10 cmH20 CKD Stage 4 -sCr at baseline -repeat in am -monitor UO and sCr edson with diuretic BPH -continue home meds H/O Lymphoma -no current issues -pt follows with onc Vitamin D deficiency -continue replacement DVT prophylaxis -Heparin Code status -Full Inpatient E&M: 54022 Init Hosp L3
[2020-04-27] MEDS: predniSONE 20 MG Tablet 40 MG PO (16:07)
[2020-04-27] MEDS: 0.9% Saline Lock 10 ML Syringe IV ×2 (16:07→17:53)
[2020-04-27] MEDS: Furosemide 100 MG/10 ML Vial 80 MG IV (16:07)
--- NOTE | 2020-04-27 17:16 | PCM.CONS.C ---
Problem List (1) Abnormal cardiac enzyme level Status: Acute (2) CAD (coronary artery disease) Status: Chronic Qualifiers: Coronary Disease-Associated Artery/Lesion type: unspecified vessel or lesion type Associated angina: without angina (3) S/P PTCA (percutaneous transluminal coronary angioplasty) Status: Chronic (4) Cardiomyopathy, ischemic Status: Chronic (5) CHF (congestive heart failure) Status: Chronic Qualifiers: Heart failure type: systolic (6) Hyperlipidemia Status: Chronic (7) Hypertension Status: Chronic Qualifiers: Hypertension type: essential hypertension Qualified Code(s): I10 - Essential (primary) hypertension (8) Chronic renal insufficiency Status: Chronic (9) COPD (chronic obstructive pulmonary disease) Status: Chronic (10) Dyspnea Status: Acute Reason for Consult Date of Consultation: 04/27/20 History of Present Illness: The patient is a 64 year [id number] white male with a past cardiovascular history of CAD, PCI to the RCA with a BMS in 2006, PTCA/DEX to the LAD/diagonal branch in 2007, hyperlipidemia, hypertension, COPD, chronic renal insufficiency, superimposed upon a history of lymphoma and skin cancer presents for evaluation of progressive shortness of breath/dyspnea. The patient's last outpatient cardiovascular visit was on 08-29-2017. Since that time he states he has been dealing with his lymphoma and subsequent skin cancer. He states over time, based upon not feeling well, he elected to discontinue most of his medications. He believes his only medicines he has been taking has been his clopidogrel/Plavix therapy and his statin medication. He has noted recently he has been more short of breath and dyspneic at rest, with exertion, and at night. He is also noted an element of lower extremity edema. He does not describe ongoing chest discomfort. He has had no near syncope or syncope. He does not recall going through any other cardiovascular testing. He does not recall being evaluated by nephrology. He presented to the hospital for his concerns of shortness of breath and dyspnea. He has been found to have an indeterminate troponin I level. His ECG demonstrated sinus rhythm with nonspecific T wave abnormality. He was also noted to have a marked elevation of his creatinine level which appears to become a chronic issue for him. He also underwent evaluation with a transthoracic echocardiogram this day. The results are as noted below. It is noted that in comparison to a previous transthoracic echocardiogram from 11-24-2011, his overall LV systolic function/LVEF has declined. [] Past Medical History Allergies/Adverse Reactions: Allergies No Known Allergies Allergy (Verified 04/27/20 11:13) Home Medications: Ambulatory Orders Medication Instructions Recorded Aspirin [Aspir-Low] 81 mg PO DAILY 07/04/17 metoprolol succinate 25 mg 25 mg PO DAILY #90 tab 09/28/18 tablet,extended release 24 hr simvastatin 80 mg tablet 80 mg PO QHS #90 tab 09/28/18 Tamsulosin HCl [Flomax] 0.4 mg PO DAILY #30 capsule 12/03/18 Cholecalciferol (VIT D3) [Vitamin 1,000 mg PO DAILY 12/06/18 D3] Clopidogrel Bisulfate [Clopidogrel] 75 mg PO DAILY 12/06/18 Isosorbide Mononitrate [Isosorbide 30 mg PO DAILY 12/06/18 Mononitrate ER] Albuterol Inhaler [Ventolin Hfa] 1 - 2 puff INHALATION Q4H PRN PRN 12/09/18 #1 inhaler Ascorbic Acid [Vitamin C] 1,000 mg PO DAILY 04/27/20 Cyanocobalamin (Vitamin B-12) 2,500 mcg PO DAILY 04/27/20 [Vitamin B-12] Docusate Sodium 100 mg PO DAILY PRN PRN 04/27/20 Nitroglycerin [Nitrostat] 0.4 mg SL PRN PRN 04/27/20 Past Medical History (Chronic Problems): Chronic Problems (Last Reviewed 04/27/20 @ 14:[address] Irlanda Rubio DO) BPH (benign prostatic hyperplasia) (Chronic) CAD (coronary artery disease) (Chronic) Hypertension (Chronic) COPD (chronic obstructive pulmonary disease) (Chronic) Hyperlipidemia (Chronic) COPD exacerbation (Chronic) S/P PTCA (percutaneous transluminal coronary angioplasty) (Chronic) Cardiomyopathy, ischemic (Chronic) CHF (congestive heart failure) (Chronic) Chronic renal insufficiency (Chronic) Surgical History: tonsillectomy, - - POWER to LAD and 1st diagonal Psychiatric History: No pertinent psych hx - *Family History Maternal Family History: Family History (Last Reviewed 12/13/18 @ 17:[address] Eduardo Chadwick MD) Other BPH (benign prostatic hyperplasia) History Items: Dementia Paternal Family History: Family History (Last Reviewed 12/13/18 @ 17:[address] Eduardo Chadwick MD) Other BPH (benign prostatic hyperplasia) History Items: Heart Disease - CHF Lives: Alone Smoking Status: Current every day smoker Tobacco Use: Cigarettes Alcohol: None Drugs: None Review of Systems - Review of Systems General: Denies: Fever, Night Sweats, Fatigue Cardiovascular: Reports: Shortness of Breath, Orthopnea, Peripheral Edema. Denies: Chest Discomfort, PND, Palpitations, Lightheadedness, Dizziness, Near Syncope, Syncope Respiratory: Reports: Shortness of Breath. Denies: Cough, Sputum Production, Hemoptysis Gastrointestinal: Denies: Hematemesis, Hematochezia, Melena Genitourinary: Denies: Dysuria, Hematuria Skin: Reports: Lesions Subjectve: Is a 64-year-old white male who appears to be resting reasonably comfortably at the moment in no acute distress. Objective: Vital Signs Temp Pulse Resp BP Pulse Ox 97.6 F L 99 22 H 165/114 H 97 04/27/20 16:10 04/27/20 16:10 04/27/20 16:10 04/27/20 16:10 04/27/20 16:10 Oxygen Delivery Method Room Air Weight: 217 lb 8 oz Body Mass Index (BMI) 32.1 General: Awake, Alert, Oriented x 3 HEENT: Atraumatic, Normocephalic, PERRL, EOMI, Sclera Non Icteric Oral: Moist Mucosa Neck: Supple, Good ROM, No JVD Lungs: Rhonchi, Expiratory Wheezes-Chuy Cardiovascular: Regular Rhythm, Normal S1, Normal S2 Abdomen: Bowel Sounds Present, Soft Extremities: Mild RLE Edema, Mild LLE Edema Psych/Mental Status: Appropriate 04/27/20 12:05: WBC 11.9 H, RBC 4.94, Hgb 13.9, Hct 43.5, MCV 88.1, MCH 28.1, MCHC 32.0, Plt Count 237, MPV 11.6, Immature Gran % (Auto) 0.300, Neut % (Auto) 82.5 H, Lymph % (Auto) 7.7 L, [place] % (Auto) 7.8, Eos % (Auto) 1.4, Baso % (Auto) 0.3, Absolute Neuts (auto) 9.8 H, Nucleated RBC % 0 04/27/20 12:05: Sodium 139, Potassium 4.5, Chloride 109 H, Carbon Dioxide 24.0, Anion Gap 6, BUN 39 H, Creatinine 3.18 H, Est GFR (MDRD) Af Amer 25 L, Est GFR (MDRD) Non-Af 21 L, BUN/Creatinine Ratio 12.3, Glucose 156 H, Calcium 8.3 L, Total Bilirubin 0.60, Troponin I 0.137 H 04/27/20 12:05: B-Natriuretic Peptide 1499.9 H 04/27/20 15:35: Troponin I 0.112 H Rhythm: Sinus rhythm EKG: Sinus rhythm; PACs; nonspecific T wave abnormality ECHO: 04/27/2020 Interpretation Summary The study was technically difficult. Contrast injection was performed. Mildly dilated left ventricle. Moderate segmental systolic dysfunction (see wall motion). The estimated ejection fraction is 30 %. Mild concentric left ventricular hypertrophy. The left atrium is mildly enlarged. Mild (1+) mitral valve insufficiency. Trivial tricuspid valve insufficiency. Unable to estimate RV systolic pressure/pulmonary artery pressure due to technically difficult study. Diastolic function is indeterminate Stress Test: 11-24-2011 Pharmacologic stress nuclear imaging study: Findings compatible with previous myocardial injury/infarction involving portions of the basal to mid inferior wall with no obvious associated myocardial perfusion changes compatible with associated stress-induced myocardial ischemia with a gated LVEF of 42% Cardiac Cath: 12-03-2007 1. Borderline to mild elevation of the left ventricular end-diastolic pressures 2. Mild elevation of the intrapulmonary/right heart pressures compatible with mild secondary pulmonary hypertension with consideration to etiologies being related to an underlying primary pulmonary disease process/chronic obstructive pulmonary disease 3. Oxygen saturation: No obvious evidence of intracardiac shunting phenomena 3. Left ventricle: Hypokinesis to severe hypokinesis of the basal inferior to mid inferior segment with an estimated LVEF 45% 4. Left main: Angiographically normal 5. LAD: Diffuse minimal luminal irregularities 7. Diagonal branch: Ostial/proximal hazy appearing 85% stenosis 8. LCx/OM: Diffuse minimal luminal irregularities 9. RCA: Proximal catheter tip induced coronary artery vasospasm with relief status post intracoronary nitroglycerin with mid diffuse 10 to 25% stenosis and distal stented segment patent with minimal luminal irregularities 10. Mitral valve: Trace to mild MR which appears to be PVC induced PCI: 12-04-2007: [facility]: PCI to the first diagonal branch PCI to the LAD-proximal Comment: PCI/stent to the diagonal branch compromise the lumen of the LAD requiring bifurcating stenting and IVUS interrogation CXR: Preliminary evaluation: No acute cardiopulmonary disease process appreciated: Please see official report Assessment/Plan 1. Abnormal cardiac enzymes/troponin I level The patient has an indeterminate troponin I level. The etiology may be multifactorial. There could be concerns from a cardiovascular standpoint that this is related to progression of CAD and non-ST segment elevation [place] although unclear whether a type I versus a type II event. There may also be concerns as his LV wall motion systolic function of decline compared to previous studies that this could be related to concerns of CHF. He does not appear to of had evidence of a recent acute thromboembolic event, acute CVA, or an underlying acute infectious disease related etiology. At the same time his troponin I levels present in the setting of marked elevation of his creatinine level. At the moment from a cardiac standpoint he can be monitored. He can have his cardiac enzymes and ECG followed. He is already had an echocardiogram as noted. He can be treated medically with agents such as aspirin, antiplatelet agents, nitrates, beta-blockers, lipid-lowering agents, etc. He is not an ideal candidate at this time based upon his multiple medical issues including his marked elevation of his creatinine level for a return trip to the cardiac catheterization laboratory based upon the concerns of IV contrast related nephropathy. 2. CAD status post PCI The patient does have a history of CAD and is status post PCI in the past as noted. At the present time he is undergoing evaluation care for his shortness of breath/dyspnea and his indeterminate troponin I levels superimposed upon his other multiple medical issues. At the moment he will continue medical management. Again he is not an ideal candidate for repeat evaluation in the cardiac catheterization laboratory based upon concerns of IV contrast related nephropathy. 3. Ischemic mediated cardiomyopathy He does have a history of an ischemic mediated cardiomyopathy. Based on his echocardiogram is LV systolic function has declined. He will continue medical management. Ideally he undergo reevaluation of his coronary anatomy to evaluate for progression of disease and requires additional revascularization therapy that may help his left ventricular wall motion systolic function. However again he is not an ideal candidate for such based upon his marked chronic renal insufficiency and concerns of IV contrast related nephropathy which could produce the need for hemodialysis therapy. 4. Chronic systolic CHF He does have history of chronic systolic CHF. He will continue medical management with adjustment of medications as needed. 5. Hyperlipidemia He states he is continuing his lipid-lowering therapy. 6. Hypertension His blood pressure will need to be followed. He states he has been off of his medications other than those mentioned above. Hopefully restarting his medications will help bring his blood pressure under better control. 7. Chronic renal insufficiency His creatinine level has been markedly elevated since approximately November 2018. He states he has not been evaluated by nephrology for this. Would not be unreasonable to consider nephrology consultation for his marked creatinine level and further assessment and evaluation care of his renal function. 8. COPD He does have a history of COPD. He states he continues to smoke tobacco. 9. Dyspnea His main concern is been dyspnea. He states is been worsening. This may be multifactorial related to a combination of his cardiopulmonary related issues as well as other issues that may yet to be defined. At the moment he will continue cardiac evaluation care as noted above. He may need further input from pulmonology as well. Comment: The patient states that he is agreeable to proceeding with conservative medical management. However he states that with his multiple issues that he has been dealing with in the past he would also like to have a consult with palliative/hospice care to consider his options. Comment: The patient's case has been previously discussed and reviewed with Dr. Rubio. This note was generated using a voice recognition system and there may be incorrect words, spelling or punctuation that were not noted when reviewing the office note prior to saving.
[2020-04-27] MEDS: hydrALAZINE 25 MG Tablet PO (22:13)
[2020-04-27] MEDS: Atorvastatin Calcium 40 MG Tablet PO (22:14)
[2020-04-27] MEDS: Heparin Injection (Vial) 5,000 UNIT/ML VIAL 5000 UNIT SC (22:14)
[2020-04-28] VITALS (17 sets, daily range): BP systolic 135–150; BP diastolic 72–95; PULSE 64–103; RESP 14–18; TEMP 36.6–36.7; O2SAT 94–96
[2020-04-28] MEDS: hydrALAZINE 25 MG Tablet PO ×3 (06:17→22:03)
[2020-04-28] MEDS: Heparin Injection (Vial) 5,000 UNIT/ML VIAL 5000 UNIT SC ×3 (06:17→22:04)
[2020-04-28 06:57] LABS: Absolute Lymphocyte Count 0.67 X10^3/uL (0.83-4.51); Basophil# 0.02 X10^3/uL; Basophil% 0.1 % (0-1); Hematocrit 43.8 % (40-54); Lymphocyte # 0.67 X10^3/ul (4.0); Lymphocyte % 4.1 % (19-41); Mean Corpuscular Hgb 28.4 pg (27.0-32.0); Mean Corpuscular Volume 88.8 fL (80-94); Monocyte# 0.74 X10^3/uL; Monocyte% 4.5 % (0-10); NRBC Flagged by Analyzer 0 % (0-5); Neutrophil # 14.97 X10^3/uL (2.7-7.7); Neutrophil % 90.9 % (47-70); Platelet Count 242 K/mm3 (150-450); RBC Distribution Width CV 14.4 % (11.6-14.6); RBC Distribution Width SD 46.3 fl (35.1-43.9); Red Blood Count 4.93 M/mm3 (4.6-6.2); White Blood Count 16.5 K/mm3 (4.4-11.0)
[2020-04-28 07:14] LABS: Anion Gap 7 (5-15); BUN 59 mg/dL (7-18); BUN/Creat Ratio 14.9 RATIO (10-20); Calcium,Total 8.7 mg/dL (8.5-10.1); Chloride 109 mmol/L (98-107); Cholesterol 222 mg/dL (200); Creatinine, Serum 3.95 mg/dL (0.70-1.30); EST Glomerular Filtration Rate 16 mL/min (>60); Est Glom Filt Rate - Afr Amer 20 mL/min (>60); Estimated Creatinine Clearance 18.89 ml/min; Glucose 154 mg/dL (74-106); High Density Lipoprotein 35 mg/dL; Magnesium 2.6 mg/dL (1.6-2.6); Potassium 5.1 mmol/L (3.5-5.1); Sodium Level 138 mmol/L (136-145); Triglycerides 103 mg/dL; Very Low Density Lipoprotein 21 mg/dL (5-40)
[2020-04-28] MEDS: Ipratropium/Albuterol Sulfate 3 ML AMPUL.NEB INHALATION ×2 (07:39→13:27)
[2020-04-28] MEDS: Metoprolol(XL)Succ 25 MG Tablet PO (07:54)
[2020-04-28] MEDS: Omega-3 Acid Ethyl Esters 1 GM Capsule PO (07:54)
[2020-04-28] MEDS: Isosorbide Mononitrate 30 MG Tablet PO (07:54)
[2020-04-28] MEDS: Aspirin E.C. 81 MG Tablet PO (07:54)
[2020-04-28] MEDS: Clopidogrel Bisulfate 75 MG Tablet PO (07:54)
[2020-04-28] MEDS: Ascorbic Acid 500 MG Tablet 1000 MG PO (07:55)
[2020-04-28] MEDS: Cyanocobalamin 500 MCG Tablet 1000 MCG PO (07:55)
[2020-04-28] MEDS: predniSONE 20 MG Tablet 40 MG PO (07:57)
--- NOTE | 2020-04-28 08:46 | CPS ---
pt placed on 2 lpm for c/o S.O.B. nurse aware of change
[2020-04-28 09:07] LABS: BNP,B-Type NATRIURETIC PEPTIDE 1506.2 pg/mL (0-100)
--- NOTE | 2020-04-28 10:48 | PCM.PN.HOSP ---
Patient Problems: Active and Suspected Problems (Last Reviewed 04/27/20 @ 14:[address] Irlanda Rubio, DO) Dyspnea (Acute) Elevated troponin (Acute) Abnormal cardiac enzyme level (Acute) Objective: Patient is short of breath. Worsening of shortness of breath for about 2 weeks along with cough. Patient has chronic lot of oral secretions when he wakes up but has increased recently; usually sleeps on BiPAP at night. No fever or chills. Patient has also increased abdominal girth in last 1 month. His body weight was 170-180 pounds about a month ago and now it is 217 pounds. No pedal edema. Vitals/I&O's: Vital Signs Temp Pulse Resp BP Pulse Ox 98.0 F 95 16 135/91 H 95 04/28/20 06:15 04/28/20 07:54 04/28/20 07:39 04/28/20 06:15 04/28/20 07:39 Oxygen Flow Rate (L/min) 2 Oxygen Delivery Method Nasal Cannula Weight: 217 lb 6.012 oz Body Mass Index (BMI) 32.1 Intake and Output for Last 24 Hours 04/26/20 04/27/20 04/28/20 23:59 23:59 23:59 Intake Total 590 / 590 0 / 0 Output Total 100 / 100 0 / 0 Balance 490 / 490 0 / 0 General: Alert, Oriented x3, Cooperative HEENT: Atraumatic, PERRLA, EOMI, Normocephalic Neck: Supple, No JVD, Negative Carotid Bruits Lungs: Diminished - Air entry severely diminished., Rhonchi - Bilateral rhonchi present, Short of Breath, - Cardiovascular: Normal S1, Normal S2, No murmurs, - - PVCs on residential monitor in the morning, heart rate 113/min Abdomen: Bowel Sounds Present, Soft, Non Tender, - - Shifting dullness present suggestive of ascites. Extremities: No edema - No significant pedal edema., Capillary Refill Less than 3 Seconds Skin: No rashes, No breakdown Musculoskeletal: No Tenderness to Palpation of Joints or Extremities, Arthritic Changes Neurological: Cranial nerves II-XII grossly intact, Deep Tendon Reflexes 2+/4 and Symmetrical, Neuro grossly intact Psych/Mental Status: Normal Affect, Appropriate Laboratory Results 04/27/20 12:05: WBC 11.9 H, RBC 4.94, Hgb 13.9, Hct 43.5, MCV 88.1, MCH 28.1, MCHC 32.0, RDW Std Deviation 45.2 H, RDW Coeff of Bunny 14.0, Plt Count 237, MPV 11.6, Immature Gran % (Auto) 0.300, Neut % (Auto) 82.5 H, Lymph % (Auto) 7.7 L, [place] % (Auto) 7.8, Eos % (Auto) 1.4, Baso % (Auto) 0.3, Absolute Neuts (auto) 9.8 H, Absolute Lymphs (auto) 0.92, Nucleated RBC % 0 04/27/20 12:05: Sodium 139, Potassium 4.5, Chloride 109 H, Carbon Dioxide 24.0, Anion Gap 6, BUN 39 H, Creatinine 3.18 H, Estim Creat Clear Calc 23.47, Est GFR (MDRD) Af Amer 25 L, Est GFR (MDRD) Non-Af 21 L, BUN/Creatinine Ratio 12.3, Glucose 156 H, Calcium 8.3 L, Total Bilirubin 0.60, AST 16, ALT 20, Alkaline Phosphatase 74, Troponin I 0.137 H, Total Protein 7.2, Albumin 2.7 L, Globulin 4.5 H, Albumin/Globulin Ratio 0.6 L 04/27/20 12:05: B-Natriuretic Peptide 1499.9 H 04/27/20 15:35: Troponin I 0.112 H 04/27/20 18:50: Troponin I 0.095 H 04/28/20 06:14: Sodium 138, Potassium 5.1, Chloride 109 H, Carbon Dioxide 22.0, Anion Gap 7, BUN 59 H, Creatinine 3.95 H, Estim Creat Clear Calc 18.89, Est GFR (MDRD) Af Amer 20 L, Est GFR (MDRD) Non-Af 16 L, BUN/Creatinine Ratio 14.9, Glucose 154 H, Calcium 8.7, Phosphorus 3.0, Magnesium 2.6, Triglycerides 103, Cholesterol 222 H, LDL Cholesterol 166 H, VLDL Cholesterol 21, HDL Cholesterol 35 L 04/28/20 06:14: WBC 16.5 H, RBC 4.93, Hgb 14.0, Hct 43.8, MCV 88.8, MCH 28.4, MCHC 32.0, RDW Std Deviation 46.3 H, RDW Coeff of Bunny 14.4, Plt Count 242, MPV 12.0, Immature Gran % (Auto) 0.400, Neut % (Auto) 90.9 H, Lymph % (Auto) 4.1 L, [place] % (Auto) 4.5, Eos % (Auto) 0.0, Baso % (Auto) 0.1, Absolute Neuts (auto) 15.0 H, Absolute Lymphs (auto) 0.67 L, Nucleated RBC % 0 04/28/20 06:14: B-Natriuretic Peptide 1506.2 H Current Medications Acetaminophen (Tylenol) 650 mg PO Q6H PRN PRN PRN Reason: Pain Score 1-10/Temp > 100.7 F Albuterol Sulfate (Ventolin Aerosols) 2.5 mg INHALATION Q2H PRN PRN PRN Reason: SOB/Wheezing Albuterol/Ipratropium (Duoneb) 3 ml INHALATION Q4HWA.RT [facility] Ascorbic Acid (Vitamin C) 1,000 mg PO DAILY [facility] Last Admin: 04/28/20 07:55 Dose: 1,000 mg Documented by: Aspirin (Ecotrin) 81 mg PO DAILY@0800 [facility] Last Admin: 04/28/20 07:54 Dose: 81 mg Documented by: Atorvastatin Calcium (Lipitor) 40 mg PO QHS [facility] Last Admin: 04/27/20 22:14 Dose: 40 mg Documented by: Cholecalciferol (Vitamin D (25mcg)) 1,000 unit PO DAILY [facility] Last Admin: 04/28/20 07:55 Dose: 1,000 unit Documented by: Clopidogrel Bisulfate (Plavix) 75 mg PO DAILY [facility] Last Admin: 04/28/20 07:54 Dose: 75 mg Documented by: Cyanocobalamin (Vitamin B12) 1,000 mcg PO DAILY [facility] Last Admin: 04/28/20 07:55 Dose: 1,000 mcg Documented by: Dextrose (D50w Syringe) 0 gm IV X1 PRN; Protocol PRN Reason: Hypoglycemia Docusate Sodium (Colace) 100 mg PO DAILY PRN PRN PRN Reason: Constipation Glucagon () 1 mg IM .X1 PRN PRN Reason: Hypoglycemia Heparin Sodium (Porcine) (Heparin Na) 5,000 unit SC Q8 [facility] Last Admin: 04/28/20 06:17 Dose: 5,000 unit Documented by: Hydralazine HCl (Apresoline) 25 mg PO TID [facility] Last Admin: 04/28/20 06:17 Dose: 25 mg Documented by: Isosorbide Mononitrate (Imdur) 30 mg PO DAILY [facility] Last Admin: 04/28/20 07:54 Dose: 30 mg Documented by: Labetalol HCl (Trandate) 40 mg IV Q4H PRN PRN PRN Reason: SBP > 160 Last Admin: 04/27/20 17:53 Dose: 40 mg Documented by: Melatonin (Melatonin) 3 mg PO QHS PRN PRN PRN Reason: INSOMNIA Metoprolol Succinate (Toprol Xl (Beta Montez)) 25 mg PO DAILY [facility] Last Admin: 04/28/20 07:54 Dose: 25 mg Documented by: Nicotine (Nicoderm Cq (Pbkc)) 14 mg TRANSDERM. DAILY [facility] Last Admin: 04/28/20 07:54 Dose: Not Given Documented by: Nitroglycerin (Nitrostat) 0.4 mg SUBLINGUAL Q5M PRN PRN Reason: CARDIAC/CHEST PAIN [id number] Ethyl Esters (Lovaza) 1 gm PO DAILY [facility] Last Admin: 04/28/20 07:54 Dose: 1 gm Documented by: Ondansetron HCl (Zofran) 4 mg IV Q8H PRN PRN PRN Reason: NAUSEA/VOMITING Sodium Chloride () 10 - 40 ml IV UD PRN PRN Reason: SALINE FLUSH Last Admin: 04/27/20 17:53 Dose: 10 ml Documented by: Tamsulosin HCl (Flomax) 0.4 mg PO DAILY@1730 [facility] STROKE Vital Signs/Narrative: Vital Signs Pulse Resp Pulse Ox 04/28/20 07:54 95 04/28/20 07:39 91 16 95 04/28/20 07:00 95 Medical Necessity - Tobacco Use Smoking Status: Current every day smoker Tobacco Use: Cigarettes Assessment/Plan All Active Problems (Last Reviewed 04/27/20 @ 14:[address] Irlanda Rubio, DO) Acute renal failure (ARF) (Acute) Obstructive uropathy (Acute) Acute kidney injury on CKD stage III (Acute) UTI (urinary tract infection) (Acute) Cholecystitis, acute with cholelithiasis (Acute) Dyspnea (Acute) Elevated troponin (Acute) Abnormal cardiac enzyme level (Acute) This 64 gentleman is admitted for progressive worsening of shortness of breath for 2 weeks along with ascites, generalized weakness and weight gain of about 40 pounds in last 1 months. Patient has history of COPD uses BiPAP at night, coronary artery disease, ischemic cardiomyopathy, EF 30%, mild MR, mild TR, lymphoma and CKD stage IV. 1. Acute on chronic systolic and diastolic combined heart failure: She is being admitted in PCU. Seen by paralegal internship. On medical management. There is decline in the LV systolic function, EF 30%. Patient had echo on April 27, 2020, mild concentric LVH, LA mildly enlarged, mild MR and trivial TR. Started on Bumex drip along with IV albumin. Bandage. 2. Coronary artery disease status post stent in LAD and first diagonal: Patient has indeterminate troponin may be multifactorial, related to demand supply mismatch, anasarca with ascites or kidney dysfunction, CKD stage IV. Troponin is trending down. Cardiac Cath: 12-03-2007 Left ventricle: Hypokinesis to severe hypokinesis of the basal inferior to mid inferior segment with an estimated LVEF 45% Left main: Angiographically normal LAD: Diffuse minimal luminal irregularities Diagonal branch: Ostial/proximal hazy appearing 85% stenosis LCx/OM: Diffuse minimal luminal irregularities RCA: Proximal catheter tip induced coronary artery vasospasm with relief status post intracoronary nitroglycerin with mid diffuse 10 to 25% stenosis and distal stented segment patent with minimal luminal irregularities Mitral valve: Trace to mild MR which appears to be PVC induced PCI: 12-04-2007: [facility]: PCI to the first diagonal branch PCI to the LAD-proximal 3. Acute kidney injury on CKD stage IV, close to ESRD with ascites and anasarca: Patient was seen by electroplater helper. Discussed with him. 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 Bumex drip with albumin, midodrine 5 mg 3 times daily and monitor kidney function daily. 4. COPD exacerbation, obstructive sleep apnea: Patient uses BiPAP at night. On bronchodilator, Solu-Medrol, incentive spirometry, pep, chest physiotherapy 5. History of lymphoma: Patient follows oncology. Not clear exactly type, natural history of his lymphoma. 6 other comorbidities include hypertension, dyslipidemia, vitamin D deficiency: 7. DVT prophylaxis: Heparin 5000 discontinues 3 times daily. Total time of the visit including total time spent in counseling or coordination of care, (more than 50% of the total time, spent in obtaining medical information from nurses and other ancillary care providers), discussion with production consultant, paralegal internship and electroplater helper, review of labs and imaging is 30 minutes Living will/advanced directive/end of life care: Patient does have living will or advanced directive. After discussion of procedures involved with full code, DNR CC arrest and DNR CC in presence of patient's friend, the patient opted for DNR-CC Arrest no intubation. Patient wants palliative care for shortness of breath, ascites, fluid overload. Palliative care called. Patient is hospice appropriate Patient does not want artificial life support including intubation, tube feed, ventilator and/chest compression, central venous catheter, vasopressor and DC shock if needed DNR CC arrest. Total time spent in [id number] encounter in discussion of advanced directive 16 minutes. Inpatient E&M: 26163 [facility] L[facility] Procedures: 40221 Advncd Care Plan 30 Min
--- NOTE | 2020-04-28 11:33 | CASEMGMT ---
Patient's RN and physician said patient would like to talk with Palliative/Hospice. SW met with patient, introduced self and role at [facility]. Patient is fine with [facility]. SW told him they will call him and set up a time to discuss their services. SW called [facility] and made a referral as well as faxed referral. Yoly BAE
--- NOTE | 2020-04-28 12:12 | PCM.CONS.R ---
Consultation - Renal 04/28/20 PCP/ Referring MD: Requesting physician: [] Primary care physician: No Primary Care Phys Reason for Consultation:: MATEUS on CKDIV Bscr 2.69 - History of Present Illness History of Present Illness: The patient is a 64 year old M with PMH of CAD, PCI , hyperlipidemia, hypertension, COPD, CKDIV Bscr 2.69, superimposed upon a history of lymphoma here for evaluation of progressive shortness of breath/dyspnea MATEUS on CKDIV now almost end stage with generalized anasarca and ascites - Allergies Allergies: Allergies No Known Allergies Allergy (Verified 04/27/20 11:13) - Current Medications Current Medications: Current Medications Acetaminophen (Tylenol) 650 mg PO Q6H PRN PRN PRN Reason: Pain Score 1-10/Temp > 100.7 F Albuterol Sulfate (Ventolin Aerosols) 2.5 mg INHALATION Q2H PRN PRN PRN Reason: SOB/Wheezing Albuterol/Ipratropium (Duoneb) 3 ml INHALATION Q4HWA.RT [facility] Ascorbic Acid (Vitamin C) 1,000 mg PO DAILY [facility] Last Admin: 04/28/20 07:55 Dose: 1,000 mg Documented by: Aspirin (Ecotrin) 81 mg PO DAILY@0800 [facility] Last Admin: 04/28/20 07:54 Dose: 81 mg Documented by: Atorvastatin Calcium (Lipitor) 40 mg PO QHS [facility] Last Admin: 04/27/20 22:14 Dose: 40 mg Documented by: Cholecalciferol (Vitamin D (25mcg)) 1,000 unit PO DAILY [facility] Last Admin: 04/28/20 07:55 Dose: 1,000 unit Documented by: Clopidogrel Bisulfate (Plavix) 75 mg PO DAILY [facility] Last Admin: 04/28/20 07:54 Dose: 75 mg Documented by: Cyanocobalamin (Vitamin B12) 1,000 mcg PO DAILY [facility] Last Admin: 04/28/20 07:55 Dose: 1,000 mcg Documented by: Dextrose (D50w Syringe) 0 gm IV X1 PRN; Protocol PRN Reason: Hypoglycemia Docusate Sodium (Colace) 100 mg PO DAILY PRN PRN PRN Reason: Constipation Glucagon () 1 mg IM .X1 PRN PRN Reason: Hypoglycemia Heparin Sodium (Porcine) (Heparin Na) 5,000 unit SC Q8 [facility] Last Admin: 04/28/20 06:17 Dose: 5,000 unit Documented by: Hydralazine HCl (Apresoline) 25 mg PO TID [facility] Last Admin: 04/28/20 06:17 Dose: 25 mg Documented by: Isosorbide Mononitrate (Imdur) 30 mg PO DAILY [facility] Last Admin: 04/28/20 07:54 Dose: 30 mg Documented by: Labetalol HCl (Trandate) 40 mg IV Q4H PRN PRN PRN Reason: SBP > 160 Last Admin: 04/27/20 17:53 Dose: 40 mg Documented by: Melatonin (Melatonin) 3 mg PO QHS PRN PRN PRN Reason: INSOMNIA Methylprednisolone (Solu-Medrol) 40 mg IV Q8 [facility] Metoprolol Succinate (Toprol Xl (Beta Montez)) 25 mg PO DAILY [facility] Last Admin: 04/28/20 07:54 Dose: 25 mg Documented by: Nicotine (Nicoderm Cq (Pbkc)) 14 mg TRANSDERM. DAILY [facility] Last Admin: 04/28/20 07:54 Dose: Not Given Documented by: Nitroglycerin (Nitrostat) 0.4 mg SUBLINGUAL Q5M PRN PRN Reason: CARDIAC/CHEST PAIN [id number] Ethyl Esters (Lovaza) 1 gm PO DAILY [facility] Last Admin: 04/28/20 07:54 Dose: 1 gm Documented by: Ondansetron HCl (Zofran) 4 mg IV Q8H PRN PRN PRN Reason: NAUSEA/VOMITING Sodium Chloride () 10 - 40 ml IV UD PRN PRN Reason: SALINE FLUSH Last Admin: 04/27/20 17:53 Dose: 10 ml Documented by: Tamsulosin HCl (Flomax) 0.4 mg PO DAILY@1730 [facility] - Past Medical History Past Medical History (Chronic Problems): Chronic Problems (Last Reviewed 04/27/20 @ 14:[address] Irlanda Rubio, DO) BPH (benign prostatic hyperplasia) (Chronic) CAD (coronary artery disease) (Chronic) Hypertension (Chronic) COPD (chronic obstructive pulmonary disease) (Chronic) Hyperlipidemia (Chronic) COPD exacerbation (Chronic) S/P PTCA (percutaneous transluminal coronary angioplasty) (Chronic) Cardiomyopathy, ischemic (Chronic) CHF (congestive heart failure) (Chronic) Chronic renal insufficiency (Chronic) - Past Surgical History Surgical History: tonsillectomy, - - POWER to LAD and 1st diagonal - Social History Smoking Status: Current every day smoker Alcohol: None Drugs: None - Family History Maternal Family History: Family History (Last Reviewed 12/13/18 @ 17:[address] Eduardo Chadwick MD) Other BPH (benign prostatic hyperplasia) History Items: Dementia Paternal Family History: Family History (Last Reviewed 12/13/18 @ 17:[address] Eduardo Chadwick MD) Other BPH (benign prostatic hyperplasia) History Items: Heart Disease - CHF Review of Systems Eyes: Reports: Blurred vision HEENT: Reports: Head Aches Cardiovascular: Reports: Chest Pain, Orthopnea, Palpitations Respiratory: Reports: Cough Gastrointestinal: Reports: Abdominal Pain Genitourinary: Reports: Dysuria Musculoskeletal: Denies: Joint Pain, Joint Tenderness Skin: Denies: Rash, Wounds Neurological: Denies: Numbness, Tingling, Focal weakness Psychiatric: Denies: Anxiety, Depression, Homicidal Ideations, Suicidal Ideations Hematologic/ Lymphatic: Reports: Adenopathy Patient Problems: Active and Suspected Problems (Last Reviewed 04/27/20 @ 14:[address] Irlanda Rubio DO) Dyspnea (Acute) Elevated troponin (Acute) Abnormal cardiac enzyme level (Acute) - Physical Exam Vitals/I&O's: Vital Signs Temp Pulse Resp BP Pulse Ox 98.0 F 95 16 135/91 H 95 04/28/20 06:15 04/28/20 07:54 04/28/20 07:39 04/28/20 06:15 04/28/20 07:39 Oxygen Flow Rate (L/min) 2 Oxygen Delivery Method Nasal Cannula Weight: 98.6 kg Body Mass Index (BMI) 32.1 Intake and Output for Last 24 Hours 04/26/20 04/27/20 04/28/20 23:59 23:59 23:59 Intake Total 590 / 590 0 / 0 Output Total 100 / 100 0 / 0 Balance 490 / 490 0 / 0 General: Alert Neck: JVD, Bilateral Lungs: Rhonchi, Short of Breath Cardiovascular: Regular rate, Normal S1, Normal S2 Abdomen: Distended, Obese Laboratory Results 04/27/20 12:05: WBC 11.9 H, RBC 4.94, Hgb 13.9, Hct 43.5, MCV 88.1, MCH 28.1, MCHC 32.0, RDW Std Deviation 45.2 H, RDW Coeff of Bunny 14.0, Plt Count 237, MPV 11.6, Immature Gran % (Auto) 0.300, Neut % (Auto) 82.5 H, Lymph % (Auto) 7.7 L, [place] % (Auto) 7.8, Eos % (Auto) 1.4, Baso % (Auto) 0.3, Absolute Neuts (auto) 9.8 H, Absolute Lymphs (auto) 0.92, Nucleated RBC % 0 04/27/20 12:05: Sodium 139, Potassium 4.5, Chloride 109 H, Carbon Dioxide 24.0, Anion Gap 6, BUN 39 H, Creatinine 3.18 H, Estim Creat Clear Calc 23.47, Est GFR (MDRD) Af Amer 25 L, Est GFR (MDRD) Non-Af 21 L, BUN/Creatinine Ratio 12.3, Glucose 156 H, Calcium 8.3 L, Total Bilirubin 0.60, AST 16, ALT 20, Alkaline Phosphatase 74, Troponin I 0.137 H, Total Protein 7.2, Albumin 2.7 L, Globulin 4.5 H, Albumin/Globulin Ratio 0.6 L 04/27/20 12:05: B-Natriuretic Peptide 1499.9 H 04/27/20 15:35: Troponin I 0.112 H 04/27/20 18:50: Troponin I 0.095 H 04/28/20 06:14: Sodium 138, Potassium 5.1, Chloride 109 H, Carbon Dioxide 22.0, Anion Gap 7, BUN 59 H, Creatinine 3.95 H, Estim Creat Clear Calc 18.89, Est GFR (MDRD) Af Amer 20 L, Est GFR (MDRD) Non-Af 16 L, BUN/Creatinine Ratio 14.9, Glucose 154 H, Calcium 8.7, Phosphorus 3.0, Magnesium 2.6, Triglycerides 103, Cholesterol 222 H, LDL Cholesterol 166 H, VLDL Cholesterol 21, HDL Cholesterol 35 L 04/28/20 06:14: WBC 16.5 H, RBC 4.93, Hgb 14.0, Hct 43.8, MCV 88.8, MCH 28.4, MCHC 32.0, RDW Std Deviation 46.3 H, RDW Coeff of Bunny 14.4, Plt Count 242, MPV 12.0, Immature Gran % (Auto) 0.400, Neut % (Auto) 90.9 H, Lymph % (Auto) 4.1 L, [place] % (Auto) 4.5, Eos % (Auto) 0.0, Baso % (Auto) 0.1, Absolute Neuts (auto) 15.0 H, Absolute Lymphs (auto) 0.67 L, Nucleated RBC % 0 04/28/20 06:14: B-Natriuretic Peptide 1506.2 H Current Medications Acetaminophen (Tylenol) 650 mg PO Q6H PRN PRN PRN Reason: Pain Score 1-10/Temp > 100.7 F Albuterol Sulfate (Ventolin Aerosols) 2.5 mg INHALATION Q2H PRN PRN PRN Reason: SOB/Wheezing Albuterol/Ipratropium (Duoneb) 3 ml INHALATION Q4HWA.RT [facility] Ascorbic Acid (Vitamin C) 1,000 mg PO DAILY [facility] Last Admin: 04/28/20 07:55 Dose: 1,000 mg Documented by: Aspirin (Ecotrin) 81 mg PO DAILY@0800 [facility] Last Admin: 04/28/20 07:54 Dose: 81 mg Documented by: Atorvastatin Calcium (Lipitor) 40 mg PO QHS [facility] Last Admin: 04/27/20 22:14 Dose: 40 mg Documented by: Cholecalciferol (Vitamin D (25mcg)) 1,000 unit PO DAILY [facility] Last Admin: 04/28/20 07:55 Dose: 1,000 unit Documented by: Clopidogrel Bisulfate (Plavix) 75 mg PO DAILY [facility] Last Admin: 04/28/20 07:54 Dose: 75 mg Documented by: Cyanocobalamin (Vitamin B12) 1,000 mcg PO DAILY [facility] Last Admin: 04/28/20 07:55 Dose: 1,000 mcg Documented by: Dextrose (D50w Syringe) 0 gm IV X1 PRN; Protocol PRN Reason: Hypoglycemia Docusate Sodium (Colace) 100 mg PO DAILY PRN PRN PRN Reason: Constipation Glucagon () 1 mg IM .X1 PRN PRN Reason: Hypoglycemia Heparin Sodium (Porcine) (Heparin Na) 5,000 unit SC Q8 [facility] Last Admin: 04/28/20 06:17 Dose: 5,000 unit Documented by: Hydralazine HCl (Apresoline) 25 mg PO TID [facility] Last Admin: 04/28/20 06:17 Dose: 25 mg Documented by: Isosorbide Mononitrate (Imdur) 30 mg PO DAILY [facility] Last Admin: 04/28/20 07:54 Dose: 30 mg Documented by: Labetalol HCl (Trandate) 40 mg IV Q4H PRN PRN PRN Reason: SBP > 160 Last Admin: 04/27/20 17:53 Dose: 40 mg Documented by: Melatonin (Melatonin) 3 mg PO QHS PRN PRN PRN Reason: INSOMNIA Methylprednisolone (Solu-Medrol) 40 mg IV Q8 [facility] Metoprolol Succinate (Toprol Xl (Beta Montez)) 25 mg PO DAILY [facility] Last Admin: 04/28/20 07:54 Dose: 25 mg Documented by: Nicotine (Nicoderm Cq (Pbkc)) 14 mg TRANSDERM. DAILY [facility] Last Admin: 04/28/20 07:54 Dose: Not Given Documented by: Nitroglycerin (Nitrostat) 0.4 mg SUBLINGUAL Q5M PRN PRN Reason: CARDIAC/CHEST PAIN [id number] Ethyl Esters (Lovaza) 1 gm PO DAILY [facility] Last Admin: 04/28/20 07:54 Dose: 1 gm Documented by: Ondansetron HCl (Zofran) 4 mg IV Q8H PRN PRN PRN Reason: NAUSEA/VOMITING Sodium Chloride () 10 - 40 ml IV UD PRN PRN Reason: SALINE FLUSH Last Admin: 04/27/20 17:53 Dose: 10 ml Documented by: Tamsulosin HCl (Flomax) 0.4 mg PO DAILY@1730 [facility] Assessment/Plan All Active Problems (Last Reviewed 04/27/20 @ 14:[address] 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
--- NOTE | 2020-04-28 15:50 | CASEMGMT ---
LOGAN spoke with Sesar from Hospice and they did the pre-admit for Hospice with patient. SW will notify Hospice when patient is being discharged and fax d/c summary. A ballistic technician will meet patient at his home. RN will need to call ballistic technician with report. RN notified of all of this information. Plan: Home with [facility]. Yoly CHOE MSW
[2020-04-28] MEDS: Tamsulosin HCl 0.4 MG Capsule PO (16:35)
[2020-04-28] MEDS: 0.9% Saline Lock 10 ML Syringe IV (16:35)
--- NOTE | 2020-04-28 17:56 | PCM.PN.CARD ---
Subjectve: The patient appears to be resting comfortably at this time. He has no new acute complaints. He states that he was evaluated by nephrology today. He is attempting IV Bumex infusion at this time to see if it will help his underlying renal function and volume status. He states he was also evaluated by hospice care today. He has elected to continue with their care as an outpatient. Objective: Vital Signs Temp Pulse Resp BP Pulse Ox 98.1 F 67 16 150/80 H 95 04/28/20 15:28 04/28/20 15:28 04/28/20 15:28 04/28/20 15:28 04/28/20 15:28 Oxygen Flow Rate (L/min) 2 Oxygen Delivery Method Nasal Cannula Weight: 217 lb 6.012 oz Body Mass Index (BMI) 32.1 Intake and Output for Last 24 Hours 04/26/20 04/27/20 04/28/20 23:59 23:59 23:59 Intake Total 590 / 590 500 / 500 Output Total 100 / 100 300 / 300 Balance 490 / 490 200 / 200 General: Awake, Alert, Oriented x 3, Cooperative, Obese HEENT: Atraumatic, Normocephalic, PERRL, EOMI, Sclera Non Icteric Oral: Moist Mucosa Neck: Supple, Good ROM, No JVD Lungs: Diminished [place]uy Bases Cardiovascular: Regular Rhythm, Normal S1, Normal S2 Abdomen: Bowel Sounds Present, Soft Extremities: Mild RLE Edema, Mild LLE Edema 04/27/20 18:50: Troponin I 0.095 H 04/28/20 06:14: Sodium 138, Potassium 5.1, Chloride 109 H, Carbon Dioxide 22.0, Anion Gap 7, BUN 59 H, Creatinine 3.95 H, Est GFR (MDRD) Af Amer 20 L, Est GFR (MDRD) Non-Af 16 L, BUN/Creatinine Ratio 14.9, Glucose 154 H, Calcium 8.7, Phosphorus 3.0, Magnesium 2.6, Triglycerides 103, Cholesterol 222 H, LDL Cholesterol 166 H, VLDL Cholesterol 21, HDL Cholesterol 35 L 04/28/20 06:14: WBC 16.5 H, RBC 4.93, Hgb 14.0, Hct 43.8, MCV 88.8, MCH 28.4, MCHC 32.0, Plt Count 242, MPV 12.0, Immature Gran % (Auto) 0.400, Neut % (Auto) 90.9 H, Lymph % (Auto) 4.1 L, [place] % (Auto) 4.5, Eos % (Auto) 0.0, Baso % (Auto) 0.1, Absolute Neuts (auto) 15.0 H, Nucleated RBC % 0 04/28/20 06:14: B-Natriuretic Peptide 1506.2 H Rhythm: Sinus rhythm Medical Necessity - Tobacco Use Smoking Status: Current every day smoker Tobacco Use: Cigarettes Assessment/Plan 1. Abnormal cardiac enzymes/troponin I level The patient has an indeterminate troponin I level. The etiology may be multifactorial. There could be concerns from a cardiovascular standpoint that this is related to progression of CAD and non-ST segment elevation DC although unclear whether a type I versus a type II event. There may also be concerns as his LV wall motion systolic function of decline compared to previous studies that this could be related to concerns of CHF. He does not appear to of had evidence of a recent acute thromboembolic event, acute CVA, or an underlying acute infectious disease related etiology. At the same time his troponin I levels present in the setting of marked elevation of his creatinine level. At the moment from a cardiac standpoint he can be monitored. He can have his cardiac enzymes and ECG followed. He is already had an echocardiogram as noted. He can be treated medically with agents such as aspirin, antiplatelet agents, nitrates, beta-blockers, lipid-lowering agents, etc. He is not an ideal candidate at this time based upon his multiple medical issues including his marked elevation of his creatinine level for a return trip to the cardiac catheterization laboratory based upon the concerns of IV contrast related nephropathy. 2. CAD status post PCI The patient does have a history of CAD and is status post PCI in the past as noted. At the present time he is undergoing evaluation care for his shortness of breath/dyspnea and his indeterminate troponin I levels superimposed upon his other multiple medical issues. At the moment he will continue medical management. Again he is not an ideal candidate for repeat evaluation in the cardiac catheterization laboratory based upon concerns of IV contrast related nephropathy. 3. Ischemic mediated cardiomyopathy He does have a history of an ischemic mediated cardiomyopathy. Based on his echocardiogram is LV systolic function has declined. He will continue medical management. Ideally he undergo reevaluation of his coronary anatomy to evaluate for progression of disease and requires additional revascularization therapy that may help his left ventricular wall motion systolic function. However again he is not an ideal candidate for such based upon his marked chronic renal insufficiency and concerns of IV contrast related nephropathy which could produce the need for hemodialysis therapy. 4. Chronic systolic CHF He does have history of chronic systolic CHF. He will continue medical management with adjustment of medications as needed. At the present time per nephrology recommendations he is attempting IV Bumex infusion. If this is beneficial to him then perhaps he can be changed to oral Bumex to assist with his volume status and provide some element of symptomatic relief. 5. Hyperlipidemia He states he is continuing his lipid-lowering therapy. 6. Hypertension His blood pressure will need to be followed. He states he has been off of his medications other than those mentioned above. Hopefully restarting his medications will help bring his blood pressure under better control. 7. Chronic renal insufficiency His creatinine level has been markedly elevated since approximately November 2018. He states he has not been evaluated by nephrology for this. Again he has been evaluated by nephrology. He is continuing attempted IV Bumex and therapy as noted above. 8. COPD He does have a history of COPD. He states he continues to smoke tobacco. 9. Dyspnea His main concern is been dyspnea. He states is been worsening. This may be multifactorial related to a combination of his cardiopulmonary related issues as well as other issues that may yet to be defined. At the moment he will continue cardiac evaluation care as noted above. He may need further input from pulmonology as well. Comment: The patient was evaluated by hospice today. He states his plan is to go home tomorrow under hospice care. This note was generated using a voice recognition system and there may be incorrect words, spelling or punctuation that were not noted when reviewing the office note prior to saving.
[2020-04-28] MEDS: Atorvastatin Calcium 40 MG Tablet PO (22:04)
--- NOTE | 2020-04-28 22:09 | CPS ---
I asked the patient if he'd like to be placed on BiPAP for the night, and he refused at this time.
[2020-04-29] VITALS (12 sets, daily range): BP systolic 133–143; BP diastolic 71–85; PULSE 66–98; RESP 18–20; TEMP 36.3–36.7; O2SAT 92–95
[2020-04-29] MEDS: 0.9% Saline Lock 10 ML Syringe IV ×2 (05:30→13:11)
[2020-04-29] MEDS: Ondansetron 4 MG/2 ML Vial IV (05:30)
--- NOTE | 2020-04-29 05:50 | NURSING ---
Patient found sitting up on edge of bed vomiting in trash can. Patient medicated with PRN zofran per MD order. Patient is complaining of 10/10 pain in his abdomen, hands, and arms. Only PRN med on DEC is PO Tylenol. Dr. Angel notified of the above and that patient is enrolling with Hospice today. Orders received for morphine 2mg IV Q2H PRN pain 6-10 and order to change Zofran 4mg IV Q8H PRN nausea to Zofran 4mg IV Q6H PRN nausea. Patient notified of new orders.
[2020-04-29] MEDS: Morphine 2 MG/ML Syringe IV (06:00)
--- NOTE | 2020-04-29 06:16 | NURSING ---
Aaron helped patient to feel less nauseated however patient states that he does not want to take his 0600 meds until 0800. Will notify day shift RN in bedside shift report.
[2020-04-29 07:09] LABS: Absolute Lymphocyte Count 0.54 X10^3/uL (0.83-4.51); Absolute Neutrophil Count 18.8 X10^3/uL (2.0-7.7); Basophil# 0.02 X10^3/uL; Basophil% 0.1 % (0-1); Hematocrit 44.1 % (40-54); Lymphocyte # 0.54 X10^3/ul (4.0); Lymphocyte % 2.7 % (19-41); Mean Corp Hgb Conc 31.7 g/dL (32-36); Mean Corpuscular Hgb 28.1 pg (27.0-32.0); Mean Corpuscular Volume 88.6 fL (80-94); Mean Platelet Vol. 12.1 fl (6.2-12.0); Monocyte# 0.78 X10^3/uL; Monocyte% 3.8 % (0-10); NRBC Flagged by Analyzer 0 % (0-5); Neutrophil # 18.83 X10^3/uL (2.7-7.7); Neutrophil % 92.6 % (47-70); POSITIVE DIFFERENTIAL YES; Platelet Count 295 K/mm3 (150-450); RBC Distribution Width CV 14.3 % (11.6-14.6); RBC Distribution Width SD 46.2 fl (35.1-43.9); Red Blood Count 4.98 M/mm3 (4.6-6.2); White Blood Count 20.3 K/mm3 (4.4-11.0)
[2020-04-29 07:11] LABS: Differential Indicated SCAN CRITERIA MET
[2020-04-29] MEDS: Ipratropium/Albuterol Sulfate 3 ML AMPUL.NEB INHALATION ×2 (07:16→11:08)
[2020-04-29 07:37] LABS: Anion Gap 10 (5-15); BUN 90 mg/dL (7-18); Calcium,Total 8.5 mg/dL (8.5-10.1); Chloride 103 mmol/L (98-107); EST Glomerular Filtration Rate 12 mL/min (>60); Est Glom Filt Rate - Afr Amer 15 mL/min (>60); Estimated Creatinine Clearance 14.93 ml/min; Glucose 157 mg/dL (74-106); Magnesium 2.9 mg/dL (1.6-2.6); Potassium 5.3 mmol/L (3.5-5.1); Sodium Level 137 mmol/L (136-145)
[2020-04-29] MEDS: Aspirin E.C. 81 MG Tablet PO (08:27)
[2020-04-29] MEDS: Clopidogrel Bisulfate 75 MG Tablet PO (08:28)
[2020-04-29] MEDS: Isosorbide Mononitrate 30 MG Tablet PO (08:28)
[2020-04-29] MEDS: Cyanocobalamin 500 MCG Tablet 1000 MCG PO (08:28)
[2020-04-29] MEDS: hydrALAZINE 25 MG Tablet PO ×2 (08:29→13:08)
[2020-04-29] MEDS: Heparin Injection (Vial) 5,000 UNIT/ML VIAL 5000 UNIT SC ×2 (08:30→13:09)
[2020-04-29] MEDS: Metoprolol(XL)Succ 25 MG Tablet PO (08:31)
[2020-04-29] MEDS: Ascorbic Acid 500 MG Tablet 1000 MG PO (08:31)
[2020-04-29] MEDS: Omega-3 Acid Ethyl Esters 1 GM Capsule PO (08:31)
[2020-04-29] MEDS: Midodrine HCl 5 MG Tablet PO ×2 (08:38→13:09)
[2020-04-29] MEDS: Sodium Polystyrene Sulfonate 15 GM/60 ML UDC 30 GM PO (08:39)
--- NOTE | 2020-04-29 11:40 | PCM.DC ---
- Discharge Diagnoses Current Active Problems: Current Active and Chronic Problems (Last Reviewed 04/27/20 @ 14:[address] Irlanda Rubio, DO) Dyspnea (Acute) Elevated troponin (Acute) Abnormal cardiac enzyme level (Acute) S/P PTCA (percutaneous transluminal coronary angioplasty) (Chronic) Cardiomyopathy, ischemic (Chronic) CHF (congestive heart failure) (Chronic) Chronic renal insufficiency (Chronic) You will use the following diet at home:: Cardiac Your food should be the consistency of: Regular Discharge Activity: May Not Drive Additional Instructions: Patient has follow-up with home hospice after discharge at home Allergies/Adverse Reactions: Allergies No Known Allergies Allergy (Verified 04/27/20 11:13) Medications to take at Discharge Aspirin [Aspir-Low] 81 mg PO DAILY 07/04/17 metoprolol succinate 25 mg tablet,extended release 24 hr 25 mg PO DAILY #90 tab 09/28/18 simvastatin 80 mg tablet 80 mg PO QHS #90 tab 09/28/18 Tamsulosin HCl [Flomax] 0.4 mg PO DAILY #30 capsule 12/03/18 Cholecalciferol (VIT D3) [Vitamin D3] 1,000 mg PO DAILY 12/06/18 Clopidogrel Bisulfate [Clopidogrel] 75 mg PO DAILY 12/06/18 Isosorbide Mononitrate [Isosorbide Mononitrate ER] 30 mg PO DAILY 12/06/18 Albuterol Inhaler [Ventolin Hfa] 1 - 2 puff INHALATION Q4H PRN PRN #1 inhaler 12/09/18 Ascorbic Acid [Vitamin C] 1,000 mg PO DAILY 04/27/20 Cyanocobalamin (Vitamin B-12) [Vitamin B-12] 2,500 mcg PO DAILY 04/27/20 Docusate Sodium 100 mg PO DAILY PRN PRN 04/27/20 Nitroglycerin [Nitrostat] 0.4 mg SL PRN PRN 04/27/20 Bumetanide [Bumex] 2 mg PO BID #60 tab 04/29/20 Ipratropium/Albuterol Sulfate [Duoneb] 3 ml INHALATION Q4HWA.RT ampul.neb 04/29/20 Midodrine HCl [Proamatine] 5 mg PO TID #90 tab 04/29/20 hydrALAZINE [Apresoline] 25 mg PO TID #90 tab 04/29/20 The following prescriptions were given: hydrALAZINE [Apresoline] 25 mg PO TID #90 tab Transmission Status: Pending to [facility] Bumetanide [Bumex] 2 mg PO BID #60 tab Transmission Status: Pending to [facility] Midodrine HCl [Proamatine] 5 mg PO TID #90 tab Transmission Status: Pending to [facility] Primary Care Physician: Neil Holden MD [STAFF PHYSICIAN] - Please follow up with your Primary Care Physician in: in 2 week Test Results: Test results from this visit will be discussed in further detail at your follow-up appointment, if applicable.
--- NOTE | 2020-04-29 12:01 | DS.PCM_ITS ---
Discharge Date and Diagnosis - Problem List Patient Problems: Active and Suspected Problems (Last Reviewed 04/27/20 @ 14:[address] Irlanda Rubio DO) Dyspnea (Acute) Elevated troponin (Acute) Abnormal cardiac enzyme level (Acute) Date of Admission: 04/27/20 Date of Discharge: 04/29/20 - Primary Discharge Diagnosis Acute Problems: Active Problems (Last Reviewed 04/27/20 @ 14:[address] Irlanda Rubio DO) Dyspnea (Acute) Elevated troponin (Acute) Abnormal cardiac enzyme level (Acute) - Secondary Discharge Diagnosis Chronic Problems: Chronic Problems (Last Reviewed 04/27/20 @ 14:[address] Irlanda Rubio DO) BPH (benign prostatic hyperplasia) (Chronic) CAD (coronary artery disease) (Chronic) Hypertension (Chronic) COPD (chronic obstructive pulmonary disease) (Chronic) Hyperlipidemia (Chronic) COPD exacerbation (Chronic) S/P PTCA (percutaneous transluminal coronary angioplasty) (Chronic) Cardiomyopathy, ischemic (Chronic) CHF (congestive heart failure) (Chronic) Chronic renal insufficiency (Chronic) Hospital Course and Treatment Operations: None Summary of Care Provided: [] This 64 gentleman is admitted for progressive worsening of shortness of breath for 2 weeks along with ascites, generalized weakness and weight gain of about 40 pounds in last 1 months. Patient has history of COPD uses BiPAP at night, coronary artery disease, ischemic cardiomyopathy, EF 30%, mild MR, mild TR, lymphoma and CKD stage IV. 1. Acute on chronic systolic and diastolic combined heart failure: She is being admitted in PCU. Seen by social media editor. On medical management. There is decline in the LV systolic function, EF 30%. Patient had echo on April 27, 2020, mild concentric LVH, LA mildly enlarged, mild MR and trivial TR. Started on Bumex drip along with IV albumin. Parviz wrap bandage. Patient was put on Bumex drip. Bumex drip was later on discontinued was at the patient selected hospice and does not want further treatment. IV albumin was discontinued. Elevated BNP 1500. 2. Coronary artery disease status post stent in LAD and first diagonal: Patient has indeterminate troponin may be multifactorial, related to demand supply mismatch, anasarca with ascites or kidney dysfunction, CKD stage IV. Troponin is trending down. Cardiac Cath: 12-03-2007 Left ventricle: Hypokinesis to severe hypokinesis of the basal inferior to mid inferior segment with an estimated LVEF 45% Left main: Angiographically normal LAD: Diffuse minimal luminal irregularities Diagonal branch: Ostial/proximal hazy appearing 85% stenosis LCx/OM: Diffuse minimal luminal irregularities RCA: Proximal catheter tip induced coronary artery vasospasm with relief status post intracoronary nitroglycerin with mid diffuse 10 to 25% stenosis and distal stented segment patent with minimal luminal irregularities Mitral valve: Trace to mild MR which appears to be PVC induced PCI: 12-04-2007: [facility]: PCI to the first diagonal branch PCI to the LAD-proximal 3. Acute kidney injury on CKD stage IV, close to ESRD with ascites and anasarca: Patient was seen by interactive media marketing director. Discussed with him. Not a candidate for long-term REVIEW MANAGER. Bumex drip with albumin, midodrine 5 mg 3 times daily and monitor kidney function daily. 4. COPD exacerbation, obstructive sleep apnea: Patient uses BiPAP at night. On bronchodilator, Solu-Medrol, incentive spirometry, pep, chest physiotherapy 5. History of lymphoma: Patient follows oncology. Not clear exactly type, natural history of his lymphoma. 6 other comorbidities include hypertension, dyslipidemia, vitamin D deficiency: 7. DVT prophylaxis: Heparin 5000 discontinues 3 times daily. Patient was evaluated by palliative care/hospice care. CODE STATUS changed to DNR CC. Patient opted for home with hospice care. Patient discharged home. Patient Problems: Active and Suspected Problems (Last Reviewed 04/27/20 @ 14:[address] Irlanda Rubio, DO) Dyspnea (Acute) Elevated troponin (Acute) Abnormal cardiac enzyme level (Acute) Objective: Patient is short of breath. No fever. Patient was evaluated palliative care and treatment hospice appropriate. Patient selected home with hospice care. Hospice will take care of when patient reaches home. On exam General: Alert, Oriented x3, Cooperative, patient is short of breath in mild respiratory distress HEENT: Atraumatic, PERRLA, EOMI, Normocephalic Neck: Supple, No JVD, Negative Carotid Bruits Lungs: Air entry severely diminished in both lungs, Bilateral rhonchi present on 2 L of oxygen Cardiovascular: Normal S1, Normal S2, No murmurs, PVCs on campus monitor in the morning, heart rate is controlled Abdomen: Bowel Sounds Present, Soft, Non Tender, fluid thrill and shifting dullness present suggestive of ascites. Extremities: No significant pedal edema., Capillary Refill Less than 3 Seconds Skin: No rashes, No breakdown Musculoskeletal: No Tenderness to Palpation of Joints or Extremities, Arthritic Changes Neurological: Cranial nerves II-XII grossly intact, Deep Tendon Reflexes 2+/4 and Symmetrical, Neuro grossly intact Psych/Mental Status: Normal Affect, Appropriate - Physical Exam Vitals/I&O's: Vital Signs Temp Pulse Resp BP Pulse Ox 98.0 F 88 20 H 138/83 H 95 04/29/20 10:15 04/29/20 11:08 04/29/20 11:08 04/29/20 10:15 04/29/20 10:15 Oxygen Flow Rate (L/min) 2 Oxygen Delivery Method Nasal Cannula Weight: 220 lb 7.396 oz Body Mass Index (BMI) 32.1 Intake and Output for Last 24 Hours 04/27/20 04/28/20 04/29/20 23:59 23:59 23:59 Intake Total 590 / 590 1000 / 1360 786.87 / 786.87 Output Total 100 / 100 600 / 1150 1050 / 1050 Balance 490 / 490 400 / 210 -263.13 / -263.13 Laboratory Results 04/29/20 06:59: WBC 20.3 H, RBC 4.98, Hgb 14.0, Hct 44.1, MCV 88.6, MCH 28.1, MCHC 31.7 L, RDW Std Deviation 46.2 H, RDW Coeff of Bunny 14.3, Plt Count 295, MPV 12.1 H, Immature Gran % (Auto) 0.800, Neut % (Auto) 92.6 H, Lymph % (Auto) 2.7 L, Thomas % (Auto) 3.8, Eos % (Auto) 0.0, Baso % (Auto) 0.1, Absolute Neuts (auto) 18.8 H, Absolute Lymphs (auto) 0.54 L, Nucleated RBC % 0 04/29/20 06:59: Sodium 137, Potassium 5.3 H, Chloride 103, Carbon Dioxide 24.0, Anion Gap 10, BUN 90 H, Creatinine 5.00 H, Estim Creat Clear Calc 14.93, Est GFR (MDRD) Af Amer 15 L, Est GFR (MDRD) Non-Af 12 L, BUN/Creatinine Ratio 18.0, Glucose 157 H, Calcium 8.5, Magnesium 2.9 H Current Medications Acetaminophen (Tylenol) 650 mg PO Q6H PRN PRN PRN Reason: Pain Score 1-10/Temp > 100.7 F Albuterol Sulfate (Ventolin Aerosols) 2.5 mg INHALATION Q2H PRN PRN PRN Reason: SOB/Wheezing Albuterol/Ipratropium (Duoneb) 3 ml INHALATION Q4HWA.RT [facility] Last Admin: 04/29/20 11:08 Dose: 3 ml Documented by: Ascorbic Acid (Vitamin C) 1,000 mg PO DAILY [facility] Last Admin: 04/29/20 08:31 Dose: 1,000 mg Documented by: Aspirin (Ecotrin) 81 mg PO DAILY@0800 [facility] Last Admin: 04/29/20 08:27 Dose: 81 mg Documented by: Atorvastatin Calcium (Lipitor) 40 mg PO QHS [facility] Last Admin: 04/28/20 22:04 Dose: 40 mg Documented by: Cholecalciferol (Vitamin D (25mcg)) 1,000 unit PO DAILY [facility] Last Admin: 04/29/20 08:28 Dose: 1,000 unit Documented by: Clopidogrel Bisulfate (Plavix) 75 mg PO DAILY [facility] Last Admin: 04/29/20 08:28 Dose: 75 mg Documented by: Cyanocobalamin (Vitamin B12) 1,000 mcg PO DAILY [facility] Last Admin: 04/29/20 08:28 Dose: 1,000 mcg Documented by: Dextrose (D50w Syringe) 0 gm IV X1 PRN; Protocol PRN Reason: Hypoglycemia Docusate Sodium (Colace) 100 mg PO DAILY PRN PRN PRN Reason: Constipation Glucagon () 1 mg IM .X1 PRN PRN Reason: Hypoglycemia Heparin Sodium (Porcine) (Heparin Na) 5,000 unit SC Q8 [facility] Last Admin: 04/29/20 08:30 Dose: 5,000 unit Documented by: Hydralazine HCl (Apresoline) 25 mg PO TID [facility] Last Admin: 04/29/20 08:29 Dose: 25 mg Documented by: Bumetanide 20 mg/ (Miscellaneous Information) 80 mls @ 4 mls/hr CONT INF .Q20H [facility] Last Admin: 04/29/20 09:18 Dose: 1 mg/hr, 4 mls/hr Documented by: Isosorbide Mononitrate (Imdur) 30 mg PO DAILY [facility] Last Admin: 04/29/20 08:28 Dose: 30 mg Documented by: Labetalol HCl (Trandate) 40 mg IV Q4H PRN PRN PRN Reason: SBP > 160 Last Admin: 04/27/20 17:53 Dose: 40 mg Documented by: Melatonin (Melatonin) 3 mg PO QHS PRN PRN PRN Reason: INSOMNIA Methylprednisolone (Solu-Medrol) 40 mg IV Q8 [facility] Last Admin: 04/29/20 08:30 Dose: 40 mg Documented by: Metoprolol Succinate (Toprol Xl (Beta Montez)) 25 mg PO DAILY [facility] Last Admin: 04/29/20 08:31 Dose: 25 mg Documented by: Midodrine (Proamatine) 5 mg PO TID [facility] Last Admin: 04/29/20 08:38 Dose: 5 mg Documented by: Morphine Sulfate () 2 mg IV Q2H PRN PRN PRN Reason: Pain Score 6-10/10 Last Admin: 04/29/20 06:00 Dose: 2 mg Documented by: Nicotine (Nicoderm Cq (Pbkc)) 14 mg TRANSDERM. DAILY [facility] Last Admin: 04/29/20 08:28 Dose: Not Given Documented by: Nitroglycerin (Nitrostat) 0.4 mg SUBLINGUAL Q5M PRN PRN Reason: CARDIAC/CHEST PAIN Rtoxn-6-Bhum Ethyl Esters (Lovaza) 1 gm PO DAILY [facility] Last Admin: 04/29/20 08:31 Dose: 1 gm Documented by: Ondansetron HCl (Zofran) 4 mg IV Q6H PRN PRN PRN Reason: NAUSEA/VOMITING Sodium Chloride () 10 - 40 ml IV UD PRN PRN Reason: SALINE FLUSH Last Admin: 04/29/20 05:30 Dose: 10 ml Documented by: Tamsulosin HCl (Flomax) 0.4 mg PO DAILY@1730 [facility] Last Admin: 04/28/20 16:35 Dose: 0.4 mg Documented by: Discharge Activity: May Not Drive Home Medications: Medications to take at Discharge Aspirin [Aspir-Low] 81 mg PO DAILY 07/04/17 metoprolol succinate 25 mg tablet,extended release 24 hr 25 mg PO DAILY #90 tab 09/28/18 simvastatin 80 mg tablet 80 mg PO QHS #90 tab 09/28/18 Tamsulosin HCl [Flomax] 0.4 mg PO DAILY #30 capsule 12/03/18 Cholecalciferol (VIT D3) [Vitamin D3] 1,000 mg PO DAILY 12/06/18 Clopidogrel Bisulfate [Clopidogrel] 75 mg PO DAILY 12/06/18 Isosorbide Mononitrate [Isosorbide Mononitrate ER] 30 mg PO DAILY 12/06/18 Albuterol Inhaler [Ventolin Hfa] 1 - 2 puff INHALATION Q4H PRN PRN #1 inhaler 12/09/18 Ascorbic Acid [Vitamin C] 1,000 mg PO DAILY 04/27/20 Cyanocobalamin (Vitamin B-12) [Vitamin B-12] 2,500 mcg PO DAILY 04/27/20 Docusate Sodium 100 mg PO DAILY PRN PRN 04/27/20 Nitroglycerin [Nitrostat] 0.4 mg SL PRN PRN 04/27/20 Bumetanide [Bumex] 2 mg PO BID #60 tab 04/29/20 Ipratropium/Albuterol Sulfate [Duoneb] 3 ml INHALATION Q4HWA.RT ampul.neb 04/29/20 Midodrine HCl [Proamatine] 5 mg PO TID #90 tab 04/29/20 hydrALAZINE [Apresoline] 25 mg PO TID #90 tab 04/29/20 Following Prescrptions Were Given to Patient: hydrALAZINE [Apresoline] 25 mg PO TID #90 tab Transmission Status: Received by [facility] Bumetanide [Bumex] 2 mg PO BID #60 tab Transmission Status: Received by [facility] Midodrine HCl [Proamatine] 5 mg PO TID #90 tab Transmission Status: Received by [facility] Primary Care Physician: Neil Holden MD [STAFF PHYSICIAN] - Please follow up with your Primary Care Physician in: in 2 week Medical Necessity - Tobacco Use Smoking Status: Current every day smoker Tobacco Use: Cigarettes Meaningful Use Info Meaningful Use Diagnoses (Choose all that apply): CHF - CHF PARVIZ/ARB ordered at discharge?: No Reason PARVIZ/ARB not ordered?: Worsening renal dysfunctn - Patient selected home with hospice care. Documented LVEF (%): 30 Inpatient E&M: 44249 Disch Hosp
--- NOTE | 2020-04-29 12:21 | PHA.DC.MR ---
Pharmacy Service has performed discharge medication reconciliation for this patient. The patient's discharge medication list was reviewed for discrepancies and discrepancies were resolved. Home Medications Aspirin [Aspir-Low] 81 mg PO DAILY 07/04/17 metoprolol succinate 25 mg tablet,extended release 24 hr 25 mg PO DAILY #90 tab 09/28/18 simvastatin 80 mg tablet 80 mg PO QHS #90 tab 09/28/18 Tamsulosin HCl [Flomax] 0.4 mg PO DAILY #30 capsule 12/03/18 Cholecalciferol (VIT D3) [Vitamin D3] 1,000 mg PO DAILY 12/06/18 Clopidogrel Bisulfate [Clopidogrel] 75 mg PO DAILY 12/06/18 Isosorbide Mononitrate [Isosorbide Mononitrate ER] 30 mg PO DAILY 12/06/18 Albuterol Inhaler [Ventolin Hfa] 1 - 2 puff INHALATION Q4H PRN PRN #1 inhaler 12/09/18 Ascorbic Acid [Vitamin C] 1,000 mg PO DAILY 04/27/20 Cyanocobalamin (Vitamin B-12) [Vitamin B-12] 2,500 mcg PO DAILY 04/27/20 Docusate Sodium 100 mg PO DAILY PRN PRN 04/27/20 Nitroglycerin [Nitrostat] 0.4 mg SL PRN PRN 04/27/20 Bumetanide [Bumex] 2 mg PO BID #60 tab 04/29/20 Ipratropium/Albuterol Sulfate [Duoneb] 3 ml INHALATION Q4HWA.RT ampul.neb 04/29/20 Midodrine HCl [Proamatine] 5 mg PO TID #90 tab 04/29/20 hydrALAZINE [Apresoline] 25 mg PO TID #90 tab 04/29/20
--- NOTE | 2020-04-29 12:45 | CASEMGMT ---
Addendum entered by Elvira Quintana 04/29/20 14:11: LOGAN let Sesar at hospice know that SW assisted pt in completing new LW/POA, faxed them copies. LOGAN also let Sesar know that pt is not going to wait for the delivery of oxygen in order to go home, he does not feel he needs it--bedside RN did check and pt was 89-92 on room air. [facility] Original Note: Pt is ready for discharge home w/hospice today. SW spoke w/pt, he has a friend picking him up here between 3pm and 3:30pm, once the DME is delivered. LOGAN faxed discharge instructions to [facility], and let Sesar know that pt's friend will be here between 3pm and 3:3pm to flower buncher or picker pt. BEBO Cali
--- NOTE | 2020-04-29 12:56 | CASEMGMT ---
Addendum entered by Elvira Quintana 04/29/20 13:51: SW assisted pt in completing updated LW/POA forms as SW from hospice unable to go to home at this time to complete the forms. SW gave pt original, faxed copy to hospice and placed copy on the chart. [facility] Original Note: LW/POA forms are in chart in summary tab. SW asked pt about them, as they have daughter Marie listed as medical POA. Pt wants to update the forms to make friend Fernando PAUL, but at present is working on setting up transportation home and would like to follow up w/hospice on this when he goes home. SW called [facility] and asked Sesar to have social service director assist pt in updating his POA forms. [facility] Cali
== END 2020-04-29 15:35 | disposition hospice, home (50) | DRG 291 ==
LOC: ED 12:57 → PCU 13:17
PROVIDERS: Internal Medicine; Admitting Provider Internal Medicine; Emergency Provider Emergency Medicine; Visit Provider Internal Medicine
DX: I13.0 Hypertensive heart and chronic kidney disease with heart failure and stage 1 through stage 4 chronic kidney disease, or unspecified chronic kidney disease (principal); I50.43 Acute on chronic combined systolic (congestive) and diastolic (congestive) heart failure; N17.9 Acute kidney failure, unspecified; N18.4 Chronic kidney disease, stage 4 (severe); J44.1 Chronic obstructive pulmonary disease with (acute) exacerbation; R18.8 Other ascites; N13.8 Other obstructive and reflux uropathy; I25.5 Ischemic cardiomyopathy; R74.8 Abnormal levels of other serum enzymes; I25.10 Atherosclerotic heart disease of native coronary artery without angina pectoris; E78.5 Hyperlipidemia, unspecified; N40.1 Benign prostatic hyperplasia with lower urinary tract symptoms; R33.8 Other retention of urine; R35.0 Frequency of micturition; R35.1 Nocturia; E55.9 Vitamin D deficiency, unspecified; G47.33 Obstructive sleep apnea (adult) (pediatric); F17.210 Nicotine dependence, cigarettes, uncomplicated; Z79.82 Long term (current) use of aspirin; Z79.02 Long term (current) use of antithrombotics/antiplatelets; Z79.899 Other long term (current) drug therapy; Z95.5 Presence of coronary angioplasty implant and graft; Z85.72 Personal history of non-Hodgkin lymphomas; E66.9 Obesity, unspecified; Z68.32 Body mass index [BMI] 32.0-32.9, adult
CPT/HCPCS: 36415; 71045; 80048; 80053; 80061; 83735; 83880; 84100; 84484; 85025; 93005; 93306; 94640; 97802; 99251; 99285; 99406; Q9957; A4216; C8929; G0463; J1940; J2405